=== PATIENT | female | born 1940 | race Caucasian/White ===

== ENCOUNTER → 2020-06-14 11:11 | Outpatient (REF) | payer MEDICARE, SELFPAY ==
--- NOTE | 2020-06-14 11:30 | CA_ITS ---
Transthoracic Echocardiogram Patient (Last, First, Middle): Radha Gautam, Gender: Female Date of : 1940 Age: 79 Procedure Date: 06/14/2020 Procedure Type: Transthoracic Echocardiogram Location: OP Height: 165.1 cm Weight: 77.11 kg BSA: 1.85 m2 Heart Rate: bpm BP: 122 / 76 mmHg Queen Producer: Referring MD: Otoniel Lees MD Symptoms: chemotherapy for breast ca, reduce EF Study Quality: Good ECG Rhythm: Sinus Conclusions: - Normal left ventricular cavity size. There is mildly increased left ventricular wall thickness. The left ventricular systolic function is hyperdynamic. The visually estimated ejection fraction is between 65-70%. - Normal right ventricular cavity size and systolic function. - No significant valvular or pericardial pathology. Findings Left Ventricle Normal left ventricular cavity size. There is mildly increased left ventricular wall thickness. The left ventricular systolic function is hyperdynamic. The visually estimated ejection fraction is between 65-70%. There is no evidence of regional wall motion abnormalities. Abnormal diastolic function is noted. Spectral Doppler is indicative of an impaired relaxation filling pattern. E/E prime ratio is between 8 and 15 consistent with indeterminate filling pressures. Right Ventricle Normal right ventricular cavity size and systolic function. Atria The left atrium is normal in size. There is no evidence of interatrial shunt by color Doppler. The right atrium is normal in size. Aortic Valve There is a normal trileaflet aortic valve. There is mild calcification of the aortic valve. There is no aortic valve stenosis. There is no aortic valve regurgitation. Mitral Valve Normal mitral valve structure and function. There is no mitral valve regurgitation. There is no mitral valve stenosis. Pulmonic Valve The pulmonic valve is likely normal. Tricuspid Valve Normal tricuspid valve structure and function. There is trace tricuspid valve regurgitation. Normal right atrial pressure. There is no evidence of pulmonary hypertension. Great Vessels All visible segments of the aorta are normal in size. The visualized portions of the pulmonary artery and branches are normal. Venous The inferior vena cava is normal in size and collapses greater than 50% with inspiration. Pericardium/Pleural There is no evidence of pericardial effusion. Prior Study Comparison No significant change compared to prior study dated: 08/13/2014. Measurements 2D Linear Measurements IVSd: 1.16 0.6-0.9/0.6-1.0 cm LVIDd: 4.27 3.9-5.3/4.2-5.9 cm LVIDs: 2.68 2.0-3.6 cm LVPWd: 1.18 0.7-1.1 cm Ao Root: 3.14 2.1-3.5 cm LV Mass: 219.33 67-162/88-224 g LVOT Diam: 2.19 3.0+(-)1.3 cm Mitral Valve MV Pk E: 0.70 MV PK A: 1.23 MV Decel Time: 214.70 E/A: 0.57 E'Lateral: 0.06 E'Medial: 0.05 Decel [place]: 3.27 Aortic Valve AoV Pk Merlin: 1.40 AoV Mn Merlin: 1.03 AoV VTI: 0.35 AoV Pk Grad: 7.89 Aov Mn Grad: 4.72 LVOT LVOT Pk Merlin: 1.04 LVOT Mn Merlin: 0.62 LVOT VTI: 0.28 LVOT Pk Grad: 4.34 LVOT Mn Grad: 1.96 LVOT Diam: 2.19 LVOT Area: 3.76 Diastolic Function MV Pk E: 0.70 MV Pk A: 1.23 E/A: 0.57 E'Medial: 0.05 E' Laterial: 0.06 Tricuspid Valve TR Pk Merlin: 1.64 TR Pk Grad: 10.73 RA Press: 3.00 RVSP: 15.00 Great Vessels Aorta Ao Root-2D: 3.14 2.0-3.7 cm Pulmonary Valve PV Pk Merlin: 0.83 Peak PV Grad: 2.79 Updated in Other Vendor System with Status of Final Hardik Avendano MD electronically signed on 06/14/2020 7:31:44 PM with status of Final
== END ==
LOC: HO.CARD 11:11
PROVIDERS: Visit Provider Internal Medicine Medical Oncology
DX: R09.89 Other specified symptoms and signs involving the circulatory and respiratory systems (principal)
CPT/HCPCS: 93306

== ENCOUNTER → 2020-08-23 14:05 | Outpatient (BNVA) | payer MEDICARE, SELFPAY | PROVIDERS: PCP Internal Medicine; Visit Provider Surgery | DX: C50.911 Malignant neoplasm of unspecified site of right female breast (principal); Z79.811 Long term (current) use of aromatase inhibitors; Z17.0 Estrogen receptor positive status [ER+] | CPT/HCPCS: 99212 ==

== ENCOUNTER 2020-09-02 09:56 | Outpatient (REF) | payer MEDICARE, SELFPAY ==
[2020-09-02 13:45] LABS: MANUAL DIFF FLAG NO
[2020-09-02 14:00] LABS: Basophils Percent Auto 0.6 % (0-2); Eosinophils Absolute Auto 0.2 X10*3/uL (0.0-0.4); Eosinophils Percent Auto 3.2 % (0-4); Hematocrit 40.5 % (37-47); Hemoglobin 13.2 g/dl (12.0-16.0); Imm Gran Abs Auto 0.02 X10*3/uL (0.00-0.03); Imm Gran Pct Auto 0.4 % (0.0-0.4); Lymphocytes Absolute Auto 0.8 X10*3/uL (1.2-4.9); Lymphocytes Percent Auto 17.7 % (20-40); Mean Corpuscular HGB Conc 32.6 g/dl (31.0-35.0); Mean Corpuscular Hemoglobin 31.9 pg (27.0-33.0); Mean Corpuscular Volume 97.8 fL (80-98); Mean Platelet Volume 11.6 fL (9.4-12.3); Monocytes Absolute Auto 0.5 X10*3/uL (0.1-1.2); Monocytes Percent Auto 10.3 % (2-11); Neutrophils Absolute Auto 3.2 X10*3/uL (2.0-8.3); Neutrophils Percent Auto 67.8 % (45-73); Platelet Count 143 X10*3/uL (160-400); Red Blood Count 4.14 X10*6/uL (4.20-5.50); Red Cell Distribution Width 12.4 % (11.0-16.0); White Blood Count 4.7 X10*3/uL (4.8-10.8)
[2020-09-02 14:33] LABS: Alanine Aminotransferase 26 U/L (0-31); Albumin Level 4.3 g/dL (3.5-5.0); Alkaline Phosphatase 74 U/L (39-117); Anion Gap 15 (12-20); Aspartate Amino Transferase 26 U/L (5-31); Bilirubin Total 1.2 mg/dL (0.0-1.0); Blood Urea Nitrogen 18 mg/dL (9-16); Calcium 9.1 mg/dL (8.4-10.2); Carbon Dioxide 24 mmol/L (22-29); Chloride 106 mmol/L (96-108); Cholesterol 170 mg/dL; Estimated Glomerular Filt Rate > 60; Glucose Fasting 104 mg/dL (60-99); HDL Cholesterol 57 mg/dL; LDL Cholesterol Calculated 97 mg/dl; Potassium 4.4 mmol/l (3.3-5.1); Sodium 141 mmol/L (135-145); Total Protein 6.8 g/dL (6.5-8.0); Triglycerides 83 mg/dL
== END 2020-09-02 09:57 | disposition home or self-care (01) ==
LOC: HO.10HDL 09:56
PROVIDERS: PCP Internal Medicine; Visit Provider Internal Medicine
DX: I10 Essential (primary) hypertension (principal); E78.00 Pure hypercholesterolemia, unspecified; J44.9 Chronic obstructive pulmonary disease, unspecified
CPT/HCPCS: 36415; 80053; 80061; 85025

== ENCOUNTER → 2020-11-08 10:01 | Outpatient (BNVA) | payer MEDICARE, SELFPAY | PROVIDERS: PCP Internal Medicine; Visit Provider Surgery | DX: C50.919 Malignant neoplasm of unspecified site of unspecified female breast (principal) | CPT/HCPCS: 99212 ==

== ENCOUNTER 2020-12-07 10:54 | Outpatient (REF) | payer MEDICARE, SELFPAY ==
[2020-12-07 13:58] LABS: Glucose Urine UA NEG (NEG); Leukocyte Esterase Urine TRACE (NEG); Nitrite Urine NEG (NEG); PH 6.5 (5.0-8.0); Specific Gravity - Urine 1.015 (1.005-1.025); UACC Culture Trigger YES; Urine Blood NEG (NEG); Urine Ketones NEG (NEG); Urine Protein NEG (NEG-TRACE)
[2020-12-07 13:59] LABS: Appearance Urine HAZY; Color Urine YELLOW
[2020-12-07 14:14] LABS: Bacteria Urine TRACE /LPF; RBC Urine 0 /HPF (0); Squamous Epithelial Cell Urine 1+ /LPF
== END 2020-12-07 10:55 | disposition home or self-care (01) ==
LOC: HO.HMGCLNP 10:54
PROVIDERS: PCP Internal Medicine; Visit Provider Internal Medicine
DX: R30.0 Dysuria (principal)
CPT/HCPCS: 81001; 81003; 87086

== ENCOUNTER 2020-12-29 13:14 | Outpatient (REF) | payer MEDICARE, SELFPAY ==
--- NOTE | ~2020-12-29 | MM_ITS ---
EXAMINATION: MM DIAGNOSTIC DIGITAL BREAST TOMOSYNTHESIS, BILATERAL CLINICAL INFORMATION: Due for yearly. 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 COMPARISON: Mammography: Localization radiographs 04/25/2020; Mammography 04/18/2020, 04/07/2020, 03/28/2020, 03/14/2020, 01/30/2015 2019, 02/19/2018. TECHNIQUE: Digital breast tomosynthesis is performed in both the craniocaudal and mediolateral oblique views along with computer-aided detection (CAD). Synthesized 2D images are generated from the tomosynthesis. Additional magnification views right breast are obtained in the CC x2, LM, and ML x2 projections. The right CC and right MLO views are obtained with scar marker. FINDINGS: The breasts are heterogeneously dense, which may obscure small masses (ACR BI-RADS breast composition Category c). There are post therapy changes on the right with minor scarring. Neither breast shows interval mass or suspicious architectural abnormality or abnormal calcifications. Again, there are scattered bilateral coarse round, punctate round, and some vascular calcifications. No significant changes. Results are provided to the patient at time of visit by the technologist. MM/MM tomosynthesis diagnostic BI IMPRESSION: No mammographic evidence of malignancy. Post therapy changes right breast. ASSESSMENT: BI-RADS 2: Benign RECOMMENDATION: Annual bilateral mammography. This patient's information was entered into a reminder system with a target due date for their next mammogram.
--- NOTE | ~2020-12-29 | MM_ITS ---
EXAMINATION: BONE DENSITOMETRY CLINICAL INDICATION: Encounter for screening for osteoporosis. Postmenopausal. COMPARISON: Baseline BD dated 05/09/2007. TECHNIQUE: Using a HitFix DXA System (software version: 13.1) manufactured by [email or web address], dual-energy x-ray absorptiometry was performed of the lumbar spine and right hip, (left hip replacement). The images are of good technical quality. Summary results are attached. FINDINGS: AP SPINE L1-L3 (excluding L2 and L4): The data of L1-L4 has been changed to exclude the L2 and L4 vertebral bodies, because degenerative changes at these levels may cause overestimation of lumbar spine density. Current: BMD 1.259 g/cm2, Z-score 2.3, T-score 0.8, normal, 1.3% increase from baseline (<5% change is not significant). Baseline: BMD 1.243 g/cm2. RIGHT FEMUR, NECK: Current: BMD 0.844 g/cm2, Z-score 0.5, T-score -1.4, osteopenia. Baseline: BMD 0.911 g/cm2. RIGHT FEMUR, TOTAL: Current: BMD 0.897 g/cm2, Z-score 0.8, T-score -0.9, normal, 11.1% decrease from baseline (<5% change is not significant). Baseline: BMD 1.009 g/cm2. IDENTIFIED RISK FACTORS: Height loss. Menopause. HISTORY OF FRACTURE: None listed. MEDICATIONS: Calcium or multivitamin. Vitamin D. ERT/SERMS. MM/XR DEXA axial skeleton IMPRESSION: 1. DIAGNOSIS: Osteopenia based on the lowest T-score value of -1.4 in the femoral neck applying World Health Organization criteria. 2. 10-YEAR FRACTURE RISK PREDICTION, FRAX: Major osteoporotic fracture (clinical spine, forearm, hip or shoulder) 12.4%. Hip fracture 2.7%. 3. Treatment Recommendations: NOF guidelines recommend consideration for treatment in postmenopausal women and men age 50 and older presenting with the following: -A hip or vertebral (clinical or morphometric) fracture. -T-score less than or equal to -2.5 at the femoral neck or spine after appropriate evaluation to exclude secondary causes. -Low bone mass at the hip or spine and a 10-year fracture probability by FRAX of greater than or equal to 3% for hip fracture or greater than or equal to 20% for major osteoporotic fracture based on the [place] adapted WHO algorithm. 4. Other Recommendations: All treatment decisions require clinical judgment and consideration of individual patient factors, including patient preferences, comorbidities, previous drug use, risk factors not captured in the FRAX model (e.g. frailty, falls, vitamin D deficiency, increased bone turnover, interval significant decline in bone density) and possible under or overestimation of fracture risk by FRAX. Additional medical evaluation for secondary cause of low bone mineral density may be appropriate. FUTURE SCAN RECOMMENDATION: People with diagnosed cases of osteoporosis or at high risk for fracture should have regular bone mineral density tests. For patients eligible for Medicare, routine testing is allowed once every 2 years. The testing frequency can be increased to one year for patients who have rapidly progressing disease, those who are receiving or discontinuing medical therapy to restore bone mass, or have additional risk factors.
== END 2020-12-29 13:15 | disposition home or self-care (01) ==
LOC: HO.MAMMO 13:14
PROVIDERS: Visit Provider Surgery
DX: Z13.820 Encounter for screening for osteoporosis (principal); Z78.0 Asymptomatic menopausal state; M85.80 Other specified disorders of bone density and structure, unspecified site; Z79.899 Other long term (current) drug therapy; Z85.3 Personal history of malignant neoplasm of breast
CPT/HCPCS: 77062; 77066; 77080

== ENCOUNTER → 2021-02-07 09:36 | Outpatient (BNVA) | payer MEDICARE, SELFPAY | PROVIDERS: PCP Internal Medicine; Visit Provider Surgery | DX: C50.919 Malignant neoplasm of unspecified site of unspecified female breast (principal) | CPT/HCPCS: 99212 ==

== ENCOUNTER 2021-03-14 11:41 | Outpatient (REF) | payer MEDICARE, SELFPAY ==
[2021-03-14 13:54] LABS: Glucose Urine UA NEG (NEG); Leukocyte Esterase Urine TRACE (NEG); Nitrite Urine NEG (NEG); UACC Culture Trigger YES; Urine Blood NEG (NEG); Urine Ketones NEG (NEG); Urine Protein NEG (NEG-TRACE)
[2021-03-14 14:01] LABS: Appearance Urine CLEAR; Color Urine YELLOW
[2021-03-14 14:41] LABS: RBC Urine 0 /HPF (0); Squamous Epithelial Cell Urine TRACE /LPF; WBC Urine 0-2 /HPF (0-4)
== END 2021-03-14 11:42 | disposition home or self-care (01) ==
LOC: HO.HMGCLDS 11:41
PROVIDERS: PCP Internal Medicine; Visit Provider Internal Medicine
DX: R30.0 Dysuria (principal)
CPT/HCPCS: 81001; 81003; 87086

== ENCOUNTER 2021-07-12 12:02 | Outpatient (REF) | payer MEDICARE, SELFPAY ==
--- NOTE | ~2021-07-12 | XR_ITS ---
EXAMINATION: XR CHEST CLINICAL INFORMATION: Shortness of breath. Hypertension. COMPARISON: CXR from 08/12/2014 TECHNIQUE: 2 views of the chest were obtained. FINDINGS: Lungs are well expanded and without acute abnormality compared to 08/12/2014. No evidence of interstitial disease, consolidation or pleural effusion. Cardiac silhouette remains normal in size. The hilar contours are normal. Pulmonary vasculature is grossly unremarkable. There is multilevel degenerative disc space narrowing and osteophyte formation of the thoracic spine. XR/XR chest 2V IMPRESSION: No evidence of cardiomegaly or congestive heart failure.
[2021-07-12 12:18] LABS: MANUAL DIFF FLAG NO
[2021-07-12 12:28] LABS: Basophils Percent Auto 0.6 % (0-2); Eosinophils Absolute Auto 0.1 X10*3/uL (0.0-0.4); Eosinophils Percent Auto 2.9 % (0-4); Hematocrit 39.6 % (37.0-47.0); Hemoglobin 12.7 g/dl (12.0-16.0); Imm Gran Abs Auto 0.01 X10*3/uL (0.00-0.03); Imm Gran Pct Auto 0.2 % (0.0-0.4); Lymphocytes Absolute Auto 0.9 X10*3/uL (1.2-4.9); Lymphocytes Percent Auto 17.7 % (20-40); Mean Corpuscular HGB Conc 32.1 g/dl (31.0-35.0); Mean Corpuscular Volume 96.6 fL (80.0-98.0); Mean Platelet Volume 10.7 fL (9.4-12.3); Monocytes Absolute Auto 0.5 X10*3/uL (0.1-1.2); Monocytes Percent Auto 10.3 % (2-11); Neutrophils Absolute Auto 3.3 x10*3/uL (2.0-8.3); Neutrophils Percent Auto 68.3 % (45-73); Platelet Count 150 X10*3/uL (160-400); Red Cell Distribution Width 12.7 % (11.0-16.0); White Blood Count 4.9 X10*3/uL (4.8-10.8)
[2021-07-12 12:56] LABS: Alanine Aminotransferase 27 U/L (0-31); Albumin Level 4.3 g/dL (3.5-5.0); Alkaline Phosphatase 79 U/L (39-117); Anion Gap 13 (12-20); Aspartate Amino Transferase 30 U/L (5-31); Bilirubin Total 1.3 mg/dL (0.0-1.0); Blood Urea Nitrogen 16 mg/dL (9-16); Calcium 9.6 mg/dL (8.4-10.2); Carbon Dioxide 27 mmol/L (22-29); Chloride 105 mmol/L (96-108); Estimated Glomerular Filt Rate > 60; Glucose Random 107 mg/dL (60-115); Potassium 4.2 mmol/L (3.3-5.1); Sodium 141 mmol/L (135-145); Total Protein 7.3 g/dL (6.5-8.0)
[2021-07-12 12:57] LABS: B Type Natriuretic Peptide 94 pg/mL (<100)
== END 2021-07-12 12:03 | disposition home or self-care (01) ==
LOC: HO.XRAY 12:02
PROVIDERS: PCP Internal Medicine; Visit Provider Internal Medicine
DX: R06.02 Shortness of breath (principal); I10 Essential (primary) hypertension
CPT/HCPCS: 36415; 71046; 80053; 83880; 85025

== ENCOUNTER 2021-07-18 10:53 | Outpatient (REF) | payer MEDICARE, SELFPAY ==
[2021-07-18 14:38] LABS: Anion Gap 14 (12-20); Blood Urea Nitrogen 22 mg/dL (9-16); Calcium 9.8 mg/dL (8.4-10.2); Carbon Dioxide 26 mmol/L (22-29); Chloride 106 mmol/L (96-108); Estimated Glomerular Filt Rate > 60; Glucose Random 101 mg/dL (60-115); Potassium 4.1 mmol/L (3.3-5.1); Sodium 142 mmol/L (135-145)
== END 2021-07-18 10:54 | disposition home or self-care (01) ==
LOC: HO.10HDL 10:53
PROVIDERS: Visit Provider Internal Medicine
DX: I10 Essential (primary) hypertension (principal); J44.9 Chronic obstructive pulmonary disease, unspecified
CPT/HCPCS: 36415; 80048

== ENCOUNTER → 2021-08-11 10:48 | Outpatient (BNVA) | payer MEDICARE, SELFPAY | PROVIDERS: PCP Internal Medicine; Referring Provider Internal Medicine; Visit Provider Surgery | DX: C50.919 Malignant neoplasm of unspecified site of unspecified female breast (principal); Z79.811 Long term (current) use of aromatase inhibitors | CPT/HCPCS: 99212 ==

== ENCOUNTER → 2021-08-31 13:37 | Outpatient (REF) | payer MEDICARE, SELFPAY ==
--- NOTE | 2021-08-31 13:41 | CA_ITS ---
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 Normal LV systolic function with impaired relaxation filling pattern 2. Mitral annular calcification with normal cardiac valvular Doppler 3. Normal RV systolic pressure 4. No gross pericardial effusion Findings Left Ventricle Normal left ventricular size, thickness, and systolic function. The visually estimated ejection fraction is between 60-65%. Regional wall motion abnormalities can not be excluded due to suboptimal endocardial definition. E/E prime ratio is between 8 and 15 consistent with indeterminate filling pressures. Right Ventricle Normal right ventricular cavity size and systolic function. Atria The left atrium is normal in size. There is no evidence of interatrial shunt. The right atrium is normal in size. Aortic Valve There is mild calcification of the aortic valve. There is no aortic valve stenosis. There is no aortic valve regurgitation. Mitral Valve There is mild anterior and moderate posterior mitral leaflet thickening. There is moderate mitral annular calcification. There is trace mitral valve regurgitation. There is no mitral valve stenosis. Pulmonic Valve The pulmonic valve was not well visualized. Tricuspid Valve Likely normal tricuspid valve structure and function. There is trace tricuspid valve regurgitation. The right ventricular systolic pressure is normal. The right ventricular systolic pressure is 21 mmHg. Normal right atrial pressure. There is no evidence of pulmonary hypertension. Great Vessels All visible segments of the aorta are normal in size. The pulmonary artery was not well visualized. Venous The inferior vena cava is normal in size and collapses greater than 50% with inspiration. Pericardium/Pleural There is no evidence of pericardial effusion. Prior Study Comparison No significant change compared to prior study dated: 06/14/2020. Measurements 2D Linear Measurements IVSd: 0.91 0.6-0.9/0.6-1.0 cm LVIDd: 4.44 3.9-5.3/4.2-5.9 cm LVIDd Index: 2.44 2.4-3.2/2.2-3.1 cm/m2 LVIDs: 3.22 2.0-3.6 cm LVPWd: 0.85 0.7-1.1 cm Ao Root: 3.10 2.1-3.5 cm LA Diam: 3.00 2.7-3.8/3.0-4.0 cm LAIDs Index: 1.65 1.5-2.3 cm/m2 LV Mass: 155.99 67-162/88-224 g LV Mass Index: 85.71 43-95/49-115 g/m2 LVOT Diam: 2.00 3.0+(-)1.3 cm 2D Systolic Function EF 4C: 57.70 >55% EF 2C: 58.40 >55% EF BiP: 58.00 >55% Mitral Valve MV Pk E: 1.00 MV PK A: 1.22 MV Decel Time: 217.00 E/A: 0.80 E'Lateral: 6.85 E'Medial: 7.40 E/E' Med: 13.50 E/E' Lat: 14.60 PHT: 64.00 MVA PHT: 3.44 Decel Snyder: 4.61 Aortic Valve AoV Pk Merlin: 1.18 AoV Mn Merlin: 0.77 AoV VTI: 0.26 AoV Pk Grad: 6.00 Aov Mn Grad: 3.00 SETH Cont.VTI: 2.97 LVOT LVOT Pk Merlin: 0.99 LVOT Mn Merlin: 0.63 LVOT VTI: 0.25 LVOT Pk Grad: 4.00 LVOT Mn Grad: 2.00 LVOT Diam: 2.00 LVOT Area: 3.14 Diastolic Function MV Pk E: 1.00 MV Pk A: 1.22 E/A: 0.80 E'Medial: 7.40 E/E' Med: 13.50 E' Laterial: 6.85 E/E' Lat: 14.60 Right Ventricle TAPSE (mm): 2.12 TVS' Merlin: 12.70 Tricuspid Valve TR Pk Merlin: 2.10 TR Pk Grad: 18.00 RA Press: 3.00 RVSP: 21.00 Great Vessels Aorta Ao Root-2D: 3.10 2.0-3.7 cm Ao Asc: 2.90 2.1-3.4 cm Ao Arch: 2.40 Updated in Other Vendor System with Status of Final Enrique Barone MD electronically signed on 08/31/2021 3:16:20 PM with status of Final
== END ==
LOC: HO.CARD 13:37
PROVIDERS: PCP Internal Medicine; Visit Provider Internal Medicine
DX: R06.02 Shortness of breath (principal); I50.9 Heart failure, unspecified; J44.9 Chronic obstructive pulmonary disease, unspecified
CPT/HCPCS: 93306

== ENCOUNTER 2021-09-20 11:34 | Outpatient (REF) | payer MEDICARE, SELFPAY ==
[2021-09-20 14:42] LABS: Anion Gap 11 (12-20); Blood Urea Nitrogen 19 mg/dL (9-16); Calcium 9.5 mg/dL (8.4-10.2); Carbon Dioxide 29 mmol/L (22-29); Chloride 107 mmol/L (96-108); Estimated Glomerular Filt Rate > 60; Glucose Random 96 mg/dL (60-115); Sodium 143 mmol/L (135-145)
== END 2021-09-20 11:35 | disposition home or self-care (01) ==
LOC: HO.10HDL 11:34
PROVIDERS: Visit Provider Internal Medicine
DX: I10 Essential (primary) hypertension (principal); J44.9 Chronic obstructive pulmonary disease, unspecified
CPT/HCPCS: 36415; 80048

== ENCOUNTER 2021-11-30 11:11 | Outpatient (REF) | payer MEDICARE, SELFPAY ==
[2021-11-30 12:14] LABS: Anion Gap 12 (12-20); Blood Urea Nitrogen 20 mg/dL (9-16); Calcium 10.3 mg/dL (8.4-10.2); Carbon Dioxide 27 mmol/L (22-29); Chloride 107 mmol/L (96-108); Estimated Glomerular Filt Rate > 60; Glucose Random 105 mg/dL (60-115); Potassium 4.8 mmol/L (3.3-5.1); Sodium 141 mmol/L (135-145)
== END 2021-11-30 11:12 | disposition home or self-care (01) ==
LOC: HO.LAB 11:11
PROVIDERS: PCP Internal Medicine; Visit Provider Internal Medicine
DX: I10 Essential (primary) hypertension (principal); J44.9 Chronic obstructive pulmonary disease, unspecified
CPT/HCPCS: 36415; 80048

== ENCOUNTER 2022-01-02 13:45 | Outpatient (REF) | payer MEDICARE, SELFPAY ==
--- NOTE | ~2022-01-02 | MM_ITS ---
EXAMINATION: MM DIAGNOSTIC DIGITAL BREAST TOMOSYNTHESIS, BILATERAL CLINICAL INFORMATION: Right breast cancer status post lumpectomy 04/25/2020 for 2 lesions posterior 12:00 (invasive ductal cancer) and anterior 12:00 (DCIS). Due for yearly. COMPARISON: Mammography: 12/29/2020, 04/25/2020, 04/07/2020, 03/28/2020, 03/14/2020, 03/09/2019 TECHNIQUE: Digital breast tomosynthesis is performed in both the craniocaudal and mediolateral oblique views along with computer-aided detection (CAD). Synthesized 2D images are generated from the tomosynthesis. FINDINGS: The breasts are heterogeneously dense, which may obscure small masses (ACR BI-RADS breast composition Category c). Breast tissue composition borders on extremely dense. There is fine fibronodular parenchymal pattern with distribution of fibroglandular tissue similar to prior studies. There are minor post surgical changes on the right again seen. There is no interval mass or architectural abnormality or abnormal calcifications in either breast. Some dermal lesions are again seen overlying the upper left breast. No significant changes. Results are provided to the patient at time of visit by the technologist. MM/MM tomosynthesis diagnostic BI IMPRESSION: -No mammographic evidence of malignancy. -Post therapy changes right breast. ASSESSMENT: BI-RADS 2: Benign RECOMMENDATION: Annual bilateral mammography. This patient's information was entered into a reminder system with a target due date for their next mammogram.
== END 2022-01-02 13:46 | disposition home or self-care (01) ==
LOC: HO.MAMMO 13:45
PROVIDERS: Visit Provider Surgery
DX: Z85.3 Personal history of malignant neoplasm of breast (principal)
CPT/HCPCS: 77062; 77066

== ENCOUNTER → 2022-02-09 08:50 | Outpatient (BNVA) | payer MEDICARE, SELFPAY | PROVIDERS: PCP Internal Medicine; Visit Provider Surgery | DX: C50.911 Malignant neoplasm of unspecified site of right female breast (principal); Z79.811 Long term (current) use of aromatase inhibitors; Z17.0 Estrogen receptor positive status [ER+] | CPT/HCPCS: 99212 ==

== ENCOUNTER 2022-05-10 10:31 | Outpatient (REF) | payer MEDICARE, SELFPAY ==
[2022-05-10 13:59] LABS: MANUAL DIFF FLAG NO
[2022-05-10 14:06] LABS: Basophils Percent Auto 0.6 % (0-2); Eosinophils Absolute Auto 0.1 X10*3/uL (0.0-0.4); Eosinophils Percent Auto 2.8 % (0-4); Hematocrit 40.5 % (37.0-47.0); Hemoglobin 13.3 g/dl (12.0-16.0); Imm Gran Abs Auto 0.02 X10*3/uL (0.00-0.03); Imm Gran Pct Auto 0.6 % (0.0-0.4); Lymphocytes Absolute Auto 0.8 X10*3/uL (1.2-4.9); Lymphocytes Percent Auto 23.2 % (20-40); Mean Corpuscular HGB Conc 32.8 g/dl (31.0-35.0); Mean Corpuscular Hemoglobin 31.7 pg (27.0-33.0); Mean Corpuscular Volume 96.7 fL (80.0-98.0); Mean Platelet Volume 11.4 fL (9.4-12.3); Monocytes Absolute Auto 0.5 X10*3/uL (0.1-1.2); Monocytes Percent Auto 12.6 % (2-11); Neutrophils Absolute Auto 2.2 x10*3/uL (2.0-8.3); Neutrophils Percent Auto 60.2 % (45-73); Platelet Count 131 X10*3/uL (160-400); Red Blood Count 4.19 X10*6/uL (4.20-5.50); Red Cell Distribution Width 12.4 % (11.0-16.0); White Blood Count 3.6 X10*3/uL (4.8-10.8)
[2022-05-10 14:19] LABS: Alanine Aminotransferase 24 U/L (0-31); Albumin Level 4.2 g/dL (3.5-5.0); Alkaline Phosphatase 81 U/L (39-117); Anion Gap 13 (12-20); Aspartate Amino Transferase 25 U/L (5-31); Bilirubin Total 1.4 mg/dL (0.0-1.0); Blood Urea Nitrogen 21 mg/dL (9-16); Calcium 9.6 mg/dL (8.4-10.2); Carbon Dioxide 27 mmol/L (22-29); Chloride 105 mmol/L (96-108); Cholesterol 167 mg/dL; Estimated Glomerular Filt Rate > 60; Glucose Fasting 106 mg/dL (60-99); HDL Cholesterol 53 mg/dL; LDL Cholesterol Calculated 101 mg/dl; Potassium 4.2 mmol/L (3.3-5.1); Sodium 141 mmol/L (135-145); Total Protein 6.9 g/dL (6.5-8.0); Triglycerides 68 mg/dL
== END 2022-05-10 10:32 | disposition home or self-care (01) ==
LOC: HO.HMGCLDS 10:31
PROVIDERS: PCP Internal Medicine; Visit Provider Internal Medicine
DX: J44.9 Chronic obstructive pulmonary disease, unspecified (principal); I10 Essential (primary) hypertension; E78.00 Pure hypercholesterolemia, unspecified
CPT/HCPCS: 36415; 80053; 80061; 85025

== ENCOUNTER 2022-07-26 12:36 | Outpatient (REF) | payer MEDICARE, SELFPAY ==
[2022-07-26 14:02] LABS: Appearance Urine Cloudy; Color Urine Yellow; Glucose Urine UA Negative (Negative); Leukocyte Esterase Urine Large (3+) (Negative); Nitrite Urine Negative (Negative); Specific Gravity - Urine 1.025 (1.005-1.025); UMIC TRIGGER UACC YES; Urine Blood Small (1+) (Negative); Urine Ketones Negative (Negative); Urine Protein Trace mg/dL (Neg-Trace)
[2022-07-26 14:09] LABS: Bacteria Urine 2+ (None Seen); Hyaline Casts Urine 0-2 /LPF (0-2); Renal Epithelial Cells Urine Present; UACC Culture Trigger YES; WBC Urine >50 /HPF (0-5)
[2022-07-26 14:10] LABS: WBC Clumps Urine Present
== END 2022-07-26 12:37 | disposition home or self-care (01) ==
LOC: HO.HMGCLDS 12:36
PROVIDERS: PCP Internal Medicine; Visit Provider Internal Medicine
DX: R30.0 Dysuria (principal)
CPT/HCPCS: 81001; 81003; 87086

== ENCOUNTER 2022-08-07 10:52 | Outpatient (REF) | payer MEDICARE, SELFPAY ==
[2022-08-07 14:26] LABS: Urine Cytology See Pathology rpt
[2022-08-07 14:37] LABS: Appearance Urine Cloudy; Color Urine Yellow; Glucose Urine UA Negative (Negative); Leukocyte Esterase Urine Large (3+) (Negative); Nitrite Urine Negative (Negative); UMIC TRIGGER UACC YES; Urine Blood Trace (Negative); Urine Ketones Negative (Negative); Urine Protein Trace mg/dL (Neg-Trace)
[2022-08-07 14:52] LABS: Bacteria Urine Trace (None Seen); Hyaline Casts Urine 0-2 /LPF (0-2); Squamous Epithelial Cell Urine 0-2 /HPF (0-2); UACC Culture Trigger YES; WBC Urine >50 /HPF (0-5)
== END 2022-08-07 10:53 | disposition home or self-care (01) ==
LOC: HO.10HDL 10:52
PROVIDERS: Visit Provider Internal Medicine
DX: R30.0 Dysuria (principal); R32 Unspecified urinary incontinence
CPT/HCPCS: 81001; 87086; 88112

== ENCOUNTER 2022-12-12 09:27 | Outpatient (REF) | payer MEDICARE, SELFPAY ==
--- NOTE | ~2022-12-12 | US_ITS ---
EXAMINATION: Noninvasive assessment of the bilateral lower extremities with ARTERIAL DUPLEX. CLINICAL INFORMATION: Peripheral vascular disease TECHNIQUE: Duplex Doppler techniques with waveform analysis and measurement of velocities in the bilateral common femoral, profunda femoris, superficial femoral, popliteal and tibial arteries were performed. COMPARISON: None FINDINGS: DIRECT DUPLEX DOPPLER FINDINGS: RIGHT LEG: Common femoral artery: 402 cm/s, phasicity: Triphasic Profunda femoris artery: 510 cm/s, phasicity: Monophasic Superficial femoral artery (proximal): 303 cm/s, phasicity: Biphasic Superficial femoral artery (mid): 175 cm/s, phasicity: Biphasic Superficial femoral artery (distal): 75.4 cm/s, phasicity: Biphasic Popliteal artery: 52.6 cm/s, phasicity: Biphasic Posterior tibial artery: 74.3 cm/s, phasicity: Biphasic Peroneal artery: Not visualized LEFT LEG: Common femoral artery: 141 cm/s, phasicity: Monophasic Profunda femoris artery: 89.7 cm/s, phasicity: Monophasic Superficial femoral artery (proximal): 49.5 cm/s, phasicity: Monophasic Superficial femoral artery (mid): 133 cm/s, phasicity: Monophasic Superficial femoral artery (distal): 64.0 cm/s, phasicity: Monophasic Popliteal artery: 29.8 cm/s, phasicity: Monophasic Posterior tibial artery: 24.9 cm/s, phasicity: Monophasic Peroneal artery: 21.0 cm/s, phasicity: Monophasic Incidental note is made of a complex Gaitan's cyst in the left popliteal fossa measuring 4.3 x 1.1 x 2.4 cm US/US arterial duplex LE BI IMPRESSION: Right leg: Elevated velocities in the common femoral artery, profunda femoral artery and proximal superficial femoral artery consistent with moderate to severe stenosis Left leg: Diffusely monophasic waveforms throughout the left lower extremity indicating more proximal iliac artery disease
== END 2022-12-12 09:28 | disposition home or self-care (01) ==
LOC: HO.US 09:27
PROVIDERS: PCP Internal Medicine; Visit Provider Internal Medicine
DX: I70.213 Atherosclerosis of native arteries of extremities with intermittent claudication, bilateral legs (principal)
CPT/HCPCS: 93925

== ENCOUNTER → 2022-12-25 09:42 | Outpatient (BNVA) | payer MEDICARE, SELFPAY | PROVIDERS: PCP Internal Medicine; Visit Provider Surgery Vascular Surgery | DX: I73.9 Peripheral vascular disease, unspecified (principal) | CPT/HCPCS: 99202 ==

== ENCOUNTER 2023-01-02 07:17 | Day surgery (SDC) | payer MEDICARE, SELFPAY ==
[2023-01-02] VITALS (7 sets, daily range): BP systolic 112–149; BP diastolic 59–73; PULSE 70–79; RESP 14–18; TEMP 36.3–36.5; O2SAT 94–97; BMI 25.1
[2023-01-02 08:27] LABS: Basophils Percent Auto 0.8 % (0-2); Eosinophils Absolute Auto 0.2 X10*3/uL (0.0-0.4); Eosinophils Percent Auto 3.4 % (0-4); Hematocrit 33.8 % (37.0-47.0); Hemoglobin 10.5 g/dl (12.0-16.0); Imm Gran Abs Auto 0.01 X10*3/uL (0.00-0.03); Imm Gran Pct Auto 0.2 % (0.0-0.4); Lymphocytes Absolute Auto 0.7 X10*3/uL (1.2-4.9); Lymphocytes Percent Auto 14.8 % (20-40); MANUAL DIFF FLAG NO; Mean Corpuscular HGB Conc 31.1 g/dl (31.0-35.0); Mean Corpuscular Volume 99.7 fL (80.0-98.0); Mean Platelet Volume 10.6 fL (9.4-12.3); Monocytes Absolute Auto 0.5 X10*3/uL (0.1-1.2); Monocytes Percent Auto 10.6 % (2-11); Neutrophils Absolute Auto 3.5 x10*3/uL (2.0-8.3); Neutrophils Percent Auto 70.2 % (45-73); Platelet Count 188 X10*3/uL (160-400); Red Blood Count 3.39 X10*6/uL (4.20-5.50); Red Cell Distribution Width 12.3 % (11.0-16.0)
[2023-01-02 09:12] LABS: Blood Urea Nitrogen 18 mg/dL (9-16); Creatinine Clr Calc Pharmacy 50.7; Estimated Glomerular Filt Rate > 60
--- NOTE | 2023-01-02 12:23 | W.PM.OPN ---
Operative Note Operative Note Date of Service: 01/02/23 Narrative: Angiogram report from [facility] Preoperative diagnosis: Atherosclerosis of left lower extremity with activity limiting claudication Postoperative diagnosis: Same Procedure: 1. Ultrasound-guided right common femoral access 2. Aortogram with left lower extremity runoff 3. Left SFA atherectomy and stent 4. Left common iliac and external iliac stent Surgeon:Jaleel Winters M.D., FACS, RPVI Delivery Crew Member:None Anesthesia: Local with moderate conscious sedation. Total intraservice moderate sedation time was 65 minutes. I monitored the patient's level of consciousness and physiologic status continuously throughout the procedure. Specimens:none Drains:none Estimated blood loss: Less than 10 ml Implant: Medtronic Ev 3 Everflex 6 x 100; Medtronic visi Pro 8 x 27; Medtronic Impact DCB 6 x 120 Indications: 82-year-old female who presented to the office with activity limiting claudication. Noninvasive testing demonstrated concern inflow and outflow disease. The patient has signed the informed consent after reviewing risks, complications, benefits, and alternatives previously discussed with the patient. The patient was given the opportunity to ask any additional questions or voice any concerns. All questions were answered to the patient's satisfaction. Procedure in detail: Patient was brought to the angiography suite prior to which a time-out was called for patient identification and site verification. Bilateral groins were prepped and draped in the standard surgical fashion. Under ultrasound guidance right common femoral was punctured with micro puncture needle and wire. Subsequently a precision 4 Salvadorean sheath was then placed. Bentson wire was advanced to the level of the aorta. 4 Salvadorean Flush catheter was brought up and parked at the level of the renal arteries. Aortogram was then undertaken. Catheter was brought down to the level of the iliac bifurcation. Iliacs were subsequently imaged. Catheter was then brought in up and over to the left side SFA. Runoff study was then undertaken. We then placed a [id number] glidewire Advantage into the SFA. Once in position we then placed an up and over 6 Salvadorean sheath. 5000 units of systemic heparin was administered. After 5 minutes of circulation time we then brought in a trail Blazer catheter. We confirmed true lumen. Once in position we then exchanged out for 6 Salvadorean spider wire. At Florence's canal there was high-grade stenosis. We then used a Hawk 1 atherectomy. Multiple unidirectional passes were then undertaken. Once this was complete there was still residual stenosis. We then placed a 6 x 100 Medtronic Everflex stent. This was followed up by a Medtronic Impact 6 x 120 DCB. This was brought into position in under 3 minutes and insufflated for a total of 3 minutes in duration. Once this was all accomplished we turned our attention to the iliacs. There was a high-grade stenosis at the junction between the common iliac and external iliac. This was then treated with a Medtronic visi Pro 8 x 27 balloon expandable stent. Once this was accomplished completion angiogram demonstrated excellent result. Catheter wire sheath was then brought back to the ipsilateral side. StarClose closure device was deployed. Patient tolerated the procedure well returned to recovery with stable vitals. Interpretation of films: 1. Ultrasound demonstrates appropriate femoral puncture. Image of which was saved. 2. Aortogram demonstrates appropriate caliber aorta. Minimal disease. Appropriate take-off of the renals. 3. Iliac images demonstrate significant calcification at the bifurcation but no flow-limiting stenosis. Left side had high-grade stenosis at the junction between the common iliac and external iliac 4. Left Leg Common femoral artery: No significant disease Profundus Femoris: No significant disease Superficial femoral artery: High-grade stenosis at David's canal Popliteal artery (p1,p2,p3): No significant disease Anterior tibial artery: No significant disease Peroneal artery: No significant disease Posterior tibial artery: No significant disease Dorsalis pedis/plantar arch: Incomplete Conclusion: 1. Successful left SFA atherectomy and stent; successful left common iliac and external iliac stent 2. Anticoagulation status: Will require aspirin and Plavix for 6 months This note is constructed using voice recognition software. While every effort has been made to ensure accuracy, certified surgical tech/first assistant errors may have been included. Thank you for allowing me to participate in the care of your patient. Yours sincerely, Jaleel Winters MD, FACS, R.P.V.I.
[2023-01-02] MEDS: Clopidogrel Bisulfate 300 MG TABLET PO (12:55)
== END 2023-01-02 14:38 | disposition home or self-care (01) ==
PROVIDERS: PCP Internal Medicine; Visit Provider Surgery Vascular Surgery
DX: I70.212 Atherosclerosis of native arteries of extremities with intermittent claudication, left leg (principal); M79.662 Pain in left lower leg; R26.2 Difficulty in walking, not elsewhere classified; Z79.82 Long term (current) use of aspirin; Z79.899 Other long term (current) drug therapy; Z88.0 Allergy status to penicillin; Z88.1 Allergy status to other antibiotic agents; Z96.642 Presence of left artificial hip joint; Z98.890 Other specified postprocedural states; Z87.891 Personal history of nicotine dependence; Z87.01 Personal history of pneumonia (recurrent)
CPT/HCPCS: 36415; 37221; 37227; 76937; 82565; 84520; 85025; 99152; 99153; C1714; C1725; C1760; C1769; C1876; C1884; C1887; J1643; J2250; J3010; Q9967

== ENCOUNTER 2023-01-16 15:14 | Outpatient (REF) | payer MEDICARE, SELFPAY ==
--- NOTE | ~2023-01-16 | MM_ITS ---
EXAMINATION: MM DIAGNOSTIC DIGITAL BREAST TOMOSYNTHESIS, BILATERAL CLINICAL INFORMATION: Due for yearly. Prior lumpectomy 04/25/2020 right breast for 2 separate sites: IDC posterior 12:00 and high-grade DCIS anterior breast. COMPARISON: Multiple prior mammography exams including most recent 01/02/2022. TECHNIQUE: Digital breast tomosynthesis is performed in both the craniocaudal and mediolateral oblique views along with computer-aided detection (CAD). Synthesized 2D images are generated from the tomosynthesis. Additional magnification right CC and magnification right ML views are provided. FINDINGS: The breasts are heterogeneously dense, which may obscure small masses (ACR BI-RADS breast composition Category c). There are post therapy changes right breast with mild reduced breast size and stable scarring. Neither breast shows interval mass or architectural abnormality or abnormal calcifications. There are dermal lesions seen overlying the outer left breast. Bilateral benign coarse and punctate and vascular calcifications are again noted. No significant changes. Results are provided to the patient at time of visit by the technologist. MM/MM tomosynthesis diagnostic BI IMPRESSION: -No mammographic evidence of malignancy. ASSESSMENT: BI-RADS 2: Benign RECOMMENDATION: Annual bilateral mammography. This patient's information was entered into a reminder system with a target due date for their next mammogram.
== END 2023-01-16 15:15 | disposition home or self-care (01) ==
LOC: HO.MAMMO 15:14
PROVIDERS: PCP Internal Medicine Medical Oncology; Visit Provider Internal Medicine Medical Oncology
DX: C50.811 Malignant neoplasm of overlapping sites of right female breast (principal)
CPT/HCPCS: 77062; 77066

== ENCOUNTER → 2023-01-17 10:28 | Outpatient (BNVA) | payer MEDICARE, SELFPAY | PROVIDERS: PCP Internal Medicine Medical Oncology; Visit Provider Surgery Vascular Surgery | DX: I73.9 Peripheral vascular disease, unspecified (principal) | CPT/HCPCS: 99212 ==

== ENCOUNTER → 2023-01-22 13:52 | Outpatient (BNVA) | payer MEDICARE, SELFPAY | PROVIDERS: PCP Internal Medicine; Visit Provider Surgery | DX: C50.919 Malignant neoplasm of unspecified site of unspecified female breast (principal) ==

== ENCOUNTER 2023-01-22 14:41 | Inpatient (IN) | payer MEDICARE, SELFPAY ==
[2023-01-22] VITALS (13 sets, daily range): BP systolic 85–132; BP diastolic 37–75; PULSE 77–96; RESP 13–20; TEMP 36.4–36.8; O2SAT 97–100; BMI 26.6
--- NOTE | ~2023-01-22 | CT_ITS ---
EXAMINATION: CT ABDOMEN AND PELVIS WITH GI BLEED STUDY WITH AND WITHOUT CONTRAST CLINICAL INFORMATION: GI bleed COMPARISON: None TECHNIQUE: Multidetector volumetric imaging was performed from the superior aspect of the liver through the pubic symphysis without and with intravenous contrast. A total of 85 mL of Omnipaque 350 was used for contrast enhanced portion of the study. 2 postcontrast sets of scans were performed one during the arterial phase and one after a 2 minute delay. Sagittal and coronal reformatted images were obtained on the technologist's workstation. This CT examination was performed using dose optimization techniques as appropriate, variously including the following: *Automated exposure control *Adjustment of mA and/or kV according to patient size (this includes techniques or standardized protocols for targeted exams where dose is matched to indication/reason for exam; i.e. extremities or head) *Use of iterative reconstruction technique DLP: 1445 mGy-cm FINDINGS: LUNG BASES: The visualized lung bases are unremarkable. LIVER, GALLBLADDER, AND BILIARY TREE: The liver is normal in size, shape, and attenuation. No focal hepatic lesion or biliary ductal dilatation is present. The gallbladder contains some tiny gallstones but is otherwise unremarkable with no evidence of radiopaque pericholecystic inflammatory changes. PANCREAS: Unremarkable. SPLEEN: Unremarkable. ADRENAL GLANDS: Unremarkable. KIDNEYS AND URETERS: The kidneys are normal in size, shape, and attenuation. There is cortical scarring with thinning in the upper pole the left kidney posteriorly. Some tiny cortical hypodensities seen consistent with benign cysts which need no additional imaging or follow-up. No worrisome renal masses. No hydronephrosis, hydroureter, or calculi seen. No perinephric stranding. BLADDER: Unremarkable. GASTROINTESTINAL TRACT: A small hiatal hernia is present. Mild colonic diverticular disease is seen without diverticulitis. The small and large bowel are otherwise unremarkable. The appendix is not seen but there is no evidence of appendicitis.. There is no extravasation of contrast seen into bowel either on the arterial or delayed phase of the exam. ABDOMINAL WALL: No significant hernia is appreciated. LYMPH NODES: No retroperitoneal lymphadenopathy. VASCULAR: Marked calcific atherosclerotic changes are present in the aorta and iliofemoral vessels. Mild stenotic disease present at the origins of the celiac and SMA as well as the VINEET. Bilateral mild renal artery stenoses are seen. The portal venous system appears normal. The IVC and renal veins appear normal. Hepatic veins are unremarkable. PELVIC VISCERA: The uterus and adnexa are unremarkable. OSSEOUS STRUCTURES: Left total hip prosthesis is present. Degenerative changes are present throughout the spine. Grade 1 anterolisthesis of L4 upon L5 with bilateral L4 pars defects. Degenerative changes are present in the right hip with subchondral cysts and joint space narrowing. CT/CT gi bleed abd pel wo/w IVcon IMPRESSION: 1. No evidence of active GI bleeding. 2. Incidental note made of cholelithiasis, left renal scarring, small hiatal hernia, colonic diverticulosis without diverticulitis and degenerative changes in the spine and right hip. Fleischner guidelines were followed.
--- NOTE | 2023-01-22 14:47 | ED.GENADULT ---
HPI - General Adult General Chief complaint: General Medical Stated complaint: Hypotensive Time Seen by Provider: 01/22/23 15:44 Related Data Home Medications Medication Instructions Recorded Confirmed albuterol sulfate 90 mcg/actuation 2 inh inhalation ONCE 08/23/20 01/02/23 breath activated powder inhaler,sensor (Proair Digihaler) aspirin 81 mg chewable tablet 81 mg PO DAILY 08/23/20 01/02/23 atenolol 25 mg tablet 25 mg PO DAILY 08/23/20 01/02/23 atorvastatin 40 mg tablet 40 mg PO BEDTIME 08/23/20 01/02/23 cholecalciferol (vitamin D3) 25 25 mcg PO DAILY 08/23/20 01/02/23 mcg (1,000 unit) capsule diltiazem HCl 120 mg 120 mg PO DAILY 08/23/20 01/02/23 capsule,extended release 24 hr flaxseed oil 1,000 mg capsule 1,000 mg PO DAILY 08/23/20 01/02/23 meclizine 12.5 mg tablet 12.5 mg PO DAILY 08/23/20 01/02/23 salmeterol 50 mcg/dose blister 1 inh inhalation Q12H 08/23/20 01/02/23 powder for inhalation (Serevent Diskus) anastrozole 1 mg tablet 1 mg PO DAILY 11/08/20 01/02/23 furosemide 20 mg tablet 20 mg PO DAILY 08/11/21 01/02/23 mirabegron 50 mg tablet,extended 50 mg PO DAILY 12/25/22 01/02/23 release 24 hr (Myrbetriq) Previous Rx's Medication Instructions Recorded clopidogrel 75 mg tablet (Plavix) 75 mg PO DAILY #30 tabs 01/02/23 Allergies Allergy/AdvReac Type Severity Reaction Status Date / Time Penicillins [PENICILLINS] Allergy Severe ITCHING Verified 01/22/23 14:11 Erythromycin Allergy Severe itching Uncoded 01/22/23 14:11 PMFSH Past Medical History Medical History (Updated 01/22/23 @ 16:18 by Tiffany Ryder MD) History of dislocation of shoulder History of pneumonia Invasive ductal carcinoma of right breast Surgical History History of appendectomy History of back surgery History of cataract extraction History of left hip replacement History of vein stripping Family History Family History Mother Cancer of unknown origin Social History Social History Alcohol intake: current Alcohol intake frequency: holidays/special occasions only Patient Tobacco Use Status: Never used Tobacco Smoked in Last 30 Days: No Use of substances other than those prescribed or required for medical reasons: No Advance Directives: No Advance Directives Information Provided: No Physical Exam ED Vital Signs: Vital Signs - 24 hr 01/22/23 14:46 01/22/23 16:00 01/22/23 16:46 Temperature 98 F Pulse Rate 84 82 84 Respiratory Rate 18 19 20 Blood Pressure 122/60 85/37 L 111/52 L Pulse Oximetry 97 98 100 Oxygen Delivery Method Room Air Room Air 01/22/23 17:22 01/22/23 17:22 01/22/23 17:23 Temperature Pulse Rate 85 96 94 Respiratory Rate Blood Pressure 108/52 L 110/53 L 103/48 L Pulse Oximetry Oxygen Delivery Method BMI result Body Mass Index 26.6 Course Course Course Narrative: RME - 82 yo female with history of breast cancer s/p lumpectomy and right axillary sentinel node biopsy, status post radiation, history of peripheral arterial disease status post left SFA arthrectomy and stent, left common iliac and external iliac stent by Dr. Winters 20 days ago presents to the ER from Dr. Johnson office for evaluation of hypotension. Blood pressure there was supported the 80/50. Patient reports she was feeling dizzy and lightheaded this morning. She has been pale at home. Denies any melanotic stools or bloody stools at home. She is newly on plavix. Blood pressure 122/60 in triage. She is pale. Plan: Check blood counts, type and screen, closely monitor blood pressure. Medications Administered Discontinued Medications Generic Name Dose Route Start Last Admin Trade Name Freq PRN Reason Stop Dose Admin Iohexol 100 ml 01/22/23 18:45 01/22/23 18:45 Iohexol 350 Mg/Ml 100 Ml Infus..Btl IV 01/22/23 18:46 85 ml ONCE ONE Administration Medical Decision Making Lab Data 01/22/23 15:14 01/22/23 15:14 Labs: Lab Results 01/22/23 01/22/23 01/22/23 Range/Units 15:14 15:14 15:14 WBC 3.2 L (4.8-10.8) X10*3/uL RBC 2.10 L D (4.20-5.50) X10*6/uL Hgb 6.2 L* D (12.0-16.0) g/dl Hct 20.4 L* D (37.0-47.0) % MCV 97.1 (80.0-98.0) fL MCH 29.5 (27.0-33.0) pg MCHC 30.4 L (31.0-35.0) g/dl RDW 13.1 (11.0-16.0) % Plt Count 146 L (160-400) X10*3/uL MPV 11.1 (9.4-12.3) fL Immature Gran % (Auto) 0.3 (0.0-0.4) % Neut % (Auto) 69.2 (45-73) % Lymph % (Auto) 16.5 L (20-40) % [place] % (Auto) 11.2 H (2-11) % Eos % (Auto) 2.2 (0-4) % Baso % (Auto) 0.6 (0-2) % Lymph # (Auto) 0.5 L (1.2-4.9) X10*3/uL [place] # (Auto) 0.4 (0.1-1.2) X10*3/uL Eos # (Auto) 0.1 (0.0-0.4) X10*3/uL Baso # (Auto) 0.0 (0.0-0.2) X10*3/uL Abs Immat Gran (auto) 0.01 (0.00-0.03) X10*3/uL Absolute Neuts (auto) 2.2 (2.0-8.3) x10*3/uL Absolute Nucleated RBC 0.000 (0.0-0.012) X10*3/uL Nucleated RBC % (auto) 0.0 (0.0-0.2) /100WBC PT 11.9 (10.0-13.1) SEC INR 1.0 (0.9-1.1) APTT (26.0-36.4) SEC Sodium 143 (135-145) mmol/L Potassium 4.0 (3.3-5.1) mmol/L Chloride 110 H (96-108) mmol/L Carbon Dioxide 22 (22-29) mmol/L Anion Gap 15 (12-20) BUN 23 H (9-16) mg/dL Creatinine 0.92 (0.5-1.4) mg/dL Estim Creat Clear Calc 48.6 Estimated GFR 59 Random Glucose 102 (60-115) mg/dL Calcium 9.0 D (8.4-10.2) mg/dL Magnesium 2.1 (1.6-2.6) mg/dL Total Bilirubin 0.7 (0.0-1.0) mg/dL Direct Bilirubin 0.2 (0.0-0.5) mg/dL AST 22 (5-31) U/L ALT 19 (0-31) U/L Alkaline Phosphatase 60 (39-117) U/L Troponin I High Sens (<3.5-17.0) ng/L Total Protein 6.2 L (6.5-8.0) g/dL Albumin 3.8 (3.5-5.0) g/dL Stool Occult Blood (NEGATIVE) Blood Type Antibody Screen Antibody Identification Crossmatch Crossmatch (AHG) Enhanced Crossmatch Blood Bank Comment 01/22/23 01/22/23 01/22/23 Range/Units 15:14 15:14 15:42 WBC (4.8-10.8) X10*3/uL RBC (4.20-5.50) X10*6/uL Hgb (12.0-16.0) g/dl Hct (37.0-47.0) % MCV (80.0-98.0) fL MCH (27.0-33.0) pg MCHC (31.0-35.0) g/dl RDW (11.0-16.0) % Plt Count (160-400) X10*3/uL MPV (9.4-12.3) fL Immature Gran % (Auto) (0.0-0.4) % Neut % (Auto) (45-73) % Lymph % (Auto) (20-40) % [place] % (Auto) (2-11) % Eos % (Auto) (0-4) % Baso % (Auto) (0-2) % Lymph # (Auto) (1.2-4.9) X10*3/uL [place] # (Auto) (0.1-1.2) X10*3/uL Eos # (Auto) (0.0-0.4) X10*3/uL Baso # (Auto) (0.0-0.2) X10*3/uL Abs Immat Gran (auto) (0.00-0.03) X10*3/uL Absolute Neuts (auto) (2.0-8.3) x10*3/uL Absolute Nucleated RBC (0.0-0.012) X10*3/uL Nucleated RBC % (auto) (0.0-0.2) /100WBC PT (10.0-13.1) SEC INR (0.9-1.1) APTT 27.9 (26.0-36.4) SEC Sodium (135-145) mmol/L Potassium (3.3-5.1) mmol/L Chloride (96-108) mmol/L Carbon Dioxide (22-29) mmol/L Anion Gap (12-20) BUN (9-16) mg/dL Creatinine (0.5-1.4) mg/dL Estim Creat Clear Calc Estimated GFR Random Glucose (60-115) mg/dL Calcium (8.4-10.2) mg/dL Magnesium (1.6-2.6) mg/dL Total Bilirubin (0.0-1.0) mg/dL Direct Bilirubin (0.0-0.5) mg/dL AST (5-31) U/L ALT (0-31) U/L Alkaline Phosphatase (39-117) U/L Troponin I High Sens < 2.7 (<3.5-17.0) ng/L Total Protein (6.5-8.0) g/dL Albumin (3.5-5.0) g/dL Stool Occult Blood (NEGATIVE) Blood Type A Negative Antibody Screen POSITIVE Antibody Identification Negative Crossmatch See Detail Crossmatch (AHG) See Detail Enhanced Crossmatch See Detail Blood Bank Comment Technical 01/22/23 Range/Units 17:25 WBC (4.8-10.8) X10*3/uL RBC (4.20-5.50) X10*6/uL Hgb (12.0-16.0) g/dl Hct (37.0-47.0) % MCV (80.0-98.0) fL MCH (27.0-33.0) pg MCHC (31.0-35.0) g/dl RDW (11.0-16.0) % Plt Count (160-400) X10*3/uL MPV (9.4-12.3) fL Immature Gran % (Auto) (0.0-0.4) % Neut % (Auto) (45-73) % Lymph % (Auto) (20-40) % [place] % (Auto) (2-11) % Eos % (Auto) (0-4) % Baso % (Auto) (0-2) % Lymph # (Auto) (1.2-4.9) X10*3/uL [place] # (Auto) (0.1-1.2) X10*3/uL Eos # (Auto) (0.0-0.4) X10*3/uL Baso # (Auto) (0.0-0.2) X10*3/uL Abs Immat Gran (auto) (0.00-0.03) X10*3/uL Absolute Neuts (auto) (2.0-8.3) x10*3/uL Absolute Nucleated RBC (0.0-0.012) X10*3/uL Nucleated RBC % (auto) (0.0-0.2) /100WBC PT (10.0-13.1) SEC INR (0.9-1.1) APTT (26.0-36.4) SEC Sodium (135-145) mmol/L Potassium (3.3-5.1) mmol/L Chloride (96-108) mmol/L Carbon Dioxide (22-29) mmol/L Anion Gap (12-20) BUN (9-16) mg/dL Creatinine (0.5-1.4) mg/dL Estim Creat Clear Calc Estimated GFR Random Glucose (60-115) mg/dL Calcium (8.4-10.2) mg/dL Magnesium (1.6-2.6) mg/dL Total Bilirubin (0.0-1.0) mg/dL Direct Bilirubin (0.0-0.5) mg/dL AST (5-31) U/L ALT (0-31) U/L Alkaline Phosphatase (39-117) U/L Troponin I High Sens (<3.5-17.0) ng/L Total Protein (6.5-8.0) g/dL Albumin (3.5-5.0) g/dL Stool Occult Blood POSITIVE (NEGATIVE) Blood Type Antibody Screen Antibody Identification Crossmatch Crossmatch (AHG) Enhanced Crossmatch Blood Bank Comment Discharge Plan Discharge Prescriptions: No Action clopidogrel [Plavix] 75 mg tablet 75 mg PO DAILY Qty: 30 0RF anastrozole 1 mg tablet 1 mg PO DAILY atenolol 25 mg tablet 25 mg PO DAILY diltiazem HCl 120 mg capsule,extended release 24hr 120 mg PO DAILY Serevent Diskus 50 mcg/dose blister with device 1 inh inhalation Q12H Proair Digihaler 90 mcg/actuation aero powdr breath act w/sensor 2 inh inhalation ONCE atorvastatin 40 mg tablet 40 mg PO BEDTIME meclizine 12.5 mg tablet 12.5 mg PO DAILY cholecalciferol (vitamin D3) 25 mcg (1,000 unit) capsule 25 mcg PO DAILY flaxseed oil 1,000 mg capsule 1,000 mg PO DAILY Rx Instructions: administer with a meal aspirin 81 mg tablet,chewable 81 mg PO DAILY furosemide 20 mg tablet 20 mg PO DAILY Myrbetriq 50 mg tablet extended release 24 hr 50 mg PO DAILY
--- NOTE | 2023-01-22 14:53 | ECG_ITS ---
Test Reason : dizziness Blood Pressure : / mmHG Vent. Rate : 081 BPM Atrial Rate : 081 BPM P-R Int : 160 ms QRS Dur : 070 ms QT Int : 368 ms P-R-T Axes : 043 -24 009 degrees QTc Int : 427 ms Normal sinus rhythm Low voltage QRS Cannot rule out Anterior infarct , age undetermined Abnormal ECG When compared with ECG of 13-AUG-2014 07:01, No significant change was found Referred By: Deidre Angel Electronically Signed By:MARGUERITE DOW MD
[2023-01-22 15:25] LABS: MANUAL DIFF FLAG NO
[2023-01-22 15:29] LABS: Basophils Percent Auto 0.6 % (0-2); Eosinophils Absolute Auto 0.1 X10*3/uL (0.0-0.4); Eosinophils Percent Auto 2.2 % (0-4); Imm Gran Abs Auto 0.01 X10*3/uL (0.00-0.03); Imm Gran Pct Auto 0.3 % (0.0-0.4); Lymphocytes Absolute Auto 0.5 X10*3/uL (1.2-4.9); Lymphocytes Percent Auto 16.5 % (20-40); Mean Corpuscular HGB Conc 30.4 g/dl (31.0-35.0); Mean Corpuscular Hemoglobin 29.5 pg (27.0-33.0); Mean Corpuscular Volume 97.1 fL (80.0-98.0); Mean Platelet Volume 11.1 fL (9.4-12.3); Monocytes Absolute Auto 0.4 X10*3/uL (0.1-1.2); Monocytes Percent Auto 11.2 % (2-11); Neutrophils Absolute Auto 2.2 x10*3/uL (2.0-8.3); Neutrophils Percent Auto 69.2 % (45-73); Platelet Count 146 X10*3/uL (160-400); Red Cell Distribution Width 13.1 % (11.0-16.0); White Blood Count 3.2 X10*3/uL (4.8-10.8)
[2023-01-22 15:38] LABS: Hematocrit 20.4 % (37.0-47.0)
[2023-01-22 15:39] LABS: Prothrombin Time 11.9 SEC (10.0-13.1)
[2023-01-22 15:40] LABS: Hemoglobin 6.2 g/dl (12.0-16.0)
[2023-01-22 15:41] LABS: Partial Thromboplastin Time 27.9 SEC (26.0-36.4)
[2023-01-22 15:47] LABS: Alanine Aminotransferase 19 U/L (0-31); Albumin Level 3.8 g/dL (3.5-5.0); Alkaline Phosphatase 60 U/L (39-117); Anion Gap 15 (12-20); Aspartate Amino Transferase 22 U/L (5-31); Bilirubin Direct 0.2 mg/dL (0.0-0.5); Bilirubin Total 0.7 mg/dL (0.0-1.0); Blood Urea Nitrogen 23 mg/dL (9-16); Carbon Dioxide 22 mmol/L (22-29); Chloride 110 mmol/L (96-108); Creatinine Clr Calc Pharmacy 48.6; Estimated Glomerular Filt Rate 59; Glucose Random 102 mg/dL (60-115); Magnesium 2.1 mg/dL (1.6-2.6); Sodium 143 mmol/L (135-145); Total Protein 6.2 g/dL (6.5-8.0)
[2023-01-22 15:56] LABS: Troponin-I High Sensitivity < 2.7 ng/L (<3.5-17.0)
--- NOTE | 2023-01-22 16:13 | ED_ITS ---
HPI - General Adult General Chief complaint: General Medical Stated complaint: Hypotensive Time Seen by Provider: 01/22/23 15:44 Source: patient Mode of arrival: wheelchair Limitations: no limitations History of Present Illness HPI narrative: Patient is sent to the emergency room by Dr. Johnson. Patient had her normal follow-up with surgery with Dr. Johnson for status post mastectomy 2-3 years ago. It was noted that patient's blood pressure was in the low 80s and patient is very pale. Patient states that for the last couple of days, her family has been telling her that she looks pale. Patient states that she has been feeling lightheaded especially with movement and a bit short of breath. Patient denies any bloody or dark bowel movements. Patient takes clopidogrel and aspirin. On 01/02/2023, patient had a left SFA atherectomy and stent, left common iliac and external iliac stent. Patient saw Dr. Winters for a follow-up 5 days ago, patient did not have any complaints them. Seems that she is healing well. Related Data Home Medications Medication Instructions Recorded Confirmed albuterol sulfate 90 mcg/actuation 2 inh inhalation ONCE 08/23/20 01/02/23 breath activated powder inhaler,sensor (Proair Digihaler) aspirin 81 mg chewable tablet 81 mg PO DAILY 08/23/20 01/02/23 atenolol 25 mg tablet 25 mg PO DAILY 08/23/20 01/02/23 atorvastatin 40 mg tablet 40 mg PO BEDTIME 08/23/20 01/02/23 cholecalciferol (vitamin D3) 25 25 mcg PO DAILY 08/23/20 01/02/23 mcg (1,000 unit) capsule diltiazem HCl 120 mg 120 mg PO DAILY 08/23/20 01/02/23 capsule,extended release 24 hr flaxseed oil 1,000 mg capsule 1,000 mg PO DAILY 08/23/20 01/02/23 meclizine 12.5 mg tablet 12.5 mg PO DAILY 08/23/20 01/02/23 salmeterol 50 mcg/dose blister 1 inh inhalation Q12H 08/23/20 01/02/23 powder for inhalation (Serevent Diskus) anastrozole 1 mg tablet 1 mg PO DAILY 11/08/20 01/02/23 furosemide 20 mg tablet 20 mg PO DAILY 08/11/21 01/02/23 mirabegron 50 mg tablet,extended 50 mg PO DAILY 12/25/22 01/02/23 release 24 hr (Myrbetriq) Previous Rx's Medication Instructions Recorded clopidogrel 75 mg tablet (Plavix) 75 mg PO DAILY #30 tabs 01/02/23 Allergies Allergy/AdvReac Type Severity Reaction Status Date / Time Penicillins [PENICILLINS] Allergy Severe ITCHING Verified 01/22/23 14:11 Erythromycin Allergy Severe itching Uncoded 01/22/23 14:11 Review of Systems Review of Systems: Constitutional : No Weight loss, No Fever, No Chills, No Night Sweats finding of fatigue, lightheadedness ENT/Mouth : No Hearing loss, No Ear Pain, No Nasal Congestion, No Sinus Pain, No Hoarseness, No sore throat, No Rhinorrhea, No Swallowing Difficulty Eyes: No Eye Pain, No Swelling, No Redness, No Foreign Body, No Discharge, No Vision Changes Cardiovascular : No Chest Pain, No SOB, No Dyspnea on Exertion, No Orthopnea, No Edema, No Palpitations Respiratory : No Cough, No Sputum, No Wheezing, No Smoke Exposure, No Dyspnea Gastrointestinal : No Nausea, No Vomiting, No Diarrhea, No Constipation, No abdominal Pain, No Hematochezia, No Melena Genitourinary : no irregular bleeding, No Dysuria, No Urinary Frequency, No Hematuria, No Urinary Incontinence, No Urgency, No Flank Pain, No Urinary Flow Changes, No Hesitancy Musculoskeletal : No joint pain, No Myalgias, No Joint Swelling Skin : No Skin Lesions, No rash, complaining of looking pale Neuro : No Weakness, No Numbness, No Paresthesias, No Loss of Consciousness, No Dizziness, No Headache Psych : No Anxiety/Panic, No Depression, No SI/HI/AH/VH, No Social Issues, Heme/Lymph: No Bruising, No Bleeding,No Lymphadenopathy Endocrine : No Polyuria, No Polydipsia, No Temperature Intolerance [facility] [place] Past Medical History Medical History (Updated 01/22/23 @ 19:23 by Tiffany Ryder MD) History of dislocation of shoulder History of pneumonia Invasive ductal carcinoma of right breast Surgical History History of appendectomy History of back surgery History of cataract extraction History of left hip replacement History of vein stripping Family History Family History Mother Cancer of unknown origin Social History Social History Alcohol intake: current Alcohol intake frequency: holidays/special occasions only Patient Tobacco Use Status: Never used Tobacco Smoked in Last 30 Days: No Use of substances other than those prescribed or required for medical reasons: No Advance Directives: No Advance Directives Information Provided: No Physical Exam ED Vital Signs: Vital Signs - 24 hr 01/22/23 14:46 01/22/23 16:00 01/22/23 16:46 Temperature 98 F Pulse Rate 84 82 84 Respiratory Rate 18 19 20 Blood Pressure 122/60 85/37 L 111/52 L Pulse Oximetry 97 98 100 Oxygen Delivery Method Room Air Room Air 01/22/23 17:22 01/22/23 17:22 01/22/23 17:23 Temperature Pulse Rate 85 96 94 Respiratory Rate Blood Pressure 108/52 L 110/53 L 103/48 L Pulse Oximetry Oxygen Delivery Method 01/22/23 19:16 Temperature Pulse Rate 86 Respiratory Rate 16 Blood Pressure 117/49 L Pulse Oximetry 99 Oxygen Delivery Method Room Air BMI result Body Mass Index 26.6 Const Other: Appearance: Alert. Oriented X3. No acute distress. Eyes: Pupils equal, round and reactive to light. ENT: Pharynx normal. Neck: Normal inspection. Neck supple. No lymph nodes noted. No crepitus CVS: Normal heart rate and rhythm. Pulses normal. Normal S1 and S2 Respiratory: No respiratory distress. Breath sounds normal. No Wheezing. No rales Abdomen: Soft and nontender. No rigidity. No distention. Skin: Skin warm and dry. Diffusely pale Normal skin turgor. Extremities: No lower extremity edema. No Lacerations. No Rash Neuro: Oriented X 3. No motor deficit. No sensory deficit. Moving all extremities. No slurred speech. CN 2 through 12 grossly intact Psych: calm, cooperative, normal affect Medications Administered Discontinued Medications Generic Name Dose Route Start Last Admin Trade Name Freq PRN Reason Stop Dose Admin Iohexol 100 ml 01/22/23 18:45 01/22/23 18:45 Iohexol 350 Mg/Ml 100 Ml Infus..Btl IV 01/22/23 18:46 85 ml ONCE ONE Administration Medical Decision Making Medical Decision Making MDM Narrative: -patient's hemoglobin is 6.2, dropped from 10.5 in 20 days. Patient is symptomatic. Discussed with the patient starting a blood transfusion. Patient has never been transfused in the past. I discussed with the patient the risks versus benefits of a blood transfusion. Patient decided to go ahead and started transfusion. Patient will need at the very least 2 units of blood. -guaiac test pending -patient had episodes of hypotension on arrival, likely orthostatic. Since patient has been sitting in her room, blood pressure has been above 117/49. Patient does feel lightheaded when she stands up. Sepsis not suspected -patient's stool test is positive, patient started taking Brilinta 20 days ago after her stent was inserted. -patient receiving blood transfusion, tolerating it well so far -CT scan of the abdomen pelvis for GI bleed pending. This is likely a very slow bleed. Patient was not even aware that she has had black stool, denies any fresh blood per rectum -I discussed the patient with Dr. Bishop, patient being admitted Admission/Observation Consideration of admission/observation: Escalation of care including admission/observation considered Consult Healthcare Provider Management of the patient was discussed with: Hospitalist Lab Data 01/22/23 15:14 01/22/23 15:14 Labs: Lab Results 01/22/23 01/22/23 01/22/23 Range/Units 15:14 15:14 15:14 WBC 3.2 L (4.8-10.8) X10*3/uL RBC 2.10 L D (4.20-5.50) X10*6/uL Hgb 6.2 L* D (12.0-16.0) g/dl Hct 20.4 L* D (37.0-47.0) % MCV 97.1 (80.0-98.0) fL MCH 29.5 (27.0-33.0) pg MCHC 30.4 L (31.0-35.0) g/dl RDW 13.1 (11.0-16.0) % Plt Count 146 L (160-400) X10*3/uL MPV 11.1 (9.4-12.3) fL Immature Gran % (Auto) 0.3 (0.0-0.4) % Neut % (Auto) 69.2 (45-73) % Lymph % (Auto) 16.5 L (20-40) % Hill % (Auto) 11.2 H (2-11) % Eos % (Auto) 2.2 (0-4) % Baso % (Auto) 0.6 (0-2) % Lymph # (Auto) 0.5 L (1.2-4.9) X10*3/uL Hill # (Auto) 0.4 (0.1-1.2) X10*3/uL Eos # (Auto) 0.1 (0.0-0.4) X10*3/uL Baso # (Auto) 0.0 (0.0-0.2) X10*3/uL Abs Immat Gran (auto) 0.01 (0.00-0.03) X10*3/uL Absolute Neuts (auto) 2.2 (2.0-8.3) x10*3/uL Absolute Nucleated RBC 0.000 (0.0-0.012) X10*3/uL Nucleated RBC % (auto) 0.0 (0.0-0.2) /100WBC PT 11.9 (10.0-13.1) SEC INR 1.0 (0.9-1.1) APTT (26.0-36.4) SEC Sodium 143 (135-145) mmol/L Potassium 4.0 (3.3-5.1) mmol/L Chloride 110 H (96-108) mmol/L Carbon Dioxide 22 (22-29) mmol/L Anion Gap 15 (12-20) BUN 23 H (9-16) mg/dL Creatinine 0.92 (0.5-1.4) mg/dL Estim Creat Clear Calc 48.6 Estimated GFR 59 Random Glucose 102 (60-115) mg/dL Calcium 9.0 D (8.4-10.2) mg/dL Magnesium 2.1 (1.6-2.6) mg/dL Total Bilirubin 0.7 (0.0-1.0) mg/dL Direct Bilirubin 0.2 (0.0-0.5) mg/dL AST 22 (5-31) U/L ALT 19 (0-31) U/L Alkaline Phosphatase 60 (39-117) U/L Troponin I High Sens (<3.5-17.0) ng/L Total Protein 6.2 L (6.5-8.0) g/dL Albumin 3.8 (3.5-5.0) g/dL Stool Occult Blood (NEGATIVE) Blood Type Antibody Screen Antibody Identification Crossmatch Crossmatch (AHG) Enhanced Crossmatch Blood Bank [facility] 01/22/23 01/22/23 01/22/23 Range/Units 15:14 15:14 15:42 WBC (4.8-10.8) X10*3/uL RBC (4.20-5.50) X10*6/uL Hgb (12.0-16.0) g/dl Hct (37.0-47.0) % MCV (80.0-98.0) fL MCH (27.0-33.0) pg MCHC (31.0-35.0) g/dl RDW (11.0-16.0) % Plt Count (160-400) X10*3/uL MPV (9.4-12.3) fL Immature Gran % (Auto) (0.0-0.4) % Neut % (Auto) (45-73) % Lymph % (Auto) (20-40) % Hill % (Auto) (2-11) % Eos % (Auto) (0-4) % Baso % (Auto) (0-2) % Lymph # (Auto) (1.2-4.9) X10*3/uL Hill # (Auto) (0.1-1.2) X10*3/uL Eos # (Auto) (0.0-0.4) X10*3/uL Baso # (Auto) (0.0-0.2) X10*3/uL Abs Immat Gran (auto) (0.00-0.03) X10*3/uL Absolute Neuts (auto) (2.0-8.3) x10*3/uL Absolute Nucleated RBC (0.0-0.012) X10*3/uL Nucleated RBC % (auto) (0.0-0.2) /100WBC PT (10.0-13.1) SEC INR (0.9-1.1) APTT 27.9 (26.0-36.4) SEC Sodium (135-145) mmol/L Potassium (3.3-5.1) mmol/L Chloride (96-108) mmol/L Carbon Dioxide (22-29) mmol/L Anion Gap (12-20) BUN (9-16) mg/dL Creatinine (0.5-1.4) mg/dL Estim Creat Clear Calc Estimated GFR Random Glucose (60-115) mg/dL Calcium (8.4-10.2) mg/dL Magnesium (1.6-2.6) mg/dL Total Bilirubin (0.0-1.0) mg/dL Direct Bilirubin (0.0-0.5) mg/dL AST (5-31) U/L ALT (0-31) U/L Alkaline Phosphatase (39-117) U/L Troponin I High Sens < 2.7 (<3.5-17.0) ng/L Total Protein (6.5-8.0) g/dL Albumin (3.5-5.0) g/dL Stool Occult Blood (NEGATIVE) Blood Type A Negative Antibody Screen POSITIVE Antibody Identification Negative Crossmatch See Detail Crossmatch (AHG) See Detail Enhanced Crossmatch See Detail Blood Bank Comment Technical 01/22/23 Range/Units 17:25 WBC (4.8-10.8) X10*3/uL RBC (4.20-5.50) X10*6/uL Hgb (12.0-16.0) g/dl Hct (37.0-47.0) % MCV (80.0-98.0) fL MCH (27.0-33.0) pg MCHC (31.0-35.0) g/dl RDW (11.0-16.0) % Plt Count (160-400) X10*3/uL MPV (9.4-12.3) fL Immature Gran % (Auto) (0.0-0.4) % Neut % (Auto) (45-73) % Lymph % (Auto) (20-40) % Hill % (Auto) (2-11) % Eos % (Auto) (0-4) % Baso % (Auto) (0-2) % Lymph # (Auto) (1.2-4.9) X10*3/uL Hill # (Auto) (0.1-1.2) X10*3/uL Eos # (Auto) (0.0-0.4) X10*3/uL Baso # (Auto) (0.0-0.2) X10*3/uL Abs Immat Gran (auto) (0.00-0.03) X10*3/uL Absolute Neuts (auto) (2.0-8.3) x10*3/uL Absolute Nucleated RBC (0.0-0.012) X10*3/uL Nucleated RBC % (auto) (0.0-0.2) /100WBC PT (10.0-13.1) SEC INR (0.9-1.1) APTT (26.0-36.4) SEC Sodium (135-145) mmol/L Potassium (3.3-5.1) mmol/L Chloride (96-108) mmol/L Carbon Dioxide (22-29) mmol/L Anion Gap (12-20) BUN (9-16) mg/dL Creatinine (0.5-1.4) mg/dL Estim Creat Clear Calc Estimated GFR Random Glucose (60-115) mg/dL Calcium (8.4-10.2) mg/dL Magnesium (1.6-2.6) mg/dL Total Bilirubin (0.0-1.0) mg/dL Direct Bilirubin (0.0-0.5) mg/dL AST (5-31) U/L ALT (0-31) U/L Alkaline Phosphatase (39-117) U/L Troponin I High Sens (<3.5-17.0) ng/L Total Protein (6.5-8.0) g/dL Albumin (3.5-5.0) g/dL Stool Occult Blood POSITIVE (NEGATIVE) Blood Type Antibody Screen Antibody Identification Crossmatch Crossmatch (AHG) Enhanced Crossmatch Blood Bank Comment Critical Care Time Critical Care Time Critical Care Time: Yes Total Critical Care Time: 60 Attestation: I have personally provided critical care time. Time includes review of lab data, radiology results, discussion with consultants, and monitoring for potential decompensation. Intervention performed as documented. Discharge Plan Discharge Clinical Impression: Anemia, GI bleed Patient Disposition: Admitted As Inpatient Prescriptions: No Action clopidogrel [Plavix] 75 mg tablet 75 mg PO DAILY Qty: 30 0RF anastrozole 1 mg tablet 1 mg PO DAILY atenolol 25 mg tablet 25 mg PO DAILY diltiazem HCl 120 mg capsule,extended release 24hr 120 mg PO DAILY Serevent Diskus 50 mcg/dose blister with device 1 inh inhalation Q12H Proair Digihaler 90 mcg/actuation aero powdr breath act w/sensor 2 inh inhalation ONCE atorvastatin 40 mg tablet 40 mg PO BEDTIME meclizine 12.5 mg tablet 12.5 mg PO DAILY cholecalciferol (vitamin D3) 25 mcg (1,000 unit) capsule 25 mcg PO DAILY flaxseed oil 1,000 mg capsule 1,000 mg PO DAILY Rx Instructions: administer with a meal aspirin 81 mg tablet,chewable 81 mg PO DAILY furosemide 20 mg tablet 20 mg PO DAILY Myrbetriq 50 mg tablet extended release 24 hr 50 mg PO DAILY
--- NOTE | 2023-01-22 16:47 | PC.NURSE ---
Pt presents to ED with /o dizziness starting this AM. Had morning check up breast exam and noted to be pale. Pt sent to ED for further eval. Pt remains pale, skin warm and dry. Ambulatory with assist of one. at bedside. Pt denies pain. NSR on monitor. Speaking full sentences and alert/oriented x 3. Denies dark or bloody stools. Takes plavix and ASA. No SOB but reports fatigue for a few weeks. Educated pt on two IV preferred with plan for transfusion however pt declines two at this time d/t fear of needles. 20g to left ac. BP stable.
[2023-01-22 17:33] LABS: OBS Int Ctl Valid YES; OBS1 POSITIVE (NEGATIVE)
[2023-01-22] MEDS: iohexoL 350 MG/ML 100 ML INFUS..BTL IV (18:45)
--- NOTE | 2023-01-22 19:15 | PC.NURSE ---
Assumed care of pt. Pt lying on stretcher, family/friend at bedside. Pt in no nacute distress. Preparing to administer 1st unit of RBC and other medications as ordered. VSS, WCTM
[2023-01-22] MEDS: Pantoprazole Sodium 40 MG/10 ML VIAL 80 MG IVPUSH (19:22)
--- NOTE | 2023-01-22 19:32 | PC.NURSE ---
First unit of RBC begun, pt in no acute distress.
--- NOTE | 2023-01-22 19:39 | PHA.MEDREC ---
Pharmacy Consult ? Medication Reconciliation Pharmacy has completed the medication reconciliation. Confirmed meds with patient and family member at bedside. Of note, she was not 100% sure if she should still be on lasix. Said that she is only to take it for 2-3 days more after surgery Chong
--- NOTE | 2023-01-22 20:01 | P.HPHOSP_ITS ---
History of Present Illness Date of Service: 01/22/23 Chief Complaint: Fatigue This is a 82-year-old female with pertinent history of breast cancer status post surgery and radiation, peripheral artery disease status post left SFA arthrectomy and stent, left common iliac and external iliac stent, essential hypertension, urinary incontinence, mixed hyperlipidemia who was sent from Dr. Johnson as she was found to be pale and hypotensive. Patient does endorse generalized fatigue, dizziness and lightheadedness that she observed over the last 2 days. Patient's blood pressure was found to be systolic in the 90s at outpatient surgery and she was sent to the ER for further evaluation. Patient denies melena, hematuria, hematemesis, hematochezia or bleeding at the site of stent. She does not remember her last colonoscopy but states it was years ago and was normal. Patient denies fever, chills, chest discomfort, palpitations, shortness of breath, abdominal pain, changes in urinary habits. In the emergency department, patient's hemoglobin was found to be low at 6.2 and stool occult blood test was positive Review of Systems Constitutional: Constitutional: Reports fatigue, Reports lethargy and Reports malaise Cardiovascular: Cardiovascular: Reports no additional cardiovascular complaints Respiratory: Respiratory: Reports no additional respiratory complaints Genitourinary: Genitourinary: Reports no additional female genitourinary compl aints Endocrine: Endocrine: Reports fatigue [facility] Medical History History of dislocation of shoulder History of pneumonia Invasive ductal carcinoma of right breast PAD (peripheral artery disease) Family History Mother Cancer of unknown origin Surgical History History of appendectomy History of back surgery History of cataract extraction History of left hip replacement History of vein stripping Social History Alcohol intake: current Alcohol intake frequency: holidays/special occasions only Patient Tobacco Use Status: Never used Tobacco Smoked in Last 30 Days: No Use of substances other than those prescribed or required for medical reasons: No Advance Directives: No Advance Directives Information Provided: No Meds Allergies Allergy/AdvReac Type Severity Reaction Status Date / Time Penicillins [PENICILLINS] Allergy Severe ITCHING Verified 01/22/23 14:11 Erythromycin Allergy Severe itching Uncoded 01/22/23 14:11 Active Medications: Current Medications Pharmacy Consult (Consult Rx Perform Med Rec) 1 each MISCELLANE ONCE PRN PRN Reason: Consult order Home Medications Medication Instructions Recorded Confirmed Last Taken Type albuterol sulfate 90 mcg/actuation 2 inh inhalation Q6H PRN Wheezing 08/23/20 01/22/23 Unknown History breath activated powder inhaler,sensor (Proair Digihaler) aspirin 81 mg chewable tablet 81 mg PO DAILY 08/23/20 01/22/23 01/22/23 History atenolol 25 mg tablet 25 mg PO DAILY 08/23/20 01/22/23 01/22/23 History atorvastatin 40 mg tablet 40 mg PO BEDTIME 08/23/20 01/22/23 01/21/23 History cholecalciferol (vitamin D3) 25 25 mcg PO DAILY 08/23/20 01/22/23 01/22/23 Hi story mcg (1,000 unit) capsule diltiazem HCl 120 mg 120 mg PO DAILY 08/23/20 01/22/23 01/22/23 History capsule,extended release 24 hr flaxseed oil 1,000 mg capsule 1,000 mg PO DAILY 08/23/20 01/22/23 01/22/23 History salmeterol 50 mcg/dose blister 1 inh inhalation Q12H 08/23/20 01/22/23 01/22/23 History powder for inhalation (Serevent Diskus) anastrozole 1 mg tablet 1 mg PO DAILY 11/08/20 01/22/23 01/22/23 History furosemide 20 mg tablet 20 mg PO DAILY 08/11/21 01/22/23 Unknown History mirabegron 50 mg tablet,extended 50 mg PO DAILY 12/25/22 01/22/23 01/22/23 History release 24 hr (Myrbetriq) Physical Exam Vital Signs and Narrative: Vital Signs: Last Vital Signs Temp 98.0 F 01/22/23 19:43 Pulse 84 01/22/23 19:43 Resp 19 01/22/23 19:43 BP 121/60 01/22/23 19:43 Pulse Ox 99 01/22/23 19:16 O2 Del Method Room Air 01/22/23 19:16 BMI result Body Mass Index 26.6 Elderly female lying in bed in no distress Neck supple, no JVD Regular rate and rhythm, S1-S2 heard Regular breath sounds bilaterally, no wheezing or crackles appreciated Abdomen soft nontender, no guarding, no rigidity Patient is awake, alert and oriented to self, place, time and person ; no focal motor deficit Psych: Normal mood No pedal edema Results Labs 01/22/23 15:14 01/22/23 15:14 Labs: Laboratory Results - last 24 hr 01/22/23 01/22/23 01/22/23 15:14 15:14 15:14 MCV 97.1 MCH 29.5 MCHC 30.4 L RDW 13.1 Plt Count 146 L MPV 11.1 Immature Gran % (Auto) 0.3 Neut % (Auto) 69.2 Lymph % (Auto) 16.5 L [place] % (Auto) 11.2 H Eos % (Auto) 2.2 Baso % (Auto) 0.6 Lymph # (Auto) 0.5 L [place] # (Auto) 0.4 Eos # (Auto) 0.1 Baso # (Auto) 0.0 Abs Immat Gran (auto) 0.01 Absolute Neuts (auto) 2.2 Absolute Nucleated RBC 0.000 Nucleated RBC % (auto) 0.0 PT 11.9 INR 1.0 APTT Anion Gap 15 Estim Creat Clear Calc 48.6 Estimated GFR 59 Random Glucose 102 Calcium 9.0 D Magnesium 2.1 Total Bilirubin 0.7 Direct Bilirubin 0.2 AST 22 ALT 19 Alkaline Phosphatase 60 Troponin I High Sens Total Protein 6.2 L Albumin 3.8 Stool Occult Blood Blood Type Antibody Screen Antibody Identification Crossmatch Crossmatch ([facility]) Enhanced Crossmatch Blood Bank Comment 01/22/23 01/22/23 01/22/23 15:14 15:14 15:42 MCV MCH MCHC RDW Plt Count MPV Immature Gran % (Auto) Neut % (Auto) Lymph % (Auto) [place] % (Auto) Eos % (Auto) Baso % (Auto) Lymph # (Auto) [place] # (Auto) Eos # (Auto) Baso # (Auto) Abs Immat Gran (auto) Absolute Neuts (auto) Absolute Nucleated RBC Nucleated RBC % (auto) PT INR APTT 27.9 Anion Gap Estim Creat Clear Calc Estimated GFR Random Glucose Calcium Magnesium Total Bilirubin Direct Bilirubin AST ALT Alkaline Phosphatase Troponin I High Sens < 2.7 Total Protein Albumin Stool Occult Blood Blood Type A Negative Antibody Screen POSITIVE Antibody Identification Negative Crossmatch See Detail Crossmatch (G) See Detail Enhanced Crossmatch See Detail Blood Bank Comment Technical 01/22/23 17:25 MCV MCH MCHC RDW Plt Count MPV Immature Gran % (Auto) Neut % (Auto) Lymph % (Auto) [place] % (Auto) Eos % (Auto) Baso % (Auto) Lymph # (Auto) [place] # (Auto) Eos # (Auto) Baso # (Auto) Abs Immat Gran (auto) Absolute Neuts (auto) Absolute Nucleated RBC Nucleated RBC % (auto) PT INR APTT Anion Gap Estim Creat Clear Calc Estimated GFR Random Glucose Calcium Magnesium Total Bilirubin Direct Bilirubin AST ALT Alkaline Phosphatase Troponin I High Sens Total Protein Albumin Stool Occult Blood POSITIVE Blood Type Antibody Screen Antibody Identification Crossmatch Crossmatch ([facility]) Enhanced Crossmatch Blood Bank Comment Assessment and Plan (1) Anemia: Status: Acute Plan This is a 82-year-old female with pertinent history of breast cancer status post surgery and radiation, peripheral artery disease status post left SFA arthrectomy and stent, left common iliac and external iliac stent, essential hypertension, urinary incontinence, mixed hyperlipidemia who was sent from Dr. Johnson as she was found to be pale and hypotensive. #. Acute blood loss anemia concerning for acute GI bleed. Will admit patient with continuity director. Patient given Protonix 80 mg IV x1. Stool occult blood test positive in the ER. Resuscitating with IV crystalloids. 3 units PRBC ordered in the ER. Consulting GI, appreciate assistance. Will keep patient NPO after midnight. Hold antiplatelet agents. Closely monitor H&H #. Essential hypertension. Hold antihypertensives in the setting of above #. Peripheral arterial disease. Hold antiplatelet agents, continue statin #. Invasive ductal carcinoma of right breast status post surgery and radiation. On anastrozole #. Urinary incontinence. On Mirabegron Med rec pending DVT prophylaxis: SCDs Full code Cardiac diet. NPO after midnight Admit as inpatient and will require two night minimum hospital stay for close monitoring of hemodynamics. Specialist consult pending Time Spent With Patient Time: Total time managing care of this patient today ____ minutes. Quality Stroke Does the patient have a stroke diagnosis?: No VTE Prior VTE?: No VTE Risk Level:: Medical - moderate - high VTE Device Contraindication: N/A - Device Ordered VTE Drug Contraindication: Treatment Not Indicated
[2023-01-22] MEDS: 0.9 % Sodium Chloride 500 ML IV (20:50)
--- NOTE | 2023-01-22 21:15 | PC.NURSE ---
began 2nd unit of RBC, no complications, VSS at this time. Will monitor per protocol.
--- NOTE | 2023-01-22 22:22 | PC.NURSE ---
Assessed flow of RBC. Noted slow flow, repositioned pt arm, flushed proximal IV site and flow continued to be slow (approx 1 drip every 3 seconds). Placed RBC on pressure bag and regulated flow appropriately. APOLLO.
--- NOTE | 2023-01-22 22:59 | PC.NURSE ---
Pt stand by assist to bedside commode.
--- NOTE | 2023-01-22 23:34 | PC.NURSE ---
Pt sleeping, easily rousable, with end of transfusoin vitals for 2nd unit RBCs. No sw/sx of adverse reaction noted. MD made aware of SBP differential.
[2023-01-23] VITALS (11 sets, daily range): BP systolic 108–190; BP diastolic 57–79; PULSE 69–93; RESP 17–20; TEMP -17.7–37.2; O2SAT 94–100; BMI 28.3
--- NOTE | 2023-01-23 01:40 | PC.NURSE ---
Third RBC completed, no adverse reactions noted. Pt remains lying on stretcher, no acute distress at this time. Pending admission bed. WCTM.
--- NOTE | 2023-01-23 08:34 | MHC.CM.PN ---
CM met with Patient at bedside and addressed IMM with her, providing Patient with the original and placing a copy on the chart. Patient uses a cane and she required no services [employer]. Patient is here with Weakness and may benefit from a PT eval (Home self care vs new VNA). CM has initiated and will follow for dc planning. PCP is Dr. Bob Quinones and Patient is David leavitt
[2023-01-23] MEDS: Cholecalciferol (Vitamin D3) 25 MCG TABLET PO (09:08)
[2023-01-23] MEDS: Mirabegron 50 MG TAB.ER.24H PO (09:08)
[2023-01-23] MEDS: atenoloL 25 MG TABLET PO (09:08)
[2023-01-23] MEDS: 0.9 % Sodium Chloride Flush 3 ML SYRINGE IVFLUSH ×2 (09:09→16:21)
[2023-01-23 10:09] LABS: MANUAL DIFF FLAG NO
[2023-01-23 10:25] LABS: Basophils Percent Auto 0.7 % (0-2); Eosinophils Absolute Auto 0.1 X10*3/uL (0.0-0.4); Eosinophils Percent Auto 2.5 % (0-4); Hematocrit 32.5 % (37.0-47.0); Imm Gran Abs Auto 0.03 X10*3/uL (0.00-0.03); Imm Gran Pct Auto 0.7 % (0.0-0.4); Lymphocytes Absolute Auto 0.5 X10*3/uL (1.2-4.9); Lymphocytes Percent Auto 10.8 % (20-40); Mean Corpuscular HGB Conc 30.8 g/dl (31.0-35.0); Mean Corpuscular Volume 94.2 fL (80.0-98.0); Mean Platelet Volume 10.6 fL (9.4-12.3); Monocytes Absolute Auto 0.4 X10*3/uL (0.1-1.2); Monocytes Percent Auto 10.1 % (2-11); Neutrophils Absolute Auto 3.3 x10*3/uL (2.0-8.3); Neutrophils Percent Auto 75.2 % (45-73); Platelet Count 138 X10*3/uL (160-400); Red Blood Count 3.45 X10*6/uL (4.20-5.50); Red Cell Distribution Width 14.5 % (11.0-16.0); White Blood Count 4.4 X10*3/uL (4.8-10.8)
[2023-01-23] MEDS: Anastrozole 1 MG TABLET PO (10:47)
[2023-01-23 10:51] LABS: Anion Gap 11 (12-20); Blood Urea Nitrogen 18 mg/dL (9-16); Carbon Dioxide 26 mmol/L (22-29); Chloride 110 mmol/L (96-108); Creatinine Clr Calc Pharmacy 61.5; Estimated Glomerular Filt Rate > 60; Glucose Random 103 mg/dL (60-115); Potassium 4.4 mmol/L (3.3-5.1); Sodium 143 mmol/L (135-145)
[2023-01-23] MEDS: Lactated Ringers 1,000 ML 50 ML IVCONT (11:44)
--- NOTE | 2023-01-23 14:12 | HO.PM.IMPN ---
Subjective Subjective Date of Service: 01/23/23 Interval History: feels much better after transfusion on DAPT for PAD no abd pain no melena Review of Systems Review of Systems: Yes all other systems are reviewed and are negative Physical Exam Vital Signs: Vital Signs: Last Vital Signs Temp 98.0 F 01/23/23 11:16 Pulse 69 01/23/23 11:16 Resp 20 01/23/23 11:16 BP 171/74 H 01/23/23 11:16 Pulse Ox 97 01/23/23 11:16 O2 Del Method Room Air 01/23/23 11:16 BMI result Body Mass Index 28.3 Gen: in no acute distress HEENT: sclera anicteric, moist mucus membranes Neck: supple Lungs: clear to auscultation bilaterally Heart: regular rate and rhythm, no murmurs Abd: soft, non-tender, non-distended Ext: no edema Skin: warm/well-perfused Neuro: alert and oriented x3, no focal findings Psych: appropriate affect Objective Data Active Medications Acetaminophen (Acetaminophen 325 Mg Tablet) 650 mg PO Q6H PRN PRN Reason: Pain, Mild (Pain Scale 1-3) Acetaminophen (Acetaminophen Supp 650 Mg Supp.Rect) 650 mg [place] Q6H PRN PRN Reason: Pain, Mild (Pain Scale 1-3) Albuterol Sulfate (Albuterol Sulfate 90 Mcg 8 Gm Inhaler) 2 puff INHALE Q6H PRN PRN Reason: Wheezing Anastrozole (Anastrozole 1 Mg Tablet) 1 mg PO DAILY [facility] Last Admin: 01/23/23 10:47 Dose: 1 mg Documented By: KENYON Atenolol (Atenolol 25 Mg Tablet) 25 mg PO DAILY [facility]; Protocol Last Admin: 01/23/23 09:08 Dose: 25 mg Documented By: AMADEO Atorvastatin Calcium (Atorvastatin Calcium 40 Mg Tablet) 40 mg PO BEDTIME [facility] Lactated Ringer's (Lr) 1,000 mls @ 50 mls/hr IVCONT .Q20H [facility] Last Admin: 01/23/23 11:44 Dose: 50 mls/hr Documented By: LIUDMILA Melatonin (Melatonin 3 Mg Tablet) 6 mg PO BEDTIME PRN PRN Reason: Insomnia Mirabegron (Mirabegron 50 Mg Tab.Er.24h) 50 mg PO DAILY [facility] Last Admin: 01/23/23 09:08 Dose: 50 mg Documented By: AMADEO Ondansetron HCl (Ondansetron Hcl 4 Mg/2 Ml Vial) 4 mg IVPUSH Q8H PRN PRN Reason: Nausea and Vomiting Pharmacy Consult (Consult Rx Perform Med Rec) 1 each MISCELLANE ONCE PRN PRN Reason: Consult order Salmeterol Xinafoate (Salmeterol Xinafoate 50 Mcg Blst.W.Dev) 1 puff INHALE RBID [facility] Last Admin: 01/23/23 10:04 Dose: Not Given Documented By: GRISELDA Non-Admin Reason: Med Not Available Sodium Chloride (0.9 % Sodium Chloride Flush 3 Ml Syringe) 3 ml IVFLUSH QSHIFT [facility] Last Admin: 01/23/23 09:09 Dose: 3 ml Documented By: AMADEO Vitamin D (Cholecalciferol (Vitamin D3) 25 Mcg Tablet) 25 mcg PO DAILY [facility] Last Admin: 01/23/23 09:08 Dose: 25 mcg Documented By: AMADEO Labs 01/23/23 09:59 01/23/23 09:59 Labs: Laboratory Results - last 24 hr 01/22/23 01/22/23 01/22/23 15:14 15:14 15:14 MCV 97.1 MCH 29.5 MCHC 30.4 L RDW 13.1 Plt Count 146 L MPV 11.1 Immature Gran % (Auto) 0.3 Neut % (Auto) 69.2 Lymph % (Auto) 16.5 L [place] % (Auto) 11.2 H Eos % (Auto) 2.2 Baso % (Auto) 0.6 Lymph # (Auto) 0.5 L [place] # (Auto) 0.4 Eos # (Auto) 0.1 Baso # (Auto) 0.0 Abs Immat Gran (auto) 0.01 Absolute Neuts (auto) 2.2 Absolute Nucleated RBC 0.000 Nucleated RBC % (auto) 0.0 PT 11.9 INR 1.0 APTT Anion Gap 15 Estim Creat Clear Calc 48.6 Estimated GFR 59 Random Glucose 102 Calcium 9.0 D Magnesium 2.1 Total Bilirubin 0.7 Direct Bilirubin 0.2 AST 22 ALT 19 Alkaline Phosphatase 60 Troponin I High Sens Total Protein 6.2 L Albumin 3.8 Stool Occult Blood Blood Type Antibody Screen Antibody Identification Antigen Identification Crossmatch Crossmatch ([facility]) Enhanced Crossmatch Blood Bank Comment 01/22/23 01/22/23 01/22/23 15:14 15:14 15:42 MCV MCH MCHC RDW Plt Count MPV Immature Gran % (Auto) Neut % (Auto) Lymph % (Auto) [place] % (Auto) Eos % (Auto) Baso % (Auto) Lymph # (Auto) [place] # (Auto) Eos # (Auto) Baso # (Auto) Abs Immat Gran (auto) Absolute Neuts (auto) Absolute Nucleated RBC Nucleated RBC % (auto) PT INR APTT 27.9 Anion Gap Estim Creat Clear Calc Estimated GFR Random Glucose Calcium Magnesium Total Bilirubin Direct Bilirubin AST ALT Alkaline Phosphatase Troponin I High Sens < 2.7 Total Protein Albumin Stool Occult Blood Blood Type A Negative Antibody Screen POSITIVE Antibody Identification Negative Antigen Identification Jkb Antigen - POSITIVE Crossmatch See Detail Crossmatch ([facility]) See Detail Enhanced Crossmatch See Detail Blood Bank Comment Technical 01/22/23 01/23/23 01/23/23 17:25 09:59 09:59 MCV 94.2 MCH 29.0 MCHC 30.8 L RDW 14.5 Plt Count 138 L MPV 10.6 Immature Gran % (Auto) 0.7 H Neut % (Auto) 75.2 H Lymph % (Auto) 10.8 L [place] % (Auto) 10.1 Eos % (Auto) 2.5 Baso % (Auto) 0.7 Lymph # (Auto) 0.5 L [place] # (Auto) 0.4 Eos # (Auto) 0.1 Baso # (Auto) 0.0 Abs Immat Gran (auto) 0.03 Absolute Neuts (auto) 3.3 Absolute Nucleated RBC 0.000 Nucleated RBC % (auto) 0.0 PT INR APTT Anion Gap 11 L Estim Creat Clear Calc 61.5 Estimated GFR > 60 Random Glucose 103 Calcium 9.0 Magnesium Total Bilirubin Direct Bilirubin AST ALT Alkaline Phosphatase Troponin I High Sens Total Protein Albumin Stool Occult Blood POSITIVE Blood Type Antibody Screen Antibody Identification Antigen Identification Crossmatch Crossmatch ([facility]) Enhanced Crossmatch Blood Bank Comment Assessment and Plan (1) Anemia: Status: Acute (2) GI bleed: Status: Acute Plan d#2 82yo F with hx breast CA s/p surgery/radiation, PAD s/p SFA atherectomy/stent + L common iliac + external iliac stents on DAPT, HTN, urinary incontinence, HLD sent in from general surgeon's office due to hypotension. Severe anemia with Hb 6.2, FOBT negative # acute blood loss anemia due to GI bleed - NPO, IV PPI, 3u pRBCs transfused with appropriate response in H+H, GI consultation pending, hold DAPT # HTN - hold diltiazem + furosemide, continue atenolol # PAD - hold DAPT, continue statin # invasive ductal carcinoma of R breast - continue anastrozole # urinary incontinence - continue mirabegron # VTE ppx - SCDs # dispo - eventually home In my clinical judgment, the patient requires continued inpatient hospitalization for the following reasons: GI evaluation for anemia Time Spent With Patient Time: Total time managing care of this patient today _40__ minutes. Quality Stroke Does the patient have a stroke diagnosis?: No VTE Prior VTE?: No VTE Risk Level:: Medical - moderate - high VTE Device Contraindication: N/A - Device Ordered VTE Drug Contraindication: Treatment Not Indicated
[2023-01-23] MEDS: Pantoprazole Sodium 40 MG/10 ML VIAL IVPUSH (16:20)
--- NOTE | 2023-01-23 16:21 | MHC.SHP ---
Pre-Procedural Eval Section A Date of Service: 01/23/23 The patient is an INPATIENT: Yes Changes since office visit: No Cold of Flu in the past 2 weeks, No New Medical Problems, No Changes in Medication and No Patient answered all questions The History & Physical has been completed within 30 days and I have reviewed it.: Yes Section B Chief Complaint: Weakness Allergies: Allergies Allergy/AdvReac Type Severity Reaction Status Date / Time Penicillins [PENICILLINS] Allergy Severe ITCHING Verified 01/22/23 14:11 Erythromycin Allergy Severe itching Uncoded 01/22/23 14:11 Plan I have reviewed the history and physical and performed a pertinent physical examination on my patient. No changes have occurred unless specified. Time Spent With Patient Time: Total time managing care of this patient today ____ minutes.
--- NOTE | 2023-01-23 16:21 | PM.EVENT ---
Event Note Date of Service: 01/23/23 Event Note: GI consult dictated EGD and colonoscopy to further evaluate anemia/heme positive stools scheduled for 01/24. Patient is aware of risks and benefits and agrees to proceed. Time Spent With Patient Time: Total time managing care of this patient today ____ minutes.
[2023-01-23] MEDS: PEG 3350/Na Sulf,Bicarb,Cl/KCL 4,000 ML SOLN.RECON 4000 ML PO (18:00)
--- NOTE | 2023-01-23 19:06 | PC.NURSE ---
bowel prep started at 18:00, pt is tolerating well no n/v
[2023-01-23] MEDS: Salmeterol Xinafoate 50 MCG BLST.W.DEV 1 PUFF INHALE (20:04)
[2023-01-23] MEDS: Atorvastatin Calcium 40 MG TABLET PO (20:56)
--- NOTE | 2023-01-23 22:02 | CONS_ITS ---
DATE OF SERVICE: 01/23/2023 REFERRING PHYSICIAN: Liz Bishop MD REASON FOR CONSULTATION: Anemia and Hemoccult-positive stools. HISTORY OF PRESENT ILLNESS: The patient is a pleasant 82-year-old woman, admitted to the hospital after presenting to the emergency room from the General surgery office where she was being evaluated for routine followup on breast cancer because she was pale and hypotensive. She was evaluated in the emergency department and noted to have a hematocrit on admission of 20.4, which was down from 33.8, approximately 3 weeks earlier. She was noted to have Hemoccult-positive stools and transfused 3 units of packed red blood cells and admitted to the hospital. She has no complaints of abdominal pain. She has been using some aspirin for complaints of back and leg pain, in addition to being on 81 mg of aspirin a day and Plavix as she recently underwent stent placement for peripheral arterial disease. She denies sriram melena. Stools were reported by nursing staff as dark and brown, but formed. She has had some hematochezia, which she attributes to straining. Her last colonoscopy was in 2004 with removal of multiple hyperplastic polyps. PAST MEDICAL HISTORY: 1. Peripheral arterial disease with stent placement as above. 2. Breast cancer, status post lumpectomy and radiation. 3. Hyperlipidemia. 4. Urinary incontinence. 5. Hypertension. 6. Pneumonia. CURRENT MEDICATIONS: Current medication list is reviewed in the chart. ALLERGIES: PENICILLIN AND ERYTHROMYCIN. FAMILY HISTORY: This is reviewed with the patient and is noncontributory. SOCIAL HISTORY: She formally smoked, but does not currently. She denies significant alcohol intake. PAST SURGICAL HISTORY: Includes lumpectomy, appendectomy, back surgery, cataract replacements, left hip surgery, and vein stripping. REVIEW OF SYSTEMS: SKIN: No pruritus. HEENT: Negative. CARDIOPULMONARY: No shortness of breath or chest pain currently. GASTROINTESTINAL: As above. GENITOURINARY: Negative. NEUROPSYCHIATRIC: Negative. PHYSICAL EXAMINATION: GENERAL: Shows a pleasant female, sitting comfortably in a chair with her legs elevated. VITAL SIGNS: Reviewed in the electronic medical record and are stable. SKIN: Anicteric. HEENT: Shows no scleral icterus. NECK: Without lymphadenopathy or thyromegaly. LUNGS: Clear. HEART: Shows a regular rate and rhythm. S1, S2. No murmur. ABDOMEN: Soft without focal masses or tenderness. Bowel sounds are present. No organomegaly is noted. There is some minor ecchymosis in the groin from her recent procedure. EXTREMITIES: Without edema. LABORATORY DATA: Laboratory data and CT scanning are reviewed. IMPRESSION: Significant anemia with Hemoccult-positive stools. At this point, her anti-platelet medications have been held, but she will need to go back on these prior to discharge. With her history of aspirin use since there could likely be some NSAID-induced gastritis or even an asymptomatic ulcer and she is overdue for followup colonoscopy, I would recommend an upper endoscopy and colonoscopy, which will be arranged for tomorrow. I have discussed risks and benefits of both procedures with her. She understands these and agrees to proceed. In the interim, I agree with treating her with empiric pantoprazole and monitoring her hematocrit. Thanks for asking me to see her. I will follow her in the hospital with you. MD KIMMIE Cueto/GARCIA / [phone]
--- NOTE | 2023-01-23 23:58 | PC.NURSE ---
patient tolerated 1/2 of the bowel prep , NO N/V , liquid gurrola stool
[2023-01-24] VITALS (12 sets, daily range): BP systolic 102–150; BP diastolic 54–76; PULSE 67–82; RESP 16–20; TEMP 35.8–36.8; O2SAT 95–98
[2023-01-24] MEDS: Lactated Ringers 1,000 ML 50 ML IVCONT (05:48)
[2023-01-24] MEDS: Pantoprazole Sodium 40 MG/10 ML VIAL IVPUSH ×2 (05:50→16:15)
[2023-01-24 06:03] LABS: Hematocrit 29.3 % (37.0-47.0); Hemoglobin 9.2 g/dl (12.0-16.0); Mean Corpuscular HGB Conc 31.4 g/dl (31.0-35.0); Mean Corpuscular Hemoglobin 29.9 pg (27.0-33.0); Mean Corpuscular Volume 95.1 fL (80.0-98.0); Platelet Count 132 X10*3/uL (160-400); Red Blood Count 3.08 X10*6/uL (4.20-5.50); Red Cell Distribution Width 14.6 % (11.0-16.0); White Blood Count 3.2 X10*3/uL (4.8-10.8)
[2023-01-24 06:54] LABS: Anion Gap 11 (12-20); Blood Urea Nitrogen 13 mg/dL (9-16); Calcium 8.6 mg/dL (8.4-10.2); Carbon Dioxide 23 mmol/L (22-29); Chloride 111 mmol/L (96-108); Creatinine Clr Calc Pharmacy 67.7; Estimated Glomerular Filt Rate > 60; Glucose Random 86 mg/dL (60-115); Potassium 4.1 mmol/L (3.3-5.1); Sodium 141 mmol/L (135-145)
[2023-01-24] MEDS: Salmeterol Xinafoate 50 MCG BLST.W.DEV 1 PUFF INHALE (07:50)
[2023-01-24] MEDS: atenoloL 25 MG TABLET PO (07:53)
[2023-01-24] MEDS: Mirabegron 50 MG TAB.ER.24H PO (07:54)
[2023-01-24] MEDS: Anastrozole 1 MG TABLET PO (07:54)
[2023-01-24] MEDS: Cholecalciferol (Vitamin D3) 25 MCG TABLET PO (07:55)
[2023-01-24] MEDS: Acetaminophen 325 MG TABLET 650 MG PO (12:22)
--- NOTE | 2023-01-24 12:55 | HO.PM.IMPN ---
Subjective Subjective Date of Service: 01/24/23 Interval History: prepping for colonoscopy no abd pain no sriram GI bleeding c/o dysuria Review of Systems Review of Systems: Yes all other systems are reviewed and are negative Physical Exam Vital Signs: Vital Signs: Last Vital Signs Temp 97.7 F 01/24/23 11:14 Pulse 71 01/24/23 11:14 Resp 20 01/24/23 11:14 BP 150/65 H 01/24/23 11:14 Pulse Ox 97 01/24/23 11:14 O2 Del Method Room Air 01/24/23 11:14 BMI result Body Mass Index 28.3 Gen: in no acute distress HEENT: sclera anicteric, moist mucus membranes Neck: supple Lungs: clear to auscultation bilaterally Heart: regular rate and rhythm, no murmurs Abd: soft, non-tender, non-distended Ext: no edema Skin: warm/well-perfused Neuro: alert and oriented x3, no focal findings Psych: appropriate affect Objective Data Active Medications Acetaminophen (Acetaminophen 325 Mg Tablet) 650 mg PO Q6H PRN PRN Reason: Pain, Mild (Pain Scale 1-3) Last Admin: 01/24/23 12:22 Dose: 650 mg Documented By: MISSY Acetaminophen (Acetaminophen Supp 650 Mg Supp.Rect) 650 mg MD Q6H PRN PRN Reason: Pain, Mild (Pain Scale 1-3) Albuterol Sulfate (Albuterol Sulfate 90 Mcg 8 Gm Inhaler) 2 puff INHALE Q6H PRN PRN Reason: Wheezing Anastrozole (Anastrozole 1 Mg Tablet) 1 mg PO DAILY [facility] Last Admin: 01/24/23 07:54 Dose: 1 mg Documented By: MISSY Atenolol (Atenolol 25 Mg Tablet) 25 mg PO DAILY [facility]; Protocol Last Admin: 01/24/23 07:53 Dose: 25 mg Documented By: MISSY Atorvastatin Calcium (Atorvastatin Calcium 40 Mg Tablet) 40 mg PO BEDTIME [facility] Last Admin: 01/23/23 20:56 Dose: 40 mg Documented By: JIE Lactated Ringer's (Lr) 1,000 mls @ 50 mls/hr IVCONT .Q20H [facility] Last Admin: 01/24/23 05:48 Dose: 50 mls/hr Documented By: BLANCHE Melatonin (Melatonin 3 Mg Tablet) 6 mg PO BEDTIME PRN PRN Reason: Insomnia Mirabegron (Mirabegron 50 Mg Tab.Er.24h) 50 mg PO DAILY [facility] Last Admin: 01/24/23 07:54 Dose: 50 mg Documented By: MISSY Ondansetron HCl (Ondansetron Hcl 4 Mg/2 Ml Vial) 4 mg IVPUSH Q8H PRN PRN Reason: Nausea and Vomiting Pantoprazole Sodium (Pantoprazole Sodium 40 Mg/10 Ml Vial) 40 mg IVPUSH BID@0630,1630 [facility] Last Admin: 01/24/23 05:50 Dose: 40 mg Documented By: BLANCHE Pharmacy Consult (Consult Rx Perform Med Rec) 1 each MISCELLANE ONCE PRN PRN Reason: Consult order Salmeterol Xinafoate (Salmeterol Xinafoate 50 Mcg Blst.W.Dev) 1 puff INHALE RBID [facility] Last Admin: 01/24/23 07:50 Dose: 1 puff Documented By: DUKE Sodium Chloride (0.9 % Sodium Chloride Flush 3 Ml Syringe) 3 ml IVFLUSH QSHIFT [facility] Last Admin: 01/24/23 07:54 Dose: Not Given Documented By: MISSY Non-Admin Reason: IV Running Vitamin D (Cholecalciferol (Vitamin D3) 25 Mcg Tablet) 25 mcg PO DAILY [facility] Last Admin: 01/24/23 07:55 Dose: 25 mcg Documented By: MISSY Labs 01/24/23 05:35 01/24/23 05:35 Labs: Laboratory Results - last 24 hr 01/22/23 01/24/23 01/24/23 15:14 05:35 05:35 MCV 95.1 MCH 29.9 MCHC 31.4 RDW 14.6 Plt Count 132 L MPV 11.0 Absolute Nucleated RBC 0.000 Nucleated RBC % (auto) 0.0 Smear Path Review SEE NOTE Anion Gap 11 L Estim Creat Clear Calc 67.7 Estimated GFR > 60 Random Glucose 86 Calcium 8.6 Assessment and Plan (1) Anemia: Status: Acute (2) GI bleed: Status: Acute Plan d#3 82yo F with hx breast CA s/p surgery/radiation, PAD s/p SFA atherectomy/stent + L common iliac + external iliac stents on DAPT, HTN, urinary incontinence, HLD sent in from general surgeon's office due to hypotension. Severe anemia with Hb 6.2, FOBT negative # acute blood loss anemia due to GI bleed - NPO, hold DAPT, V PPI, 3u pRBCs transfused with appropriate response in H+H, GI consulted, plan EGD + C-scope today # dysuria - UA/UM/UCx # HTN - hold diltiazem + furosemide, continue atenolol # PAD - hold DAPT, continue statin # invasive ductal carcinoma of R breast - continue anastrozole # urinary incontinence - continue mirabegron # VTE ppx - SCDs # dispo - eventually home p endoscopic evaluation In my clinical judgment, the patient requires continued inpatient hospitalization for the following reasons: GI evaluation for anemia Time Spent With Patient Time: Total time managing care of this patient today __35__ minutes. Quality Stroke Does the patient have a stroke diagnosis?: No VTE Prior VTE?: No VTE Risk Level:: Medical - moderate - high VTE Device Contraindication: N/A - Device Ordered VTE Drug Contraindication: Treatment Not Indicated
--- NOTE | 2023-01-24 13:53 | HO.ANESPROP2 ---
HPI - Anesthesia Eval Consult details Narrative: 82 yo F admitted for anemia and hypotension. s/p 3 units PRBCs. Having an EGD/colon. PMFSH Active Problems Active Problems: All Active Problems (Updated 01/23/23 @ 16:18 by Kristopher Johnson MD) PAD (peripheral artery disease) (Acute) Anemia (Acute) GI bleed (Acute) Hypotension (Acute) Invasive ductal carcinoma of right breast (Acute) Aromatase inhibitor use (Acute) Breast cancer (Acute) Past Medical History Medical History History of dislocation of shoulder History of pneumonia Invasive ductal carcinoma of right breast PAD (peripheral artery disease) Family History Family History Mother Cancer of unknown origin Surgical History Surgical History History of appendectomy History of back surgery History of cataract extraction History of left hip replacement History of vein stripping History of Problems with Anesthesia: No Social History Social History Household Members: Spouse Housing: House Do you presently have visiting nurse or other home services: No Alcohol intake: current Alcohol intake frequency: holidays/special occasions only Patient Tobacco Use Status: Former Tobacco user Quit Date: 15 years ago Smoked in Last 30 Days: No Use of substances other than those prescribed or required for medical reasons: No Currently Displaying Signs/Symptoms of Drug Intoxication Withdrawal: No Have you been hit, kicked, punched, or otherwise hurt by someone within the past year? If so, by whom?: No Do you feel safe in your current relationship?: Yes Is there a partner from a previous relationship who is making you feel unsafe now?: No Are you made to feel afraid or neglected: No Are you DNR?: No Advance Directives: No Advance Directives Information Provided: No Do you have thoughts of harming others: None Do you have a plan to hurt others: No Plan Recently lost weight without trying: Unsure Nutrition Risks: No Nutritional Risk Patient : No : No Poor oral hygiene: No service: No Current occupational status: retired Meds Allergies Allergy/AdvReac Type Severity Reaction Status Date / Time Penicillins [PENICILLINS] Allergy Severe ITCHING Verified 01/22/23 14:11 Erythromycin Allergy Severe itching Uncoded 01/22/23 14:11 Active Medications: Current Medications Acetaminophen (Acetaminophen 325 Mg Tablet) 650 mg PO Q6H PRN PRN Reason: Pain, Mild (Pain Scale 1-3) Last Admin: 01/24/23 12:22 Dose: 650 mg Acetaminophen (Acetaminophen Supp 650 Mg Supp.Rect) 650 mg [place] Q6H PRN PRN Reason: Pain, Mild (Pain Scale 1-3) Albuterol Sulfate (Albuterol Sulfate 90 Mcg 8 Gm Inhaler) 2 puff INHALE Q6H PRN PRN Reason: Wheezing Anastrozole (Anastrozole 1 Mg Tablet) 1 mg PO DAILY [facility] Last Admin: 01/24/23 07:54 Dose: 1 mg Atenolol (Atenolol 25 Mg Tablet) 25 mg PO DAILY [facility]; Protocol Last Admin: 01/24/23 07:53 Dose: 25 mg Atorvastatin Calcium (Atorvastatin Calcium 40 Mg Tablet) 40 mg PO BEDTIME [facility] Last Admin: 01/23/23 20:56 Dose: 40 mg Lactated Ringer's (Lr) 1,000 mls @ 50 mls/hr IVCONT .Q20H [facility] Last Admin: 01/24/23 05:48 Dose: 50 mls/hr Melatonin (Melatonin 3 Mg Tablet) 6 mg PO BEDTIME PRN PRN Reason: Insomnia Mirabegron (Mirabegron 50 Mg Tab.Er.24h) 50 mg PO DAILY [facility] Last Admin: 01/24/23 07:54 Dose: 50 mg Ondansetron HCl (Ondansetron Hcl 4 Mg/2 Ml Vial) 4 mg IVPUSH Q8H PRN PRN Reason: Nausea and Vomiting Pantoprazole Sodium (Pantoprazole Sodium 40 Mg/10 Ml Vial) 40 mg IVPUSH BID@0630,1630 [facility] Last Admin: 01/24/23 05:50 Dose: 40 mg Pharmacy Consult (Consult Rx Perform Med Rec) 1 each MISCELLANE ONCE PRN PRN Reason: Consult order Salmeterol Xinafoate (Salmeterol Xinafoate 50 Mcg Blst.W.Dev) 1 puff INHALE RBID [facility] Last Admin: 01/24/23 07:50 Dose: 1 puff Sodium Chloride (0.9 % Sodium Chloride Flush 3 Ml Syringe) 3 ml IVFLUSH QSHIFT [facility] Last Admin: 01/24/23 07:54 Dose: Not Given Vitamin D (Cholecalciferol (Vitamin D3) 25 Mcg Tablet) 25 mcg PO DAILY [facility] Last Admin: 01/24/23 07:55 Dose: 25 mcg Home Medications Medication Instructions Recorded Confirmed Last Taken Type albuterol sulfate 90 mcg/actuation 2 inh inhalation Q6H PRN Wheezing 08/23/20 01/23/23 Unknown History breath activated powder inhaler,sensor (Proair Digihaler) aspirin 81 mg chewable tablet 81 mg PO DAILY 08/23/20 01/23/23 01/22/23 History atenolol 25 mg tablet 25 mg PO DAILY 08/23/20 01/23/23 01/22/23 History atorvastatin 40 mg tablet 40 mg PO BEDTIME 08/23/20 01/23/23 01/21/23 History cholecalciferol (vitamin D3) 25 25 mcg PO DAILY 08/23/20 01/23/23 01/22/23 History mcg (1,000 unit) capsule diltiazem HCl 120 mg 120 mg PO DAILY 08/23/20 01/23/23 01/22/23 History capsule,extended release 24 hr flaxseed oil 1,000 mg capsule 1,000 mg PO DAILY 08/23/20 01/23/23 01/22/23 History salmeterol 50 mcg/dose blister 1 inh inhalation Q12H 08/23/20 01/23/23 01/22/23 History powder for inhalation (Serevent Diskus) anastrozole 1 mg tablet 1 mg PO DAILY 11/08/20 01/23/23 01/22/23 History furosemide 20 mg tablet 20 mg PO DAILY 08/11/21 01/23/23 Unknown History mirabegron 50 mg tablet,extended 50 mg PO DAILY 12/25/22 01/23/23 01/22/23 History release 24 hr (Myrbetriq) Exam Exam Date and Time: January 24, 2023 1353 Height,Weight and Vital Signs: Height 5 ft 5 in Weight 77.2 kg Last Vital Signs Temp 96.5 F L 01/24/23 13:37 Pulse 76 01/24/23 13:37 Resp 16 01/24/23 13:37 BP 145/64 H 01/24/23 13:37 Pulse Ox 98 01/24/23 13:37 O2 Del Method Room Air 01/24/23 13:37 Pertinent Lab Results Pertinent Lab Results: Laboratory Tests 01/22/23 01/22/23 01/22/23 15:14 15:14 15:14 WBC 3.2 L RBC 2.10 L D Hgb 6.2 L* D Hct 20.4 L* D MCV 97.1 MCH 29.5 MCHC 30.4 L RDW 13.1 Plt Count 146 L MPV 11.1 Immature Gran % (Auto) 0.3 Neut % (Auto) 69.2 Lymph % (Auto) 16.5 L [place] % (Auto) 11.2 H Eos % (Auto) 2.2 Baso % (Auto) 0.6 Lymph # (Auto) 0.5 L [place] # (Auto) 0.4 Eos # (Auto) 0.1 Baso # (Auto) 0.0 Abs Immat Gran (auto) 0.01 Absolute Neuts (auto) 2.2 Absolute Nucleated RBC 0.000 Nucleated RBC % (auto) 0.0 Smear Path Review SEE NOTE PT 11.9 INR 1.0 APTT Sodium 143 Potassium 4.0 Chloride 110 H Carbon Dioxide 22 Anion Gap 15 BUN 23 H Creatinine 0.92 Estim Creat Clear Calc 48.6 Estimated GFR 59 Random Glucose 102 Calcium 9.0 D Magnesium 2.1 Total Bilirubin 0.7 Direct Bilirubin 0.2 AST 22 ALT 19 Alkaline Phosphatase 60 Troponin I High Sens Total Protein 6.2 L Albumin 3.8 Stool Occult Blood Blood Type Antibody Screen Antibody Identification Antigen Identification Crossmatch Crossmatch ([facility]) Enhanced Crossmatch Blood Bank Comment 01/22/23 01/22/23 01/22/23 15:14 15:14 15:42 WBC RBC Hgb Hct MCV MCH MCHC RDW Plt Count MPV Immature Gran % (Auto) Neut % (Auto) Lymph % (Auto) [place] % (Auto) Eos % (Auto) Baso % (Auto) Lymph # (Auto) [place] # (Auto) Eos # (Auto) Baso # (Auto) Abs Immat Gran (auto) Absolute Neuts (auto) Absolute Nucleated RBC Nucleated RBC % (auto) Smear Path Review PT INR APTT 27.9 Sodium Potassium Chloride Carbon Dioxide Anion Gap BUN Creatinine Estim Creat Clear Calc Estimated GFR Random Glucose Calcium Magnesium Total Bilirubin Direct Bilirubin AST ALT Alkaline Phosphatase Troponin I High Sens < 2.7 Total Protein Albumin Stool Occult Blood Blood Type A Negative Antibody Screen POSITIVE Antibody Identification Negative Antigen Identification Jkb Antigen - POSITIVE Crossmatch See Detail Crossmatch ([facility]) See Detail Enhanced Crossmatch See Detail Blood Bank Comment Technical 01/22/23 01/23/23 01/23/23 17:25 09:59 09:59 WBC 4.4 L RBC 3.45 L D Hgb 10.0 L D Hct 32.5 L D MCV 94.2 MCH 29.0 MCHC 30.8 L RDW 14.5 Plt Count 138 L MPV 10.6 Immature Gran % (Auto) 0.7 H Neut % (Auto) 75.2 H Lymph % (Auto) 10.8 L [place] % (Auto) 10.1 Eos % (Auto) 2.5 Baso % (Auto) 0.7 Lymph # (Auto) 0.5 L [place] # (Auto) 0.4 Eos # (Auto) 0.1 Baso # (Auto) 0.0 Abs Immat Gran (auto) 0.03 Absolute Neuts (auto) 3.3 Absolute Nucleated RBC 0.000 Nucleated RBC % (auto) 0.0 Smear Path Review PT INR APTT Sodium 143 Potassium 4.4 Chloride 110 H Carbon Dioxide 26 Anion Gap 11 L BUN 18 H Creatinine 0.75 Estim Creat Clear Calc 61.5 Estimated GFR > 60 Random Glucose 103 Calcium 9.0 Magnesium Total Bilirubin Direct Bilirubin AST ALT Alkaline Phosphatase Troponin I High Sens Total Protein Albumin Stool Occult Blood POSITIVE Blood Type Antibody Screen Antibody Identification Antigen Identification Crossmatch Crossmatch ([facility]) Enhanced Crossmatch Blood Bank Comment 01/24/23 01/24/23 05:35 05:35 WBC 3.2 L RBC 3.08 L Hgb 9.2 L Hct 29.3 L MCV 95.1 MCH 29.9 MCHC 31.4 RDW 14.6 Plt Count 132 L MPV 11.0 Immature Gran % (Auto) Neut % (Auto) Lymph % (Auto) [place] % (Auto) Eos % (Auto) Baso % (Auto) Lymph # (Auto) [place] # (Auto) Eos # (Auto) Baso # (Auto) Abs Immat Gran (auto) Absolute Neuts (auto) Absolute Nucleated RBC 0.000 Nucleated RBC % (auto) 0.0 Smear Path Review PT INR APTT Sodium 141 Potassium 4.1 Chloride 111 H Carbon Dioxide 23 Anion Gap 11 L BUN 13 Creatinine 0.68 Estim Creat Clear Calc 67.7 Estimated GFR > 60 Random Glucose 86 Calcium 8.6 Magnesium Total Bilirubin Direct Bilirubin AST ALT Alkaline Phosphatase Troponin I High Sens Total Protein Albumin Stool Occult Blood Blood Type Antibody Screen Antibody Identification Antigen Identification Crossmatch Crossmatch ([facility]) Enhanced Crossmatch Blood Bank Comment Airway Mallampati Class: II TM Dist: >3cm Neck ROM: Limited Loose/Missing/Broken Teeth: No Heart: S1S2 Lungs: CTAB Assessment and Plan Assessment Anesthesia Assessment: Anesthesia Plan Discussed and Chart Reviewed Final Anesthetic Review History of Problems with Anesthesia: No NPO: Yes ASA Class: III Final Preanesthetic Review: No Changes in Pt Med Stat, Meds/Allgs Chart Reviewed, Consent Obtained/Reviewed and Anes Risks/Benef Reviewed Patient Risk: Intermediate Procedure Risk: Low Anesthetic Plan Anesthetic Plan: MAC: and Agree w/ Assess. and Plan Disposition: Standard PACU
[2023-01-24 14:10] LABS: Appearance Urine Clear; Color Urine Yellow; Glucose Urine UA Negative (Negative); Leukocyte Esterase Urine Moderate (2+) (Negative); Nitrite Urine Negative (Negative); PH 7.5 (5.0-9.0); UMIC TRIGGER UA YES; Urine Blood Negative (Negative); Urine Ketones Trace mg/dL (Negative); Urine Protein Negative (Neg-Trace)
[2023-01-24 14:14] LABS: Bacteria Urine Trace (None Seen); Hyaline Casts Urine 0-2 /LPF (0-2); RBC Urine 0-2 /HPF (0-2); Squamous Epithelial Cell Urine 0-2 /HPF (0-2)
--- NOTE | 2023-01-24 15:40 | PM.OP ---
Brief Operative Note Date of Service: 01/24/23 Pre-op diagnosis: Anemia, Heme + stool Post-op diagnosis: other (Duodenitis, Hiatal hernia, Colon polyp) Procedure: EGD, Colonoscopy to the cecum and TI with hot snare polypectomy x 1 and placement of 2 Resolution clips Surgeon: Otoniel Coates Anesthesia: MAC Was an Sales Financial Analyst used for this Procedure?: No Estimated blood loss (mL): 0 Pathology: other (A. Ascending colon polyp) Condition: stable Disposition: PACU
--- NOTE | 2023-01-24 15:45 | PM.EVENT ---
Event Note Date of Service: 01/24/23 Event Note: GI-Full note dictated EGD 1. Mild duodenitis in the duodenal bulb, but no bleeding 2. Hiatal hernia Colonoscopy to the cecum and TI 1. Approx. 1.2cm polyp in distal ascending colon removed in piecemeal fashion. Two Resolution clips applied with good deployment and hemostasis. 2. Sigmoid diverticulosis 3. Internal hemorrhoids No blood nor melena in the GI tract. Rec: Advance diet. Change to po PPI. Start oral Iron. F/U labs for the morning. She can be discharged from my standpoint tomorrow, 01/25, if stable. I spoke with Dr. Winters and he would like her back on some blood thinner KINGA given the procedure in December, and he said she should stay on aspirin and Plavix for at least 6 months. Therefore, I would recommend she resume her aspirin on Saturday, 01/26 and resume her Plavix on , 01/31. Dr. Winters agreed with that plan. D/W patient and her 2 sisters in detail. Thanks Time Spent With Patient Time: Total time managing care of this patient today ____ minutes.
[2023-01-24] MEDS: 0.9 % Sodium Chloride Flush 3 ML SYRINGE IVFLUSH (16:16)
[2023-01-24] MEDS: Atorvastatin Calcium 40 MG TABLET PO (20:16)
--- NOTE | 2023-01-24 22:29 | OP_ITS ---
DATE OF SERVICE: 01/24/2023 SURGEON: Otoniel Coates MD INDICATIONS: The patient presents for evaluation of anemia and heme-positive stool. Full consent has been obtained from her for this, including risks of bleeding and perforation. PREOPERATIVE DIAGNOSIS: POSTOPERATIVE DIAGNOSIS: PROCEDURE PERFORMED: Esophagogastroduodenoscopy and colonoscopy to the cecum and terminal ileum with hot snare polypectomy x 1 and placement of 2 resolution clips on the polypectomy site. ESTIMATED BLOOD LOSS: COMPLICATIONS: ANESTHESIA: Monitored anesthesia care. ASSISTANTS: SPECIMENS: PREOPERATIVE DIAGNOSES: Anemia and heme-positive stool. POSTOPERATIVE DIAGNOSES: Anemia and heme-positive stool, hiatal hernia, duodenitis, colon polyp, diverticulosis, and internal hemorrhoids. DESCRIPTION OF PROCEDURE: The patient was placed in the left lateral decubitus position. The Olympus video gastroscope was passed in the posterior oropharynx and upper esophagus under direct vision. The scope was passed slowly to the distal esophagus. The gastroesophageal junction appeared at 35 cm. There was no sign of any esophagitis nor Sebastian's mucosa. The scope entered the stomach. There was a small hiatal hernia. The scope was advanced to the pylorus and the duodenum was cannulated to the descending portion. The duodenum including the bulb appeared normal other than some mild duodenitis in the duodenal bulb. There was no bleeding. The scope was withdrawn back in the stomach. The gastric antrum and body appeared normal with good peristalsis. The scope was retroflexed visualizing the proximal stomach carefully, which appeared normal, without any sign of mass or ulceration. The scope was straightened and withdrawn back in the esophagus. The esophageal mucosa appeared normal. The scope was withdrawn from the patient. She was turned around for the colonoscopy. The digital rectal exam revealed no abnormalities. The Olympus video pediatric colonoscope was entered into the rectum and advanced easily to the cecum. Once in the cecum, I did identify normal-appearing cecal pouch. Of note, the cecum did have to be irrigated quite a bit and then suctioned so as to obtain adequate visualization. There was no evidence of any melena nor blood. The terminal ileum was cannulated and appeared normal as well. The scope was withdrawn back in the colon. The scope was then slowly withdrawn assessing all mucosal surfaces carefully. The cecum appeared entirely normal as did the ileocecal valve and the appendiceal orifice. In the area of what appeared to be the distal ascending colon was an approximately 1.5 cm flat but raised polyp, which may have been a serrated polyp. This was removed in piecemeal fashion and recovered by suction. The polypectomy site appeared clean, without any sign of residual polyp nor bleeding. Two clips were applied with good deployment and good hemostasis. I did not visualize any other polyps, colitis, nor angiodysplasia. There was a mild amount of sigmoid diverticulosis. Of note, there were some hyperplastic appearing less than 5 mm polyps in the sigmoid colon and rectum, but these were not biopsied nor removed given the clinical situation. In the rectum, scope was retroflexed visualizing some internal hemorrhoids, but no other pathology. The rectal mucosa otherwise appeared normal. The scope was straightened and withdrawn from the patient. She tolerated both procedures well and was returned to the recovery area in stable condition. IMPRESSION: 1. Colon polyp, status post snare polypectomy. 2. Diverticulosis. 3. Internal hemorrhoids. 4. Hiatal hernia. 5. Duodenitis. PLAN: The results of the biopsies will be checked. Given her age and these findings, she would not need any further screening colonoscopies. She will be switched from IV PPI to p.o. omeprazole given the finding of duodenitis, her anemia, and the need to go back on her blood thinner. Her diet will be advanced. She will also start oral iron. If she is stable from a GI standpoint she can be discharged tomorrow from a GI standpoint. She should have outpatient followup blood counts. Of note, I did speak with Dr. Winters regarding her situation as she had a vascular procedure with him several weeks ago. He would like her back on a blood thinner as soon as possible and advised that she should stay on Plavix and aspirin for about 6 months. As such, I would recommend that her aspirin be resumed in 48 hours and her Plavix be resumed in 1 week. I would continue the omeprazole and iron long-term. This has been discussed with her 2 sisters. MD SANFORD Bailey/GARCIA / [id number] RAPHAEL
[2023-01-25 03:48] VITALS: PULSE 89; RESP 20; TEMP 36.8; O2SAT 97
[2023-01-25] MEDS: Omeprazole 20 MG CAPSULE.DR PO (05:13)
[2023-01-25 05:15] VITALS: BP 158/74
[2023-01-25 06:48] LABS: Hematocrit 30.5 % (37.0-47.0); Hemoglobin 9.3 g/dl (12.0-16.0); Mean Corpuscular HGB Conc 30.5 g/dl (31.0-35.0); Mean Corpuscular Hemoglobin 29.2 pg (27.0-33.0); Mean Corpuscular Volume 95.9 fL (80.0-98.0); Mean Platelet Volume 11.2 fL (9.4-12.3); Platelet Count 136 X10*3/uL (160-400); Red Blood Count 3.18 X10*6/uL (4.20-5.50); Red Cell Distribution Width 14.4 % (11.0-16.0); White Blood Count 4.6 X10*3/uL (4.8-10.8)
[2023-01-25 07:12] LABS: Anion Gap 13 (12-20); Blood Urea Nitrogen 12 mg/dL (9-16); Calcium 8.6 mg/dL (8.4-10.2); Carbon Dioxide 26 mmol/L (22-29); Chloride 110 mmol/L (96-108); Creatinine Clr Calc Pharmacy 59.1; Estimated Glomerular Filt Rate > 60; Glucose Random 107 mg/dL (60-115); Potassium 4.3 mmol/L (3.3-5.1); Sodium 145 mmol/L (135-145)
[2023-01-25 07:32] VITALS: BP 144/62; PULSE 80; RESP 16; TEMP 36.2; O2SAT 99
[2023-01-25] MEDS: Salmeterol Xinafoate 50 MCG BLST.W.DEV 1 PUFF INHALE (07:34)
[2023-01-25 07:36] VITALS: PULSE 80; RESP 20; O2SAT 99
[2023-01-25] MEDS: Ferrous Sulfate 324 MG TABLET.DR PO (09:04)
[2023-01-25] MEDS: Anastrozole 1 MG TABLET PO (09:04)
[2023-01-25] MEDS: Mirabegron 50 MG TAB.ER.24H PO (09:05)
[2023-01-25] MEDS: Cholecalciferol (Vitamin D3) 25 MCG TABLET PO (09:05)
[2023-01-25] MEDS: atenoloL 25 MG TABLET PO (09:05)
--- NOTE | 2023-01-25 09:20 | P.DS_ITS ---
DS: Providers Provider Date of Service: 01/25/23 Date of admission: 01/22/23 21:07 Date of discharge: 01/25/23 Primary care physician: Bob Quinones MD Consults: 01/22/23 20:08 Consult to Gastroenterology Routine Consulting Provider: [facility] Reason for consultation: GI bleed DS: Diagnosis Discharge Diagnosis (1) Anemia due to GI blood loss: Status: Acute (2) Duodenitis: Status: Acute (3) Colonic polyp: Status: Acute (4) PAD (peripheral artery disease): Status: Acute DS: Summary Hospital Course Hospital Course: from admission H+P by hospitalist Hoang Bishop MD, 01/22/23: This is a 82-year-old female with pertinent history of breast cancer status post surgery and radiation, peripheral artery disease status post left SFA arthrectomy and stent, left common iliac and external iliac stent, essential hypertension, urinary incontinence, mixed hyperlipidemia who was sent from Dr. Johnson as she was found to be pale and hypotensive.? Patient does endorse generalized fatigue, dizziness and lightheadedness that she observed over the last 2 days.? Patient's blood pressure was found to be systolic in the 90s at outpatient surgery and she was sent to the ER for further evaluation.? Patient denies melena, hematuria, hematemesis, hematochezia or bleeding at the site of stent.? She does not remember her last colonoscopy but states it was years ago and was normal.? Patient denies fever, chills, chest discomfort, palpitations, shortness of breath, abdominal pain, changes in urinary habits. In the emergency department, patient's hemoglobin was found to be low at 6.2 and stool occult blood test was positive 82yo F with hx breast CA s/p surgery/radiation, PAD s/p SFA atherectomy/stent + L common iliac + external iliac stents on DAPT, HTN, urinary incontinence, HLD sent in from general surgeon's office due to hypotension.? Severe anemia with Hb 6.2, FOBT negative. [place] [facility] transfused 3 units of packed red blood cells with appropriate rise in H+H. Dual antiplatelet therapy was held. She was given IV PPI. GI was consulted. EGD and colonoscopy were done on 01/24/23. There was a 1.5 cm flat, raised polyp in the distal ascending colon that was removed. There was diverticultosis and internal hemorrhoids. There was duodenitis and a small hiatal hernia. She recovered well from the procedure. She was prescribed PO omeprazole for the duodenitis given anemia and the need to back on her blood thinners. She was started on oral iron. Aspirin should be held, then resumed on 01/27/23. Clopdigreol should be held, then resumed on 02/01/23. She should follow up with GI for biopsy results. Time Spent with Patient Time attestation: Total time managing care of this patient today _45___ minutes. Discharge coordination time: Greater than 30 minutes Quality: Safe Use of Opioids Does Pt have an Active Cancer Diagnosis on the Problem List?: No Quality: Stroke Does the patient have a stroke diagnosis?: No Physical Exam Vital Signs: Vital Signs: Last Vital Signs Temp 97.1 F 01/25/23 07:32 Pulse 80 01/25/23 07:36 Resp 20 01/25/23 07:36 BP 144/62 H 01/25/23 07:32 Pulse Ox 99 01/25/23 07:32 O2 Del Method Room Air 01/25/23 07:32 BMI result Body Mass Index 28.3 Gen: in no acute distress HEENT: sclera anicteric, moist mucus membranes Neck: supple Lungs: clear to auscultation bilaterally Heart: regular rate and rhythm, no murmurs Abd: soft, non-tender, non-distended Ext: no edema Skin: warm/well-perfused Neuro: alert and oriented x3, no focal findings Psych: appropriate affect DS: Data Data Completed and Pending Completed studies during hospitalization [Text1]: Laboratory Results WBC 4.6 X10*3/uL (4.8-10.8) L 01/25/23 05:47 RBC 3.18 X10*6/uL (4.20-5.50) L 01/25/23 05:47 Hgb 9.3 g/dl (12.0-16.0) L 01/25/23 05:47 Hct 30.5 % (37.0-47.0) L 01/25/23 05:47 MCV 95.9 fL (80.0-98.0) 01/25/23 05:47 MCH 29.2 pg (27.0-33.0) 01/25/23 05:47 MCHC 30.5 g/dl (31.0-35.0) L 01/25/23 05:47 RDW 14.4 % (11.0-16.0) 01/25/23 05:47 Plt Count 136 X10*3/uL (160-400) L 01/25/23 05:47 MPV 11.2 fL (9.4-12.3) 01/25/23 05:47 Immature Gran % (Auto) 0.7 % (0.0-0.4) H 01/23/23 09:59 Neut % (Auto) 75.2 % (45-73) H 01/23/23 09:59 Lymph % (Auto) 10.8 % (20-40) L 01/23/23 09:59 Keith % (Auto) 10.1 % (2-11) 01/23/23 09:59 Eos % (Auto) 2.5 % (0-4) 01/23/23 09:59 Baso % (Auto) 0.7 % (0-2) 01/23/23 09:59 Lymph # (Auto) 0.5 X10*3/uL (1.2-4.9) L 01/23/23 09:59 Keith # (Auto) 0.4 X10*3/uL (0.1-1.2) 01/23/23 09:59 Eos # (Auto) 0.1 X10*3/uL (0.0-0.4) 01/23/23 09:59 Baso # (Auto) 0.0 X10*3/uL (0.0-0.2) 01/23/23 09:59 Abs Immat Gran (auto) 0.03 X10*3/uL (0.00-0.03) 01/23/23 09:59 Absolute Neuts (auto) 3.3 x10*3/uL (2.0-8.3) 01/23/23 09:59 Absolute Nucleated RBC 0.000 X10*3/uL (0.0-0.012) 01/25/23 05:47 Nucleated RBC % (auto) 0.0 /100WBC (0.0-0.2) 01/25/23 05:47 Smear Path Review SEE NOTE 01/22/23 15:14 PT 11.9 SEC (10.0-13.1) 01/22/23 15:14 INR 1.0 (0.9-1.1) 01/22/23 15:14 APTT 27.9 SEC (26.0-36.4) 01/22/23 15:14 Sodium 145 mmol/L (135-145) 01/25/23 05:47 Potassium 4.3 mmol/L (3.3-5.1) 01/25/23 05:47 Chloride 110 mmol/L (96-108) H 01/25/23 05:47 Carbon Dioxide 26 mmol/L (22-29) 01/25/23 05:47 Anion Gap 13 (12-20) 01/25/23 05:47 BUN 12 mg/dL (9-16) 01/25/23 05:47 Creatinine 0.78 mg/dL (0.5-1.4) 01/25/23 05:47 Estim Creat Clear Calc 59.1 01/25/23 05:47 Estimated GFR > 60 01/25/23 05:47 Random Glucose 107 mg/dL (60-115) 01/25/23 05:47 Calcium 8.6 mg/dL (8.4-10.2) 01/25/23 05:47 Magnesium 2.1 mg/dL (1.6-2.6) 01/22/23 15:14 Total Bilirubin 0.7 mg/dL (0.0-1.0) 01/22/23 15:14 Direct Bilirubin 0.2 mg/dL (0.0-0.5) 01/22/23 15:14 AST 22 U/L (5-31) 01/22/23 15:14 ALT 19 U/L (0-31) 01/22/23 15:14 Alkaline Phosphatase 60 U/L (39-117) 01/22/23 15:14 Troponin I High Sens < 2.7 ng/L (<3.5-17.0) 01/22/23 15:14 Total Protein 6.2 g/dL (6.5-8.0) L 01/22/23 15:14 Albumin 3.8 g/dL (3.5-5.0) 01/22/23 15:14 Urine Color Yellow 01/24/23 12:54 Urine Appearance Clear 01/24/23 12:54 Urine pH 7.5 (5.0-9.0) 01/24/23 12:54 Ur Specific [place] 1.010 (1.005-1.025) 01/24/23 12:54 Urine Protein Negative mg/dL (Neg-Trace) 01/24/23 12:54 Urine Glucose (UA) Negative mg/dL (Negative) 01/24/23 12:54 Urine Ketones Trace mg/dL (Negative) 01/24/23 12:54 Urine Blood Negative (Negative) 01/24/23 12:54 Urine Nitrite Negative (Negative) 01/24/23 12:54 Ur Leukocyte Esterase Moderate (2+) (Negative) H 01/24/23 12:54 Urine RBC 0-2 /HPF (0-2) 01/24/23 12:54 Urine WBC 11-20 /HPF (0-5) H 01/24/23 12:54 Ur Squamous Epith Cells 0-2 /HPF (0-2) 01/24/23 12:54 Urine Bacteria Trace (None Seen) 01/24/23 12:54 Hyaline Casts 0-2 /LPF (0-2) 01/24/23 12:54 Stool Occult Blood POSITIVE (NEGATIVE) 01/22/23 17:25 Blood Type A Negative 01/22/23 15:42 Antibody Screen POSITIVE 01/22/23 15:42 Antibody Identification Negative 01/22/23 15:42 Antigen Identification Fya Antigen - POSITIVE Jkb Antigen - POSITIVE 01/22/23 15:42 Antigen Identification Fya Antigen - POSITIVE Jkb Antigen - POSITIVE 01/22/23 15:42 Crossmatch See Detail 01/22/23 15:42 Crossmatch (AHG) See Detail 01/22/23 15:42 Enhanced Crossmatch See Detail 01/22/23 15:42 Blood Bank Comment Technical 01/22/23 15:42 Impressions Abdomen/Pelvis CT 01/22/23 18:58 IMPRESSION: 1. No evidence of active GI bleeding. 2. Incidental note made of cholelithiasis, left renal scarring, small hiatal hernia, colonic diverticulosis without diverticulitis and degenerative changes in the spine and right hip. Fleischner guidelines were followed. Pending studies at discharge: Pending at discharge 01/24/23 14:51 Surgical [PTH] Routine Discharge Plan Discharge Anticipated Discharge Date/Time: 01/25/23 09:16 Patient Disposition: Home, Self-Care Discharge Diagnosis: Anemia and heme-positive stool, hiatal hernia, duodenitis, colon polyp, diverticulosis, and internal hemorrhoids. Peripheral arterial disease. UTI. Referrals: Watson Greco [Physician] - 2 Weeks Bob Quinones MD [Primary Care Provider] - 1 Week Discharge Medications: New omeprazole 20 mg Capsule,Delayed Release(Dr/Ec) 20 mg PO DAILY@0630 Qty: 30 0RF ferrous sulfate 324 mg (65 mg iron) Tablet,Delayed Release (Dr/Ec) 324 mg PO DAILY Qty: 30 0RF nitrofurantoin monohyd/m-cryst 100 mg capsule 100 mg PO BID Qty: 10 0RF Rx Instructions: must administer with a meal/food Continued anastrozole 1 mg tablet 1 mg PO DAILY atenolol 25 mg tablet 25 mg PO DAILY diltiazem HCl 120 mg capsule,extended release 24hr 120 mg PO DAILY Serevent Diskus 50 mcg/dose blister with device 1 inh inhalation Q12H Proair Digihaler 90 mcg/actuation aero powdr breath act w/sensor 2 inh inhalation Q6H PRN (Reason: Wheezing) atorvastatin 40 mg tablet 40 mg PO BEDTIME cholecalciferol (vitamin D3) 25 mcg (1,000 unit) capsule 25 mcg PO DAILY flaxseed oil 1,000 mg capsule 1,000 mg PO DAILY Rx Instructions: administer with a meal furosemide 20 mg tablet 20 mg PO DAILY Myrbetriq 50 mg tablet extended release 24 hr 50 mg PO DAILY Held clopidogrel [Plavix] 75 mg tablet 75 mg PO DAILY Qty: 30 0RF Hold Instructions: Resume on 02/01/23. aspirin 81 mg tablet,chewable 81 mg PO DAILY Hold Instructions: Resume on 01/27/23. Discharge Orders: Discharge Order (Routine); Ordered 01/25/23 Ordered By: Jacky Arnold Diet: Advance to usual diet Activity on Discharge: As tolerated Stand Alone Forms: Patient Portal Discharge page Care Plan Goals: recovery from anemia + GI bleed Health Concerns: Anemia and heme-positive stool, hiatal hernia, duodenitis, colon polyp, diverticulosis, and internal hemorrhoids. Peripheral arterial disease. UTI Plan of Treatment: Take iron as prescribed Take omeprazole as prescribed Hold aspirin; resume on 01/27/23 Hold clopidogrel; resume on 02/01/[address] Greco for biopsy results For UTI, take nitrofurantoin 100 mg twice daily for 5 days Please follow up with your primary care doctor within 1 week. Return to the hospital if you experience recurrent or worsening symptoms. Assessment: See Discharge Summary.
[2023-01-25] MEDS: Nitrofurantoin Monohyd/M-Cryst 100 MG CAPSULE PO (09:31)
--- NOTE | 2023-01-25 09:45 | MHC.CM.PN ---
Patient has been medically cleared for dc to home today, self care. Last IMM addressed on 01/23/2023.
--- NOTE | 2023-01-25 12:53 | HO.POSTANES ---
Post Anesthesia Evaluation Post Anesthesia Evaluation Date of Service: 01/24/23 Vital Signs: Vital Signs Temp Pulse Resp BP Pulse Ox O2 Del Method 01/25/23 07:32 97.1 F 80 16 144/62 H 99 Room Air 01/25/23 07:36 80 20 01/25/23 05:15 158/74 H 01/25/23 03:48 98.2 F 89 20 97 Room Air Anesthesia: Monitored Mental Status: Awake Pain Control: Satisfactory Nausea/Vomiting: None Hydration: Adequate Anesthesia-Related Issues: No Anes. Related Issues
== END 2023-01-25 11:05 | disposition home or self-care (01) | DRG 378 ==
LOC: HO.ED 19:23 → HO.EDOVER 21:22 → HO.IMC 01-23 01:52
PROVIDERS: Internal Medicine; Physician Assistant; Admitting Provider Student in an Organized Health Care Education/Training Program; Emergency Provider Emergency Medicine; PCP Internal Medicine; Visit Provider Family Medicine
PROC: 0DJ08ZZ Inspection of Upper Intestinal Tract, Via Natural or Artificial Opening Endoscopic (ICD-10-PCS; principal; 2023-01-24 14:00)
DX: K57.31 Diverticulosis of large intestine without perforation or abscess with bleeding (principal); D62 Acute posthemorrhagic anemia; N39.0 Urinary tract infection, site not specified; K29.81 Duodenitis with bleeding; D12.2 Benign neoplasm of ascending colon; K44.9 Diaphragmatic hernia without obstruction or gangrene; K64.8 Other hemorrhoids; E78.2 Mixed hyperlipidemia; C50.811 Malignant neoplasm of overlapping sites of right female breast; I95.9 Hypotension, unspecified; R32 Unspecified urinary incontinence; Z87.891 Personal history of nicotine dependence; I70.202 Unspecified atherosclerosis of native arteries of extremities, left leg; Z92.3 Personal history of irradiation; Z88.0 Allergy status to penicillin; Z79.82 Long term (current) use of aspirin; Z79.811 Long term (current) use of aromatase inhibitors; Z79.02 Long term (current) use of antithrombotics/antiplatelets; Z79.899 Other long term (current) drug therapy
CPT/HCPCS: 36415; 74178; 80048; 80076; 81001; 82272; 83735; 84484; 85025; 85027; 85610; 85730; 86850; 86870; 86885; 86900; 86901; 86905; 86920; 86921; 87086; 88305; 93005; 99212; 99285; J2370; P9016; Q9967

== ENCOUNTER 2023-02-01 11:16 | Outpatient (REF) | payer MEDICARE, SELFPAY ==
[2023-02-01 13:43] LABS: MANUAL DIFF FLAG NO
[2023-02-01 13:55] LABS: Basophils Absolute Auto 0.1 X10*3/uL (0.0-0.2); Basophils Percent Auto 0.7 % (0-2); Eosinophils Absolute Auto 0.1 X10*3/uL (0.0-0.4); Eosinophils Percent Auto 1.9 % (0-4); Hematocrit 33.6 % (37.0-47.0); Hemoglobin 10.6 g/dl (12.0-16.0); Imm Gran Abs Auto 0.01 X10*3/uL (0.00-0.03); Imm Gran Pct Auto 0.1 % (0.0-0.4); Lymphocytes Absolute Auto 0.5 X10*3/uL (1.2-4.9); Lymphocytes Percent Auto 6.3 % (20-40); Mean Corpuscular HGB Conc 31.5 g/dl (31.0-35.0); Mean Corpuscular Hemoglobin 29.7 pg (27.0-33.0); Mean Corpuscular Volume 94.1 fL (80.0-98.0); Mean Platelet Volume 11.8 fL (9.4-12.3); Monocytes Absolute Auto 0.7 X10*3/uL (0.1-1.2); Monocytes Percent Auto 9.3 % (2-11); Neutrophils Absolute Auto 6.2 x10*3/uL (2.0-8.3); Neutrophils Percent Auto 81.7 % (45-73); Platelet Count 170 X10*3/uL (160-400); Red Blood Count 3.57 X10*6/uL (4.20-5.50); Red Cell Distribution Width 13.6 % (11.0-16.0); White Blood Count 7.6 X10*3/uL (4.8-10.8)
[2023-02-01 14:08] LABS: Alanine Aminotransferase 23 U/L (0-31); Albumin Level 3.8 g/dL (3.5-5.0); Alkaline Phosphatase 64 U/L (39-117); Anion Gap 16 (12-20); Aspartate Amino Transferase 24 U/L (5-31); Bilirubin Total 1.3 mg/dL (0.0-1.0); Blood Urea Nitrogen 16 mg/dL (9-16); Carbon Dioxide 25 mmol/L (22-29); Chloride 105 mmol/L (96-108); Estimated Glomerular Filt Rate > 60; Glucose Random 110 mg/dL (60-115); Sodium 142 mmol/L (135-145); Total Protein 6.6 g/dL (6.5-8.0)
== END 2023-02-01 11:17 | disposition home or self-care (01) ==
LOC: HO.HMGCLDS 11:16
PROVIDERS: PCP Internal Medicine; Visit Provider Internal Medicine
DX: D64.9 Anemia, unspecified (principal); I73.9 Peripheral vascular disease, unspecified; I10 Essential (primary) hypertension
CPT/HCPCS: 36415; 80053; 85025

== ENCOUNTER 2023-02-12 10:43 | Outpatient (REF) | payer MEDICARE, SELFPAY ==
[2023-02-12 13:18] LABS: MANUAL DIFF FLAG NO
[2023-02-12 13:28] LABS: Basophils Percent Auto 0.6 % (0-2); Eosinophils Absolute Auto 0.1 X10*3/uL (0.0-0.4); Eosinophils Percent Auto 2.5 % (0-4); Hematocrit 32.4 % (37.0-47.0); Hemoglobin 10.2 g/dl (12.0-16.0); Imm Gran Abs Auto 0.03 X10*3/uL (0.00-0.03); Imm Gran Pct Auto 0.6 % (0.0-0.4); Lymphocytes Absolute Auto 0.7 X10*3/uL (1.2-4.9); Lymphocytes Percent Auto 15.7 % (20-40); Mean Corpuscular HGB Conc 31.5 g/dl (31.0-35.0); Mean Corpuscular Hemoglobin 29.7 pg (27.0-33.0); Mean Corpuscular Volume 94.5 fL (80.0-98.0); Mean Platelet Volume 11.3 fL (9.4-12.3); Monocytes Absolute Auto 0.3 X10*3/uL (0.1-1.2); Neutrophils Absolute Auto 3.5 x10*3/uL (2.0-8.3); Neutrophils Percent Auto 73.6 % (45-73); Platelet Count 195 X10*3/uL (160-400); Red Blood Count 3.43 X10*6/uL (4.20-5.50); Red Cell Distribution Width 14.3 % (11.0-16.0); White Blood Count 4.7 X10*3/uL (4.8-10.8)
[2023-02-12 13:57] LABS: Anion Gap 9 (12-20); Blood Urea Nitrogen 27 mg/dL (9-16); Calcium 9.3 mg/dL (8.4-10.2); Carbon Dioxide 27 mmol/L (22-29); Chloride 111 mmol/L (96-108); Estimated Glomerular Filt Rate 56; Glucose Random 101 mg/dL (60-115); Iron 75 mcg/dL (30-160); Percent Iron Saturation 24 % (15-50); Sodium 143 mmol/L (135-145); Total Iron Binding Capacity 319 mcg/dL (228-428); Unsaturated Iron Binding 244 ug/dL
== END 2023-02-12 10:44 | disposition home or self-care (01) ==
LOC: HO.10HDL 10:43
PROVIDERS: Visit Provider Internal Medicine
DX: D64.9 Anemia, unspecified (principal); J44.9 Chronic obstructive pulmonary disease, unspecified; K29.80 Duodenitis without bleeding
CPT/HCPCS: 36415; 80048; 83540; 85025

== ENCOUNTER 2023-02-19 13:01 | Outpatient (REF) | payer MEDICARE, SELFPAY ==
--- NOTE | ~2023-02-19 | US_ITS ---
EXAMINATION: US VENOUS ULTRASOUND WITH DOPPLER LOWER EXTREMITY, LEFT CLINICAL INFORMATION: Left leg pain and edema COMPARISON: None available. TECHNIQUE: Ultrasound of the deep veins is performed from the hip to the calf with compression sonography and color and pulse Doppler assessment. Spectral analysis with color-flow imaging is performed. FINDINGS: There is normal venous compression and respiratory variation and augmented flow. The visualized common femoral vein, superficial femoral vein, profunda femoral vein, popliteal vein, posterior tibial vein show no evidence of deep venous thrombosis. Peroneal vein was not seen. If the patient's symptoms persist, followup ultrasound in 5 days 7 days might be of value to exclude proximal propagation from a non-visualized calf vein. Complex avascular fluid collection is identified extending from the popliteal fossa into the proximal calf. US/US venous duplex LE LT IMPRESSION: No DVT demonstrated in the left lower extremity. Question ruptured Gaitan's cyst.
== END 2023-02-19 13:02 | disposition home or self-care (01) ==
LOC: HO.US 13:01
PROVIDERS: PCP Internal Medicine; Visit Provider Internal Medicine
DX: M79.605 Pain in left leg (principal); R60.0 Localized edema
CPT/HCPCS: 93971

== ENCOUNTER 2023-05-06 08:52 | Outpatient (REF) | payer MEDICARE, SELFPAY ==
[2023-05-06 11:16] LABS: MANUAL DIFF FLAG NO
[2023-05-06 11:51] LABS: Basophils Percent Auto 0.7 % (0-2); Eosinophils Absolute Auto 0.2 X10*3/uL (0.0-0.4); Eosinophils Percent Auto 3.9 % (0-4); Hematocrit 26.6 % (37.0-47.0); Hemoglobin 7.5 g/dl (12.0-16.0); Imm Gran Abs Auto 0.01 X10*3/uL (0.00-0.03); Imm Gran Pct Auto 0.2 % (0.0-0.4); Lymphocytes Absolute Auto 0.5 X10*3/uL (1.2-4.9); Lymphocytes Percent Auto 11.8 % (20-40); Mean Corpuscular HGB Conc 28.2 g/dl (31.0-35.0); Mean Corpuscular Hemoglobin 21.4 pg (27.0-33.0); Mean Platelet Volume 11.8 fL (9.4-12.3); Monocytes Absolute Auto 0.6 X10*3/uL (0.1-1.2); Monocytes Percent Auto 13.7 % (2-11); Neutrophils Absolute Auto 3.1 x10*3/uL (2.0-8.3); Neutrophils Percent Auto 69.7 % (45-73); Platelet Count 213 X10*3/uL (160-400); Red Cell Distribution Width 17.8 % (11.0-16.0); White Blood Count 4.4 X10*3/uL (4.8-10.8)
[2023-05-06 12:21] LABS: Alanine Aminotransferase 11 U/L (0-31); Alkaline Phosphatase 73 U/L (39-117); Anion Gap 11 (12-20); Aspartate Amino Transferase 20 U/L (5-31); Bilirubin Total 0.9 mg/dL (0.0-1.0); Blood Urea Nitrogen 18 mg/dL (9-16); Calcium 9.5 mg/dL (8.4-10.2); Carbon Dioxide 25 mmol/L (22-29); Chloride 111 mmol/L (96-108); Estimated Glomerular Filt Rate > 60; Glucose Random 109 mg/dL (60-115); Iron 18 mcg/dL (30-160); Percent Iron Saturation 5 % (15-50); Potassium 4.1 mmol/L (3.3-5.1); Sodium 143 mmol/L (135-145); Total Iron Binding Capacity 375 mcg/dL (228-428); Total Protein 6.8 g/dL (6.5-8.0); Unsaturated Iron Binding 357 ug/dL
== END 2023-05-06 08:53 | disposition home or self-care (01) ==
LOC: HO.HMGCLDS 08:52
PROVIDERS: PCP Internal Medicine; Visit Provider Internal Medicine
DX: D64.9 Anemia, unspecified (principal); J44.9 Chronic obstructive pulmonary disease, unspecified; I12.9 Hypertensive chronic kidney disease with stage 1 through stage 4 chronic kidney disease, or unspecified chronic kidney disease; N18.9 Chronic kidney disease, unspecified; E78.00 Pure hypercholesterolemia, unspecified
CPT/HCPCS: 36415; 80053; 83540; 85025

== ENCOUNTER 2023-05-08 09:59 | Outpatient (REF) | payer MEDICARE, SELFPAY | END 2023-05-08 10:00 | disposition home or self-care (01) | LOC: HO.LAB 09:59 | PROVIDERS: PCP Internal Medicine; Visit Provider Internal Medicine | DX: Z13.89 Encounter for screening for other disorder (principal) | CPT/HCPCS: 86850; 86870; 86880; 86900; 86901 ==

== ENCOUNTER 2023-05-09 14:13 | Outpatient (REF) | payer MEDICARE, SELFPAY | END 2023-05-09 14:14 | disposition home or self-care (01) | LOC: HO.MDS 14:13 | PROVIDERS: Visit Provider Internal Medicine | DX: D64.9 Anemia, unspecified (principal) | CPT/HCPCS: 36430; 86850; 86870; 86880; 86900; 86901; 86920; 86921; P9016 ==

== ENCOUNTER 2023-05-22 10:44 | Outpatient (REF) | payer MEDICARE, SELFPAY ==
[2023-05-22 13:24] LABS: MANUAL DIFF FLAG NO
[2023-05-22 13:40] LABS: Basophils Percent Auto 0.5 % (0-2); Eosinophils Absolute Auto 0.1 X10*3/uL (0.0-0.4); Eosinophils Percent Auto 0.8 % (0-4); Hematocrit 36.1 % (37.0-47.0); Hemoglobin 10.9 g/dl (12.0-16.0); Imm Gran Abs Auto 0.03 X10*3/uL (0.00-0.03); Imm Gran Pct Auto 0.4 % (0.0-0.4); Lymphocytes Absolute Auto 0.5 X10*3/uL (1.2-4.9); Lymphocytes Percent Auto 6.9 % (20-40); Mean Corpuscular HGB Conc 30.2 g/dl (31.0-35.0); Mean Corpuscular Hemoglobin 23.7 pg (27.0-33.0); Mean Corpuscular Volume 78.6 fL (80.0-98.0); Monocytes Absolute Auto 0.8 X10*3/uL (0.1-1.2); Monocytes Percent Auto 10.4 % (2-11); Neutrophils Absolute Auto 6.2 x10*3/uL (2.0-8.3); Platelet Count 165 X10*3/uL (160-400); Red Blood Count 4.59 X10*6/uL (4.20-5.50); Red Cell Distribution Width 22.7 % (11.0-16.0); White Blood Count 7.7 X10*3/uL (4.8-10.8)
[2023-05-22 14:09] LABS: Alanine Aminotransferase 13 U/L (0-31); Albumin Level 4.1 g/dL (3.5-5.0); Alkaline Phosphatase 72 U/L (39-117); Anion Gap 15 (12-20); Aspartate Amino Transferase 23 U/L (5-31); Bilirubin Total 1.6 mg/dL (0.0-1.0); Blood Urea Nitrogen 22 mg/dL (9-16); C Reactive Protein 3.79 mg/dL (< or = 0.50); Calcium 9.6 mg/dL (8.4-10.2); Carbon Dioxide 26 mmol/L (22-29); Chloride 108 mmol/L (96-108); Estimated Glomerular Filt Rate 58; Glucose Random 116 mg/dL (60-115); Iron 39 mcg/dL (30-160); Percent Iron Saturation 11 % (15-50); Potassium 3.9 mmol/L (3.3-5.1); Sodium 145 mmol/L (135-145); Total Iron Binding Capacity 341 mcg/dL (228-428); Total Protein 7.3 g/dL (6.5-8.0); Unsaturated Iron Binding 302 ug/dL
[2023-05-22 14:26] LABS: Vitamin B12 1265 pg/mL (200-900)
== END 2023-05-22 10:45 | disposition home or self-care (01) ==
LOC: HO.10HDL 10:44
PROVIDERS: Visit Provider Internal Medicine
DX: D64.9 Anemia, unspecified (principal); J44.9 Chronic obstructive pulmonary disease, unspecified; I10 Essential (primary) hypertension; R53.83 Other fatigue; K21.9 Gastro-esophageal reflux disease without esophagitis; I73.9 Peripheral vascular disease, unspecified
CPT/HCPCS: 36415; 80053; 82550; 82607; 83540; 84443; 85025; 86140

== ENCOUNTER 2023-06-13 09:30 | Outpatient (REF) | payer MEDICARE, SELFPAY ==
--- NOTE | ~2023-06-13 | US_ITS ---
EXAMINATION: US EXTRACRANIAL CAROTID DUPLEX, BILATERAL CLINICAL INFORMATION: Peripheral vascular disease. COMPARISON: 09/10/2005. TECHNIQUE: Real-time ultrasound and Doppler techniques (integrating B-mode 2-D vascular images, Doppler spectral analysis and color-flow Doppler imaging) were utilized to interrogate the extracranial carotid arteries, the vertebral arteries and proximal subclavian arteries bilaterally. The degree of stenosis is determined by criteria similar to NASCET. FINDINGS: Right Side: 1. There is moderate atherosclerotic plaque seen in the bifurcation/proximal ICA region. 2. The common carotid artery PSV proximally is 57 cm/s and distally 50 cm/s. 3. The proximal internal carotid artery velocities are 216 cm/s systolic and 52 cm/s diastolic. 4. The proximal external carotid artery PSV is 175 cm/s. 5. The vertebral artery shows antegrade flow. 6. The subclavian artery waveforms are normal. Left Side: 1. There is moderate atherosclerotic plaque seen in the bifurcation/proximal ICA region. 2. The common carotid artery PSV proximally is 77 cm/s and distally 77 cm/s. 3. The proximal internal carotid artery velocities are 133 cm/s systolic and 31 cm/s diastolic. 4. The proximal external carotid artery PSV is 167 cm/s. 5. The vertebral artery shows antegrade flow. 6. The subclavian artery waveforms are normal. US/US carotid duplex BI IMPRESSION: 1. RIGHT: Moderate, hemodynamically significant stenosis of the proximal right internal carotid artery corresponding to a 50-79% stenosis by velocity criteria. 2. LEFT: Minimal, non-hemodynamically significant stenosis of the proximal left internal carotid artery corresponding to a 0-49% stenosis by velocity criteria. 3. Disease category has progressed from 0-49% to 50-79% in the proximal right internal carotid artery compared to 09/10/2005. Disease category is stable on the left.
[2023-06-13 13:55] LABS: Appearance Urine Clear; Color Urine Yellow; Glucose Urine UA Negative (Negative); Leukocyte Esterase Urine Trace (Negative); Nitrite Urine Negative (Negative); PH 6.5 (5.0-9.0); Specific Gravity - Urine 1.015 (1.005-1.025); UMIC TRIGGER UACC YES; Urine Blood Negative (Negative); Urine Ketones Negative (Negative); Urine Protein Negative (Neg-Trace)
[2023-06-13 13:59] LABS: Bacteria Urine 4+ (None Seen); Hyaline Casts Urine 0-2 /LPF (0-2); RBC Urine 0-2 /HPF (0-2); Squamous Epithelial Cell Urine 0-2 /HPF (0-2); UACC Culture Trigger YES
== END 2023-06-13 09:31 | disposition home or self-care (01) ==
LOC: HO.US 09:30
PROVIDERS: PCP Internal Medicine; Visit Provider Internal Medicine
DX: R30.0 Dysuria (principal); I73.9 Peripheral vascular disease, unspecified; I65.21 Occlusion and stenosis of right carotid artery
CPT/HCPCS: 81001; 87086; 87088; 93880

== ENCOUNTER 2023-06-17 07:58 | Outpatient (REF) | payer MEDICARE, SELFPAY ==
--- NOTE | ~2023-06-17 | US_ITS ---
EXAMINATION: NONINVASIVE ASSESSMENT OF THE ARTERIES OF BOTH LOWER EXTREMITIES WITH PVR EXAM AND BILATERAL LOWER EXTREMITY DUPLEX Tamera Wilson MD CLINICAL INFORMATION: Peripheral vascular disease TECHNIQUE: Ankle pulse volume recordings, ankle pressure measurements and ankle brachial indices were obtained of the lower extremity arterial system bilaterally in addition to duplex Doppler techniques with wave form analysis and measurement of velocities in the common femoral, profunda femoral, superficial femoral, popliteal and tibial arteries. The study was performed only at rest. COMPARISON: None FINDINGS: a) AT REST: RIGHT LE. The right ankle-brachial index is: 0.96 * >0.97-1.25 = normal - no significant arterial disease * 0.75-0.96 = mild peripheral arterial disease * 0.5-0.74 = moderate peripheral arterial disease * <0.50 = severe peripheral arterial disease 2. Right ankle pressure: Abnormal 3. Right ankle PVR waveform: Abnormal 4. Right direct duplex Doppler findings: Common femoral artery: 249 cm/s, monophasic Profunda femoris artery: 87 cm/s, monophasic Superficial femoral artery (proximal): 202 cm/s, Multiphasic Superficial femoral artery (mid): 199 cm/s, Multiphasic Superficial femoral artery (distal): 87 cm/s, Multiphasic Proximal Popliteal artery: 77 cm/s, Multiphasic Mid posterior tibial artery: 67 cm/s, Multiphasic LEFT LE. The left ankle-brachial index is: 0.99 * >0.97-1.25 = normal - no significant arterial disease * 0.75-0.96 = mild peripheral arterial disease * 0.5-0.74 = moderate peripheral arterial disease * <0.50 = severe peripheral arterial disease 2. Left ankle pressure: Abnormal 3. Left ankle PVR waveform: Abnormal 4. Left direct duplex Doppler findings: Common femoral artery: 208 cm/s, Multiphasic Profunda femoris artery: 123 cm/s, Multiphasic Superficial femoral artery (proximal): 122 cm/s, Multiphasic Superficial femoral artery (mid): 88 cm/s, Multiphasic Superficial femoral artery (distal): 74 cm/s, Multiphasic Proximal Popliteal artery: 64 cm/s, Multiphasic Mid posterior tibial artery: 77 cm/s, Multiphasic US/US arterial duplex LE BI IMPRESSION: RIGHT LEG: Abnormal ankle PVR and pressures. Elevated velocities and monophasic flow in the common femoral artery suggesting inflow disease. Relatively normal NISHA may may be artifact secondary to atherosclerotic calcification. LEFT LEG: Abnormal ankle PVR and pressures. Relatively normal NISHA may may be artifact secondary to atherosclerotic calcification.
[2023-06-17 10:36] LABS: MANUAL DIFF FLAG NO
[2023-06-17 11:11] LABS: Basophils Percent Auto 0.7 % (0-2); Eosinophils Absolute Auto 0.1 X10*3/uL (0.0-0.4); Eosinophils Percent Auto 2.5 % (0-4); Hematocrit 39.3 % (37.0-47.0); Hemoglobin 12.1 g/dl (12.0-16.0); Imm Gran Abs Auto 0.01 X10*3/uL (0.00-0.03); Imm Gran Pct Auto 0.2 % (0.0-0.4); Lymphocytes Percent Auto 17.1 % (20-40); Mean Corpuscular HGB Conc 30.8 g/dl (31.0-35.0); Mean Corpuscular Hemoglobin 24.9 pg (27.0-33.0); Mean Corpuscular Volume 80.9 fL (80.0-98.0); Monocytes Absolute Auto 0.5 X10*3/uL (0.1-1.2); Monocytes Percent Auto 8.8 % (2-11); Neutrophils Percent Auto 70.7 % (45-73); Platelet Count 134 X10*3/uL (160-400); Red Blood Count 4.86 X10*6/uL (4.20-5.50); Red Cell Distribution Width 25.9 % (11.0-16.0); White Blood Count 5.7 X10*3/uL (4.8-10.8)
[2023-06-17 11:44] LABS: Iron 136 mcg/dL (30-160); Percent Iron Saturation 37 % (15-50); Total Iron Binding Capacity 363 mcg/dL (228-428); Unsaturated Iron Binding 227 ug/dL
[2023-06-17 12:06] LABS: Ferritin 33 ng/mL (10-250)
== END 2023-06-17 07:59 | disposition home or self-care (01) ==
LOC: HO.US 07:58
PROVIDERS: Internal Medicine; PCP Internal Medicine; Visit Provider Surgery Vascular Surgery
DX: I73.9 Peripheral vascular disease, unspecified (principal); D64.9 Anemia, unspecified
CPT/HCPCS: 36415; 82728; 83540; 85025; 93923; 93925

== ENCOUNTER 2023-06-20 12:53 | Outpatient (AMB) | payer MEDICARE, SELFPAY ==
--- NOTE | 2023-06-20 12:54 | A.OFFVIS_ITS ---
Intake Intake Visit Reasons: 3 mo (overdue) follow up s/p Art US 06/17/2023 Intake Note: follow up Arterial US 06/17/23 w/ Hx of Left LE ANgio 01/02/23. Pt states she has difficulty walking but has other issues such as back issues and arthritis. Accompanied by: Sister Allergies Penicillins [PENICILLINS] Allergy (Severe, Verified 06/20/23 12:59) ITCHING Erythromycin Allergy (Severe, Uncoded 06/20/23 12:59) itching HPI 3 mo (overdue) follow up s/p Art US 06/17/2023 HPI Details Very pleasant 82-year-old female presents for routine surveillance follow-up regarding lower extremities and of note had obtained carotid testing by her primary care as well. She reports no interval issues. She appears to be ambulating somewhat better. She had undergone left lower extremity intervention in December. She reports that she is ambulating further distances. She now presents for follow-up with surveillance testing. [facility] Medical History PAD (peripheral artery disease) Invasive ductal carcinoma of right breast History of pneumonia History of dislocation of shoulder Surgical History History of vein stripping History of appendectomy History of cataract extraction History of left hip replacement History of back surgery Family History Mother Cancer of unknown origin Social History Household Members: Spouse Housing: House Do you presently have visiting nurse or other home services: No Alcohol intake: current Alcohol intake frequency: holidays/special occasions only Patient Tobacco Use Status: Former Tobacco user Quit Date: 15 years ago service: No Current occupational status: retired Review of Systems Const All systems reviewed & are unremarkable except as noted in HPI and below Reports no additional complaints ENT Reports Normal hearing present Card Denies chest pain, Denies chest pain at rest, Denies chest pain with activity and Denies pedal edema Resp Denies cough GI Denies abdominal pain Musc Denies abnormal gait, Denies muscle cramps and Denies radiating pain into limb Skin/Breast Denies skin ulcer and Denies wounds Neuro Reports Normal hearing present and Denies abnormal gait Psych Reports no additional complaints Physical Exam Const General: cooperative, healthy appearing and comfortable Orientation/consciousness: oriented to person, oriented to place and oriented to time HEENT Head: Yes normal to inspection Neck Neck: Yes normal visual inspection Carotids: no bruits Chest Chest palpation & inspection: normal inspection of the chest Resp Effort & Inspection: normal respiratory effort and able to speak in complete sentences Auscultation: clear to auscultation bilaterally, no crackles, no rales, no rhonchi and no wheezes Cardio Rate: regular rate Rhythm: regular rhythm Heart sounds: S1 normal heart sound present and S2 normal heart sound present Bruits: no carotid bruits Peripheral pulses: Peripheral pulses 2+ throughout GI Inspection: Yes normal to inspection Skin Wounds: no wounds Hair: normal Neuro General: oriented to person, oriented to place and oriented to time Cranial nerves: Yes CN's II-XII intact bilaterally and Yes Normal hearing present Cognition (Neuro): normal cognition Motor exam (neuro): 5/5 motor strength present throughout Extrem Other: venous exam: No significant superficial varicosities or spider telangiectasias, minimal edema General: No clubbing, No cyanosis and No edema Psych Appearance: grossly normal Mental Status: mental status grossly normal Speech and movement: Normal speech and movement present Results Reviewed Results Reviewed: Noninvasive arterial testing dated 06/17/2023 demonstrates NISHA on the right of 0.96 and on the left of 0.99 both with multi phasic flow. Written report and images were reviewed. Carotid testing dated 06/13/2023 demonstrates right-sided stenosis 50-79 but peak systolic velocity of only 216 so I suspect this is in the lower part of that range. Left side is 0-49% within normal limits. Written report and images were reviewed. Assessment & Plan Assessment & Plan (1) PAD (peripheral artery disease): Comment: 01/02/2023 - left SFA atherectomy and stent, left common iliac and external iliac stent Code(s): I73.9 - Peripheral vascular disease, unspecified Plan: In short patient has stable claudication and appears to be doing well from endovascular intervention. I did review the pathophysiology of peripheral vascular disease with the patient. In addition we did discuss routine conservative measures including a healthy diet and the importance of exercise and ambulation. We did discuss risk factor modification. The patient will c ontinue to to follow-up with surveillance follow-up in approximately 6 months. Thank you for allowing us to participate in this patient's care. If there are any questions or concerns please do not hesitate to contact us. (2) Bilateral carotid artery stenosis: Code(s): I65.23 - Occlusion and stenosis of bilateral carotid arteries Plan: Carotid testing appears to be relatively within normal limits. We did discuss routine risk factor modification and we will schedule her for annual carotid surveillance as well. Thank you for allowing us to assist in her care. Orders: Orders US arterial duplex LE BI 6 Months I73.9 - Peripheral vascular disease, unspecified Coding Level of Care Code Est Pt Level 4 (27670) Diagnoses PAD (peripheral artery disease) I73.9 Bilateral carotid artery stenosis I65.23
== END 2023-06-20 13:34 | disposition home or self-care (01) ==
PROVIDERS: PCP Internal Medicine; Visit Provider Surgery Vascular Surgery
DX: I73.9 Peripheral vascular disease, unspecified (principal); I65.23 Occlusion and stenosis of bilateral carotid arteries
CPT/HCPCS: 99213

== ENCOUNTER → 2023-06-20 12:53 | Outpatient (BNVA) | payer MEDICARE, SELFPAY | PROVIDERS: PCP Internal Medicine; Visit Provider Surgery Vascular Surgery | DX: I73.9 Peripheral vascular disease, unspecified (principal); I65.23 Occlusion and stenosis of bilateral carotid arteries | CPT/HCPCS: 99212 ==

== ENCOUNTER 2023-07-10 10:36 | Outpatient (REF) | payer MEDICARE, SELFPAY ==
--- NOTE | ~2023-07-10 | XR_ITS ---
EXAMINATION: XR LUMBOSACRAL SPINE CLINICAL INFORMATION: Pain COMPARISON: None available. TECHNIQUE: Three views of the lumbosacral spine. FINDINGS: There is diffuse osteopenia and multilevel degenerative changes with narrowing of L1-L2, L2-L3, L3-L4 and L4-L5 with grade 1 anterior listhesis of L4 over L5. There is extensive facets arthropathy at the level of L2-S1. Pedicles are preserved. There are vascular calcifications in the abdominal aorta. XR/XR lumbar spine 2-3V IMPRESSION: Extensive degenerative changes in lumbar spine with grade 1 anterior listhesis of L4 over L5.
--- NOTE | ~2023-07-10 | XR_ITS ---
EXAMINATION: XR PELVIS CLINICAL INFORMATION: Pain COMPARISON: None available. TECHNIQUE: AP view of the pelvis. FINDINGS: Patient is status post total hip replacement on the left was well positioned prosthesis. Right hip revealed narrowing of the joint space and marginal spurring due to osteoarthritis. 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
== END 2023-07-10 10:37 | disposition home or self-care (01) ==
LOC: HO.XRAY 10:36
PROVIDERS: PCP Internal Medicine; Visit Provider Internal Medicine
DX: R10.2 Pelvic and perineal pain (principal); M54.50 Low back pain, unspecified; Z91.81 History of falling
CPT/HCPCS: 72100; 72170

== ENCOUNTER 2023-07-25 10:15 | Outpatient (REF) | payer MEDICARE, SELFPAY ==
[2023-07-25 13:18] LABS: MANUAL DIFF FLAG NO
[2023-07-25 13:35] LABS: Basophils Percent Auto 0.8 % (0-2); Eosinophils Absolute Auto 0.1 X10*3/uL (0.0-0.4); Eosinophils Percent Auto 1.4 % (0-4); Hematocrit 39.3 % (37.0-47.0); Hemoglobin 12.5 g/dl (12.0-16.0); Imm Gran Abs Auto 0.01 X10*3/uL (0.00-0.03); Imm Gran Pct Auto 0.2 % (0.0-0.4); Lymphocytes Absolute Auto 0.8 X10*3/uL (1.2-4.9); Lymphocytes Percent Auto 15.8 % (20-40); Mean Corpuscular HGB Conc 31.8 g/dl (31.0-35.0); Mean Corpuscular Hemoglobin 27.6 pg (27.0-33.0); Mean Corpuscular Volume 86.8 fL (80.0-98.0); Monocytes Absolute Auto 0.5 X10*3/uL (0.1-1.2); Monocytes Percent Auto 11.1 % (2-11); Neutrophils Absolute Auto 3.5 x10*3/uL (2.0-8.3); Neutrophils Percent Auto 70.7 % (45-73); Platelet Count 180 X10*3/uL (160-400); Red Blood Count 4.53 X10*6/uL (4.20-5.50); White Blood Count 4.9 X10*3/uL (4.8-10.8)
[2023-07-25 13:58] LABS: Alanine Aminotransferase 16 U/L (0-31); Albumin Level 4.2 g/dL (3.5-5.0); Alkaline Phosphatase 103 U/L (39-117); Anion Gap 13 (12-20); Aspartate Amino Transferase 27 U/L (5-31); Bilirubin Total 1.2 mg/dL (0.0-1.0); Blood Urea Nitrogen 29 mg/dL (9-16); C Reactive Protein 0.39 mg/dL (< or = 0.50); Calcium 9.8 mg/dL (8.4-10.2); Carbon Dioxide 26 mmol/L (22-29); Chloride 105 mmol/L (96-108); Estimated Glomerular Filt Rate 52; Glucose Random 123 mg/dL (60-115); Potassium 4.1 mmol/L (3.3-5.1); Sodium 140 mmol/L (135-145)
[2023-07-25 14:05] LABS: Free T4 (Free Thyroxine) 1.12 ng/dL (0.71-1.85); Thyroid Stimulating Hormone 0.54 uIU/mL (0.32-4.0)
[2023-07-25 14:09] LABS: Folate 9.9 ng/mL (> or = 4.0)
== END 2023-07-25 10:16 | disposition home or self-care (01) ==
LOC: HO.10HDL 10:15
PROVIDERS: Visit Provider Internal Medicine
DX: D64.9 Anemia, unspecified (principal); J44.9 Chronic obstructive pulmonary disease, unspecified
CPT/HCPCS: 36415; 80053; 82746; 84439; 84443; 85025; 86140

== ENCOUNTER 2023-08-21 11:19 | Outpatient (REF) | payer MEDICARE, SELFPAY ==
[2023-08-21 13:15] LABS: MANUAL DIFF FLAG NO
[2023-08-21 13:39] LABS: Estimated Average Glucose 114 mg/dL; Hemoglobin A1C 120.7649 umol/L; Hemoglobin A1c % 5.6 % (<6.0)
[2023-08-21 13:52] LABS: Basophils Percent Auto 0.9 % (0-2); Eosinophils Absolute Auto 0.2 X10*3/uL (0.0-0.4); Eosinophils Percent Auto 3.5 % (0-4); Hematocrit 37.8 % (37.0-47.0); Hemoglobin 12.1 g/dl (12.0-16.0); Imm Gran Abs Auto 0.02 X10*3/uL (0.00-0.03); Imm Gran Pct Auto 0.4 % (0.0-0.4); Lymphocytes Absolute Auto 0.9 X10*3/uL (1.2-4.9); Lymphocytes Percent Auto 18.8 % (20-40); Mean Corpuscular Hemoglobin 28.5 pg (27.0-33.0); Mean Corpuscular Volume 89.2 fL (80.0-98.0); Mean Platelet Volume 11.4 fL (9.4-12.3); Monocytes Absolute Auto 0.5 X10*3/uL (0.1-1.2); Monocytes Percent Auto 11.7 % (2-11); Neutrophils Percent Auto 64.7 % (45-73); Platelet Count 163 X10*3/uL (160-400); Red Blood Count 4.24 X10*6/uL (4.20-5.50); Red Cell Distribution Width 16.2 % (11.0-16.0); White Blood Count 4.6 X10*3/uL (4.8-10.8)
[2023-08-21 16:20] LABS: Anion Gap 12 (12-20); Blood Urea Nitrogen 25 mg/dL (9-16); Calcium 9.3 mg/dL (8.4-10.2); Carbon Dioxide 24 mmol/L (22-29); Chloride 109 mmol/L (96-108); Estimated Glomerular Filt Rate > 60; Glucose Random 89 mg/dL (60-115); Potassium 4.1 mmol/L (3.3-5.1); Sodium 141 mmol/L (135-145)
== END 2023-08-21 11:20 | disposition home or self-care (01) ==
LOC: HO.10HDL 11:19
PROVIDERS: Visit Provider Internal Medicine
DX: K21.9 Gastro-esophageal reflux disease without esophagitis (principal); J44.9 Chronic obstructive pulmonary disease, unspecified; M54.9 Dorsalgia, unspecified; N18.9 Chronic kidney disease, unspecified
CPT/HCPCS: 36415; 80048; 83036; 85025

== ENCOUNTER 2023-09-05 09:26 | Outpatient (REF) | payer MEDICARE, SELFPAY ==
--- NOTE | ~2023-09-05 | CT_ITS ---
EXAMINATION: CT HEAD WITH CONTRAST CLINICAL INFORMATION: Altered mental status. COMPARISON: None available. TECHNIQUE: Contiguous axial imaging was performed from the skull base to vertex following the administration of 100 mL of Omnipaque [address] examination was performed using dose optimization techniques as appropriate, variously including the following: *Automated exposure control *Adjustment of mA and/or kV according to patient size (this includes techniques or standardized protocols for targeted exams where dose is matched to indication/reason for exam; i.e. extremities or head) *Use of iterative reconstruction technique DLP: 732 mGy-cm FINDINGS: There is no intracranial hemorrhage, extra-axial collection, mass effect, or territorial infarction. There is extensive confluent hypoattenuation throughout the cerebral white matter likely reflecting chronic microangiopathy. There is mild degree of brain parenchymal volume loss. There is disproportionate prominence of the lateral and third ventricles in relation to the sulci. No abnormal enhancement is seen. The dural venous sinuses are normally opacified. The extracranial structures are within normal limits. CT/CT head/brain w IV con IMPRESSION: No acute intracranial abnormality identified. Extensive confluent hypoattenuation throughout the cerebral white matter likely reflecting chronic microangiopathy. Disproportionate prominence of the lateral and third ventricles in relation to the sulci which is nonspecific.
[2023-09-05] MEDS: iohexoL 350 MG/ML 100 ML INFUS..BTL 85 ML IV (10:42)
== END 2023-09-05 09:27 | disposition home or self-care (01) ==
LOC: HO.CT 09:26
PROVIDERS: PCP Internal Medicine; Visit Provider Internal Medicine
DX: R41.82 Altered mental status, unspecified (principal)
CPT/HCPCS: 70460; Q9967

== ENCOUNTER 2023-09-25 08:20 | Outpatient (REF) | payer MEDICARE, SELFPAY ==
--- NOTE | ~2023-09-25 | MR_ITS ---
EXAMINATION: MR BRAIN WITHOUT CONTRAST CLINICAL INFORMATION: Microvascular disease COMPARISON: CT head 09/05/2023 TECHNIQUE: MRI of the brain was obtained using routine sequences without contrast. FINDINGS: No acute infarct. No acute intracranial hemorrhage or extra-axial fluid collection. Stable lateral and third ventriculomegaly disproportionate to sulcal prominence without significant crowding of sulci at the vertex may reflect deep white matter volume loss with ex vacuo ventricular dilatation however can be correlated clinically for superimposed communicating hydrocephalus. Severe burden of patchy and confluent T2 FLAIR hyperintense foci in the subcortical and periventricular white matter. Scattered prominent perivascular spaces in the subcortical and deep white matter in the supratentorial compartment. No mass lesion, mass effect, or herniation pattern. Normal intracranial arterial and dural venous sinus flow voids. Normal appearance of the midline structures. Lens replacements. The paranasal sinuses and mastoids are well aerated. Normal marrow signal. Hypertrophic bilateral facet arthropathy is partially imaged. Significant retro-odontoid pannus contributes to C1-C2 spinal canal stenosis with suspected impingement upon the cord. 8 mm presumed synovial/ganglion cyst along the lateral aspect of the left TMJ. MR/MR head/brain wo con IMPRESSION: 1. Stable lateral and third ventriculomegaly disproportionate to sulcal prominence may reflect deep white matter volume loss with ex vacuo ventricular dilatation however can be correlated clinically for superimposed communicating hydrocephalus. Severe burden of supratentorial white matter disease. 2. Significant retro-odontoid pannus contributes to C1-C2 spinal canal stenosis with suspected impingement upon the cord that could be further assessed with cervical spine MRI if there is referrable myelopathy.
== END 2023-09-25 08:21 | disposition home or self-care (01) ==
LOC: HO.MRI 08:20
PROVIDERS: PCP Internal Medicine; Visit Provider Psychiatry & Neurology Neurology
DX: I67.9 Cerebrovascular disease, unspecified (principal)
CPT/HCPCS: 70551

== ENCOUNTER 2023-10-10 16:48 | Emergency (ER) | payer MEDICARE, SELFPAY ==
[2023-10-10 17:06] VITALS: BP 112/97; BP 160/70; PULSE 101; PULSE 112; RESP 18; TEMP 37.1; O2SAT 95; O2SAT 96; BMI 27.5
--- NOTE | 2023-10-10 18:21 | PC.NURSE ---
A+O x3, denies pain, vss. Pt from home, sent via ambulance for evaluation of worsening delusions and aggression towards her over the past 2 wks. Pt recently started on Haldol by neurology. concerned about behavior Pt sectioned.
[2023-10-10 18:35] LABS: MANUAL DIFF FLAG NO
[2023-10-10 18:38] LABS: Basophils Percent Auto 0.8 % (0-2); Eosinophils Percent Auto 0.6 % (0-4); Hematocrit 41.1 % (37.0-47.0); Hemoglobin 13.3 g/dl (12.0-16.0); Imm Gran Abs Auto 0.01 X10*3/uL (0.00-0.03); Imm Gran Pct Auto 0.2 % (0.0-0.4); Lymphocytes Percent Auto 18.7 % (20-40); Mean Corpuscular HGB Conc 32.4 g/dl (31.0-35.0); Mean Corpuscular Hemoglobin 28.9 pg (27.0-33.0); Mean Corpuscular Volume 89.2 fL (80.0-98.0); Mean Platelet Volume 10.8 fL (9.4-12.3); Monocytes Absolute Auto 0.6 X10*3/uL (0.1-1.2); Neutrophils Absolute Auto 3.6 x10*3/uL (2.0-8.3); Neutrophils Percent Auto 68.7 % (45-73); Platelet Count 192 X10*3/uL (160-400); Red Blood Count 4.61 X10*6/uL (4.20-5.50); Red Cell Distribution Width 13.3 % (11.0-16.0); White Blood Count 5.3 X10*3/uL (4.8-10.8)
--- NOTE | 2023-10-10 18:49 | ED_ITS ---
HPI - Psych General Chief Complaint: Behavioral Concerns Stated Complaint: Delusions involving Time Seen by Provider: 10/10/23 17:22 Source: patient and family Mode of arrival: EMS Limitations: altered mental status History of Present Illness HPI Narrative: Patient is an 83-year-old female who presents to the emergency department via EMS on a section 12 for evaluation of behavioral concerns. At the time my evaluation patient's sister Opal is at bedside who helps to provide recent history. Patient has recent diagnosis of dementia, following with [facility] neurology Demetri. Per her sister, they noticed some mild forgetfulness in April 2023 that was slowly progressing. Over the past month her forgetfulness and behaviors have significantly increased, previously it was mostly ?ing? but she is experiencing these behaviors earlier in the day,, she is having hallucinations of people outside of her home that are coming to harm her. She at times does not recognize who her is and refers to him as ?esthela? and she believes that he is stealing from her and taking her food and trying to harm her. Bethany reports that over the past week it has been significantly worse, she has become aggressive towards her . Today evidently police had to come to the home 4 times because she did not recognize her was demanding that he leave. Evidently she was started on Haldol and took her 1st dose last night which did not help she was up all night pacing around. She has been speaking about her parents who reportedly last week for ?the 2nd time? and she is very distressed about this, per her sister they 15 years ago. When asked she does admit to having dysuria and urinary frequency but she believes that this is a longstanding issue for her and not something new. Related Data Home Medications Medication Instructions Recorded Confirmed albuterol sulfate 90 mcg/actuation 2 inh inhalation Q6H PRN Wheezing 08/23/20 01/23/23 breath activated powder inhaler,sensor (Proair Digihaler) aspirin 81 mg chewable tablet 81 mg PO DAILY 08/23/20 01/23/23 atenolol 25 mg tablet 25 mg PO DAILY 08/23/20 01/23/23 atorvastatin 40 mg tablet 40 mg PO BEDTIME 08/23/20 01/23/23 cholecalciferol (vitamin D3) 25 25 mcg PO DAILY 08/23/20 01/23/23 mcg (1,000 unit) capsule diltiazem HCl 120 mg 120 mg PO DAILY 08/23/20 01/23/23 capsule,extended release 24 hr flaxseed oil 1,000 mg capsule 1,000 mg PO DAILY 08/23/20 01/23/23 salmeterol 50 mcg/dose blister 1 inh inhalation Q12H 08/23/20 01/23/23 powder for inhalation (Serevent Diskus) anastrozole 1 mg tablet 1 mg PO DAILY 11/08/20 01/23/23 furosemide 20 mg tablet 20 mg PO DAILY 08/11/21 01/23/23 mirabegron 50 mg tablet,extended 50 mg PO DAILY 12/25/22 01/23/23 release 24 hr (Myrbetriq) Previous Rx's Medication Instructions Recorded clopidogrel 75 mg tablet (Plavix) 75 mg PO DAILY #30 tabs 01/02/23 ferrous sulfate 324 mg (65 mg 324 mg PO DAILY #30 tabs 01/25/23 iron) tablet,delayed release nitrofurantoin 100 mg PO BID #10 caps 01/25/23 monohydrate/macrocrystals 100 mg capsule omeprazole 20 mg capsule,delayed 20 mg PO DAILY@0630 #30 caps 01/25/23 release Allergies Allergy/AdvReac Type Severity Reaction Status Date / Time Penicillins [PENICILLINS] Allergy Severe ITCHING Verified 10/10/23 17:22 Erythromycin Allergy Severe itching Uncoded 06/20/23 12:59 Review of Systems 2 Review of Systems: Yes Unobtainable due to mental status PMFSH Past Medical History Attestation statement: The following information was validated with the patient. Source: old records reviewed Medical History PAD (peripheral artery disease) Invasive ductal carcinoma of right breast History of pneumonia History of dislocation of shoulder Surgical History History of vein stripping History of appendectomy History of cataract extraction History of left hip replacement History of back surgery Family History Family History Mother Cancer of unknown origin Social History Social History Household Members: Spouse Housing: House Do you presently have visiting nurse or other home services: No Alcohol intake: current Alcohol intake frequency: does not drink Patient Tobacco Use Status: Former Tobacco user Quit Date: 15 years ago Smoked in Last 30 Days: No Use of substances other than those prescribed or required for medical reasons: No Advance Directives: No Advance Directives Information Provided: No service: No Current occupational status: retired Physical Exam 2 Vital Signs: Vital Signs: Last Vital Signs Temp 98.7 F 10/10/23 17:06 Pulse 112 H 10/10/23 17:06 Resp 18 10/10/23 17:06 BP 112/97 H 10/10/23 17:06 Pulse Ox 96 10/10/23 17:06 O2 Del Method Room Air 10/10/23 17:06 BMI result Body Mass Index 27.5 Appearance: Alert.?Oriented to person, place and time. No acute distress.?Normal affect. Eyes: Pupils equal, round and reactive to light.? ENT: Pharynx normal.?? Neck: Normal inspection.? Neck supple.?? CVS: Heart sounds normal. Normal heart rate and rhythm.? Pulses normal.?? Respiratory: No respiratory distress.? Lung sounds clear to auscultation bilaterally?? Abdomen: Soft and non-tender. Normoactive bowel sounds. .?? Skin: Skin warm and dry.? Normal skin color.? ? Extremities: No lower extremity edema.? Neuro: Moves all extremities spontaneously. Sensation intact bilaterally. CN II- XII intact. No focal neuro deficits. Ambulates with normal steady gait. Medical Decision Making Medical Decision Making MDM Narrative: Patient is an 83-year-old female with past medical history of bilateral carotid artery stenosis, anemia, PUD, hypertension, GIB, invasive ductal carcinoma of the right breast who presents emergency department via EMS on a section 12 for agitation, hallucinations, and worsening dementia. History is primarily obtained from her sister Bethany. Patient resides with her , Valdez, he is very hard of hearing, and patient will not allow him to come in to visit. Her physical examination is benign. Will obtain CBC to evaluate for leukocytosis/ anemia, CMP and lipase to evaluate for abnormal electrolytes /abnormal renal function/ abnormal hepatic/biliary function, and Urinalysis to exclude causes of metabolic encephalopathy versus worsening dementia. She will require care team evaluation, and Psychiatry consultation for progressive worsening of behaviors especially over the past month. Differential Diagnosis Differential Diagnoses: The differential diagnosis associated with the presentation includes (As noted above) Admission/Observation Consideration of admission/observation: Escalation of care including admission/observation considered (See narrative above) Consult Healthcare Provider Management of the patient was discussed with: Behavioral Health Provider Lab Data [facility] Lab Attestation statement: I reviewed the patient's lab results. CBC is without leukocytosis or anemia. CMP overall unremarkable. COVID- 19/influenza testing negative. Urinalysis concerning for UTI, antibiotics ordered, culture pending. 10/10/23 18:32 10/10/23 18:32 Labs: Lab Results 10/10/23 10/10/23 10/10/23 Range/Units 18:32 20:16 22:26 WBC 5.3 (4.8-10.8) X10*3/uL RBC 4.61 (4.20-5.50) X10*6/uL Hgb 13.3 (12.0-16.0) g/dl Hct 41.1 (37.0-47.0) % MCV 89.2 (80.0-98.0) fL MCH 28.9 (27.0-33.0) pg MCHC 32.4 (31.0-35.0) g/dl RDW 13.3 (11.0-16.0) % Plt Count 192 (160-400) X10*3/uL MPV 10.8 (9.4-12.3) fL Immature Gran % (Auto) 0.2 (0.0-0.4) % Neut % (Auto) 68.7 (45-73) % Lymph % (Auto) 18.7 L (20-40) % Greene % (Auto) 11.0 (2-11) % Eos % (Auto) 0.6 (0-4) % Baso % (Auto) 0.8 (0-2) % Lymph # (Auto) 1.0 L (1.2-4.9) X10*3/uL Greene # (Auto) 0.6 (0.1-1.2) X10*3/uL Eos # (Auto) 0.0 (0.0-0.4) X10*3/uL Baso # (Auto) 0.0 (0.0-0.2) X10*3/uL Abs Immat Gran (auto) 0.01 (0.00-0.03) X10*3/uL Absolute Neuts (auto) 3.6 (2.0-8.3) x10*3/uL Absolute Nucleated RBC 0.000 (0.0-0.012) X10*3/uL Nucleated RBC % (auto) 0.0 (0.0-0.2) /100WBC Sodium 142 (135-145) mmol/L Potassium 4.1 (3.3-5.1) mmol/L Chloride 106 (96-108) mmol/L Carbon Dioxide 25 (22-29) mmol/L Anion Gap 15 (12-20) BUN 18 H (9-16) mg/dL Creatinine 0.83 (0.5-1.4) mg/dL Estim Creat Clear Calc 44.3 Estimated GFR > 60 Random Glucose 102 (60-115) mg/dL Calcium 10.1 D (8.4-10.2) mg/dL Total Bilirubin 1.5 H (0.0-1.0) mg/dL AST 33 H (5-31) U/L ALT 20 (0-31) U/L Alkaline Phosphatase 93 (39-117) U/L Total Protein 8.0 (6.5-8.0) g/dL Albumin 4.5 (3.5-5.0) g/dL Urine Color Yellow Urine Appearance Turbid Urine pH 8.5 (5.0-9.0) Ur Specific [place] 1.020 (1.005-1.025) Urine Protein Negative (Neg-Trace) mg/dL Urine Glucose (UA) 100 H (Negative) mg/dL Urine Ketones 15 (Negative) mg/dL Urine Blood Negative (Negative) Urine Nitrite Negative (Negative) Ur Leukocyte Esterase Trace H (Negative) Urine RBC 0-2 (0-2) /HPF Urine WBC 11-20 H (0-5) /HPF Ur Squamous Epith Cells 0-2 (0-2) /HPF Urine Bacteria 4+ (None Seen) Hyaline Casts 0-2 (0-2) /LPF Urine Opiates Screen Not Detected (Not Detect) Urine Fentanyl Screen Not Detected (Not Detect) Ur Barbiturates Screen Not Detected (Not Detect) Ur Phencyclidine Scrn Not Detected (Not Detect) Ur Amphetamines Screen Not Detected (Not Detect) U Benzodiazepines Scrn Not Detected (Not Detect) Urine Cocaine Screen Not Detected (Not Detect) U Marijuana (THC) Screen Not Detected (Not Detect) COVID-19 (ANAHI) Negative (Negative) COVID-19 Clin Com See Note Influenza Type A (COLLETTE) Negative (Negative) Influenza Type B (COLLETTE) Negative (Negative) Influenza A & B Note See Note Independent Historian Clinical information obtained from an independent historian. History obtained from or confirmed by: EMS and Other (Sister as per HPI) Discharge Plan Discharge Clinical Impression: Agitation, Hallucination, visual, Acute UTI Patient Disposition: Still a Patient Prescriptions: No Action omeprazole 20 mg Capsule,Delayed Release(Dr/Ec) 20 mg PO DAILY@0630 Qty: 30 0RF ferrous sulfate 324 mg (65 mg iron) Tablet,Delayed Release (Dr/Ec) 324 mg PO DAILY Qty: 30 0RF nitrofurantoin monohyd/m-cryst 100 mg capsule 100 mg PO BID Qty: 10 0RF Rx Instructions: must administer with a meal/food clopidogrel [Plavix] 75 mg tablet 75 mg PO DAILY Qty: 30 0RF Hold Instructions: Resume on 02/01/23. anastrozole 1 mg tablet 1 mg PO DAILY atenolol 25 mg tablet 25 mg PO DAILY diltiazem HCl 120 mg capsule,extended release 24hr 120 mg PO DAILY Serevent Diskus 50 mcg/dose blister with device 1 inh inhalation Q12H Proair Digihaler 90 mcg/actuation aero powdr breath act w/sensor 2 inh inhalation Q6H PRN (Reason: Wheezing) atorvastatin 40 mg tablet 40 mg PO BEDTIME cholecalciferol (vitamin D3) 25 mcg (1,000 unit) capsule 25 mcg PO DAILY flaxseed oil 1,000 mg capsule 1,000 mg PO DAILY Rx Instructions: administer with a meal aspirin 81 mg tablet,chewable 81 mg PO DAILY Hold Instructions: Resume on 01/27/23. furosemide 20 mg tablet 20 mg PO DAILY Myrbetriq 50 mg tablet extended release 24 hr 50 mg PO DAILY
[2023-10-10 18:50] LABS: Alanine Aminotransferase 20 U/L (0-31); Albumin Level 4.5 g/dL (3.5-5.0); Alkaline Phosphatase 93 U/L (39-117); Anion Gap 15 (12-20); Aspartate Amino Transferase 33 U/L (5-31); Bilirubin Total 1.5 mg/dL (0.0-1.0); Blood Urea Nitrogen 18 mg/dL (9-16); Calcium 10.1 mg/dL (8.4-10.2); Carbon Dioxide 25 mmol/L (22-29); Chloride 106 mmol/L (96-108); Creatinine Clr Calc Pharmacy 44.3; Estimated Glomerular Filt Rate > 60; Glucose Random 102 mg/dL (60-115); Potassium 4.1 mmol/L (3.3-5.1); Sodium 142 mmol/L (135-145)
[2023-10-10 20:38] LABS: IDNOW Serial# 58CA691E; Influenza A Negative (Negative); Influenza B2 Negative (Negative)
[2023-10-10 20:39] LABS: COVID-19 Test Negative (Negative); IDNOW Serial# 9DB6401D
[2023-10-10 22:33] LABS: Appearance Urine Turbid; Color Urine Yellow; Glucose Urine UA 100 mg/dL (Negative); Leukocyte Esterase Urine Trace (Negative); Nitrite Urine Negative (Negative); PH 8.5 (5.0-9.0); UMIC TRIGGER UACC YES; Urine Blood Negative (Negative); Urine Ketones 15 mg/dL (Negative); Urine Protein Negative (Neg-Trace)
[2023-10-10 22:40] LABS: Bacteria Urine 4+ (None Seen); Hyaline Casts Urine 0-2 /LPF (0-2); RBC Urine 0-2 /HPF (0-2); Squamous Epithelial Cell Urine 0-2 /HPF (0-2); UACC Culture Trigger YES
[2023-10-10 22:41] LABS: Amphetamine Screen Urine Not Detected (Not Detect); Barbiturates, Urine Not Detected (Not Detect); Benzodiazepines Screen Urine Not Detected (Not Detect); Cannabinoid Screen Urine Not Detected (Not Detect); Cocaine Screen Urine Not Detected (Not Detect); Fentanyl, urine Not Detected (Not Detect); Opiate Screen Urine Not Detected (Not Detect); Phencyclidine Screen Urine Not Detected (Not Detect)
[2023-10-10 22:53] VITALS: BP 139/102; PULSE 84; TEMP 36.3; O2SAT 93
[2023-10-10] MEDS: cefuroxime axetiL 250 MG TABLET PO (23:53)
[2023-10-11 04:45] VITALS: BP 116/50; PULSE 97; RESP 16; TEMP 36.8; O2SAT 96
[2023-10-11] MEDS: cefuroxime axetiL 250 MG TABLET PO (11:04)
--- NOTE | 2023-10-11 11:19 | PC.NURSE ---
awake and alert, visiting with family and they want to bring her home, care team meeting with family. medicated with antibiotic
== END 2023-10-11 11:53 | disposition home or self-care (01) ==
PROVIDERS: Nurse Practitioner Family; Emergency Provider Internal Medicine
DX: N39.0 Urinary tract infection, site not specified (principal); R45.1 Restlessness and agitation; R44.1 Visual hallucinations; Z11.52 Encounter for screening for COVID-19; I10 Essential (primary) hypertension; Z85.3 Personal history of malignant neoplasm of breast; Z79.02 Long term (current) use of antithrombotics/antiplatelets; Z79.82 Long term (current) use of aspirin; Z79.899 Other long term (current) drug therapy
CPT/HCPCS: 80053; 80307; 81001; 85025; 87086; 87502; 87635; 99284; S9485

== ENCOUNTER 2023-12-23 10:00 | Outpatient (REF) | payer MEDICARE, SELFPAY ==
--- NOTE | ~2023-12-23 | US_ITS ---
EXAMINATION: US arterial duplex BI w/ NISHA CLINICAL INFORMATION: Peripheral vascular disease, unspecified COMPARISON: Bilateral lower extremity arterial duplex 06/17/2023 TECHNIQUE: Ankle pulse volume recordings, ankle pressure measurements and ankle brachial indices were obtained of the lower extremity arterial system bilaterally in addition to duplex Doppler techniques with wave form analysis and measurement of velocities in the common femoral, profunda femoral, superficial femoral, popliteal, tibial and peroneal arteries. The study was performed only at rest. FINDINGS: RIGHT LE. THE RIGHT ANKLE-BRACHIAL INDEX IS: 0.97, previously 0.96 2. SEGMENTAL PRESSURES (mmHg): Ankle: PT 127, DP 124 3. PVR WAVEFORMS: Ankle: Abnormal 4. DIRECT DUPLEX: Common femoral artery: 326 cm/s, Multiphasic Profunda femoris artery: 202 cm/s, Multiphasic Superficial femoral artery (proximal): 92 cm/s, biphasic Superficial femoral artery (mid): 84 cm/s, biphasic Superficial femoral artery (distal): 69 cm/s, biphasic Distal Popliteal artery: 53 cm/s, multiphasic Mid posterior tibial artery: 120 cm/s, biphasic Peroneal artery: 55 cm/s, biphasic Anterior tibial artery: 77 cm/sec, monophasic Dorsalis pedis artery: 19 cm/sec, monophasic LEFT LE. THE LEFT ANKLE-BRACHIAL INDEX IS: 1.01, previously 0.99 2. SEGMENTAL PRESSURES: Ankle: PT 132, DP 111 3. PVR WAVEFORMS: Ankle: Abnormal 4. DIRECT DUPLEX: Common femoral artery: 160 cm/s, biphasic Profunda femoris artery: 126 cm/s, biphasic Superficial femoral artery (proximal): 122 cm/s, monophasic Superficial femoral artery (mid): 127 cm/s, biphasic SFA stent: [place] artery proximal to: 127 cm/sec, biphasic Proximal stent: 85 cm/sec, biphasic Mid stent: 84 cm/sec, biphasic Distal stent: 55 cm/sec, biphasic [place] artery distal to: 81 cm/sec, biphasic Superficial femoral artery (distal): 81 cm/s, biphasic Distal Popliteal artery: 60 cm/s, biphasic Distal posterior tibial artery: 55 cm/s, biphasic Peroneal artery: 10 cm/s, monophasic Anterior tibial artery: 61 m/s, triphasic Dorsalis pedis artery: 61 cm/sec, monophasic Incidental note is made of left complex Gaitan's cyst measuring 4.4 x 1.2 x 2.1 cm. US/US arterial duplex BI w/ NISHA IMPRESSION: RIGHT LEG: Abnormal PVR waveforms. Elevated velocity at the right common femoral artery suggesting a moderate stenosis, inflow disease. Elevated velocity at the origin of the profunda femoris artery suggesting a moderate stenosis. Relatively normal NISHA may be artifact secondary to atherosclerotic calcification. LEFT LE. Abnormal PVR waveforms. Superficial femoral artery stent is patent. Relatively normal NISHA may be artifact secondary to atherosclerotic calcification. 2. Complex 4.4 cm Gaitan's cyst.
== END 2023-12-23 10:01 | disposition home or self-care (01) ==
LOC: HO.US 10:00
PROVIDERS: PCP Internal Medicine; Visit Provider Surgery Vascular Surgery
DX: I73.9 Peripheral vascular disease, unspecified (principal)
CPT/HCPCS: 93922; 93925

== ENCOUNTER 2024-01-28 09:54 | Outpatient (AMB) | payer MEDICARE, SELFPAY ==
[2024-01-28 10:27] VITALS: BMI 27.3
--- NOTE | 2024-01-28 10:27 | A.OFFVIS_ITS ---
Vital Signs 01/28/24 10:27 Height 5 ft Weight 140 lb BMI 27.3 Intake Visit Reasons: f/u s/p ART U/S Intake Note: 6 mo follow up Left LE ANgio 01/02/23 s/p ARterial US 12/23/23. Pt states left hip was fractured s/p fall and Hx of Left Hip replacement, was in rehab, no surgical intervention. No other complaints w/ ambulation, no cramping or leg pain, other than Left hip issue Accompanied by: Sister Allergies Penicillins [PENICILLINS] Allergy (Severe, Verified 01/28/24 10:34) ITCHING Erythromycin Allergy (Severe, Uncoded 01/28/24 10:34) itching HPI HPI f/u s/p ART U/S: Details: Very pleasant 83-year-old female presents for routine surveillance follow-up regarding lower extremities. She reports no interval issues. She is ambulating fairly well. She had undergone endovascular intervention by us nearly a year ago on the left lower extremity. She reports that she has had a hip done 7 years ago and that seems to be her biggest source of discomfort. Now presents for follow-up with noninvasive testing [facility] Medical History PAD (peripheral artery disease) Invasive ductal carcinoma of right breast History of pneumonia History of dislocation of shoulder Surgical History History of vein stripping History of appendectomy History of cataract extraction History of left hip replacement History of back surgery Family History Mother Cancer of unknown origin Social History Household Members: Spouse Housing: House Do you presently have visiting nurse or other home services: No Alcohol intake: current Alcohol intake frequency: does not drink Patient Tobacco Use Status: Former Tobacco user service: No Current occupational status: retired Review of Systems Const All systems reviewed & are unremarkable except as noted in HPI and below Reports no additional complaints ENT Reports Normal hearing present Card Denies chest pain, Denies chest pain at rest, Denies chest pain with activity and Denies pedal edema Resp Denies cough GI Denies abdominal pain Musc Denies abnormal gait, Denies muscle cramps and Denies radiating pain into limb Skin/Breast Denies skin ulcer and Denies wounds Neuro Reports Normal hearing present and Denies abnormal gait Psych Reports no additional complaints Physical Exam Vital Signs: BMI result Body Mass Index 27.3 Const General: cooperative, healthy appearing and comfortable Orientation/consciousness: oriented to person, oriented to place and oriented to time HEENT Head: Yes normal to inspection Neck Neck: Yes normal visual inspection Carotids: no bruits Chest Chest palpation & inspection: normal inspection of the chest Resp Effort & Inspection: normal respiratory effort and able to speak in complete sentences Auscultation: clear to auscultation bilaterally, no crackles, no rales, no rhonchi and no wheezes Cardio Other: Bilateral DP signals Rate: regular rate Rhythm: regular rhythm Heart sounds: S1 normal heart sound present and S2 normal heart sound present Bruits: no carotid bruits GI Inspection: Yes normal to inspection Skin Wounds: no wounds Hair: normal Neuro General: oriented to person, oriented to place and oriented to time Cranial nerves: Yes CN's II-XII intact bilaterally and Yes Normal hearing present Cognition (Neuro): normal cognition Motor exam (neuro): 5/5 motor strength present throughout Extrem Other: venous exam: No significant superficial varicosities or spider telangiectasias, minimal edema General: No clubbing, No cyanosis and No edema Psych Appearance: grossly normal Mental Status: mental status grossly normal Speech and movement: Normal speech and movement present Results Reviewed Results Reviewed: Noninvasive testing dated 12/23/2023 demonstrates NISHA on the right of 0.97 and on the left of 1.01 with multi phasic waveforms bilaterally. Written report and images were reviewed. Assessment & Plan Assessment & Plan (1) PAD (peripheral artery disease): Comment: 01/02/2023 - left SFA atherectomy and stent, left common iliac and external iliac stent Code(s): I73.9 - Peripheral vascular disease, unspecified Category: Medical Plan: In short patient has stable claudication. I did review the pathophysiology of peripheral vascular disease with the patient. In addition we did discuss routine conservative measures including a healthy diet and the importance of exercise and ambulation. We did discuss risk factor modification. The patient will continue to to follow-up with surveillance follow-up in approximately 1 year. Thank you for allowing us to participate in this patient's care. If there are any questions or concerns please do not hesitate to contact us. Orders: Orders US arterial duplex LE BI 1 Year I73.9 - Peripheral vascular disease, unspecified Coding Level of Care Code Est Pt Level 4 (58952) Diagnoses PAD (peripheral artery disease) I73.9
== END 2024-01-28 10:54 | disposition home or self-care (01) ==
PROVIDERS: Visit Provider Surgery Vascular Surgery
DX: I73.9 Peripheral vascular disease, unspecified (principal)
CPT/HCPCS: 99213

== ENCOUNTER → 2024-01-28 09:54 | Outpatient (BNVA) | payer MEDICARE, SELFPAY | PROVIDERS: Visit Provider Surgery Vascular Surgery | DX: I73.9 Peripheral vascular disease, unspecified (principal); Z95.820 Peripheral vascular angioplasty status with implants and grafts | CPT/HCPCS: 99212 ==

== ENCOUNTER 2024-01-31 09:12 | Outpatient (REF) | payer MEDICARE, SELFPAY ==
[2024-01-31 10:15] LABS: MANUAL DIFF FLAG NO
[2024-01-31 10:44] LABS: Basophils Percent Auto 0.9 % (0-2); Eosinophils Absolute Auto 0.1 X10*3/uL (0.0-0.4); Eosinophils Percent Auto 1.8 % (0-4); Hemoglobin 11.5 g/dl (12.0-16.0); Imm Gran Abs Auto 0.02 X10*3/uL (0.00-0.03); Imm Gran Pct Auto 0.4 % (0.0-0.4); Lymphocytes Absolute Auto 0.8 X10*3/uL (1.2-4.9); Lymphocytes Percent Auto 17.5 % (20-40); Mean Corpuscular HGB Conc 31.9 g/dl (31.0-35.0); Mean Corpuscular Hemoglobin 29.1 pg (27.0-33.0); Mean Corpuscular Volume 91.1 fL (80.0-98.0); Mean Platelet Volume 11.4 fL (9.4-12.3); Monocytes Absolute Auto 0.4 X10*3/uL (0.1-1.2); Monocytes Percent Auto 8.3 % (2-11); Neutrophils Absolute Auto 3.3 x10*3/uL (2.0-8.3); Neutrophils Percent Auto 71.1 % (45-73); Platelet Count 148 X10*3/uL (160-400); Red Blood Count 3.95 X10*6/uL (4.20-5.50); Red Cell Distribution Width 13.9 % (11.0-16.0); White Blood Count 4.6 X10*3/uL (4.8-10.8)
[2024-01-31 11:03] LABS: Alanine Aminotransferase 15 U/L (0-31); Alkaline Phosphatase 63 U/L (39-117); Anion Gap 11 (12-20); Aspartate Amino Transferase 19 U/L (5-31); Bilirubin Total 1.4 mg/dL (0.0-1.0); Blood Urea Nitrogen 30 mg/dL (9-16); Calcium 9.6 mg/dL (8.4-10.2); Carbon Dioxide 24 mmol/L (22-29); Chloride 110 mmol/L (96-108); Estimated Glomerular Filt Rate > 60; Glucose Random 116 mg/dL (60-115); Sodium 141 mmol/L (135-145); Total Protein 7.2 g/dL (6.5-8.0)
== END 2024-01-31 09:13 | disposition home or self-care (01) ==
LOC: HO.HMGCLDS 09:12
PROVIDERS: PCP Internal Medicine; Visit Provider Internal Medicine
DX: I10 Essential (primary) hypertension (principal); D64.9 Anemia, unspecified; J44.9 Chronic obstructive pulmonary disease, unspecified
CPT/HCPCS: 36415; 80053; 85025

== ENCOUNTER 2024-02-05 12:12 | Outpatient (REF) | payer MEDICARE, SELFPAY ==
--- NOTE | ~2024-02-05 | MM_ITS ---
EXAMINATION: MM SCREENING DIGITAL BREAST TOMOSYNTHESIS, BILATERAL CLINICAL INFORMATION: Screening. Asymptomatic. COMPARISON: Mammography: This study is compared with prior exams dating back to 2019. There are no interval examinations. TECHNIQUE: Digital breast tomosynthesis is performed in both the craniocaudal and mediolateral oblique views along with computer-aided detection (CAD). Synthesized 2D images are generated from the tomosynthesis. FINDINGS: The breasts are extremely dense, which lowers the sensitivity of mammography (ACR BI-RADS breast composition Category d). In the medial aspect of the left breast, at approximately the 9:00 position, there is a focal asymmetry which warrants additional mammographic and targeted sonographic imaging. In the right breast, there are no significant masses, abnormal calcifications, or other abnormalities. There are bilateral benign calcifications. MM/MM tomosynthesis screening BI IMPRESSION: Focal asymmetry of the left breast warrants additional mammographic and targeted sonographic imaging. No mammographic signs of malignancy right breast. ASSESSMENT: BI-RADS BI-RADS 0 - Incomplete: Needs additional Imaging. RECOMMENDATION: 1. Additional views of the left breast. 2. Targeted ultrasound if warranted after review of the additional views. 3. Radiology department staff will contact the patient for additional imaging. Additional Imaging required This examination should not preclude the clinical evaluation of a suspicious palpable abnormality. This patient's information was entered into a reminder system with a target due date for their next mammogram.
== END 2024-02-05 12:13 | disposition home or self-care (01) ==
LOC: HO.MAMMO 12:12
PROVIDERS: PCP Internal Medicine; Visit Provider Internal Medicine Medical Oncology
DX: Z12.31 Encounter for screening mammogram for malignant neoplasm of breast (principal)
CPT/HCPCS: 77063; 77067

== ENCOUNTER → 2024-02-05 12:30 | Outpatient (BNV) | payer MEDICARE, SELFPAY | PROVIDERS: PCP Internal Medicine; Visit Provider Radiology Diagnostic Radiology | DX: Z12.31 Encounter for screening mammogram for malignant neoplasm of breast (principal) | CPT/HCPCS: 77063; 77067 ==

== ENCOUNTER 2024-04-09 14:21 | Outpatient (REF) | payer MEDICARE, SELFPAY ==
--- NOTE | ~2024-04-09 | MM_ITS ---
EXAMINATION: MM DIAGNOSTIC DIGITAL BREAST TOMOSYNTHESIS, LEFT CLINICAL INFORMATION: Diagnostic left mammogram to evaluate potential focus of architectural distortion upper inner left breast, posterior one third. COMPARISON: Mammography: 02/05/2024, and exams dating back to 2019. TECHNIQUE: Digital left breast tomosynthesis is performed. 2D images are generated from the tomosynthesis. The following views are obtained: Full-field left 3-D mediolateral view, and spot compression 3-D left CC and MLO views. FINDINGS: The breasts are extremely dense, which lowers the sensitivity of mammography (ACR BI-RADS breast composition Category d). Diagnostic views demonstrate the subtle area of possible architectural distortion does not persist and effaces entirely. There are benign vascular and benign coarse scattered calcifications. No dominant mass, area of persistent architectural distortion, or suspicious grouped calcifications present in the left breast. No skin or axillary abnormality. MM/MM tomosynthesis added views L IMPRESSION: No persistent findings suspicious for malignancy. Benign findings left breast. Recommend the patient return to routine annual screening to include both breasts. ASSESSMENT: BI-RADS BI-RADS 2 - Benign Findings RECOMMENDATION: 1 year F/U Results were provided to the patient at time of visit by the technologist. This patient's information was entered into a reminder system with a target due date for their next mammogram.
== END 2024-04-09 14:22 | disposition home or self-care (01) ==
LOC: HO.MAMMO 14:21
PROVIDERS: PCP Internal Medicine; Visit Provider Internal Medicine Medical Oncology
DX: N64.89 Other specified disorders of breast (principal)
CPT/HCPCS: 77061; 77065

== ENCOUNTER → 2024-04-09 15:00 | Outpatient (BNV) | payer MEDICARE, SELFPAY | PROVIDERS: PCP Internal Medicine; Visit Provider Radiology Diagnostic Radiology | DX: R92.8 Other abnormal and inconclusive findings on diagnostic imaging of breast (principal) | CPT/HCPCS: 77065; G0279 ==

== ENCOUNTER 2024-05-15 11:36 | Outpatient (REF) | payer MEDICARE, SELFPAY ==
[2024-05-15 13:20] LABS: MANUAL DIFF FLAG NO
[2024-05-15 13:25] LABS: Appearance Urine Cloudy; Color Urine Yellow; Glucose Urine UA Negative (Negative); Leukocyte Esterase Urine Moderate (2+) (Negative); Nitrite Urine Positive (Negative); PH 5.5 (5.0-9.0); Specific Gravity - Urine 1.015 (1.005-1.025); UMIC TRIGGER UACC YES; Urine Blood Negative (Negative); Urine Ketones Negative (Negative); Urine Protein Negative (Neg-Trace)
[2024-05-15 13:37] LABS: Basophils Percent Auto 0.2 % (0-2); Eosinophils Absolute Auto 0.1 X10*3/uL (0.0-0.4); Eosinophils Percent Auto 1.2 % (0-4); Hematocrit 30.1 % (37.0-47.0); Hemoglobin 9.5 g/dl (12.0-16.0); Imm Gran Abs Auto 0.02 X10*3/uL (0.00-0.03); Imm Gran Pct Auto 0.4 % (0.0-0.4); Lymphocytes Absolute Auto 0.8 X10*3/uL (1.2-4.9); Lymphocytes Percent Auto 15.9 % (20-40); Mean Corpuscular HGB Conc 31.6 g/dl (31.0-35.0); Mean Corpuscular Hemoglobin 28.7 pg (27.0-33.0); Mean Corpuscular Volume 90.9 fL (80.0-98.0); Mean Platelet Volume 11.6 fL (9.4-12.3); Monocytes Absolute Auto 0.6 X10*3/uL (0.1-1.2); Monocytes Percent Auto 12.5 % (2-11); Neutrophils Absolute Auto 3.5 x10*3/uL (2.0-8.3); Neutrophils Percent Auto 69.8 % (45-73); Platelet Count 154 X10*3/uL (160-400); Red Blood Count 3.31 X10*6/uL (4.20-5.50); Red Cell Distribution Width 13.8 % (11.0-16.0)
[2024-05-15 13:51] LABS: Alanine Aminotransferase 17 U/L (0-31); Albumin Level 3.8 g/dL (3.5-5.0); Alkaline Phosphatase 54 U/L (39-117); Anion Gap 10 (12-20); Aspartate Amino Transferase 20 U/L (5-31); Bilirubin Total 1.2 mg/dL (0.0-1.0); Blood Urea Nitrogen 27 mg/dL (9-16); Calcium 9.1 mg/dL (8.4-10.2); Carbon Dioxide 25 mmol/L (22-29); Chloride 109 mmol/L (96-108); Estimated Glomerular Filt Rate > 60; Glucose Random 99 mg/dL (60-115); Iron 82 mcg/dL (30-160); Percent Iron Saturation 25 % (15-50); Potassium 3.4 mmol/L (3.3-5.1); Sodium 141 mmol/L (135-145); Total Iron Binding Capacity 333 mcg/dL (228-428); Total Protein 6.8 g/dL (6.5-8.0); Unsaturated Iron Binding 251 ug/dL
[2024-05-15 14:00] LABS: Bacteria Urine 4+ (None Seen); Hyaline Casts Urine 0-2 /LPF (0-2); RBC Urine 0-2 /HPF (0-2); UACC Culture Trigger YES
== END 2024-05-15 11:37 | disposition home or self-care (01) ==
LOC: HO.HMGCLDS 11:36
PROVIDERS: PCP Internal Medicine; Visit Provider Internal Medicine
DX: R30.0 Dysuria (principal); D64.9 Anemia, unspecified
CPT/HCPCS: 36415; 80053; 81001; 83540; 85025; 87086; 87088; 87186

== ENCOUNTER 2024-06-30 12:35 | Emergency (ER) | payer MEDICARE, SELFPAY ==
--- NOTE | ~2024-06-30 | CT_ITS ---
EXAMINATION: CT HEAD WITHOUT CONTRAST CLINICAL INFORMATION: Fall COMPARISON: CT head from 09/05/2023 TECHNIQUE: Contiguous axial imaging was performed from the skull base to vertex without intravenous administration of contrast. This CT examination was performed using dose optimization techniques as appropriate, variously including the following: *Automated exposure control *Adjustment of mA and/or kV according to patient size (this includes techniques or standardized protocols for targeted exams where dose is matched to indication/reason for exam; i.e. extremities or head) *Use of iterative reconstruction technique DLP: 714.85 mGy-cm FINDINGS: There is no evidence of acute intracranial hemorrhage or territorial infarction. Chronic white matter small vessel ischemic changes. Extensive cerebral atrophy with ventricular prominence. No abnormal mass effect or midline shift is seen. Cuevas to white matter differentiation is well preserved. No extra-axial fluid collections are identified. The ventricles are normal in size. There is no abnormal attenuation within the brain parenchyma. The osseous structures and soft tissues are normal. The mastoid air cells and visualized portions of the paranasal sinuses are well aerated. CT/CT cervical spine wo IV con IMPRESSION: 1. No acute intracranial pathology. 2. Chronic white matter small vessel ischemic changes. EXAMINATION: Noncontrast CT scan of the cervical spine. INDICATION: Fall COMPARISON: None. TECHNIQUE: Helical, multidetector axial images were obtained from the occiput to the upper thorax. Coronal and sagittal reformats of the cervical spine were provided for interpretation. DLP: 253.58 mGy-cm FINDINGS: No acute fractures or dislocations of the cervical spine are seen. Grade 1 anterolisthesis of C3 on C4, C4 on 5 and T1 on T2. Slight straightening of normal cervical curvature. Multilevel degenerative changes. Anatomic alignment and positioning of the vertebral bodies and posterior elements is noted. The atlantoaxial joint and craniovertebral articulations are normal without evidence of subluxation. There is no prevertebral soft tissue swelling. The thyroid gland and visualized portions of the lung apices and mediastinum are unremarkable. IMPRESSION: 1. No acute visible fracture or dislocation. 2. Grade 1 anterolisthesis of C3 on C4, C4 on 5 and T1 on T2. 3. Slight straightening of normal cervical curvature. 4. Multilevel degenerative changes. Electronically signed by: Cricket Dallas MD 06/30/2024 04:24 PM [facility]
--- NOTE | ~2024-06-30 | XR_ITS ---
EXAMINATION: XR CHEST CLINICAL INFORMATION: Weakness COMPARISON: None available. TECHNIQUE: Frontal view of the chest was obtained. FINDINGS: Lungs grossly clear. Heart size borderline with normal caliber pulmonary vessels. No congestive change. XR/XR chest 1V IMPRESSION: No active disease. Electronically signed by: Curt Escalante MD 06/30/2024 02:52 PM [facility]
[2024-06-30 12:47] VITALS: BP 116/62; BP 130/70; PULSE 65; PULSE 78; RESP 18; TEMP 36.3; O2SAT 98; BMI 20.3
--- NOTE | 2024-06-30 12:56 | ED.GENADULT ---
HPI - General Adult General Chief complaint: General Medical Stated complaint: weakness, confusion, can't ambulate, POC 223 Time Seen by Provider: 06/30/24 12:56 Source: patient, family (patient's sister provided additional history) and EMS Mode of arrival: EMS Limitations: physical limitation (hx of dementia) History of Present Illness ED Provider: Bree Reed PA-C HPI narrative: 83-year-old female with a PMH of PAD, dementia, bilateral carotid artery stenosis, and intraductal carcinoma presented to the ED today via EMS for weakness that has worsened over the past few months. Patients two sisters are at bedside who aided with history. Her sisters state that she has been slowly declining since discharged from rehab for a hairline fracture of her hip in 09/2023. Reportedly the patient has been getting more and more unsteady on her feet and ambulates with a cane and walker at baseline. She has had frequent falls with the most recent being a few days ago where she hit her face, resulting in an abrasion under her left eye. Family states that she has been increasingly more weak, unmotivated to walk, increasingly more confused and has had a poor appetite. When asked if she has been eating patient responded that she eats cookies . Family has been giving her Ensure. 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 The patient's sisters would like to discuss placement in a rehab as it is becoming more and more difficult to take care of patient at home. Relieving factors: none Exacerbating factors: none Associated symptoms: weakness Treatments prior to arrival: none Related Data Home Medications ?Medication ?Instructions ?Recorded ?Confirmed albuterol sulfate 90 mcg/actuation 2 inh inhalation Q6H PRN Wheezing 08/23/20 01/23/23 breath activated powder inhaler,sensor (Proair Digihaler) aspirin 81 mg chewable tablet 81 mg PO DAILY 08/23/20 01/23/23 atorvastatin 40 mg tablet 40 mg PO BEDTIME 08/23/20 01/23/23 cholecalciferol (vitamin D3) 25 25 mcg PO DAILY 08/23/20 01/23/23 mcg (1,000 unit) capsule anastrozole 1 mg tablet 1 mg PO DAILY 11/08/20 01/23/23 famotidine 40 mg tablet 40 mg PO BID 10/10/23 atenolol 25 mg tablet 25 mg PO DAILY 10/11/23 diltiazem HCl 120 mg 120 mg PO DAILY 10/11/23 capsule,extended release 24 hr ferrous sulfate 324 mg (65 mg 324 mg PO DAILY 10/11/23 iron) tablet,delayed release haloperidol 0.5 mg tablet 0.5 mg PO DAILY 10/11/23 mirabegron 50 mg tablet,extended 50 mg PO DAILY 10/11/23 release 24 hr (Myrbetriq) omeprazole 20 mg capsule,delayed 20 mg PO BID 10/11/23 release salmeterol 50 mcg/dose blister 1 inh inhalation BID 10/11/23 powder for inhalation (Serevent Diskus) tolterodine 4 mg capsule,extended 4 mg PO DAILY 10/11/23 release 24 hr carvedilol 3.125 mg tablet 3.125 mg PO BID 01/28/24 risperidone 0.5 mg tablet 0.5 mg PO DAILY 01/28/24 Previous Rx's ?Medication ?Instructions ?Recorded clopidogrel 75 mg tablet (Plavix) 75 mg PO DAILY #30 tabs 01/02/23 cefuroxime axetil 250 mg tablet 250 mg PO BID 7 days #14 tabs 10/11/23 Allergies Allergy/AdvReac Type Severity Reaction Status Date / Time Penicillins [PENICILLINS] Allergy Severe ITCHING Verified 06/30/24 12:48 Erythromycin Allergy Severe itching Uncoded 01/28/24 10:34 Review of Systems Constitutional: Constitutional: Reports no additional constitutional complaints, Denies chills, Denies fever(s), Reports frequent falls, Denies night sweats and Reports weakness Eyes: Eyes: Reports no additional eye complaints, Denies blurry vision, Denies change in vision, Denies diplopia, Denies eye discharge, Denies loss of vision and Denies eye pain ENT: Denies dizziness Cardiovascular: Cardiovascular: Reports no additional cardiovascular complaints, Denies chest pain, Denies lightheadedness, Denies Loss of Consciousness and Denies dyspnea Respiratory: Respiratory: Reports no additional respiratory complaints and Denies dyspnea Gastrointestinal: Gastrointestinal: Reports no additional gastrointestinal complaints, Denies abdominal pain, Denies melena, Denies hematochezia, Denies change in bowel habits and Denies change in stool character Genitourinary: Genitourinary: Denies hematuria, Denies urinary frequency, Denies dysuria, Denies urinary incontinence, Denies urinary hesitancy and Denies urinary urgency Musculoskeletal: Musculoskeletal: Reports no additional musculoskeletal complaints, Denies numbness and Denies tingling Integumentary/Breasts: Comments: abrasion under left eye Neurologic: Denies dizziness, Reports frequent falls, Denies loss of vision, Denies numbness, Denies tingling and Reports weakness Psychiatric: Psychiatric: Reports no additional psychiatric complaints Endocrine: Endocrine: Reports no additional endocrine complaints Hematologic/Lymphatic: Hematologic/Lymphatic: Reports no additional hematologic/lymphatic complaints Allergic/Immunologic: Allergic/Immunologic: Reports no additional allergic/immunologic complaints [facility] Past Medical History Attestation statement: The following information was validated with the patient. (all information validated with the patient's sisters) Source: old records reviewed, obtained from family (patient's sisters provided additional history) and nursing notes reviewed Medical History PAD (peripheral artery disease) Invasive ductal carcinoma of right breast History of pneumonia History of dislocation of shoulder Surgical History History of vein stripping History of appendectomy History of cataract extraction History of left hip replacement History of back surgery Family History Family History Mother Cancer of unknown origin Social History Social History Household Members: Spouse Housing: House Do you presently have visiting nurse or other home services: No Alcohol intake: current Alcohol intake frequency: holidays/special occasions only Alcohol type: wine Patient Tobacco Use Status: Former Tobacco user Smoked in Last 30 Days: No Use of substances other than those prescribed or required for medical reasons: No Advance Directives: Yes Advance Directives Information Provided: Yes Advance Directives on File: No Do you have a plan to hurt others: No Plan service: No Current occupational status: retired Physical Exam ED Vital Signs: Vital Signs - 24 hr 06/30/24 12:47 06/30/24 15:25 Temperature 97.3 F 97.7 F Pulse Rate 78 91 Respiratory Rate 18 16 Blood Pressure 116/62 123/61 Pulse Oximetry 98 99 Oxygen Delivery Method Room Air Room Air BMI result Body Mass Index 20.3 Const General: cooperative, no acute distress, alert and awake Nutritional Appearance: well nourished Orientation/consciousness: oriented to person and oriented to place Limitations: no limitations HENMT Head: Yes normal to inspection and Yes atraumatic Ears: hearing grossly normal bilaterally and external ears normal General nose exam: Normal external nose present, no nasal discharge noted and no epistaxis Face and sinus: Yes abrasion (on left cheek - no open areas) and No laceration Mouth: Normal oral and palatal mucosa present, no drooling and no muffled voice Eyes General: appearance normal, both eyes and all related structures Periorbital: periorbital findings normal Eyelids: Yes eyelids normal Conjunctivae: conjunctivae normal Pupils: Equal, round and reactive pupils present EOM: EOMs intact bilaterally Neck Neck: Yes normal visual inspection, Yes full ROM and Yes no lymphadenopathy Chest Chest palpation & inspection: normal inspection of the chest Resp Effort & Inspection: normal respiratory effort and able to speak in complete sentences GI Inspection: Yes normal to inspection Skin Trauma: abrasion (under left eye) Neuro General: oriented to person, oriented to place and moves all extremities Cranial nerves: Yes Equal, round and reactive pupils present Cognition (Neuro): normal cognition Extrem General: Yes normal to inspection, Yes full ROM and Yes capillary refill normal Psych Appearance: grossly normal Mental Status: mental status grossly normal Affect: normal affect Attitude: cooperative Thought process: Normal thought process present Thought content: Normal thought content present Insight: Good insight present (Psych) Medical Decision Making Medical Decision Making MDM Narrative: Patient is an 83 year old assigned female at with a history of breast cancer, anemia, PAD, and bilateral carotid artery stenosis, presenting to the emergency department today with weakness and placement concerns. Patient's physical exam was as noted in the physical exam portion of this note. Patient's blood work showed an initially elevated trop of 93.1 with a repeat pending. Patient's urine showed a probable UTI - treatment started. Patient's EKG was unremarkable. Patient's head and c-spine CTs are pending. I explained my physical exam findings as well as all test results to the patient and the patient's sisters. I answered all questions asked by the patient and the patient's sisters. Patient signed out to the evening BILL pending imaging reads and repeat troponin results. Differential Diagnosis Differential Diagnoses: The differential diagnosis associated with the presentation includes UTI Weakness Admission/Observation Consideration of admission/observation: Escalation of care including admission/observation considered Patient's disposition will be determined after the troponin results and imaging is read. Lab Data [facility] Lab Attestation statement: I reviewed the patient's lab results. My interpretation of these results are in the MDM Rationale portion of this note. 06/30/24 13:47 06/30/24 13:47 Labs: Lab Results 06/30/24 06/30/24 Range/Units 13:47 15:11 WBC 9.5 (4.8-10.8) X10*3/uL RBC 4.62 D (4.20-5.50) X10*6/uL Hgb 12.7 D (12.0-16.0) g/dl Hct 39.4 D (37.0-47.0) % MCV 85.3 (80.0-98.0) fL MCH 27.5 (27.0-33.0) pg MCHC 32.2 (31.0-35.0) g/dl RDW 15.0 (11.0-16.0) % Plt Count 212 D (160-400) X10*3/uL MPV 11.0 (9.4-12.3) fL Immature Gran % (Auto) 0.4 (0.0-0.4) % Neut % (Auto) 82.3 H (45-73) % Lymph % (Auto) 7.7 L (20-40) % [place] % (Auto) 8.9 (2-11) % Eos % (Auto) 0.5 (0-4) % Baso % (Auto) 0.2 (0-2) % Lymph # (Auto) 0.7 L (1.2-4.9) X10*3/uL [place] # (Auto) 0.8 (0.1-1.2) X10*3/uL Eos # (Auto) 0.1 (0.0-0.4) X10*3/uL Baso # (Auto) 0.0 (0.0-0.2) X10*3/uL Abs Immat Gran (auto) 0.04 H (0.00-0.03) X10*3/uL Absolute Neuts (auto) 7.8 (2.0-8.3) x10*3/uL Absolute Nucleated RBC 0.000 (0.0-0.012) X10*3/uL Nucleated RBC % (auto) 0.0 (0.0-0.2) /100WBC PT 12.7 H (10.9-12.4) SEC INR 1.1 (0.9-1.1) APTT 29.6 (26.0-36.8) SEC Sodium 140 (135-145) mmol/L Potassium 3.5 (3.3-5.1) mmol/L Chloride 105 (96-108) mmol/L Carbon Dioxide 24 (22-29) mmol/L Anion Gap 15 (12-20) BUN 30 H (9-16) mg/dL Creatinine 0.82 (0.5-1.4) mg/dL Estim Creat Clear Calc 49.8 Estimated GFR > 60 Random Glucose 139 H (60-115) mg/dL Calcium 9.1 (8.4-10.2) mg/dL Magnesium 1.9 (1.6-2.6) mg/dL Total Bilirubin 1.4 H (0.0-1.0) mg/dL AST 128 H (5-31) U/L ALT 56 H (0-31) U/L Alkaline Phosphatase 130 H (39-117) U/L Troponin I High Sens 93.1 H* D (<3.5-17.0) ng/L Total Protein 6.6 (6.5-8.0) g/dL Albumin 3.4 L (3.5-5.0) g/dL Urine Color Dark Yellow Urine Appearance Turbid Urine pH 6.0 (5.0-9.0) Ur Specific [place] >= 1.030 H (1.005-1.025) Urine Protein 100 (2+) H (Neg-Trace) mg/dL Urine Glucose (UA) Negative (Negative) mg/dL Urine Ketones Trace (Negative) mg/dL Urine Blood Large (3+) H (Negative) Urine Nitrite Negative (Negative) Ur Leukocyte Esterase Large (3+) H (Negative) Urine RBC >20 H (0-2) /HPF Urine WBC >50 H (0-5) /HPF Ur Squamous Epith Cells 6-10 (0-2) /HPF Urine Bacteria 4+ (None Seen) Hyaline Casts 3-5 (0-2) /LPF Influenza Type A (PCR) NEGATIVE (Negative) Influenza Type B (PCR) NEGATIVE (Negative) RSV RNA Qual (PCR) NEGATIVE (Negative) SARS-CoV-2 RNA (RT-PCR) NEGATIVE (Negative) Independent Interpretation I performed an independent interpretation of an: EKG Interpretation: Vent. Rate: 079 BPM Atrial Rate: 079 BPM P-R Int: 148 ms QRS Dur: 068 ms QT Int: 378 ms P-R-T Axes: 025 -34 -01 degrees QTc Int: 433 ms Normal sinus rhythm Left axis deviation Low voltage QRS Possible Anterolateral infarct (cited on or before 22-JAN-2023) Abnormal ECG When compared with ECG of 22-JAN-2023 15:30, No significant change was found DD/ 1312 Radiology Impression Discussion of test interpretation with radiology: I have reviewed the radiologist's reading. Independent Historian Clinical information obtained from an independent historian. History obtained from or confirmed by: EMS (EMS provided additional history and confirmed the history provided by the patient) and Other (patient's sisters provided additional history and confirmed the history provided by the patient.) Discharge Plan Discharge Clinical Impression: Acute UTI, Weakness Patient Disposition: Still a Patient Prescriptions: No Action famotidine 40 mg tablet 40 mg PO BID haloperidol 0.5 mg tablet 0.5 mg PO DAILY tolterodine 4 mg capsule,extended release 24hr 4 mg PO DAILY atenolol 25 mg tablet 25 mg PO DAILY Serevent Diskus 50 mcg/dose blister with device 1 inh inhalation BID omeprazole 20 mg capsule,delayed release(DR/EC) 20 mg PO BID diltiazem HCl 120 mg capsule,extended release 24hr 120 mg PO DAILY ferrous sulfate 324 mg (65 mg iron) tablet,delayed release (DR/EC) 324 mg PO DAILY Myrbetriq 50 mg tablet extended release 24 hr 50 mg PO DAILY cefuroxime axetil 250 mg tablet 250 mg PO BID 7 Days Qty: 14 0RF clopidogrel [Plavix] 75 mg tablet 75 mg PO DAILY Qty: 30 0RF anastrozole 1 mg tablet 1 mg PO DAILY Proair Digihaler 90 mcg/actuation aero powdr breath act w/sensor 2 inh inhalation Q6H PRN (Reason: Wheezing) atorvastatin 40 mg tablet 40 mg PO BEDTIME cholecalciferol (vitamin D3) 25 mcg (1,000 unit) capsule 25 mcg PO DAILY aspirin 81 mg tablet,chewable 81 mg PO DAILY risperidone 0.5 mg tablet 0.5 mg PO DAILY carvedilol 3.125 mg tablet 3.125 mg PO BID Print Language: Occitan
--- NOTE | 2024-06-30 12:57 | ECG_ITS ---
Test Reason : WEAKNESS Blood Pressure : / mmHG Vent. Rate : 079 BPM Atrial Rate : 079 BPM P-R Int : 148 ms QRS Dur : 068 ms QT Int : 378 ms P-R-T Axes : 025 -34 -01 degrees QTc Int : 433 ms Normal sinus rhythm Left axis deviation Low voltage QRS Possible Anterolateral infarct (cited on or before 22-JAN-2023) Abnormal ECG When compared with ECG of 22-JAN-2023 15:30, No significant change was found Referred By: Bree Reed Electronically Signed By:MARGUERITE DOW MD
[2024-06-30 13:52] LABS: MANUAL DIFF FLAG NO
[2024-06-30 13:54] LABS: Basophils Percent Auto 0.2 % (0-2); Eosinophils Absolute Auto 0.1 X10*3/uL (0.0-0.4); Eosinophils Percent Auto 0.5 % (0-4); Hematocrit 39.4 % (37.0-47.0); Hemoglobin 12.7 g/dl (12.0-16.0); Imm Gran Abs Auto 0.04 X10*3/uL (0.00-0.03); Imm Gran Pct Auto 0.4 % (0.0-0.4); Lymphocytes Absolute Auto 0.7 X10*3/uL (1.2-4.9); Lymphocytes Percent Auto 7.7 % (20-40); Mean Corpuscular HGB Conc 32.2 g/dl (31.0-35.0); Mean Corpuscular Hemoglobin 27.5 pg (27.0-33.0); Mean Corpuscular Volume 85.3 fL (80.0-98.0); Monocytes Absolute Auto 0.8 X10*3/uL (0.1-1.2); Monocytes Percent Auto 8.9 % (2-11); Neutrophils Absolute Auto 7.8 x10*3/uL (2.0-8.3); Neutrophils Percent Auto 82.3 % (45-73); Platelet Count 212 X10*3/uL (160-400); Red Blood Count 4.62 X10*6/uL (4.20-5.50); White Blood Count 9.5 X10*3/uL (4.8-10.8)
--- NOTE | 2024-06-30 14:00 | PC.NURSE ---
patient a&ox2- person/place, labs drawn, ekg performed, xray performed, urine obtained, pure wick placed, pts rr equal non labored, lungs diminished, call carrasco within reach, will continue to monitor.
[2024-06-30 14:01] LABS: INTERNATIONAL NORM RATIO 1.1 (0.9-1.1); Prothrombin Time 12.7 SEC (10.9-12.4)
[2024-06-30 14:04] LABS: Partial Thromboplastin Time 29.6 SEC (26.0-36.8)
[2024-06-30 14:32] LABS: Influenza A PCR NEGATIVE (Negative); Influenza B PCR NEGATIVE (Negative); Resp Syncy Virus RNA Qual PCR NEGATIVE (Negative); SARS COV2 PCR INHOUSE NEGATIVE (Negative)
[2024-06-30 14:33] LABS: Alanine Aminotransferase 56 U/L (0-31); Albumin Level 3.4 g/dL (3.5-5.0); Alkaline Phosphatase 130 U/L (39-117); Anion Gap 15 (12-20); Aspartate Amino Transferase 128 U/L (5-31); Bilirubin Total 1.4 mg/dL (0.0-1.0); Blood Urea Nitrogen 30 mg/dL (9-16); Calcium 9.1 mg/dL (8.4-10.2); Carbon Dioxide 24 mmol/L (22-29); Chloride 105 mmol/L (96-108); Creatinine Clr Calc Pharmacy 49.8; Estimated Glomerular Filt Rate > 60; Glucose Random 139 mg/dL (60-115); Magnesium 1.9 mg/dL (1.6-2.6); Potassium 3.5 mmol/L (3.3-5.1); Sodium 140 mmol/L (135-145); Total Protein 6.6 g/dL (6.5-8.0)
[2024-06-30 14:44] LABS: Troponin-I High Sensitivity 93.1 ng/L (<3.5-17.0)
--- NOTE | 2024-06-30 15:10 | PC.NURSE ---
pt to radiology
[2024-06-30 15:18] LABS: Appearance Urine Turbid; Color Urine Dark Yellow; Glucose Urine UA Negative (Negative); Leukocyte Esterase Urine Large (3+) (Negative); Nitrite Urine Negative (Negative); Specific Gravity - Urine >= 1.030 (1.005-1.025); UMIC TRIGGER UACC YES; Urine Blood Large (3+) (Negative); Urine Ketones Trace mg/dL (Negative); Urine Protein 100 (2+) mg/dL (Neg-Trace)
[2024-06-30 15:25] VITALS: BP 123/61; PULSE 91; RESP 16; TEMP 36.5; O2SAT 99
[2024-06-30 15:36] LABS: Bacteria Urine 4+ (None Seen); RBC Urine >20 /HPF (0-2); UACC Culture Trigger YES; WBC Urine >50 /HPF (0-5)
[2024-06-30 16:00] VITALS: BP 104/63; PULSE 81; RESP 16; TEMP 36.8; O2SAT 96
[2024-06-30 16:33] LABS: Troponin-I High Sensitivity 74.1 ng/L (<3.5-17.0)
[2024-06-30] MEDS: cefTRIAXone sodium 2 GM VIAL IVPUSH (16:35)
--- NOTE | 2024-06-30 17:07 | PC.NURSE ---
pt medicated with IV abx for uti, family at bedside and was asking for pt to have dinner- pt has had a diet put in and will get dinner once provider clears pt from ct scans. pts med req was updated with family at bedside who had a list. will speak to pharmacy as well. pt to be pt/cm. family also states pt and needs closer watch at night- will obtain an inpt bed for bed alarm.
--- NOTE | 2024-06-30 18:03 | PC.NURSE ---
pts sister took her yellow metal necklaces home. other belongings at beside
[2024-06-30] MEDS: risperiDONE 1 MG TABLET PO (18:14)
--- NOTE | 2024-06-30 18:17 | PC.NURSE ---
Transferd fro [facility] to [facility], medicated per mar. Eating dinner at this time. Patient with bruising all over body, reports she has fallen many times recently. Old bruising on nose , skin tear on right elbow
--- NOTE | 2024-06-30 19:00 | PC.NURSE ---
Assumed care of pt.
--- NOTE | 2024-06-30 19:14 | MHC.CM.ED ---
CM met with patient and her sisters, Enriqueta and Bethany. Pt has dementia, has been weak and been falling. Pt has UTI. Pt does not meet criteria for admission. PT is pending. Pt does not have a qualifying stay. CM reviewed 3 midnight medicare rule with family.Pt lives with her . Uses and cane and walker. Has no services. CM was able to complete a HCP, as patient was able to name her sister, Enriqueta as her proxy, as she has medical knowledge per patient. HCP reviewed, completed and signed. HCP/sister Enriqueta Casiano ([phone]). Copies given and uploaded into [facility] and [facility]. PT assessment is pending. Family is interested in private pay STR referrals. Family does not feel patient is safe to go home at this time. They are not interested in LTC at this time. [facility] is first choice. Referrals will be made with request for rates. CM contact card given to family. Family will return tomorrow afternoon. Aware that patient may be transferred to Overflow unit for comfort. CM will follow for safe discharge plan.
[2024-06-30 20:32] VITALS: BP 144/66; PULSE 84; RESP 16; TEMP 36.4; O2SAT 96
[2024-06-30] MEDS: cefuroxime axetiL 250 MG TABLET PO (20:43)
[2024-06-30] MEDS: Famotidine 20 MG TABLET 40 MG PO (20:43)
[2024-06-30] MEDS: Atorvastatin Calcium 40 MG TABLET PO (20:43)
[2024-07-01 07:45] VITALS: BP 144/66; PULSE 84; O2SAT 96
[2024-07-01] MEDS: Salmeterol Xinafoate 50 MCG BLST.W.DEV 1 PUFF INHALE (07:48)
[2024-07-01] MEDS: cefuroxime axetiL 250 MG TABLET PO (08:14)
[2024-07-01] MEDS: Ferrous Sulfate 324 MG TABLET.DR PO (08:14)
[2024-07-01] MEDS: Cholecalciferol (Vitamin D3) 25 MCG TABLET PO (08:14)
[2024-07-01] MEDS: Famotidine 20 MG TABLET 40 MG PO (08:14)
[2024-07-01] MEDS: Aspirin 81 MG TAB.CHEW PO (08:14)
[2024-07-01 08:26] VITALS: BP 145/66; PULSE 79; RESP 16; TEMP 36.6; O2SAT 94
--- NOTE | 2024-07-01 08:29 | MHC.CM.ED ---
Addendum entered by Alexa Tracy 07/01/24 09:45: [facility], [facility], [facility], [facility], and [facility] are able to offer a bed. Spoke with Erniqueta via telephone at [phone]. Bed offers and cost discussed. Enriqueta wants to accept the bed at [facility], but patient's will be in ER at 3pm to confirm. [facility] bed is not available until tomorrow 07/02. [facility] will hold bed for patient. Original Note: Patient remains in ER overflow. Physical therapy eval completed. Short term rehab is recommended. [facility] is 1st choice. Clinical updates sent via [facility]. Continue to monitor for d/c needs.
[2024-07-01] MEDS: dilTIAZem HCL CD 120 MG CAP.ER.DEG PO (10:22)
[2024-07-01] MEDS: Anastrozole 1 MG TABLET PO (10:22)
[2024-07-01 14:00] VITALS: BP 146/65; PULSE 89; RESP 20; TEMP 36.8; O2SAT 95
--- NOTE | 2024-07-01 16:54 | MHC.CM.ED ---
CM spoke with and HCP/sister Enriqueta and her sister Bethany. Reviewed all bed offers and rates. Family has accepted [facility] and is agreeable to financials. Request that facility contact HCP Enriqueta on her cell phone at [phone] to discuss financials. CM uploaded all of this information to facility via [facility]. Hopeful transport to [facility] 07/02 after financials arranged. Pt will need S transport arranged. Family has CM contact card. Will reach out to [facility] tomorrow. CM will follow for discharge planning.
[2024-07-01] MEDS: risperiDONE 1 MG TABLET PO (17:05)
[2024-07-01 21:15] VITALS: BP 157/67; PULSE 96; RESP 18; TEMP 36.8; O2SAT 96
--- NOTE | 2024-07-01 23:02 | PC.NURSE ---
pt refused medication. pt told RN and tech to Get the hell out multiple attempts made for meds. pt said she is sleeping and won't do anything you ask so leave me alone . education about ABX provided, pt still refused
[2024-07-02 05:40] VITALS: BP 169/70; PULSE 85; RESP 18; TEMP 36.7; O2SAT 95
--- NOTE | 2024-07-02 07:45 | PHA.MEDREC ---
Addendum entered by Radha Menendez RPh 07/02/24 08:36: Reviewed by [facility]; diltiazem has not been filled in almost a year (07/2023) but family member reported to both nursing and pharmacy technician inpatient that patient is taking Original Note: Pharmacy Consult ? Medication Reconciliation Pharmacy reviewed med rec done by nursing. Noticed Carvedilol 3.125mg was filled 06/03 for a 90 day supply. I called patient sister yesterday afternoon and she called us back this morning at 0730 and confirmed patients medications. She confirmed she is taking the Carvedilol 3.125mg 1 BID. She also stated her sister takes her Atorvastatin 40mg tab in the morning, I updated that in the med rec from bedtime to daily. She also confirmed the Famotidine 40mg tab daily, I updated the med rec from BID to Daily. she also stated her sister takes her Risperidone 0.5mg tab every day at 1700 and I had updated the med rec to daily@1700. She also confirmed she uses her Servent Diskus as needed for wheezing and doesnt use it that often. She also confirmed her sister is taking a Colace 100mg tab 1 daily.
[2024-07-02] MEDS: Salmeterol Xinafoate 50 MCG BLST.W.DEV 1 PUFF INHALE (08:58)
[2024-07-02 08:59] VITALS: PULSE 85; RESP 18; O2SAT 96
[2024-07-02] MEDS: Famotidine 20 MG TABLET 40 MG PO (09:34)
[2024-07-02] MEDS: Cholecalciferol (Vitamin D3) 25 MCG TABLET PO (09:35)
[2024-07-02] MEDS: Atorvastatin Calcium 40 MG TABLET PO (09:35)
[2024-07-02] MEDS: cefuroxime axetiL 250 MG TABLET PO (09:35)
[2024-07-02] MEDS: Aspirin 81 MG TAB.CHEW PO (09:35)
[2024-07-02] MEDS: Ferrous Sulfate 324 MG TABLET.DR PO (09:35)
--- NOTE | 2024-07-02 09:44 | PC.NURSE ---
Pt due for Anastrazole and Cardizem at 9am however unavailable in [facility]. Pharmacy aware and awaiting delivery.
[2024-07-02 10:15] VITALS: BP 146/67; PULSE 106
[2024-07-02] MEDS: Anastrozole 1 MG TABLET PO (10:15)
[2024-07-02] MEDS: dilTIAZem HCL CD 120 MG CAP.ER.DEG PO (10:15)
--- NOTE | 2024-07-02 10:48 | MHC.CM.ED ---
Patient remains in ER overflow. Patient can transfer to [facility] via BLS at 3pm. Anselmo STARKS booked. [place] [facility] [place]. Patient, sister Deidre Robison RN and Bree MCDANIEL aware. Continue to monitor for d/c needs.
--- NOTE | 2024-07-02 13:13 | PC.NURSE ---
soda was accidentally spilt on patient bedding, patient bedding fully changed, patient repositioned for comfort.
[2024-07-02 13:23] VITALS: BP 124/58; PULSE 88; RESP 14; TEMP 37.2; O2SAT 95
--- NOTE | 2024-07-02 14:32 | PC.NURSE ---
Call placed to [facility] @ [phone] and spoke with MELINDA Duran. RN to RN report given. Renee given the opportunity for questions and all questions answered to satisfaction. Awaiting ambulance transportation.
[2024-07-02 15:50] VITALS: BP 124/58; PULSE 88; RESP 14; TEMP 37.2; O2SAT 95
--- NOTE | 2024-07-02 16:22 | PC.NURSE ---
Addendum entered by Deidre Zhu RN 07/02/24 16:23: Pt has left the unit at this time. Original Note: [facility] arrives to transport Pt to [facility]. RN report given and all questions answered to satisfaction. Care of Pt relinquished to [facility].
== END 2024-07-02 16:24 | disposition skilled nursing facility (03) ==
PROVIDERS: Physician Assistant Medical; Emergency Provider Emergency Medicine; PCP Internal Medicine
DX: N39.0 Urinary tract infection, site not specified (principal); R53.1 Weakness; I73.9 Peripheral vascular disease, unspecified; R10.9 Unspecified abdominal pain; I25.10 Atherosclerotic heart disease of native coronary artery without angina pectoris; R26.2 Difficulty in walking, not elsewhere classified; F03.90 Unspecified dementia, unspecified severity, without behavioral disturbance, psychotic disturbance, mood disturbance, and anxiety; R51.9 Headache, unspecified; M54.2 Cervicalgia; D89.89 Other specified disorders involving the immune mechanism, not elsewhere classified; Z03.818 Encounter for observation for suspected exposure to other biological agents ruled out; Z79.899 Other long term (current) drug therapy
CPT/HCPCS: 0241U; 36415; 70450; 71045; 72125; 80053; 81001; 83735; 84484; 85025; 85610; 85730; 87086; 87088; 87186; 93005; 97162; 99285; J0696

== ENCOUNTER → 2024-06-30 12:57 | Outpatient (BNV) | payer MEDICARE, SELFPAY | PROVIDERS: Emergency Provider Emergency Medicine; PCP Internal Medicine; Visit Provider Internal Medicine Cardiovascular Disease | DX: R53.1 Weakness (principal); R94.31 Abnormal electrocardiogram [ECG] [EKG] | CPT/HCPCS: 93010 ==

== ENCOUNTER 2024-08-10 13:00 | Outpatient (REF) | payer MEDICARE, SELFPAY ==
--- OUTSIDE RECORDS SUMMARY | 2024-08-10 13:37 | XMS_ITS ---
Author Organization Otoniel Lees III, MD Address [address] [place] [address] [place] [address] Care Team Providers Care Director Case Management Name Role Phone Bob Quinones MD Primary Care Provider Otoniel Alexander [phone] REASON FOR VISIT pt needs additional views and ultrasound of left breast Encounters Encounter Location Date Provider Diagnosis Otoniel Lees III, MD [address] [place] [address] [place] [address] 03/19/2024 Otoniel Lees Breasts asymmetrical N64.89 Assessments Encounter Date Diagnosis (ICD Code) Assessment Notes Treat ment Notes Treatment Clinical Notes 03/19/2024 Breasts asymmetrical (ICD-10 - N64.89) Plan Of Treatment Pending Test Test Name Order Date US BREAST LEFT [facility] 03/19/20 24 MM tomosynthesis diagnostic LT 4 Next Appt Details Provider Name:Otoniel Lees, 09/17/2024 10:00:00 AM, [address] [place] [address] [place], [id number], Progress Notes * Radha GAUTAM ADOB: 2 (83 yo F)Acc No.[id number]:03/19/2024 Patient:?Radha Gautam :1940???Age:83 Y???Sex:Female Address:[address] [place], [place] [address], [address] Subjective: * Chief Complaints: * ???Pt needs additional views and ultrasound of left breast * Medical History:? * Surgical History:? * Hospitalization/Major Diagno stic Procedure:? * Medications:? Objective: Assessment: * Assessment: 1.?Breasts asymmetrical - N6 4.89? Plan: * Treatment: * Procedure Codes:? * true * Date:? Generated for Tamra early/Orin/Dontaeitting on:?08/10/2024 01:37 PM EST
--- OUTSIDE RECORDS SUMMARY | 2024-08-10 13:38 | XMS_ITS ---
Author Organization [facility] Address [address] [place] [address] Care Team Providers Care Project Administrative Assistant Name Role Phone Bbo Quinones MD Primary Care Provider Unavaila Otoniel Thurston Unavailable [phone] Encounters Encounter Location Date Provider Diagnosis [facility] [address] [place] [address] 04/15/2024 Otoniel Coates PLAN OF TREATMENT No Information
--- OUTSIDE RECORDS SUMMARY | 2024-08-10 13:38 | XMS_ITS | Patient Health Record ---
Author Organization [facility] Address [address] [place] [address] Care Team Providers Care Junior Buyer Name Role Phone Bob Quinones MD Primary Care Provider Otoniel Henriquez Unavailable [phone] ALLERGIES Allergen (clinical drug ingredient) Drug/Non Drug Allergy documented on EMR Reaction Allergy Type Onset Date Status Penicillin Unknown Drug Allergy Active erythromycin Erythromycin Unknown Drug Allergy A ctive REASON FOR REFERRAL No Information MEDICATIONS Medication SIG (Take, Route, Frequency, Duration) Notes Start Date End Date Status Meloxicam 7.5 MG Oral for 30 A ctive Coreg 3.125 MG 1 tablet with food Orally Twice a day for 30 day(s) Active Anastrozole 1 MG Oral for 90 A ctive Atorvastatin Calcium 40 MG Oral for 90 Active dilTIAZem HCl ER Coated Beads 120 MG Oral for 90 Active Clopidogrel Bisulfate 75 MG TAKE 1 TABLET BY MOUTH EVERY DAY Oral for 90 Not-Taking Serevent Diskus 50 MCG/ACT Inhalation for 90 Active Famotidine 40 MG 1 Orally Once a day 01/29/2023 Active Omeprazole 20 MG Oral for 90 N ot-Taking Ferrous Sulfate 324 (65 Fe) MG TAKE 1 TABLET BY MOUTH EVERY DAY Oral for 90 Active Nitrofurantoin Monohyd Macro 100 MG Oral for 7 Not-Taking Meclizine HCl 12.5 MG TAKE 1 TABLET BY M OUTH THREE TIMES A DAY NEEDED Oral for 16 Active Aspirin 81 81 MG 1 tablet Orally Once a day for 30 day(s) Active risperiDONE 1 MG TAKE 1 TABLET BY LIZETTE TH EVERY DAY AT 5PM AND NEEDED FOR 90 DAYS Oral for 90 Active IMMUNIZATIONS Vaccine Route Administration Date Status Comme nts Influenza Unknown 06/05/2023 Administered SOCIAL HISTORY Tobacco Use: Social History Observation Description Date Details (start date - stop date) Former Smoker NA - NA Sex Assigned At : Social History Observation Description Sex Assigned At Unknown Tobacco Use/Smoking Question Answer Notes Patient is a former smoker Alcohol Screen Question Answer Notes Did you have a drink contain ing alcohol in the past year? Yes How often did you have a dri nk containing alcohol in the past year? 4 or more times a week (4 points) How many drinks did you have on a typical day when you were drinking in the past year? 1 or 2 drinks (0 point) How often did you have 6 or more drinks on one occasion in the past year? Never (0 point) Points 4 Interpretation Positive PROBLEMS Problem Type ICD Code Onset Dates Problem Status W/U Status Risk SNOMED Code Notes Problem Duodenitis (K29.80) Active confirmed Duodenitis (50335707) Problem Anemia, unspecified type (D64.9) Active confirmed 239834322 Problem Iron deficiency anemia due to chronic blood loss (D50.0) Active confirmed 400834486 VITAL SIGNS Blood pressure diastolic 00 mm Hg 04/15/2024 Height 5 ft 5 in in 04/15/2024 Blood pressure systolic 00 mm Hg 04/15/2024 Weight 132 lbs 04/15/2024 BMI 21.96 kg/m2 04/15/2024 Encounters Encounter Location Date Provider Diagnosis [facility] [address] [place] [phone] 12/19/2023 Otoniel Coates [facility] [address] [place] [phone] 04/15/2024 Otoniel Coates Iron deficiency anemia due to chronic blood loss D50.0 [facility] [address] [place] [phone] 12/18/2023 Otoniel Coates [facility] [address] [place] [phone] 04/15/2024 Otoniel Coates ASSESSMENTS Encounter Date Diagnosis Assessment Notes Treatment Notes Treatment Clinical Notes 04/15/2024 Iron deficiency anemia due to chronic blood loss (ICD-10 - D50.0) Follow up with Dr. Quinones for future blood counts and see me as needed. Continue the Famotidine and Iron bill cutter. PLAN OF TREATMENT Pending Test Test Name Order Date IRON + IBC (FE) 05/30/2023 CBC w DIFF 05/30/2023 CBC w DIFF 06/19/2023 Ferritin 05/30/2023 Insurance Providers Payer Name Payer Address Payer Phone Subscriber Number Group Number Insured Name Patient Relationship to Insured Coverage Start Date Coverage End Date MEDICARE OF [place] [address] [place] [address] [id number] LAZARUSALEXANDRAKRISHNA Self - patient is the insured [employer] ATT[employer] CLAIMS [address] [place] [address] [id number] ALEXANDRA QIULEY Self - patient is the insured MEDICAL (GENERAL) HISTORY Medical History History ICD Code Iron deficiency anemia with workup in January of 2023 as below-she was admitted during that time and did require transfusions, upper endoscopy, and colonoscopy as below. This recurred in April of 2023 requiring 2 units of blood as an outpatient. PAD-she sees Dr. Winters and jeannie calderón a lower extremity stent placed in the spring Hypertension Right breast cancer Colonoscopy in January of 2023 with removal of a serrated polyp from the ascending colon Upper endoscopy in January with the finding of some mild duodenitis but no other abnormalities Hyperlipidemia Asymptomatic gallstones Surgical History Surgery Date(Month/Year) total hip replacement back surgery cateract surgery both eyes veins a long time ago bilateral stents femoral 01/15 lumpectomy right breast Hospitalization History Reason Date(Month/Year)
--- OUTSIDE RECORDS SUMMARY | 2024-08-10 13:38 | XMS_ITS ---
Author Organization [facility] Address [address] [place] [address] Care Team Providers Care Chocolate Dipper Name Role Phone Bob Quinones MD Primary Care Provider Otoniel Henriquez Unavailable [phone] ALLERGIES Allergen (clinical drug ingredient) Drug/Non Drug Allergy documented on EMR Reaction Allergy Type Onset Date Status Penicillin Unknown Drug Allergy Active erythromycin Erythromycin Unknown Drug Allergy A ctive REASON FOR VISIT Patient presents today for fe def anemia MEDICATIONS Medication SIG (Take, Route, Frequency, Duration) Notes Start Date End Date Status dilTIAZem HCl ER Coated Beads 120 MG Oral for 90 Active Serevent Diskus 50 MCG/ACT Inhalation for 90 Active Famotidine 40 MG 1 Orally Once a day 01/29/2023 Active Ferrous Sulfate 324 (65 Fe) MG TAKE 1 TABLET BY MOUTH EVERY DAY Oral for 90 Active Aspirin 81 81 MG 1 tablet Orally Once a day for 30 day(s) Active Clopidogrel Bisulfate 75 MG TAKE 1 TABLET BY MOUTH EVERY DAY Oral for 90 Not-Taking Omeprazole 20 MG Oral for 90 N ot-Taking Nitrofurantoin Monohyd Macro 100 MG Oral for 7 Not-Taking risperiDONE 1 MG TAKE 1 TABLET BY LIZETTE TH EVERY DAY AT 5PM AND NEEDED FOR 90 DAYS Oral for 90 Active Coreg 3.125 MG 1 tablet with food Orally Twice a day for 30 day(s) Active Anastrozole 1 MG Oral for 90 A ctive Atorvastatin Calcium 40 MG Oral for 90 Active Meclizine HCl 12.5 MG TAKE 1 TABLET BY M OUTH THREE TIMES A DAY NEEDED Oral for 16 Active Meloxicam 7.5 MG Oral for 30 A ctive SOCIAL HISTORY Tobacco Use: Social History Observation [...] Never (0 point) Points 4 Interpretation Positive VITAL SIGNS BMI 21.96 kg/m2 04/15/2024 Blood pressure systolic 00 mm Hg 04/15/20 24 Blood pressure diastolic 00 mm Hg 024 Height 5 ft 5 in in 04/15/2024 Weight 132 lbs 04/15/2024 Encounters Encounter Location Date Provider Diagnosis [facility] [address] [place] [address] 04/15/2024 Otoniel Coates Iron deficiency anemia due to chronic blood loss D50.0 ASSESSMENTS Encounter Date Diagnosis Assessment Notes Treatment Notes Treatment Clinical Notes 04/15/2024 Iron deficiency anemia due to chronic blood loss (ICD-10 - D50.0) Follow up with Dr. Quinones for future blood counts and see me as needed. Continue the Famotidine and Iron roasterman. PLAN OF TREATMENT Treatment Notes Assessment Notes Iron deficiency anemia due t o chronic blood loss Follow up with Dr. Quinones for future blood counts and see me as needed. Continue the Famotidine and Iron group home. Next Appt Details Follow Up: prn, Reason: Progress Notes * Examination Category Sub-Category Detail Notes General Examination GENERAL APPEARANCE: pleasant , well nourished, well developed, in no acute distress HEAD: EYES: sclera non-icteric EARS: NOSE: THROAT: NECK/THYROID: no cervical lymphade nopathy, neck supple HEART: S1, S2 normal CHEST: LUNGS: clear to auscultatio n bilaterally ABDOMEN: normal bowel sounds, no guarding or rigidity, no guarding or rigidity, no masses palpable, soft, nontender, nondistended NEUROLOGIC: alert and oriented SKIN: nonjaundiced, no spi masood angiomata EXTREMITIES: no edema PERIPHERAL PULSES: BACK: BREASTS: MUSCULOSKELETAL: MALE GENITOURINARY: LYMPH NODES: RECTAL EXAM: FEMALE GENITOURINARY: ORAL CAVITY: mucosa moist
--- OUTSIDE RECORDS SUMMARY | 2024-08-10 13:38 | XMS_ITS ---
Author Organization Otoniel Lees III, MD Address [address] [place] [address] Care Team Providers Care Electrical Instrumentation Technician Name Role Phone Bob Quinones MD Primary Care Provider Otoniel Alexander Unavailable [phone] Allergies Allergen (clinical drug ingredient) Drug/Non Drug Allergy documented on EMR Reaction Allergy Type Onset Date Status penicillin G Penicillin G Sodium Unknown Drug Allergy Active erythromycin Erythromycin Unknown Drug Allergy A ctive REASON FOR VISIT Triple positive ductal carcinoma right breast 2020, Adjuvant endocrine therapy, Hypertension, COPD,Hyperlipidemia Medications Medication SIG (Take, Route, Frequency, Duration) Notes Start Date End Date Status Clopidogrel Bisulfate 75 MG TAKE 1 TABLE T BY MOUTH EVERY DAY Oral Active Anastrozole 1 MG 1 tablet Orally Once a day Active Famotidine 40 MG Oral Act tico ProAir HFA 108 (90 Base) MCG/ACT 1 puff as needed Inhalation every 4 hrs Active Ferrous Sulfate 324 (65 Fe) MG TAKE 1 TABLET BY MOUTH DAILY Oral Active dilTIAZem HCl ER Coated Beads 120 MG Oral Active Aspirin 81 81 MG 1 tablet Orally Once a day Active Serevent Diskus 50 MCG/DOSE Inhalation Active Atenolol 25 MG Oral Activ e Vitamin D 25 MCG (1000 UT) 1 tablet Oral ly Once a day Active Vitamin B12 1000 MCG 1 tablet Orally Onc e a day Active Vitamin C 500 MG 1 tablet Orally Once a day Active Social History Tobacco Use: Social History Observation Description Date Details (start date - stop date) Former Smoker NA - NA Tobacco Use/Smoking Question Answer Notes Patient is a former smoker How long has it been since you last smoked? > 10 years Additional Findings: Tobacco Non-User Ex-cigaret te smoker Vital Signs Temperature 96.8 degrees Fahrenheit 03/19/20 24 Blood pressure systolic 98 mm Hg 03/19/20 24 Blood pressure diastolic 56 mm Hg 024 Heart Rate 89 /min 03/19/2024 Height 65 in 03/19/2024 Weight 135 lbs 03/19/2024 BMI 22.46 kg/m2 03/19/2024 Encounters Encounter Location Date Provider Diagnosis Otoniel Lees III, MD [address] [place] [address] [place] [address] 03/19/2024 Otoniel Riojasrne Breast cancer, stage 1 C50.919 ; Essential hypertension I10 ; Former smoker Z87.891 and Osteoarthritis M19.90 Assessments Encounter Date Diagnosis (ICD Code) Assessment Notes Treat ment Notes Treatment Clinical Notes 03/19/2024 Breast cancer, stage 1 (ICD-10 - C50.919) She has a history of carcinoma the right breast in the summer of 2019. 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 She declined chemotherapy. There is no sign of relapse today. There is no sign of a new primary. Surveillance will continue. 03/19/2024 Essential hypertension (ICD-10 - I10) Her blood pressure today was 120/60. No change in her regimen was needed. 03/19/2024 Former smoker (ICD-1 0 - Z87.891) She has a plan to prevent relapse in times of stress and illness. She is highly motivated not to smoke. 03/19/2024 Osteoarthritis (ICD-10 - M19.90) She is affected mainly in her shoulders. No change in her regimen is needed today. Plan Of Treatment Medication Medication Name Sig Start Date Stop Date Notes Clopidogrel Bisulfate 75 MG TAKE 1 TABLE T BY MOUTH EVERY DAY Oral Anastrozole 1 MG 1 tablet Orally Once a day Famotidine 40 MG Oral ProAir HFA 108 (90 Base) MCG/ACT 1 puff as needed Inhalation every 4 hrs Ferrous Sulfate 324 (65 Fe) MG TAKE 1 TA BLET BY MOUTH DAILY Oral dilTIAZem HCl ER Coated Bead s 120 MG Oral Aspirin 81 81 MG 1 tablet Orally Once a day Serevent Diskus 50 MCG/DOSE Inhalation Atenolol 25 MG Oral Vitamin D 25 MCG (1000 UT) 1 tablet Orally Once a day Vitamin B12 1000 MCG 1 tablet Orally Once a day Vitamin C 500 MG 1 tablet Orally Once a day Next Appt Details Follow Up: 6 Months, Reason: ov no tests Provider Name:Otoniel eLes, 09/17/2024 10:00:00 AM, [address] [place] [address] [address], [place], [address], Progress Notes * Radha GAUTAM ADOB: 2 (83 yo F)Acc No.[id number]:03/19/2024 Progress Notes Patient:?Radha Gautam A Provider:?Otoniel Lees MD :1940???Age:83 Y???Sex:Female D ate:03/19/2024 Address:[address] [place], [place] [id number] Pcp:Bob Quinones MD Subjective: * Chief Complaints: * ???Triple positive ductal ca rcinoma right breast 2019Adjuvant endocrine therapyHypertensionCOPDHyperlipidemia * HPI: ???COVID-19 Screening:? She returns for a scheduled visit or surveillance of his stage I node- negative carcinoma of the right breast in 2019 that was triple positive. She remains on adjuvant endocrine therapy with anastrozole. She reports that she had a fracture of the left hip in September 2023 treated surgically. She is able to walk without difficulty.She has been compliant with the anastrozole. She conducts breast self-examination with negative results. She has remained in remission. ?Questions?Have you experienced fever, chills, cough, sore throat, shortness of breath, difficulty breathing, muscle aches, loss of taste or smell??No ?Have you been exposed to the virus within the last 10 days??No ?Have you travelled internationally in the last 10 days??No ?Have you been exposed to COVID-19 in the past??No * ROS:?General/Constitutional:?pain?Left hip, otherwise only normal aches and pains.?Chills?denies.?Fatigue?admits.?Fever?denies.?ENT:?Decreased hearing?mild.?Respiratory:?Cough?denies.?Cardiovascular:?Chest pain with exertion?denies.?Dyspnea on exertion?denies.?Shortness of breath?denies.?Gastrointestinal:?Constipation?occasional.?Decreased appetite?denies.?Diarrhea?denies.?Heartburn?denies.?Nausea?denies.?Rectal bleeding?denies.?Vomiting?denies.?Hematology:?bruising?denies.?petechiae?denies.?Swollen glands?none have been noted.?Genitourinary:?Frequent urination?denies.?Musculoskeletal:?Muscle aches?denies.?Painful joints?denies.?Sciatica?denies.?Weakness?denies.?Skin:?Itching?denies.?Rash?denies.?Skin lesion(s)?denies.?Neurologic:?Difficulty speaking?denies.?Dizziness?denies.?Headache?denies.?Low back pain?denies.?Psychiatric:?Depressed mood?denies.? * Medical History:? * Surgical History:?Spinal kamran nosis surgery 2010Appendectomy 2002excision of cyst Tonsillectomy (child) Lumpectomy (left) Lumpectomy (right) 04/2020Bilateral cataract surgery Left total hip replacement Left Illiac Stent 12/2022 * Hospitalization/Major Diagno stic Procedure:?appendectomy 2002back surgery 2009 * Family History:?Father: dece ased 91 yrs, Dementia, diabetes mellitus type 2, diagnosed with DM.?Mother: 82 yrs, Diabetes mellitus, chronic renal failure, diagnosed with DM, CVD, HTN.?Siblings: diagnosed with DM.?Paternal Grand Father: diagnosed with DM.?Maternal Grand Mother: diagnosed with CVD, Hyperlipidemia.?2 sister(s) . .? Her father suffered from Alzheimer's dementia and type 2 diabetes mellitus. Her mother had uterine cancer, diabetes mellitus, chronic renal failure hypertension irritable bowel syndrome hyperlipidemia and coronary artery disease. Her 2 sisters suffer from diabetes mellitus and coronary artery disease. There is no other family history of breast cancer of which she is aware. She is unaware of any inherited family cancer syndromes. * Social History:?Tobacco Use:?Tobacco Use/Smoking?Patient is a?former smoker ?How long has it been since you last smoked??> 10 years ?Additional Findings: Tobacco Non-User?Ex-cigarette smoker ???She has been to [place] for 55 years. 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 She was born in [facility]. She has no children. She is not a Protestant. * Medications:?TakingVitamin C 500 MG Tablet 1 tablet Orally Once a dayVitamin B12 1000 MCG Tablet Extended Release 1 tablet Orally Once a dayVitamin D 25 MCG (1000 UT) Tablet 1 tablet Orally Once a daySerevent Diskus 50 MCG/DOSE Aerosol Powder Breath Activated Inhalation Atenolol 25 MG Tablet Oral dilTIAZem HCl ER Coated Beads 120 MG Capsule Extended Release 24 Hour Oral Aspirin 81 81 MG Tablet Chewable 1 tablet Orally Once a dayProAir HFA 108 (90 Base) MCG/ACT Aerosol Solution 1 puff as needed Inhalation every 4 hrsFerrous Sulfate 324 (65 Fe) MG Tablet Delayed Release TAKE 1 TABLET BY MOUTH DAILY Oral Famotidine 40 MG Tablet Oral Clopidogrel Bisulfate 75 MG Tablet TAKE 1 TABLET BY MOUTH EVERY DAY Oral Anastrozole 1 MG Tablet 1 tablet Orally Once a dayMedication List reviewed and reconciled with the patientTaking Vitamin C 500 MG Tablet 1 tablet Orally Once a dayTaking Vitamin B12 1000 MCG Tablet Extended Release 1 tablet Orally Once a dayTaking Vitamin D 25 MCG (1000 UT) Tablet 1 tablet Orally Once a dayTaking Serevent Diskus 50 MCG/DOSE Aerosol Powder Breath Activated Inhalation Taking Atenolol 25 MG Tablet Oral Taking dilTIAZem HCl ER Coated Beads 120 MG Capsule Extended Release 24 Hour Oral Taking Aspirin 81 81 MG Tablet Chewable 1 tablet Orally Once a dayTaking ProAir HFA 108 (90 Base) MCG/ACT Aerosol Solution 1 puff as needed Inhalation every 4 hrsTaking Ferrous Sulfate 324 (65 Fe) MG Tablet Delayed Release TAKE 1 TABLET BY MOUTH DAILY Oral Taking Famotidine 40 MG Tablet Oral Taking Clopidogrel Bisulfate 75 MG Tablet TAKE 1 TABLET BY MOUTH EVERY DAY Oral Taking Anastrozole 1 MG Tablet 1 tablet Orally Once a dayMedication List reviewed and reconciled with the patient * Allergies:?Penicillin G Sodi umErythromycinno[Allergies Verified] Objective: * Vitals:?Ht: 65, Wt:135, BMI: 22.46, BP:98/56, HR:89, Temp:96.8, Wt-k.23. * Examination: ???General Examination: ?GENERAL APPEARANCE:?pleasant, well nourished, well developed, in no acute distress, calm and relaxed.?HEAD:?atraumatic, normocephalic.?EYES:?eomi, perrla, anicteric, conjugate.?EARS:?normal.?NOSE:?septum intact.?ORAL CAVITY:?normal, unremarkable.?NECK/THYROID:?no jugular venous distention, no carotid bruit, thyroid normal.?LYMPH NODES:?no enlarged lymph nodes,spleen normal.?SKIN:?no suspicious lesions, anicteric.?HEART:?no clicks, gallops, murmurs, or rubs, regular rhythm, S1, S2 normal, no s3, or vascular bruits.?LUNGS:?clear to auscultation .?BREASTS:?no masses palpable bilaterally, Bilateral lumpectomy scars well-healed, radiation tattoos, , no drainage , no discharge , no dimpling , nontender , symmetrical.?ABDOMEN:?bowel sounds normal, no ascites, no organomegaly, no mass.?RECTAL EXAM:?not examined.?MUSCULOSKELETAL:?extremities unremarkable, no clubbing, cyanosis or edema.?PERIPHERAL PULSES:?normal.?NEUROLOGIC:?alert and oriented, cranial nerves 2-12 grossly intact, deep tendon reflexes 2+ symmetrical, motor strength normal upper and lower extremities, sensory exam intact.?PSYCH:?alert, oriented , speech clear , thought process logical, goal directed , cognitive function intact , cooperative with exam , good eye contact.? Assessment: * Assessment: 1.?Breast cancer, stage 1 - C50.919 (Primary), She has a history of carcinoma the right breast in the summer. 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 She declined chemotherapy. There is no sign of relapse today. There is no sign of a new primary. Surveillance will continue.?2.?Essential hypertension - I10, Her blood pressure today was 120/60. No change in her regimen was needed.?3.?Former smoker - Z87.891, She has a plan to prevent relapse in times of stress and illness. She is highly motivated not to smoke.?4.?Osteoarthritis - M19.90, She is affected mainly in her shoulders. No change in her regimen is needed today.? Plan: * Treatment: 2.?Others? Continue Ferrous Sulfate Tablet Delayed Release, 324 (65 Fe) MG, TAKE 1 TABLET BY MOUTH DAILY, Oral;?Continue Famotidine Tablet, 40 MG, Oral;?Continue Clopidogrel Bisulfate Tablet, 75 MG, TAKE 1 TABLET BY MOUTH EVERY DAY, Oral.?? * Procedure Codes:? * Preventive Medicine:? ??Counseling:?Smoking/Tobacco Use?Patient counseled on the dangers of tobacco use and urged to quit.?03/19/2024 ??COPD Care Plan:?Patient Lifestyle Goals?Relieve symptoms and improve quality of life, Reduce number of ED and hospitalizations, Be able to be more active with friends and family.?Treatment Goals?Eat a nutritious diet and increase water consumption to 6-8 glasses a day, Exercise to help whole body, including lungs.?Barriers?no barriers.?Self-Managment Goals?Get an air purifier for the rooms you are in the most, Eat a healthy diet, Exercise at least 3xs per week for at least 30 mins.? * Follow Up:?6 Months (Reason: ov no tests) * Images: * Sign off status: Completed true * Provider:?Otoniel Lees MD Date:?02/24 Generated for Tamra early/Orin/eTransmitting on:?08/10/2024 01:37 PM EST History and Physical Notes * HPI (History of Present Illness) Category Sub-Category Detail Notes COVID-19 Screening Questions Have you had any new onset fever, chills, cough, congestion, sore throat, shortness of breath, muscle aches?: No Have you been exposed to the virus withi n the last 10 days?: No Have you travelled internationally in e last 10 days?: No Have you been exposed to COVID-19 in the past?: No Examination Category Sub-Category Detail Notes General Examination GENERAL APPEARANCE: pleasant , well nourished, well developed, in no acute distress, calm and relaxed HEAD: atraumatic, normocep halic EYES: eomi, perrla, anicte dell, conjugate EARS: normal NOSE: septum intact NECK/THYROID: no jugular venous di stention, no carotid bruit, thyroid normal HEART: no clicks, gallops, murmurs, or rubs, regular rhythm, S1, S2 normal, no s3, or vascular bruits LUNGS: clear to auscultatio n ABDOMEN: bowel sounds normal, no ascites, no organomegaly, no mass NEUROLOGIC: alert and oriented, cranial nerves 2-12 grossly intact, deep tendon reflexes 2+ symmetrical, motor strength normal upper and lower extremities, sensory exam intact SKIN: no suspicious lesion s, anicteric PERIPHERAL PULSES: normal BREASTS: no masses palpable b ilaterally, Bilateral lumpectomy scars well-healed, radiation tattoos, , no drainage , no discharge , no dimpling , nontender , symmetrical MUSCULOSKELETAL: extremities unremark able, no clubbing, cyanosis or edema LYMPH NODES: no enlarged lymph no matthias,spleen normal RECTAL EXAM: not examined PSYCH: alert, oriented , sp eech clear , thought process logical, goal directed , cognitive function intact , cooperative with exam , good eye contact ORAL CAVITY: normal, unremarkable
--- OUTSIDE RECORDS SUMMARY | 2024-08-10 13:38 | XMS_ITS ---
Author Organization Otoniel Lees III, MD Address [address] [address] Care Team Providers Care Training Technician Name Role Phone Bob Quinones MD Primary Care Provider Otoniel Alexander [phone] REASON FOR VISIT Followup Encounters Encounter Location Date Provider Diagnosis Otoniel Lees III, MD [address] [place] [address] [place] [address] 03/03/2024 Otoniel Lees Plan Of Treatment Next Appt Details Provider Name:Otoniel Lees, 09/17/2024 10:00:00 AM, [address] [place] [address] [address], [place], [address], Progress Notes * Radha GAUTAM ADOB: 2 (83 yo F)Acc No.[id number]:03/03/2024 Progress Notes Patient:?LAZARUS Radha Bland Provider:?Otoniel Lees MD :1940???Age:83 Y???Sex:Female D ate:03/03/2024 Address:[address] [place] [address] [id number] Pcp:Bob Quinones MD Subjective: * Chief Complaints: * ???1. Followup. * Medical History:? Objective: * Vitals:? Assessment: Plan: * Treatment: * Images: * The named appointment provid er may or may not be the originator of this progress note, and it is not deemed complete until electronically signed by the appointment provider. Sign off status: Pending * Provider:?Otoniel Lees MD Date:?04/2024 Generated for Tamra early/Orin/Carlos on:?08/10/2024 01:37 PM EST
--- OUTSIDE RECORDS SUMMARY | 2024-08-10 13:38 | XMS_ITS | Patient Health Record ---
Author Organization Otoniel Lees III, MD Address [address] [place] [address] [place] [address] Care Team Providers Care Jewelry Appraiser Name Role Phone Bob Quinones MD Primary Care Provider Unavaila Otoniel Mccain Unavailable [phone] Allergies Allergen (clinical drug ingredient) Drug/Non Drug Allergy documented on EMR Reaction Allergy Type Onset Date Status penicillin G Penicillin G Sodium Unknown Drug Allergy Active erythromycin Erythromycin Unknown Drug Allergy A ctive Results Component Value Reference Range Notes MM tomosynthesis screening B I Reviewed date:04/12/2024 06:35:53 AM Interpretation: Performing Lab: Notes/Report: [address] [place] [address] Mammography Report Signed Patient: Radha Gautam MR#: [id number] : 1940 Acct:[id number] Age/Sex: 83 / F ADM Date: 02/05/24 Loc: HO.MAMMO Attending Dr: Otoniel Lees MD Ordering Physician: Otoniel Lees MD Results: 0Incompl ete: Needs Additional Imaging Evaluation Date of Service: 02/05/24 Follow Up: Additional Imagi ng Procedure(s): MM tomosynthesis screening BI Accession Number(s): [id number] cc: Otoniel Lees MD; Bob Quinones MD EXAMINATION: MM SCREENING DIGITAL BREAST TOMOSYNTHESIS, BILATERAL CLINICAL INFORMATION: Screening. Asymptomatic. COMPARISON: Mammography: This study is compared with prior exams dating back to 2019. There are no interval examinations. TECHNIQUE: Digital breast tomosynthesis is performed in both the craniocaudal and mediolateral oblique views along with computer-aided detection (CAD). Synthesized 2D images are generated from the tomosynthesis. FINDINGS: The breasts are extremely dense, which lowers the sensitivity of mammography (ACR BI-RADS breast composition Category d). In the medial aspect of the left breast, at approximately the 9:00 position, there is a focal asymmetry which warrants additional mammographic and targeted sonographic imaging. In the right breast, there are no significant masses, abnormal calcifications, or other abnormalities. There are bilateral benign calcifications. MM/MM tomosynthesis screening BI IMPRESSION: Focal asymmetry of the left breast warrants additional mammographic and targeted sonographic imaging. No mammographic signs of malignancy right breast. ASSESSMENT: BI-RADS BI-RADS 0 - Incomplete: Needs additional Imaging. RECOMMENDATION: 1. Additional views of the left breast. 2. Targeted ultrasound if warranted after review of the additional views. 3. Radiology department staff will contact the patient for additional imaging. Additional Imaging required This examination should not preclude the clinical evaluation of a suspicious palpable abnormality. This patient's information was entered into a reminder system with a target due date for their next mammogram. Dictated By: Lalitha Nayak MD Signed By: <Electronically signed by Lalitha Nayak MD in OV> 03/06/24 0834 DD/ 1245 TD/TT: Mapping Engineer: [place] [facility] [address] [place] [address] Mammography Report Signed Patient: David Gautam MR#: [id number] : 1940 Acct:[id number] Age/Sex: 83 / F ADM Date: 02/05/24 Loc: HO.MAMMO Attending Dr: Otoniel Lees MD Ordering Physician: Otoniel Lees MD Results: 0Incompl ete: Needs Additiona l Imaging Evaluation Date of Service: 08/18 Follow Up: Additional Imagi ng Procedure(s): MM rhina osynthesis screening BI Accession Number(s): [id number] cc: Otoniel Lees MD; Bob Quinones MD EXAMINATION: MM SCREENING DIGITAL BREAST TOMOSYNTHESIS, BILATERAL CLINICAL INFORMATION: Screening. Asymptomatic. COMPARISON: Mammography: This st udy is compared with prior exams dating back to 2019. There are no i nterval examinations. TECHNIQUE: Digital breast tomos ynthesis is performed in both the craniocaudal and mediolateral oblique views along with computer-aided detection (CAD). Synthesized 2D image s are generated from the tomosynthesis. FINDINGS: The breasts are extr ayaz dense, which lowers the sensitivity of mammography (ACR BI- RADS breast composition Category d). In the medial aspect of the left breast, at approximately the 9:00 position, there is a focal asymmetry which warrants additional mammographic and tar geted sonographic imaging. In the right breast, there are no significant masses, abnormal calcifications, or o ther abnormalities. There are bilateral benign calcifications. M M/MM tomosynthesis screening BI IMPRESSION: Focal asymmetry of t he left breast warrants additional mammographic and targeted sonographic imaging. No mammographic sign s of malignancy right breast. ASSESSMENT: BI-RADS BI-RADS 0 - Incomplete: Needs additional Imaging. RECOMMENDATION: 1. Additional views of the left breast. 2. Targeted ultrasou nd if warranted after review of the additional views. 3. Radiology departm ent staff will contact the patient for additional imaging. Additional Imaging required This examination ashwin uld not preclude the clinical evaluation of a suspicious palpable abnormality. This patient's infor mation was entered into a reminder system with a target due date for their next mammogram. Dictated By: Lalitha Nayak MD Signed By: <Sushil hill signed by Lalitha Nayak MD in OV> 03/06/24 0834 DD/ 1245 TD/TT: Mapping Engineer: MIKKI tomosynthepierre added views L Reviewed date:04/12/2024 06:35:53 AM Interpretation: Performing Lab: Notes[facility]Report: [facility] [address] [place] [address] Mammography Report Signed Patient: Radha Gautam MR#: [id number] : 1940 Acct:[id number] Age/Sex: 83 / F ADM Date: 04/09/24 Loc: MIGDALIAO Attending Dr: Otoniel Lees MD Ordering Physician: Otoniel Lees MD Results: 2Benign Findings Date of Service: 04/09/24 Follow Up: 1 Year From Orig inal Mammogram Procedure(s): MM tomosynthesis added views L Accession Number(s): [id number] cc: Otoniel Lees MD; Bob Quinones MD EXAMINATION: MM DIAGNOSTIC DIGITAL BREAST TOMOSYNTHESIS, LEFT CLINICAL INFORMATION: Diagnostic left mammogram to evaluate potential focus of architectural distortion upper inner left breast, posterior one third. COMPARISON: Mammography: 02/05/2024, and exams dating back to 2019. TECHNIQUE: Digital left breast tomosynthesis is performed. 2D images are generated from the tomosynthesis. The following views are obtained: Full-field left 3-D mediolateral view, and spot compression 3-D left CC and MLO views. FINDINGS: The breasts are extremely dense, which lowers the sensitivity of mammography (ACR BI-RADS breast composition Category d). Diagnostic views demonstrate the subtle area of possible architectural distortion does not persist and effaces entirely. There are benign vascular and benign coarse scattered calcifications. No dominant mass, area of persistent architectural distortion, or suspicious grouped calcifications present in the left breast. No skin or axillary abnormality. MM/MM tomosynthesis added views L IMPRESSION: No persistent findings suspicious for malignancy. Benign findings left breast. Recommend the patient return to routine annual screening to include both breasts. ASSESSMENT: BI-RADS BI-RADS 2 - Benign Findings RECOMMENDATION: 1 year F/U Results were provided to the patient at time of visit by the technologist. This patient's information was entered into a reminder system with a target due date for their next mammogram. Dictated By: Barrington Jackson MD Signed By: <Electronically signed by Barrington Jackson MD in OV> 04/09/24 1620 DD/ 1452 TD/TT: Mapping Engineer: [place] [address] [place] [address] Mammography Report Signed Patient: David Gautam MR#: [id number] : 1940 Acct:[id number] Age/Sex: 83 / F ADM Date: 04/09/24 Loc: HO.MAMMO Attending Dr: Otoniel Lees MD Ordering Physician: Otoniel Lees MD Results: 2Benign Findings Date of Service: Follow Up: 1 Year From Orig inal Mammogram Procedure(s): MM rhina osynthesis added views L Accession Number(s): [id number] cc: Otoniel Lees MD; Bob Quinones MD EXAMINATION: MM DIAGNOSTIC DIGITA L BREAST TOMOSYNTHESIS, LEFT CLINICAL INFORMATION: Diagnostic left mamm ogram to evaluate potential focus of architectural distortion upper inn er left breast, posterior one third. COMPARISON: Mammography: 024, and exams dating back to 2019. TECHNIQUE: Digital left breast tomosynthesis is performed. 2D images are generated from the tomosynthesis. The following views are obtained: Full-field left 3-D mediolateral view, and spot compression 3-D left CC and MLO views. FINDINGS: The breasts are extr ayaz dense, which lowers the sensitivity of mammography (ACR BI- RADS breast composition Category d). Diagnostic views dem onstrate the subtle area of possible architectural distortion does not persist and effaces entirely. There are benign vas cular and benign coarse scattered calcifications. No dominant mass, ar ea of persistent architectural distortion, or suspicious grouped calcifications present in the left breast. No skin or axillary abnormality. M M/MM tomosynthesis added views L IMPRESSION: No persistent findin gs suspicious for malignancy. Benign findings left breast. Recommend the patien t return to routine annual screening to include both breasts. ASSESSMENT: BI-RADS BI-RADS 2 - Benign Findings RECOMMENDATION: 1 year F/U Results were provide d to the patient at time of visit by the technologist. This patient's infor mation was entered into a reminder system with a target due date for their next mammogram. Dictated By: Barrington Jackson MD Signed By: <Sushil hill signed by Barrington Jackson MD in OV> 04/09/24 1620 DD/ 1452 TD/TT: Mapping Engineer: Reason For Referral No Information Medications Medication SIG (Take, Route, Frequency, Duration) Notes Start Date End Date Status dilTIAZem HCl ER Coated Beads 120 MG Oral Active Aspirin 81 81 MG 1 tablet Orally Once a day Active Serevent Diskus 50 MCG/DOSE Inhalation Active Atenolol 25 MG Oral Activ e Vitamin B12 1000 MCG 1 tablet Orally Onc e a day Active Vitamin D 25 MCG (1000 UT) 1 tablet Oral ly Once a day Active Clopidogrel Bisulfate 75 MG TAKE 1 TABLE T BY MOUTH EVERY DAY Oral Active Vitamin C 500 MG 1 tablet Orally Once a day Active Famotidine 40 MG Oral Act tico Anastrozole 1 MG TAKE 1 TABLET ONCE D AILY for 90 Active ProAir HFA 108 (90 Base) MCG/ACT 1 puff as needed Inhalation every 4 hrs Active Ferrous Sulfate 324 (65 Fe) MG TAKE 1 TABLET BY MOUTH DAILY Oral Active Social History Tobacco Use: Social History Observation Description Date Details (start date - stop date) Former Smoker NA - NA Tobacco Use/Smoking Question Answer Notes Patient is a former smoker How long has it been since you last smoked? > 10 years Additional Findings: Tobacco Non-User Ex-cigaret te smoker Alcohol Screen Question Answer Notes Did you have a drink containing alcohol in the p ast year? No Points 0 Interpretation Negative Problems Problem Type SNOMED Code ICD Code Onset Dates Problem Status W/U Status Risk Notes Problem Former smoker (8310340) Former smoker (Z87.891) Active confirmed She has a plan to prevent relapse in times of stress and illness. She is highly motivated not to smoke. Problem Hyperlipidemia (74316665) Hyperlipidemia (E78.5) Active confirmed She will continue on current medications at this time. Problem Essential hypertension (44010791) Essential hypertension (I10) Active confirmed Her blood pressure today was 120/60. No change in her regimen was needed. Problem COPD - Chronic obstructive pulmonary disease (40135637) COPD (chronic obstructive pulmonary disease) (J44.9) Active confirmed She stopped smoking 15 years ago and is symptomatic only with prolonged exertion. She is stable breathing room air. She is not wheezing today. Problem Penicillin allergy (30077825) Penicillin allergy (Z88.0) Active confirmed Problem Osteoarthritis (620851846) Osteoarthritis (M19.90) Active confirmed She is affected mainly in her shoulders. No change in her regimen is needed today. 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 She declined chemotherapy. There is no sign of relapse today. There is no sign of a new primary. Surveillance will continue. Vital Signs Heart Rate 89 /min 03/19/2024 Temperature 96.8 degrees Fahrenheit 03/19/2024 Blood pressure diastolic 56 mm Hg 03/19/2024 Height 65 in 03/19/2024 Blood pressure systolic 98 mm Hg 03/19/2024 Weight 135 lbs 03/19/2024 BMI 22.46 kg/m2 03/19/2024 Encounters Encounter Location Date Provider Diagnosis Otoniel Lees III, MD [address] [place] [address] [place] [address] 09/03/2023 Otoniel Lees Breast cancer, stage 1 C50.919 ; Essential hypertension I10 ; COPD (chronic obstructive pulmonary disease) J44.9 ; Osteoarthritis M19.90 ; Former smoker Z87.891 and Hyperlipidemia E78.5 Otoniel Lees III, MD [address] [place] [address] [place] [address] 03/19/2024 Otoniel Lees Breast cancer, stage 1 C50.919 ; Essential hypertension I10 ; Former smoker Z87.891 and Osteoarthritis M19.90 Otoniel Lees III, MD [address] [place] [address] DR [place], [place] [address] 03/19/2024 Otoniel Lees Breasts asymmetrical N64.89 Assessments Encounter Date Diagnosis (ICD Code) Assessment Notes Treat ment Notes Treatment Clinical Notes 09/03/2023 Essential hypertension (ICD-10 - I10) Her blood pressure today was 120/60. No change in her regimen was needed. 09/03/2023 Breast cancer, stage 1 (ICD-10 - C50.919) [...] change in her regimen was needed. 03/19/2024 Breast cancer, stage 1 (ICD-10 - C50.919) She has a history of carcinoma the right breast in the summer. 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 She declined chemotherapy. There is no sign of relapse today. There is no sign of a new primary. Surveillance will continue. 09/03/2023 COPD (chronic obstructive pulmonary disease) (ICD-10 - J44.9) She stopped smoking 15 years ago and is symptomatic only with prolonged exertion. She is stable breathing room air. She is not wheezing today. 03/19/2024 Former smoker (ICD-1 0 - Z87.891) She has a plan to prevent relapse in times of stress and illness. She is highly motivated not to smoke. 03/19/2024 Breasts asymmetrical (ICD-10 - N64.89) 09/03/2023 Osteoarthritis (ICD-10 - M19.90) She is affected mainly in her shoulders. No change in her regimen is needed today. 03/19/2024 Osteoarthritis (ICD-10 - M19.90) She is affected mainly in her shoulders. No change in her regimen is needed today. 09/03/2023 Former smoker (ICD-1 0 - Z87.891) She has a plan to prevent relapse in times of stress and illness. She is highly motivated not to smoke. 09/03/2023 Hyperlipidemia (ICD-10 - E78.5) She will continue on current medications at this time. Plan Of Treatment Pending Test Test Name Order Date Echocardiogram 06/07/2020 BREAST [facility] 03/19/20 24 MM tomosynthesis diagnostic LT 4 Next Appt Details Provider Name:Otoniel Lees, 09/17/2024 10:00:00 AM, [address] [place] [address] JOURDAN COLEMAN, [place], [address], Insurance Providers Payer Name Payer Address Payer Phone Subscriber Number Group Number Insured Name Patient Relationship to Insured Coverage Start Date Coverage End Date MEDICARE NGS [address] [place] [address] [id number] Radha Gautam Self - patient is the insured [facility] [address] [place], [place] [id number] Radha Gautam Self - patient is the insured Medical (General) History Medical History History ICD Code Hypertension I10 Hypercholesteremia E78.00 COPD (chronic obstructive pulmonary dise ase) J44.9 04/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
--- OUTSIDE RECORDS SUMMARY | 2024-08-10 13:38 | XMS_ITS ---
Author Organization [facility] Address [address] [place] [address] Care Team Providers Care Insurance Verification Rep Name Role Phone Bob Quinones MD Primary Care Provider Unavaila Otoniel [place] Unavailable [phone] REASON FOR VISIT Patient presents today for fe def anemia Encounters Encounter Location Date Provider Diagnosis [facility] [address] [place] [address] 12/19/2023 Otoniel Coates PLAN OF TREATMENT No Information
[2024-08-10 16:30] LABS: Appearance Urine Hazy; Color Urine Yellow; Glucose Urine UA Negative (Negative); Leukocyte Esterase Urine Small (1+) (Negative); Nitrite Urine Positive (Negative); PH 7.5 (5.0-9.0); UMIC TRIGGER UACC YES; Urine Blood Trace (Negative); Urine Ketones Negative (Negative); Urine Protein 30 (1+) mg/dL (Neg-Trace)
[2024-08-10 16:46] LABS: Bacteria Urine 4+ (None Seen); Hyaline Casts Urine 0-2 /LPF (0-2); Other Crystals Urine Present; RBC Urine 0-2 /HPF (0-2); UACC Culture Trigger YES
== END 2024-08-10 13:01 | disposition home or self-care (01) ==
LOC: HO.HMGCLNP 13:00
PROVIDERS: PCP Internal Medicine; Visit Provider Internal Medicine
DX: D64.9 Anemia, unspecified (principal); R30.0 Dysuria; K21.9 Gastro-esophageal reflux disease without esophagitis; J44.9 Chronic obstructive pulmonary disease, unspecified
CPT/HCPCS: 81001; 87086

== ENCOUNTER 2024-11-18 13:30 | Inpatient (IN) | payer MEDICARE, SELFPAY ==
--- NOTE | ~2024-11-18 | US_ITS ---
EXAMINATION: US ABDOMEN LIMITED HISTORY: elevated LFTs TECHNIQUE: Real-time grayscale ultrasound imaging of the right upper quadrant was performed and images were reviewed. COMPARISON: There are no prior studies for comparison. FINDINGS: Liver: The right lobe of the liver measures 13.4 cm in size. The left lobe of the liver measures 5.5 cm in size. The liver demonstrates coarsened echotexture. No focal mass or intrahepatic biliary ductal dilatation is identified. There is normal hepatopedal flow in the portal vein. Gallbladder and biliary tree: The gallbladder is unremarkable, without evidence of calculi, wall thickening, or pericholecystic fluid. There is no sonographic Sanchez sign. The common bile duct is normal in caliber measuring 3 mm, but becomes more dilated distally measuring up to 11 mm in diameter. Right Kidney: The right kidney measures 10.1 cm in length and demonstrates an upper pole cyst measuring 9 mm in diameter. The right kidney is otherwise unremarkable, without evidence of solid masses, hydronephrosis, or calculi. Pancreas: The pancreatic head, neck, and body are unremarkable. The pancreatic tail is obscured by bowel gas. Abdominal aorta and inferior vena cava: The visualized portions of the abdominal aorta and inferior vena cava are normal in caliber. There is no free fluid in the right upper quadrant. US/US abdomen limited IMPRESSION: 1. Coarsened hepatic echotexture suggestive of hepatocellular disease. No mass is identified. 2. Prominence of the distal common bile duct with a normal caliber proximal common bile duct and no intrahepatic biliary ductal dilatation or evidence of cholelithiasis. This is of doubtful clinical significance. Electronically signed by: Otoniel Ayoub MD 11/19/2024 08:02 AM EDT
--- NOTE | ~2024-11-18 | CT_ITS ---
CLINICAL HISTORY: Evaluate decubital ulcers for possible abscess CT pelvis with contrast Comparison: None Findings: Evaluation of the pelvis is limited by the beam hardening artifact from the left hip prosthesis. Atherosclerosis calcification of the aorta. There is skin thickening of the bilateral buttock with subcutaneous fat stranding. No large soft tissue ulcer or fluid collection. No acute fracture. IMPRESSION: No evidence of soft tissue abscess of the bilateral buttocks. This document has been electronically signed by: Renae Rivera MD on 11/18/2024 20:51:52
--- NOTE | ~2024-11-18 | CT_ITS ---
CLINICAL HISTORY: new onset weakness CT head without contrast Comparison: CT/SR - CT HEAD/BRAIN WO IV CON - 06/30/24 15:13 EST MR/REG/SR - MR HEAD/BRAIN WO CON - 09/25/23 08:[address]/VT/SR - CT HEAD/BRAIN W IV CON - 09/05/23 09:58 EST Findings: No acute hemorrhage. Basal ganglia calcifications. No extra-axial fluid collection. Prominence of the ventricles and extra-axial spaces due to atrophy of the brain parenchyma, unchanged. Stable mild hydrocephalus may also be considered. No mass-effect or herniation. Cuevas-white differentiation is maintained. There is patchy hypoattenuation of the periventricular and deep white matter, which is most likely the sequela of severe chronic small vessel ischemic disease and is similar to the prior studies. No acute orbital pathology. No acute soft tissue abnormality. No fracture. The visualized paranasal sinuses are predominantly clear. The mastoid air cells are clear. Impression: No acute findings. This document has been electronically signed by: Ariadne Luque MD on 11/19/2024 00:34:42
[2024-11-18 13:51] VITALS: BP 132/76; PULSE 85; O2SAT 95
[2024-11-18 13:53] VITALS: BP 138/44; PULSE 83; RESP 16; TEMP 36.3; O2SAT 93; BMI 25.5
--- NOTE | 2024-11-18 14:45 | ED.WOUNDLAC ---
HPI - Wound/Laceration General Chief Complaint: Wound/Laceration Stated Complaint: worsening/necrotic uclers per home RN Time Seen by Provider: 11/18/24 14:23 Source: patient and family ( and sister) Mode of arrival: EMS Limitations: other (Patient was memory and she was, information came from the patient's and sister) History of Present Illness ED Provider: Dr. Jared Rothman HPI narrative: 84-year-old female with past medical history of dementia, breast cancer status post surgery and radiation, peripheral artery disease status post left SFA arthrectomy and stent, left common iliac and external iliac stent, essential hypertension, urinary incontinence, mixed hyperlipidemia, duodenitis with acute GI blood loss 01/23/2023) who presents emergency department for evaluation of pressure wound to the left heel and buttocks area. According to her the patient had a fall proximally 2 or 3 weeks prior and was admitted to [facility] for several days. Patient was then discharged home with physical therapy services for rehab. The states the patient has not really been able to walk since being discharged from the hospital. He states that when she goes the bathroom he has to hold onto her and then cleaned her buttocks area off with soap and water. He states that yesterday while he was cleaning her off he noted blood. A visiting nurse was coming today to check the patient's pressure ulcer on her left heel and also looked at the buttocks area and noted a large sacral pressure ulcer and sent the patient to the emergency department by ambulance. According to the , the patient has been asymptomatic with no fever, chills, fatigue, nausea, vomiting. Related Data Home Medications ?Medication ?Instructions ?Recorded ?Confirmed albuterol sulfate 90 mcg/actuation 2 inh inhalation Q6H PRN Wheezing 08/23/20 06/30/24 breath activated powder inhaler,sensor (Proair Digihaler) aspirin 81 mg chewable tablet 81 mg PO DAILY 08/23/20 06/30/24 atorvastatin 40 mg tablet 40 mg PO DAILY 08/23/20 07/02/24 cholecalciferol (vitamin D3) 25 25 mcg PO DAILY 08/23/20 06/30/24 mcg (1,000 unit) capsule anastrozole 1 mg tablet 1 mg PO DAILY 11/08/20 06/30/24 famotidine 40 mg tablet 40 mg PO DAILY 10/10/23 07/02/24 diltiazem HCl 120 mg 120 mg PO DAILY 10/11/23 06/30/24 capsule,extended release 24 hr ferrous sulfate 324 mg (65 mg 324 mg PO DAILY 10/11/23 06/30/24 iron) tablet,delayed release salmeterol 50 mcg/dose blister 1 inh inhalation BID PRN Wheezing 10/11/23 06/30/24 powder for inhalation (Serevent Diskus) risperidone 0.5 mg tablet 1 mg PO DAILY@1700 01/28/24 07/02/24 carvedilol 3.125 mg tablet 3.125 mg PO BID 07/02/24 07/02/24 docusate sodium 100 mg capsule 100 mg PO DAILY 07/02/24 07/02/24 (Colace) Previous Rx's ?Medication ?Instructions ?Recorded cefuroxime axetil 250 mg tablet 250 mg PO BID 7 days #14 tabs 07/02/24 Allergies Allergy/AdvReac Type Severity Reaction Status Date / Time Penicillins [PENICILLINS] Allergy Severe ITCHING Verified 11/18/24 14:07 Erythromycin Allergy Severe itching Uncoded 11/18/24 14:07 [facility] Past Medical History Medical History PAD (peripheral artery disease) Invasive ductal carcinoma of right breast History of pneumonia History of dislocation of shoulder Surgical History History of vein stripping History of appendectomy History of cataract extraction History of left hip replacement History of back surgery Family History Family History Mother Cancer of unknown origin Social History Social History Household Members: Spouse Housing: House Do you presently have visiting nurse or other home services: No Alcohol intake: current Alcohol intake frequency: holidays/special occasions only Alcohol type: wine Patient Tobacco Use Status: Former Tobacco user Smoked in Last 30 Days: No Use of substances other than those prescribed or required for medical reasons: No Advance Directives: Yes Advance Directives on File: Yes Advance Directives Date on File: 06/30/24 Do you have a plan to hurt others: No Plan service: No Current occupational status: retired Physical Exam Vital Signs: Vital Signs: Last Vital Signs Temp 99.3 F 11/18/24 18:22 Pulse 88 11/18/24 18:22 Resp 18 11/18/24 18:22 BP 158/63 H 11/18/24 18:22 Pulse Ox 93 11/18/24 18:22 O2 Del Method Room Air 11/18/24 18:22 BMI result Body Mass Index 25.5 Vital signs revealed an elevated blood pressure of 158/63 Exam: General: Awake, oriented to person, lacks insight as to why she was here, defers to her answer all questions Head: Normocephalic, atraumatic EENT: PERRL, Lids normal, sclera normal, conjunctiva normal, nose normal , ears normal, throat without erythema or exudates Neck: Supple, no adenopathy Lung: breath sounds symmetric, no wheezing, rales or rhonchi Chest: symmetric movement, nontender Heart: regular rate and rhythm, normal S1, S2 no murmurs or rubs Abdomen: soft, non-tender, nondistended, normal bowel sounds Extremities: Patient has a large blister to the right heel and a superficial skin ulcer to the left heel Skin exam: Patient has a large ecchymotic erythematous ulcer to her sacral and buttocks area, the erythema is warm to the touch, purulent odor Neuro: Awake, alert, oriented to person only, normal speech, cranial nerves intact, moves all extremities symmetrically Psych: Pleasant, cooperative Medical Decision Making Medical Decision Making MDM Narrative: 89-ra[age]-wuh female with past medical history of dementia, breast cancer status post surgery and radiation, peripheral artery disease status post left SFA arthrectomy and stent, left common iliac and external iliac stent, essential hypertension, urinary incontinence, mixed hyperlipidemia, duodenitis with acute GI blood loss 01/23/2023) who presents emergency department for evaluation of pressure wound to the left heel, pressure blister on the right heel and decubitus ulcers in the buttocks area. Patient had a fall 2-3 weeks prior was admitted to [facility] for several days and then he was discharged home with home services. Patient has not been able to get out of bed in the has had difficulty caring for the patient. Patient was noted to have blood in her buttocks area yesterday when the wiped her up after she went to the bathroom. Visiting nurse came in today and noted significant sacral/buttocks wounds and a significant wound to the left heel. Physical examination was concerning for infected sacral/buttocks pressure ulcers. Differential diagnosis: ?Includes but is not limited to sacral/buttocks pressure ulcers, cellulitis, abscess, left heel ulcer, right heel pressure wound, anemia, electrolyte abnormalities Course: 19:54 My interpretation patient's laboratory evaluation as follows: Normocytic anemia with an H&H of 11.3 and 33.2. WBC 10,600 with a left shift 83.8 neutrophils. BUN elevated 27 with a normal creatinine of 0.59. Glucose elevated 120. AST ALT and alk-phos elevated 138, 85 and 120. Bilirubin elevated 2.2. Lactic acid was normal at 1.1. Lipase normal 20. CK elevated 615. ESR elevated 34. CRP elevated 13.1. The patient was unable to urinate and the nurse straight catheter and she had 1400 cc of dark colored urine. Therefore I ordered a Alejandra catheter for urinary retention. Urinalysis is pending. This time I am concerned that the patient may have infected sacral/buttock ulcers. I did order Levaquin 500 mg IV and metronidazole 500 mg IV. I will obtain a CT scan of the patient's lower pelvis to rule out possible abscess. At this time I do not think that the patient can be discharged home and will need to be admitted for IV antibiotic therapy, possible surgical consult and wound care management. I did discuss this with the patient's sister who is also the healthcare proxy, Enriqueta Casiano who can be reached on her mobile [phone]. 20:33 I did discuss the patient's presentation with the covering hospitalist, Dr. Mahan who recommended that the patient gets cefepime 2 g IV and vancomycin 1750 mg IV. The patient will be admitted to the hospitalist service for further treatment. Admission/Observation Consideration of admission/observation: Escalation of care including admission/observation considered (Yes) Consult Healthcare Provider Management of the patient was discussed with: Hospitalist (Dr. Mahan) Lab Data MDM Lab Attestation statement: I reviewed the patient's lab results. 11/18/24 15:32 11/18/24 15:29 Labs: Lab Results 03/26/25 03/26/25 03/26/25 Range/Units 15:29 15:30 15:32 WBC 10.6 (4.8-10.8) X10*3/uL RBC 3.71 L (4.20-5.50) X10*6/uL Hgb 11.3 L (12.0-16.0) g/dl Hct 33.2 L (37.0-47.0) % MCV 89.5 (80.0-98.0) fL MCH 30.5 (27.0-33.0) pg MCHC 34.0 (31.0-35.0) g/dl RDW 13.2 (11.0-16.0) % Plt Count 193 (160-400) X10*3/uL MPV 11.1 (9.4-12.3) fL Immature Gran % (Auto) 0.5 H (0.0-0.4) % Neut % (Auto) 83.8 H (45-73) % Lymph % (Auto) 5.5 L (20-40) % [place] % (Auto) 9.2 (2-11) % Eos % (Auto) 0.7 (0-4) % Baso % (Auto) 0.3 (0-2) % Lymph # (Auto) 0.6 L (1.2-4.9) X10*3/uL [place] # (Auto) 1.0 (0.1-1.2) X10*3/uL Eos # (Auto) 0.1 (0.0-0.4) X10*3/uL Baso # (Auto) 0.0 (0.0-0.2) X10*3/uL Abs Immat Gran (auto) 0.05 H (0.00-0.03) X10*3/uL Absolute Neuts (auto) 8.9 H (2.0-8.3) x10*3/uL Absolute Nucleated RBC 0.000 (0.0-0.012) X10*3/uL Nucleated RBC % (auto) 0.0 (0.0-0.2) /100WBC ESR 34 H (0-20) MM/HR PT 13.3 H (10.9-12.4) SEC INR 1.1 (0.9-1.1) APTT 27.2 (26.0-36.8) SEC Sodium 138 (135-145) mmol/L Potassium 4.2 (3.3-5.1) mmol/L Chloride 104 (96-108) mmol/L Carbon Dioxide 26 (22-29) mmol/L Anion Gap 12 (12-20) BUN 27 H (9-16) mg/dL Creatinine 0.59 (0.5-1.4) mg/dL Estim Creat Clear Calc 66.7 Estimated GFR > 60 Random Glucose 120 H (60-115) mg/dL Lactic Acid (0.5-2.0) mmol/L Calcium 8.4 D (8.4-10.2) mg/dL Magnesium 1.8 (1.6-2.6) mg/dL Total Bilirubin 2.2 H (0.0-1.0) mg/dL AST 138 H (5-31) U/L ALT 85 H (0-31) U/L Alkaline Phosphatase 120 H (39-117) U/L Total Creatine Kinase 615 H (26-140) U/L C-Reactive Protein 13.16 H (< or = 0.50) mg/dL Total Protein 6.1 L (6.5-8.0) g/dL Albumin 3.0 L (3.5-5.0) g/dL Lipase 20 (8-78) U/L Influenza Type A (PCR) NEGATIVE (Negative) Influenza Type B (PCR) NEGATIVE (Negative) RSV RNA Qual (PCR) NEGATIVE (Negative) SARS-CoV-2 RNA (RT-PCR) NEGATIVE (Negative) 11/18/24 Range/Units 16:27 WBC (4.8-10.8) X10*3/uL RBC (4.20-5.50) X10*6/uL Hgb (12.0-16.0) g/dl Hct (37.0-47.0) % MCV (80.0-98.0) fL MCH (27.0-33.0) pg MCHC (31.0-35.0) g/dl RDW (11.0-16.0) % Plt Count (160-400) X10*3/uL MPV (9.4-12.3) fL Immature Gran % (Auto) (0.0-0.4) % Neut % (Auto) (45-73) % Lymph % (Auto) (20-40) % [place] % (Auto) (2-11) % Eos % (Auto) (0-4) % Baso % (Auto) (0-2) % Lymph # (Auto) (1.2-4.9) X10*3/uL [place] # (Auto) (0.1-1.2) X10*3/uL Eos # (Auto) (0.0-0.4) X10*3/uL Baso # (Auto) (0.0-0.2) X10*3/uL Abs Immat Gran (auto) (0.00-0.03) X10*3/uL Absolute Neuts (auto) (2.0-8.3) x10*3/uL Absolute Nucleated RBC (0.0-0.012) X10*3/uL Nucleated RBC % (auto) (0.0-0.2) /100WBC ESR (0-20) MM/HR PT (10.9-12.4) SEC INR (0.9-1.1) APTT (26.0-36.8) SEC Sodium (135-145) mmol/L Potassium (3.3-5.1) mmol/L Chloride (96-108) mmol/L Carbon Dioxide (22-29) mmol/L Anion Gap (12-20) BUN (9-16) mg/dL Creatinine (0.5-1.4) mg/dL Estim Creat Clear Calc Estimated GFR Random Glucose (60-115) mg/dL Lactic Acid 1.1 (0.5-2.0) mmol/L Calcium (8.4-10.2) mg/dL Magnesium (1.6-2.6) mg/dL Total Bilirubin (0.0-1.0) mg/dL AST (5-31) U/L ALT (0-31) U/L Alkaline Phosphatase (39-117) U/L Total Creatine Kinase (26-140) U/L C-Reactive Protein (< or = 0.50) mg/dL Total Protein (6.5-8.0) g/dL Albumin (3.5-5.0) g/dL Lipase (8-78) U/L Influenza Type A (PCR) (Negative) Influenza Type B (PCR) (Negative) RSV RNA Qual (PCR) (Negative) SARS-CoV-2 RNA (RT-PCR) (Negative) Independent Historian Clinical information obtained from an independent historian. History obtained from or confirmed by: Other (Sister who is the healthcare proxy and ) Chronic Conditions Patient?s care impacted by: Other (Dementia) Critical Care Time Critical Care Time Critical Care Time: Yes Total Critical Care Time: 55 Attestation: Critical Care: The patient was critically ill with a high probability of imminent or life threatening deterioration. I spent greater than 30 minutes of discontinuous time evaluating the patient,delivering critical care at the bedside, discussing and evaluating pertinent data with consultants. Critical care time does not include time spent performing separately billable procedures or teaching. Total time spent performing critical care was 55 minutes. Discharge Plan Discharge Clinical Impression: Decubitus ulcer, infected, Pressure ulcer of left heel, Blister of right heel, Acute urinary retention Prescriptions: No Action famotidine 40 mg tablet 40 mg PO DAILY Serevent Diskus 50 mcg/dose blister with device 1 inh inhalation BID PRN (Reason: Wheezing) diltiazem HCl 120 mg capsule,extended release 24hr 120 mg PO DAILY ferrous sulfate 324 mg (65 mg iron) tablet,delayed release (DR/EC) 324 mg PO DAILY carvedilol 3.125 mg tablet 3.125 mg PO BID docusate sodium [Colace] 100 mg Capsule 100 mg PO DAILY cefuroxime axetil 250 mg tablet 250 mg PO BID 7 Days Qty: 14 0RF anastrozole 1 mg tablet 1 mg PO DAILY Proair Digihaler 90 mcg/actuation aero powdr breath act w/sensor 2 inh inhalation Q6H PRN (Reason: Wheezing) atorvastatin 40 mg tablet 40 mg PO DAILY cholecalciferol (vitamin D3) 25 mcg (1,000 unit) capsule 25 mcg PO DAILY aspirin 81 mg tablet,chewable 81 mg PO DAILY risperidone 0.5 mg tablet 1 mg PO DAILY@1700 Print Language: Nauruan
[2024-11-18 15:43] LABS: MANUAL DIFF FLAG NO
[2024-11-18 15:46] LABS: Basophils Percent Auto 0.3 % (0-2); Eosinophils Absolute Auto 0.1 X10*3/uL (0.0-0.4); Eosinophils Percent Auto 0.7 % (0-4); Hematocrit 33.2 % (37.0-47.0); Hemoglobin 11.3 g/dl (12.0-16.0); Imm Gran Abs Auto 0.05 X10*3/uL (0.00-0.03); Imm Gran Pct Auto 0.5 % (0.0-0.4); Lymphocytes Absolute Auto 0.6 X10*3/uL (1.2-4.9); Lymphocytes Percent Auto 5.5 % (20-40); Mean Corpuscular Hemoglobin 30.5 pg (27.0-33.0); Mean Corpuscular Volume 89.5 fL (80.0-98.0); Mean Platelet Volume 11.1 fL (9.4-12.3); Monocytes Percent Auto 9.2 % (2-11); Neutrophils Absolute Auto 8.9 x10*3/uL (2.0-8.3); Neutrophils Percent Auto 83.8 % (45-73); Platelet Count 193 X10*3/uL (160-400); Red Blood Count 3.71 X10*6/uL (4.20-5.50); Red Cell Distribution Width 13.2 % (11.0-16.0); White Blood Count 10.6 X10*3/uL (4.8-10.8)
[2024-11-18 15:53] LABS: INTERNATIONAL NORM RATIO 1.1 (0.9-1.1); Prothrombin Time 13.3 SEC (10.9-12.4)
[2024-11-18 15:56] LABS: Partial Thromboplastin Time 27.2 SEC (26.0-36.8)
[2024-11-18 16:06] LABS: Alanine Aminotransferase 85 U/L (0-31); Alkaline Phosphatase 120 U/L (39-117); Anion Gap 12 (12-20); Aspartate Amino Transferase 138 U/L (5-31); Bilirubin Total 2.2 mg/dL (0.0-1.0); Blood Urea Nitrogen 27 mg/dL (9-16); C Reactive Protein 13.16 mg/dL (< or = 0.50); Calcium 8.4 mg/dL (8.4-10.2); Carbon Dioxide 26 mmol/L (22-29); Chloride 104 mmol/L (96-108); Creatinine Clr Calc Pharmacy 66.7; Estimated Glomerular Filt Rate > 60; Glucose Random 120 mg/dL (60-115); Lipase 20 U/L (8-78); Magnesium 1.8 mg/dL (1.6-2.6); Potassium 4.2 mmol/L (3.3-5.1); Sodium 138 mmol/L (135-145); Total Protein 6.1 g/dL (6.5-8.0)
[2024-11-18 16:20] VITALS: BP 159/60; PULSE 80; RESP 20; TEMP 37; O2SAT 94
[2024-11-18 16:30] VITALS: TEMP 37.2
[2024-11-18 16:35] LABS: Erythrocyte Sedimentation Rate 34 MM/HR (0-20)
[2024-11-18 16:41] LABS: Influenza A PCR NEGATIVE (Negative); Influenza B PCR NEGATIVE (Negative); Resp Syncy Virus RNA Qual PCR NEGATIVE (Negative); SARS COV2 PCR INHOUSE NEGATIVE (Negative)
[2024-11-18 16:48] LABS: Lactic Acid 1.1 mmol/L (0.5-2.0)
[2024-11-18 18:22] VITALS: BP 158/63; PULSE 88; RESP 18; TEMP 37.4; O2SAT 93
[2024-11-18] MEDS: metroNIDAZOLE/NS 500 MG/100 ML PIGGYBACK 100 MG IV (19:48)
[2024-11-18] MEDS: 0.9 % Sodium Chloride 1,000 ML 125 ML IV (19:48)
[2024-11-18] MEDS: levoFLOXacin 500 MG TABLET PO (19:48)
[2024-11-18 20:01] LABS: Appearance Urine Clear; Color Urine Dark Yellow; Glucose Urine UA Negative (Negative); Leukocyte Esterase Urine Negative (Negative); Nitrite Urine Negative (Negative); Urine Blood Negative (Negative); Urine Ketones Negative (Negative); Urine Protein Trace mg/dL (Neg-Trace)
[2024-11-18 20:03] LABS: Bacteria Urine None Seen (None Seen); Hyaline Casts Urine 0-2 /LPF (0-2); RBC Urine 0-2 /HPF (0-2); Squamous Epithelial Cell Urine 0-2 /HPF (0-2); WBC Urine 0-5 /HPF (0-5)
[2024-11-18] MEDS: iohexoL 350 MG/ML 100 ML INFUS..BTL 85 ML IV (20:04)
[2024-11-18] MEDS: 0.9 % Sodium Chloride 1,000 ML 999 ML IV (20:39)
--- NOTE | 2024-11-18 21:19 | PHA.MEDREC ---
Addendum entered by Denys Martin [facility] 11/18/24 21:31: [facility] rec reviewed Original Note: Pharmacy Consult ? Medication Reconciliation Pharmacy has completed the medication reconciliation. Spoke with patients sister Enriqueta over the phone. She reports patient still takes docusate, famotidine, and ferrous sulfate daily. Tolterodine was switched to oxybutynin which she takes at bedtime, she takes myrbetriq in the morning. She only takes risperidone 1 mg daily, they do not give her the extra 1 mg. Her inhalers are prn. Enriqueta said patient took all morning medications today, did not have risperidone, second carvedilol, or oxybutynin.
[2024-11-18 21:28] VITALS: BP 140/73; PULSE 82; RESP 12; TEMP 36.8; O2SAT 94
[2024-11-18] MEDS: cefEPime HCl/D5W 2 GM/50 ML PIGGYBACK IV (22:26)
[2024-11-18] MEDS: vancomycin HCL 1,500 MG in 0.9 % Sodium Chloride 500 ML 333.33 MG IV (23:28)
--- NOTE | 2024-11-18 23:36 | PC.NURSE ---
Took over care from MELINDA Bateman, medicated per Oct. pt respositioned for comfort.
[2024-11-19] VITALS (9 sets, daily range): BP systolic 90–128; BP diastolic 50–72; PULSE 79–97; RESP 14–20; TEMP 36.8–38; O2SAT 93–100
[2024-11-19] MEDS: Enoxaparin Sodium 40 MG/0.4 ML SYRINGE SUBCUT ×2 (00:24→23:49)
--- NOTE | 2024-11-19 01:04 | MHC.EDTECH ---
this tech assumed care of pt @ [id number]
--- NOTE | 2024-11-19 01:10 | P.HPHOSP_ITS ---
History of Present Illness Date of Service: 11/18/24 Attending physician on admission: Fausto Mahan Chief Complaint: ulcers Patient is an 84-year-old female with a past medical history significant for dementia, breast cancer s/p surgery and radiation PID s/p L SFA arthrectomy/stent, L common iliac/external iliac stent, HTN, urinary incontinence, HLD, duodenitis with GI bleed 12/2022 recent fall 2-3 weeks ago admitted at [facility] and discharged home with services, who presented to the ED due to ulcers on the buttocks as well as worsening appearance of left heel wound. The patient's has been caring for her and has been been hard time. He notes 2 days ago when cleaning after that she blood on the tissue, but he was unable to evaluate the source as he has told her upright. When evaluated by the visiting nurse the following day, she noted sacral/buttocks decubitus ulcers, new over the past 3 weeks. The patient has not any fever, chills, nausea, vomiting, or abd pain. She denies any pain and states that she is feeling well. Review of Systems 2 Constitutional: Constitutional: Denies body ache(s), Denies chills, Denies fatigue, Denies fever(s) and Denies headache(s) Eyes: Eyes: Denies change in vision and Denies photophobia ENT: Denies headache(s), Denies nasal congestion, Denies nasal discharge and Denies sore throat Cardiovascular: Cardiovascular: Denies chest pain, Denies rapid heart rate, Denies leg edema, Denies lightheadedness and Denies dyspnea Respiratory: Respiratory: Denies chest congestion, Denies cough, Denies dyspnea and Denies wheezing Gastrointestinal: Gastrointestinal: Denies abdominal pain, Denies diarrhea, Denies nausea and Denies vomiting Genitourinary: Genitourinary: Denies hematuria, Denies dysuria and Denies urinary urgency Musculoskeletal: Musculoskeletal: Denies back pain and Denies myalgias Integumentary/Breasts: Skin/Breast: Reports as per HPI Neurologic: Denies confusion and Denies headache(s) Psychiatric: Psychiatric: Denies confusion Endocrine: Endocrine: Denies fatigue Hematologic/Lymphatic: Hematologic/Lymphatic: Denies easy bleeding and Denies easy bruising Allergic/Immunologic: Allergic/Immunologic: Denies wheezing [facility] Medical History (Updated 11/19/24 @ 02:06 by Lisa Gonzales PA-C) HTN (hypertension) Dementia PAD (peripheral artery disease) Invasive ductal carcinoma of right breast History of pneumonia History of dislocation of shoulder Family History Mother Cancer of unknown origin Surgical History History of vein stripping History of appendectomy History of cataract extraction History of left hip replacement History of back surgery Social History Household Members: Spouse Housing: House Do you presently have visiting nurse or other home services: No Alcohol intake: current Alcohol intake frequency: holidays/special occasions only Alcohol type: wine Patient Tobacco Use Status: Former Tobacco user Smoked in Last 30 Days: No Use of substances other than those prescribed or required for medical reasons: No Advance Directives: Yes Advance Directives on File: Yes Advance Directives Date on File: 06/30/24 Do you have a plan to hurt others: No Plan service: No Current occupational status: retired Narrative: no smoking, etoh or drug use Meds Allergies Allergy/AdvReac Type Severity Reaction Status Date / Time Penicillins [PENICILLINS] Allergy Severe ITCHING Verified 11/18/24 14:07 Erythromycin Allergy Severe itching Uncoded 11/18/24 14:07 Active Medications: Current Medications Acetaminophen (Acetaminophen 325 Mg Tablet) 650 mg PO Q6H PRN PRN Reason: Pain, Mild 1-3,fever,headache Calcium Carbonate (Calcium Carbonate 750 Mg Tab.Chew) 750 mg PO Q4H PRN PRN Reason: Heartburn Enoxaparin Sodium (Enoxaparin Sodium 40 Mg/0.4 Ml Syringe) 40 mg SUBCUT Q24H KATHRIN Last Admin: 11/19/24 00:24 Dose: 40 mg Sodium Chloride (Ns) 1,000 mls @ 125 mls/hr IV .Q8H STA Stop: 11/19/24 03:45 Last Admin: 11/18/24 19:48 Dose: 125 mls/hr Magnesium Hydroxide (Milk Of Magnesia 30 Ml Oral.Susp) 30 ml PO DAILY PRN PRN Reason: Constipation Melatonin (Melatonin 3 Mg Tablet) 6 mg PO BEDTIME PRN PRN Reason: Insomnia Morphine Sulfate (Morphine Sulfate 4 Mg/Ml Cartridge) 2 mg IVPUSH Q4H PRN; Protocol PRN Reason: Pain, Severe (Pain Scale 7-10) Ondansetron HCl (Ondansetron Hcl 4 Mg/2 Ml Vial) 4 mg IVPUSH Q8H PRN PRN Reason: Nausea and Vomiting Oxycodone HCl (Oxycodone Hcl Immed Release 5 Mg Tablet) 5 mg PO Q6H PRN PRN Reason: Pain, Moderate(Pain Scale 4-6) Polyethylene Glycol (Polyethylene Glycol 3350 17 Gm Powd.Pack) 17 gm PO DAILY PRN PRN Reason: Constipation Sodium Chloride (0.9 % Sodium Chloride Flush 3 Ml Syringe) 3 ml IVFLUSH QSHIFT [facility] Last Admin: 11/19/24 00:24 Dose: Not Given Home Medications ?Medication ?Instructions ?Recorded ?Confirmed ?Last Taken ?Type albuterol sulfate 90 mcg/actuation 2 inh inhalation Q6H PRN Wheezing 08/23/20 11/18/24 Unknown History breath activated powder inhaler,sensor (Proair Digihaler) aspirin 81 mg chewable tablet 81 mg PO DAILY 08/23/20 11/18/24 06/30/24 History atorvastatin 40 mg tablet 40 mg PO DAILY 08/23/20 11/18/24 06/30/24 History cholecalciferol (vitamin D3) 25 25 mcg PO DAILY 08/23/20 11/18/24 06/30/24 History mcg (1,000 unit) capsule anastrozole 1 mg tablet 1 mg PO DAILY 11/08/20 11/18/24 06/30/24 History famotidine 40 mg tablet 40 mg PO DAILY 10/10/23 11/18/24 06/30/24 History diltiazem HCl 120 mg 120 mg PO DAILY 10/11/23 11/18/24 06/30/24 History capsule,extended release 24 hr ferrous sulfate 324 mg (65 mg 324 mg PO DAILY 10/11/23 11/18/24 06/30/24 History iron) tablet,delayed release salmeterol 50 mcg/dose blister 1 inh inhalation BID PRN Wheezing 10/11/23 11/18/24 Unknown History powder for inhalation (Serevent Diskus) carvedilol 3.125 mg tablet 3.125 mg PO BID 07/02/24 11/18/2406/30/24 History docusate sodium 100 mg capsule 100 mg PO DAILY 07/02/24 11/18/24 06/30/24 History (Colace) mirabegron 50 mg tablet,extended 50 mg PO DAILY 11/18/24 11/18/24 Unknown History release 24 hr (Myrbetriq) oxybutynin chloride 5 mg 5 mg PO BEDTIME 11/18/24 11/18/24 Unknown History tablet,extended release 24 hr risperidone 1 mg tablet 1 mg PO DAILY@1700 11/18/24 11/18/24 Unknown History Physical Exam 2 Vital Signs and Narrative: Vital Signs: Last Vital Signs Temp 99.0 F 11/19/24 00:19 Pulse 97 11/19/24 00:19 Resp 16 11/19/24 00:19 BP 109/58 L 11/19/24 00:19 Pulse Ox 99 11/19/24 00:19 O2 Del Method Room Air 11/19/24 00:19 BMI result Body Mass Index 25.5 General: AOx3, no acute distress Resp: CTA bilaterally CVS: RRR, +murmur GI: +BS, NT with deep palpation, no distention Skin: Warm, dry. decubitus ulcers on sacrum/buttocks. blister R heel, wound L heel. see photos Neuro: Cranial nerves II-XII grossly intact bilaterally. Motor grossly intact bilaterally Extremities: No LE edema Psych: Appropriate affect Const: General: No confusion Orientation/consciousness: No confusion Eyes: Direct Ophthalmoscopy: No photophobia Neuro: General: No confusion Results Labs 11/18/24 15:32 11/18/24 15:29 Labs: Laboratory Results - last 24 hr 11/18/24 11/18/24 11/18/24 15:29 15:30 15:32 MCV 89.5 MCH 30.5 MCHC 34.0 RDW 13.2 Plt Count 193 MPV 11.1 Immature Gran % (Auto) 0.5 H Neut % (Auto) 83.8 H Lymph % (Auto) 5.5 L [place] % (Auto) 9.2 Eos % (Auto) 0.7 Baso % (Auto) 0.3 Lymph # (Auto) 0.6 L [place] # (Auto) 1.0 Eos # (Auto) 0.1 Baso # (Auto) 0.0 Abs Immat Gran (auto) 0.05 H Absolute Neuts (auto) 8.9 H Absolute Nucleated RBC 0.000 Nucleated RBC % (auto) 0.0 ESR 34 H PT 13.3 H INR 1.1 APTT 27.2 Anion Gap 12 Estim Creat Clear Calc 66.7 Estimated GFR > 60 Random Glucose 120 H Lactic Acid Calcium 8.4 D Magnesium 1.8 Total Bilirubin 2.2 H AST 138 H ALT 85 H Alkaline Phosphatase 120 H Total Creatine Kinase 615 H C-Reactive Protein 13.16 H Total Protein 6.1 L Albumin 3.0 L Lipase 20 Urine Color Urine Appearance Urine pH Ur Specific [place] Urine Protein Urine Glucose (UA) Urine Ketones Urine Blood Urine Nitrite Ur Leukocyte Esterase Urine RBC Urine WBC Ur Squamous Epith Cells Urine Bacteria Hyaline Casts Influenza Type A (PCR) NEGATIVE Influenza Type B (PCR) NEGATIVE RSV RNA Qual (PCR) NEGATIVE SARS-CoV-2 RNA (RT-PCR) NEGATIVE 11/18/24 11/18/24 16:27 19:52 MCV MCH MCHC RDW Plt Count MPV Immature Gran % (Auto) Neut % (Auto) Lymph % (Auto) [place] % (Auto) Eos % (Auto) Baso % (Auto) Lymph # (Auto) [place] # (Auto) Eos # (Auto) Baso # (Auto) Abs Immat Gran (auto) Absolute Neuts (auto) Absolute Nucleated RBC Nucleated RBC % (auto) ESR PT INR APTT Anion Gap Estim Creat Clear Calc Estimated GFR Random Glucose Lactic Acid 1.1 Calcium Magnesium Total Bilirubin AST ALT Alkaline Phosphatase Total Creatine Kinase C-Reactive Protein Total Protein Albumin Lipase Urine Color Dark Yellow Urine Appearance Clear Urine pH 6.0 Ur Specific [place] 1.020 Urine Protein Trace Urine Glucose (UA) Negative Urine Ketones Negative Urine Blood Negative Urine Nitrite Negative Ur Leukocyte Esterase Negative Urine RBC 0-2 Urine WBC 0-5 Ur Squamous Epith Cells 0-2 Urine Bacteria None Seen Hyaline Casts 0-2 Influenza Type A (PCR) Influenza Type B (PCR) RSV RNA Qual (PCR) SARS-CoV-2 RNA (RT-PCR) Assessment and Plan (1) Decubitus ulcer, infected: Status: Acute (2) Pressure ulcer of left heel: Status: Acute (3) Blister of right heel: Status: Acute (4) Elevated LFTs: Status: Acute (5) Rhabdomyolysis: Status: Acute (6) Weakness: Status: Acute Plan Patient is an 84-year-old female with a past medical history significant for dementia, breast cancer s/p surgery and radiation, PAD s/p L SFA arthrectomy/stent, L common iliac/external iliac stent, HTN, urinary incontinence, HLD, duodenitis with GI bleed 12/2022 recent fall 2-3 weeks ago admitted at [facility] and discharged home with services, who presented to the ED due to ulcers on the buttocks as well as worsening appearance of left heel wound. Infected decubitus ulcer, pressure ulcer left heel, blister right heel - WBC 10.6, vital signs stable, lactic acid normal, no sepsis - ESR 34, CRP 13.1 - pelvic CT without abscess - started on levaquin and vancomycin in ED, discontinue levaquin and start cefepime, vancomycin and Flagyl - wound care, surgery and ID consult - PT/OT urinary retention - UA negative for infection - bladder scan with 1400cc - bauer catheter placed - urology consult rhabdo - CPK 615 - given 2L IVF in ED - continue NS 75cc/hr elevated LFTs - no acute abd pain - abd US - hepatitis panel - may be secondary to rhabdo if above w/u negative new onset weakness, likely deconditioning - head CT negative - neurochecks Q4H - UA negative - PT/OT as above HTN - resume home meds when appropriate hx GI bleed - hemoglobin 11.3, stable full code VTE prophy: lovenox Pt with new infected decubitus ulcer, complicated by urinary retention, rhabdomyolysis and elevated LFTs, requiring admission for at least 2 midnights stay for IV antibiotics, expert consultation and further evaluation. Quality Stroke Does the patient have a stroke diagnosis?: No VTE Prior VTE?: No VTE Risk Level:: Medical - moderate - high VTE Device Contraindication: Treatment Not Indicated VTE Drug Contraindication: N/A - Med Ordered
[2024-11-19] MEDS: oxyCODONE HCl Immed Release 5 MG TABLET PO ×2 (01:11→10:34)
--- NOTE | 2024-11-19 01:25 | PC.NURSE ---
This Rn took pt vitals, pt repositioned, pt changed into clean hospital attire, bed sheets changed. pt medicated for pain management.
[2024-11-19] MEDS: metroNIDAZOLE/NS 500 MG/100 ML PIGGYBACK 100 MG IV ×4 (02:26→20:13)
--- NOTE | 2024-11-19 02:32 | PC.NURSE ---
medicated per mar.
--- NOTE | 2024-11-19 03:02 | PC.NURSE ---
Bauer was placed prior to my shift for urinary retention per report, bauer intact and draining properly, urine is cloudy
--- NOTE | 2024-11-19 04:12 | PC.NURSE ---
pt repositioned, 650cc of urine emptied from bauer
[2024-11-19] MEDS: cefEPime HCl/D5W 2 GM/50 ML PIGGYBACK IV ×3 (05:59→22:00)
--- NOTE | 2024-11-19 06:01 | PC.NURSE ---
pt repositioned and medicated per mar.
[2024-11-19 06:08] LABS: MANUAL DIFF FLAG NO
[2024-11-19 06:13] LABS: Basophils Percent Auto 0.3 % (0-2); Eosinophils Absolute Auto 0.1 X10*3/uL (0.0-0.4); Eosinophils Percent Auto 0.8 % (0-4); Hematocrit 31.5 % (37.0-47.0); Hemoglobin 10.6 g/dl (12.0-16.0); Imm Gran Abs Auto 0.02 X10*3/uL (0.00-0.03); Imm Gran Pct Auto 0.3 % (0.0-0.4); Lymphocytes Absolute Auto 0.6 X10*3/uL (1.2-4.9); Mean Corpuscular HGB Conc 33.7 g/dl (31.0-35.0); Mean Corpuscular Hemoglobin 30.9 pg (27.0-33.0); Mean Corpuscular Volume 91.8 fL (80.0-98.0); Mean Platelet Volume 10.9 fL (9.4-12.3); Monocytes Absolute Auto 0.7 X10*3/uL (0.1-1.2); Monocytes Percent Auto 9.6 % (2-11); Neutrophils Absolute Auto 6.1 x10*3/uL (2.0-8.3); Platelet Count 150 X10*3/uL (160-400); Red Blood Count 3.43 X10*6/uL (4.20-5.50); White Blood Count 7.5 X10*3/uL (4.8-10.8)
[2024-11-19 06:28] LABS: Alanine Aminotransferase 77 U/L (0-31); Albumin Level 2.6 g/dL (3.5-5.0); Anion Gap 11 (12-20); Aspartate Amino Transferase 114 U/L (5-31); Bilirubin Total 1.4 mg/dL (0.0-1.0); Blood Urea Nitrogen 18 mg/dL (9-16); C Reactive Protein 11.74 mg/dL (< or = 0.50); Calcium 7.9 mg/dL (8.4-10.2); Carbon Dioxide 21 mmol/L (22-29); Chloride 111 mmol/L (96-108); Estimated Glomerular Filt Rate > 60; Glucose Random 131 mg/dL (60-115); Potassium 3.5 mmol/L (3.3-5.1); Sodium 139 mmol/L (135-145); Total Protein 5.2 g/dL (6.5-8.0)
[2024-11-19 06:31] LABS: Alkaline Phosphatase 105 U/L (39-117)
[2024-11-19] MEDS: Acetaminophen 325 MG TABLET 650 MG PO ×2 (06:40→15:04)
[2024-11-19 06:50] LABS: HBS Num1 1.15 mIU/mL (0-7.99); HBc Num1 0.64 S/CO (0.00-0.79); HBsAGNum1 0.29 S/CO (0.00-0.99); Hepatitis A Antibody IgM 0.17 Index (0-0.79); Hepatitis B Core Antibody Nonreactive (Nonreactive); Hepatitis B Surface Antigen Negative (Negative); ~HepC Num1 0.14 S/CO (0.00-0.79); ~Hepatitis A Antibody IgM Nonreactive (Nonreactive); ~Hepatitis B Surface Antibody NONREACTIVE (Nonreactive); ~Hepatitis C Antibody Nonreactive (Nonreactive)
--- NOTE | 2024-11-19 07:16 | PHA.PROG ---
Admission Date/Time: November 18, 2024 23:24 Indication: Skin Weight in k.2 kg Adjusted body weight in Kg: [place] body weight in Kg: Obesity Dosing Indication % IBW: Serum Creatinine - Last 168 Hours 11/18/24 11/19/24 15:29 05:20 Creatinine 0.59 0.57 Estimated CrCl and GFR - Last 168 Hours 11/18/24 11/19/24 15:29 05:20 Estim Creat Clear Calc 66.7 69.0 Estimated GFR > 60 > 60 Vancomycin Loading Dose: 1500mg Current Vancomycin Dosing Regimen: 750mg q12h Vancomycin Monitoring using AUC goal of 400 - 600 range with trough as surrogate marker: 450 mg/L Date and Time for next Vancomycin Level to be drawn: 11/20/2024 @ 0900 Pharmacist Comments on Vancomycin Plan: Vancomycin dosing will take advantage of [employer] as a clinical decision support tool that uses Bayesian modeling to calculate individual patient's pharmacokinetic parameters and forecast the patient's drug concentration time course with the target goal AUC 24 range of 400 - 600 mg/L/hr.
[2024-11-19] MEDS: 0.9 % Sodium Chloride Flush 3 ML SYRINGE IVFLUSH ×3 (07:19→20:15)
--- NOTE | 2024-11-19 07:29 | PC.NURSE ---
Resumed care of patient at 0700, she is currently resting comfortably in her hospital bed, pt currently positioned on her left side. Pt temp remains 100.2f core from bauer. Pt currently getting abd US. Pt will need assistance with eating once she is more awake this AM.
--- NOTE | 2024-11-19 09:32 | PC.NURSE ---
Pt repositioned to right side at 0845, at bedside, pt remains to drowsy to safely eat or take morning medications, MD aware morning medications may be after 9am. Awaiting surgery eval at this time. IVF dc by provider.
[2024-11-19] MEDS: Famotidine 20 MG TABLET 40 MG PO (10:35)
[2024-11-19] MEDS: Docusate Sodium 100 MG CAPSULE PO (10:36)
[2024-11-19] MEDS: Cholecalciferol (Vitamin D3) 25 MCG TABLET PO (10:36)
[2024-11-19] MEDS: Aspirin 81 MG TAB.CHEW PO (10:36)
[2024-11-19] MEDS: Ferrous Sulfate 324 MG TABLET.DR PO (10:36)
[2024-11-19] MEDS: vancomycin HCL 750 MG in 0.9 % Sodium Chloride 250 ML 265 MG IV ×2 (10:36→22:40)
--- NOTE | 2024-11-19 10:54 | PC.NURSE ---
Family at bedside, this RN was notified they fed her some breakfast, this RN brought her meds in with pudding. Pt needed a lot of redirecting and was not fully following commands of opening mouth and full swallowing. Pt is chewing the medications in her pudding. MD aware, this RN requested swallow eval for pt safety at this time.
--- NOTE | 2024-11-19 11:41 | MHC.CM.PN ---
Attempted to meet with patient in regards to discharge planning. Patient has a history of dementia and is currently sleeping. Patient's , Valdez, and sister, Enriqueta are bedside. Discharge planning discussed with Valdez and Enriqueta. Patient lives with Valdez and is active with [facility]. Patient's PCP was Dr Quinones. Patient was transferred to [facility]. However, patient has not seen her PCP yet due to hospitalizations and weakness. Copy of HCP verified to be on file. IMM explained and signed. Both Valdez and Enriqueta feel STR will be necessary. Patient has been to [facility] in the past. Both are agreeable to referral to [facility]. Both are aware case management will need another facility choice if [facility] is unable to offer a bed. Referral made to [facility] via [facility]. Will need S transport at d/c.
--- NOTE | 2024-11-19 12:04 | HO.PM.IMPN ---
Subjective Subjective Date of Service: 11/19/24 Interval History: no complaints Physical Exam Vital Signs: Vital Signs: Last Vital Signs Temp 99.3 F 11/19/24 10:40 Pulse 95 11/19/24 10:47 Resp 16 11/19/24 10:40 BP 107/59 L 11/19/24 10:47 Pulse Ox 95 11/19/24 10:47 O2 Del Method Room Air 11/19/24 10:40 BMI result Body Mass Index 25.5 Alert oriented to name only, no acute distress, diffuse 3/5 strength, lungs clear, decubitus ulcers as pictured in admission note Objective Data Active Medications Acetaminophen (Acetaminophen 325 Mg Tablet) 650 mg PO Q6H PRN PRN Reason: Pain, Mild 1-3,fever,headache Last Admin: 11/19/24 06:40 Dose: 650 mg Documented By: CAM Albuterol Sulfate (Albuterol Sulfate 90 Mcg 8 Gm Inhaler) 2 puff INHALE Q6H PRN PRN Reason: Wheezing Anastrozole (Anastrozole 1 Mg Tablet) 1 mg PO DAILY [facility] Aspirin (Aspirin 81 Mg Tab.Chew) 81 mg PO DAILY [facility] Last Admin: 11/19/24 10:36 Dose: 81 mg Documented By: KEREN Calcium Carbonate (Calcium Carbonate 750 Mg Tab.Chew) 750 mg PO Q4H PRN PRN Reason: Heartburn Diltiazem HCl (Diltiazem Hcl Cd 120 Mg Cap.Er.Deg) 120 mg PO DAILY [facility]; Protocol Docusate Sodium (Docusate Sodium 100 Mg Capsule) 100 mg PO DAILY [facility] Last Admin: 11/19/24 10:36 Dose: 100 mg Documented By: KEREN Enoxaparin Sodium (Enoxaparin Sodium 40 Mg/0.4 Ml Syringe) 40 mg SUBCUT Q24H [facility] Last Admin: 11/19/24 00:24 Dose: 40 mg Documented By: CAM Famotidine (Famotidine 20 Mg Tablet) 40 mg PO DAILY [facility] Last Admin: 11/19/24 10:35 Dose: 40 mg Documented By: KEREN Ferrous Sulfate (Ferrous Sulfate 324 Mg Tablet.Dr) 324 mg PO DAILY [facility] Last Admin: 11/19/24 10:36 Dose: 324 mg Documented By: KEREN Cefepime HCl (Maxipime) 2 gm in 50 mls @ 100 mls/hr IV Q8H [facility] Last Infusion: 11/19/24 07:31 Dose: Infused Documented By: KEREN Metronidazole (Flagyl) 500 mg in 100 mls @ 100 mls/hr IV Q6H [facility] Last Infusion: 11/19/24 08:35 Dose: Infused Documented By: KEREN Vancomycin HCl 750 mg/ Sodium (Chloride) 265 mls @ 265 mls/hr IV Q12H [facility] Last Infusion: 11/19/24 11:56 Dose: Infused Documented By: CHARLEY Magnesium Hydroxide (Milk Of Magnesia 30 Ml Oral.Susp) 30 ml PO DAILY PRN PRN Reason: Constipation Melatonin (Melatonin 3 Mg Tablet) 6 mg PO BEDTIME PRN PRN Reason: Insomnia Morphine Sulfate (Morphine Sulfate 4 Mg/Ml Cartridge) 2 mg IVPUSH Q4H PRN; Protocol PRN Reason: Pain, Severe (Pain Scale 7-10) Ondansetron HCl (Ondansetron Hcl 4 Mg/2 Ml Vial) 4 mg IVPUSH Q8H PRN PRN Reason: Nausea and Vomiting Oxycodone HCl (Oxycodone Hcl Immed Release 5 Mg Tablet) 5 mg PO Q6H PRN PRN Reason: Pain, Moderate(Pain Scale 4-6) Last Admin: 11/19/24 10:34 Dose: 5 mg Documented By: KEREN Pharmacy Consult (Consult Rx Vancomycin Dosing) 1 each MISCELLANE DAILY PRN PRN Reason: Consult order Polyethylene Glycol (Polyethylene Glycol 3350 17 Gm Powd.Pack) 17 gm PO DAILY PRN PRN Reason: Constipation Risperidone (Risperidone 1 Mg Tablet) 1 mg PO DAILY@1700 [facility] Sodium Chloride (0.9 % Sodium Chloride Flush 3 Ml Syringe) 3 ml IVFLUSH QSHIFT [facility] Last Admin: 11/19/24 07:19 Dose: 3 ml Documented By: KEREN Vitamin D (Cholecalciferol (Vitamin D3) 25 Mcg Tablet) 25 mcg PO DAILY [facility] Last Admin: 11/19/24 10:36 Dose: 25 mcg Documented By: KEREN Labs 11/19/24 05:20 11/19/24 05:20 Labs: Laboratory Results - last 24 hr 11/18/24 11/18/24 11/18/24 15:29 15:30 15:32 MCV 89.5 MCH 30.5 MCHC 34.0 RDW 13.2 Plt Count 193 MPV 11.1 Immature Gran % (Auto) 0.5 H Neut % (Auto) 83.8 H Lymph % (Auto) 5.5 L [place] % (Auto) 9.2 Eos % (Auto) 0.7 Baso % (Auto) 0.3 Lymph # (Auto) 0.6 L [place] # (Auto) 1.0 Eos # (Auto) 0.1 Baso # (Auto) 0.0 Abs Immat Gran (auto) 0.05 H Absolute Neuts (auto) 8.9 H Absolute Nucleated RBC 0.000 Nucleated RBC % (auto) 0.0 ESR 34 H PT 13.3 H INR 1.1 APTT 27.2 Anion Gap 12 Estim Creat Clear Calc 66.7 Estimated GFR > 60 Random Glucose 120 H Lactic Acid Calcium 8.4 D Magnesium 1.8 Total Bilirubin 2.2 H AST 138 H ALT 85 H Alkaline Phosphatase 120 H Total Creatine Kinase 615 H C-Reactive Protein 13.16 H Total Protein 6.1 L Albumin 3.0 L Lipase 20 Urine Color Urine Appearance Urine pH Ur Specific [place] Urine Protein Urine Glucose (UA) Urine Ketones Urine Blood Urine Nitrite Ur Leukocyte Esterase Urine RBC Urine WBC Ur Squamous Epith Cells Urine Bacteria Hyaline Casts Hepatitis A IgM Ab Hep Bs Antigen Hep Bs Antibody Hep B Core Total Ab Hepatitis C Ab (EIA) Influenza Type A (PCR) NEGATIVE Influenza Type B (PCR) NEGATIVE RSV RNA Qual (PCR) NEGATIVE SARS-CoV-2 RNA (RT-PCR) NEGATIVE 11/18/24 11/18/24 11/19/24 16:27 19:52 05:20 MCV 91.8 MCH 30.9 MCHC 33.7 RDW 13.0 Plt Count 150 L MPV 10.9 Immature Gran % (Auto) 0.3 Neut % (Auto) 81.0 H Lymph % (Auto) 8.0 L [place] % (Auto) 9.6 Eos % (Auto) 0.8 Baso % (Auto) 0.3 Lymph # (Auto) 0.6 L [place] # (Auto) 0.7 Eos # (Auto) 0.1 Baso # (Auto) 0.0 Abs Immat Gran (auto) 0.02 Absolute Neuts (auto) 6.1 Absolute Nucleated RBC 0.000 Nucleated RBC % (auto) 0.0 ESR PT INR APTT Anion Gap 11 L Estim Creat Clear Calc 69.0 Estimated GFR > 60 Random Glucose 131 H Lactic Acid 1.1 Calcium 7.9 L Magnesium Total Bilirubin 1.4 H AST 114 H ALT 77 H Alkaline Phosphatase 105 Total Creatine Kinase 437 H C-Reactive Protein 11.74 H Total Protein 5.2 L Albumin 2.6 L Lipase Urine Color Dark Yellow Urine Appearance Clear Urine pH 6.0 Ur Specific [place] 1.020 Urine Protein Trace Urine Glucose (UA) Negative Urine Ketones Negative Urine Blood Negative Urine Nitrite Negative Ur Leukocyte Esterase Negative Urine RBC 0-2 Urine WBC 0-5 Ur Squamous Epith Cells 0-2 Urine Bacteria None Seen Hyaline Casts 0-2 Hepatitis A IgM Ab Nonreactive Hep Bs Antigen Negative Hep Bs Antibody NONREACTIVE Hep B Core Total Ab Nonreactive Hepatitis C Ab (EIA) Nonreactive Influenza Type A (PCR) Influenza Type B (PCR) RSV RNA Qual (PCR) SARS-CoV-2 RNA (RT-PCR) Assessment and Plan (1) HTN (hypertension): Status: Acute Plan 84F PMH unspecified dementia, breast cancer status post surgery and radiation, peripheral vascular disease status post left superficial femoral artery arthrectomy and stent, left common iliac/external iliac stent, hypertension, urinary incontinence, hyperlipidemia, duodenitis with GI bleed in 2022, presented with progressive weakness over the past few months, now bed-bound with sacral ulcers and left heel wound Unstageable sacral pressure ulcer and left heel wound with infection Continue vanc, cefepime, Flagyl, follow up Infectious Disease and surgery Urinary retention Alejandra placed, Urology No rhabdomyolysis Chronic mildly elevated CPK with progressive weakness ? Myopathy or myositis Discontinue statin Neurology eval PT OT History of breast cancer Anastrozole Hypertension Diltiazem Peripheral vascular disease Aspirin statin discontinued DVT prophylaxis with Lovenox Full code reason for continued hospitalization: IV antibiotics for significant infection Quality Stroke Does the patient have a stroke diagnosis?: No VTE Prior VTE?: No VTE Risk Level:: Medical - moderate - high VTE Device Contraindication: Treatment Not Indicated VTE Drug Contraindication: N/A - Med Ordered
[2024-11-19 12:40] LABS: Thyroid Stimulating Hormone 0.61 uIU/mL (0.32-4.0)
[2024-11-19] MEDS: Anastrozole 1 MG TABLET PO (12:59)
[2024-11-19] MEDS: Acetaminophen Supp 650 MG SUPP.RECT PR (15:22)
--- NOTE | 2024-11-19 16:31 | PM.NEUROCN ---
History of Present Illness Data of Consult Service Date: 11/19/24 Primary Care Provider: Unknown Physician HPI Reason for consult: Inability to walk possible myositis 84-year-old female with a past medical history significant for dementia, breast cancer s/p surgery and radiation PID s/p L SFA arthrectomy/stent, L common iliac/external iliac stent, HTN, urinary incontinence, HLD, duodenitis with GI bleed 12/2022 recent fall 2-3 weeks ago admitted at [facility] and discharged home with services, who presented to the ED due to ulcers on the buttocks as well as worsening appearance of left heel wound. She was unable to provide any history. Her sister was on the bedside and I talked to her who provided the history stating that she was able to take few small steps until about 2 months ago. Her 84 years old was taking care of her and was not able to take care of her properly. Review of Systems Review of Systems: Could not be done with her [facility] Past Medical History Medical History (Updated 11/19/24 @ 16:33 by Barak Keyes MD) HTN (hypertension) Dementia PAD (peripheral artery disease) Invasive ductal carcinoma of right breast History of pneumonia History of dislocation of shoulder Family History Family History Mother Cancer of unknown origin Surgical History Surgical History History of vein stripping History of appendectomy History of cataract extraction History of left hip replacement History of back surgery Social History Social History Household Members: Spouse Housing: House Do you presently have visiting nurse or other home services: No Alcohol intake: current Alcohol intake frequency: holidays/special occasions only Alcohol type: wine Patient Tobacco Use Status: Former Tobacco user Advance Directives Date on File: 06/30/24 service: No Current occupational status: retired Meds Allergies Allergy/AdvReac Type Severity Reaction Status Date / Time Penicillins [PENICILLINS] Allergy Severe ITCHING Verified 11/18/24 14:07 Erythromycin Allergy Severe itching Uncoded 11/18/24 14:07 Active Medications: Current Medications Acetaminophen (Acetaminophen 325 Mg Tablet) 650 mg PO Q6H PRN PRN Reason: Pain, Mild 1-3,fever,headache Last Admin: 11/19/24 15:04 Dose: 650 mg Albuterol Sulfate (Albuterol Sulfate 90 Mcg 8 Gm Inhaler) 2 puff INHALE Q6H PRN PRN Reason: Wheezing Anastrozole (Anastrozole 1 Mg Tablet) 1 mg PO DAILY [facility] Last Admin: 11/19/24 12:59 Dose: 1 mg Aspirin (Aspirin 81 Mg Tab.Chew) 81 mg PO DAILY [facility] Last Admin: 11/19/24 10:36 Dose: 81 mg Calcium Carbonate (Calcium Carbonate 750 Mg Tab.Chew) 750 mg PO Q4H PRN PRN Reason: Heartburn Diltiazem HCl (Diltiazem Hcl Cd 120 Mg Cap.Er.Deg) 120 mg PO DAILY [facility]; Protocol Docusate Sodium (Docusate Sodium 100 Mg Capsule) 100 mg PO DAILY [facility] Last Admin: 11/19/24 10:36 Dose: 100 mg Enoxaparin Sodium (Enoxaparin Sodium 40 Mg/0.4 Ml Syringe) 40 mg SUBCUT Q24H [facility] Last Admin: 11/19/24 00:24 Dose: 40 mg Famotidine (Famotidine 20 Mg Tablet) 40 mg PO DAILY [facility] Last Admin: 11/19/24 10:35 Dose: 40 mg Ferrous Sulfate (Ferrous Sulfate 324 Mg Tablet.Dr) 324 mg PO DAILY [facility] Last Admin: 11/19/24 10:36 Dose: 324 mg Cefepime HCl (Maxipime) 2 gm in 50 mls @ 100 mls/hr IV Q8H [facility] Last Infusion: 11/19/24 14:01 Dose: Infused Metronidazole (Flagyl) 500 mg in 100 mls @ 100 mls/hr IV Q6H [facility] Last Infusion: 11/19/24 15:11 Dose: Infused Vancomycin HCl 750 mg/ Sodium (Chloride) 265 mls @ 265 mls/hr IV Q12H [facility] Last Infusion: 11/19/24 11:56 Dose: Infused Magnesium Hydroxide (Milk Of Magnesia 30 Ml Oral.Susp) 30 ml PO DAILY PRN PRN Reason: Constipation Melatonin (Melatonin 3 Mg Tablet) 6 mg PO BEDTIME PRN PRN Reason: Insomnia Morphine Sulfate (Morphine Sulfate 4 Mg/Ml Cartridge) 2 mg IVPUSH Q4H PRN; Protocol PRN Reason: Pain, Severe (Pain Scale 7-10) Ondansetron HCl (Ondansetron Hcl 4 Mg/2 Ml Vial) 4 mg IVPUSH Q8H PRN PRN Reason: Nausea and Vomiting Oxycodone HCl (Oxycodone Hcl Immed Release 5 Mg Tablet) 5 mg PO Q6H PRN PRN Reason: Pain, Moderate(Pain Scale 4-6) Last Admin: 11/19/24 10:34 Dose: 5 mg Pharmacy Consult (Consult Rx Vancomycin Dosing) 1 each MISCELLANE DAILY PRN PRN Reason: Consult order Polyethylene Glycol (Polyethylene Glycol 3350 17 Gm Powd.Pack) 17 gm PO DAILY PRN PRN Reason: Constipation Risperidone (Risperidone 1 Mg Tablet) 1 mg PO DAILY@1700 [facility] Sodium Chloride (0.9 % Sodium Chloride Flush 3 Ml Syringe) 3 ml IVFLUSH QSHIFT [facility] Last Admin: 11/19/24 07:19 Dose: 3 ml Vitamin D (Cholecalciferol (Vitamin D3) 25 Mcg Tablet) 25 mcg PO DAILY [facility] Last Admin: 11/19/24 10:36 Dose: 25 mcg Home Medications ?Medication ?Instructions ?Recorded ?Confirmed ?Last Taken ?Type albuterol sulfate 90 mcg/actuation 2 inh inhalation Q6H PRN Wheezing 08/23/20 11/18/24 Unknown History breath activated powder inhaler,sensor (Proair Digihaler) aspirin 81 mg chewable tablet 81 mg PO DAILY 08/23/20 11/18/24 06/30/24 History atorvastatin 40 mg tablet 40 mg PO DAILY 08/23/20 11/18/24 06/30/24 History cholecalciferol (vitamin D3) 25 25 mcg PO DAILY 08/23/20 11/18/24 06/30/24 History mcg (1,000 unit) capsule anastrozole 1 mg tablet 1 mg PO DAILY 11/08/20 11/18/24 06/30/24 History famotidine 40 mg tablet 40 mg PO DAILY 10/10/23 11/18/24 06/30/24 History diltiazem HCl 120 mg 120 mg PO DAILY 10/11/23 11/18/24 06/30/24 History capsule,extended release 24 hr ferrous sulfate 324 mg (65 mg 324 mg PO DAILY 10/11/23 11/18/24 06/30/24 History iron) tablet,delayed release salmeterol 50 mcg/dose blister 1 inh inhalation BID PRN Wheezing 10/11/23 11/18/24 Unknown History powder for inhalation (Serevent Diskus) carvedilol 3.125 mg tablet 3.125 mg PO BID 07/02/24 11/18/24 06/30/24 History docusate sodium 100 mg capsule 100 mg PO DAILY 07/02/24 11/18/24 06/30/24 History (Colace) mirabegron 50 mg tablet,extended 50 mg PO DAILY 11/18/24 11/18/24 Unknown History release 24 hr (Myrbetriq) oxybutynin chloride 5 mg 5 mg PO BEDTIME 11/18/24 11/18/24 Unknown History tablet,extended release 24 hr risperidone 1 mg tablet 1 mg PO DAILY@1700 11/18/24 11/18/24 Unknown History Physical Exam Vital Signs: Vital Signs: Last Vital Signs Temp 100.4 F 11/19/24 14:53 Pulse 81 11/19/24 14:03 Resp 16 11/19/24 14:03 BP 121/61 11/19/24 14:03 Pulse Ox 93 11/19/24 14:03 O2 Del Method Room Air 11/19/24 14:03 BMI result Body Mass Index 25.5 Neuro: Other: She was sleeping and did not cooperative with examination. There was no obvious focal weakness or abnormal movement. Significant decubitus ulcers were noted on her buttocks. Deep tendon reflexes were absent. Results Labs 11/19/24 05:20 11/19/24 05:20 Labs: Short CBC 11/19/24 Range/Units 05:20 WBC 7.5 (4.8-10.8) X10*3/uL Hgb 10.6 L (12.0-16.0) g/dl Hct 31.5 L (37.0-47.0) % Plt Count 150 L (160-400) X10*3/uL BMP 11/19/24 05:20 Sodium 139 Potassium 3.5 Chloride 111 H Carbon Dioxide 21 L BUN 18 H Creatinine 0.57 Calcium 7.9 L Cardiac Enzymes 11/19/24 Range/Units 05:20 Total Creatine Kinase 437 H (26-140) U/L Liver Function 11/19/24 Range/Units 05:20 Total Bilirubin 1.4 H (0.0-1.0) mg/dL AST 114 H (5-31) U/L ALT 77 H (0-31) U/L Alkaline Phosphatase 105 (39-117) U/L Albumin 2.6 L (3.5-5.0) g/dL Urine 11/18/24 Range/Units 19:52 Urine Color Dark Yellow Urine Appearance Clear Urine pH 6.0 (5.0-9.0) Ur Specific [place] 1.020 (1.005-1.025) Urine Protein Trace (Neg-Trace) mg/dL Urine Glucose (UA) Negative (Negative) mg/dL Her CPK was in 400 to 500s. Cat scan of brain revealed significant ventriculomegaly with significant microvascular disease. Assessment and Plan (1) Multifactorial dementia: Status: Acute 84 years old woman with severe multifactorial degenerative +vascular dementia. She also has significant ventriculomegaly, which explains her difficulty with walking and progressive worsening. Though NPH is a treatable condition, lumbar puncture shunting might not be an option for her because of dementia. Her CPK numbers are not high enough to make a diagnosis of myositis or myopathy. Conservative management and placement is recommended (2) NPH (normal pressure hydrocephalus): Status: Acute Procedures Date of Service Date of Service: 11/19/24
[2024-11-19] MEDS: Albumin Human 25 % 100 ML IV ×2 (17:33→23:46)
--- NOTE | 2024-11-19 18:14 | HO.SKINPHOTO ---
Location:Left heel Category:Pressure ulcer Stage: Length: Width: Depth: cm Location: Category: Stage: Length: Width: Depth: cm Location: Category: Stage: Length: Width: Depth: cm Location: Category: Stage: Length: Width: Depth: cm Location: Category: Stage: Length: Width: Depth: cm Location: Category: Stage: Length: Width: Depth: cm
--- NOTE | 2024-11-19 18:15 | HO.SKINPHOTO ---
Location:Right Heel Category:Blister Stage: Length: Width: Depth: cm Location: Category: Stage: Length: Width: Depth: cm Location: Category: Stage: Length: Width: Depth: cm Location: Category: Stage: Length: Width: Depth: cm Location: Category: Stage: Length: Width: Depth: cm Location: Category: Stage: Length: Width: Depth: cm
--- NOTE | 2024-11-19 18:16 | HO.SKINPHOTO ---
Location:Sacrum Ulcer Category:Unstegable Stage: Length: Width: Depth: cm Location: Category: Stage: Length: Width: Depth: cm Location: Category: Stage: Length: Width: Depth: cm Location: Category: Stage: Length: Width: Depth: cm Location: Category: Stage: Length: Width: Depth: cm Location: Category: Stage: Length: Width: Depth: cm
[2024-11-19 22:42] LABS: Erythrocyte Sedimentation Rate 34 MM/HR (0-20)
[2024-11-20] MEDS: metroNIDAZOLE/NS 500 MG/100 ML PIGGYBACK 100 MG IV ×4 (02:05→19:41)
[2024-11-20 03:00] VITALS: BP 145/69; PULSE 87; RESP 20; TEMP 37.6; O2SAT 96
[2024-11-20] MEDS: cefEPime HCl/D5W 2 GM/50 ML PIGGYBACK IV ×3 (05:55→21:27)
[2024-11-20 06:44] LABS: MANUAL DIFF FLAG NO
[2024-11-20 07:05] LABS: Creatinine Clr Calc Pharmacy 72.9; Estimated Glomerular Filt Rate > 60
[2024-11-20 07:07] LABS: Alanine Aminotransferase 43 U/L (0-31); Albumin Level 2.9 g/dL (3.5-5.0); Alkaline Phosphatase 75 U/L (39-117); Anion Gap 9 (12-20); Aspartate Amino Transferase 65 U/L (5-31); Bilirubin Total 1.6 mg/dL (0.0-1.0); Blood Urea Nitrogen 11 mg/dL (9-16); Calcium 7.9 mg/dL (8.4-10.2); Carbon Dioxide 23 mmol/L (22-29); Chloride 109 mmol/L (96-108); Creatinine Clr Calc Pharmacy 71.6; Estimated Glomerular Filt Rate > 60; Glucose Random 100 mg/dL (60-115); Iron 17 mcg/dL (30-160); Percent Iron Saturation 14 % (15-50); Potassium 3.3 mmol/L (3.3-5.1); Sodium 138 mmol/L (135-145); Total Iron Binding Capacity 122 mcg/dL (228-428); Total Protein 5.1 g/dL (6.5-8.0); Unsaturated Iron Binding 105 ug/dL
[2024-11-20] MEDS: Anastrozole 1 MG TABLET PO (07:10)
[2024-11-20] MEDS: Cholecalciferol (Vitamin D3) 25 MCG TABLET PO (07:11)
[2024-11-20] MEDS: Ferrous Sulfate 324 MG TABLET.DR PO (07:11)
[2024-11-20] MEDS: Famotidine 20 MG TABLET 40 MG PO (07:11)
[2024-11-20] MEDS: Aspirin 81 MG TAB.CHEW PO (07:12)
[2024-11-20] MEDS: Docusate Sodium 100 MG CAPSULE PO (07:12)
[2024-11-20] MEDS: 0.9 % Sodium Chloride Flush 3 ML SYRINGE IVFLUSH ×2 (07:13→14:48)
[2024-11-20 07:21] LABS: Basophils Percent Auto 0.2 % (0-2); Eosinophils Absolute Auto 0.1 X10*3/uL (0.0-0.4); Eosinophils Percent Auto 1.8 % (0-4); Hematocrit 26.6 % (37.0-47.0); Hemoglobin 9.2 g/dl (12.0-16.0); Imm Gran Abs Auto 0.02 X10*3/uL (0.00-0.03); Imm Gran Pct Auto 0.5 % (0.0-0.4); Lymphocytes Absolute Auto 0.4 X10*3/uL (1.2-4.9); Lymphocytes Percent Auto 9.8 % (20-40); Mean Corpuscular HGB Conc 34.6 g/dl (31.0-35.0); Mean Corpuscular Hemoglobin 30.9 pg (27.0-33.0); Mean Corpuscular Volume 89.3 fL (80.0-98.0); Mean Platelet Volume 11.2 fL (9.4-12.3); Monocytes Absolute Auto 0.4 X10*3/uL (0.1-1.2); Monocytes Percent Auto 9.1 % (2-11); Neutrophils Absolute Auto 3.5 x10*3/uL (2.0-8.3); Neutrophils Percent Auto 78.6 % (45-73); Platelet Count 127 X10*3/uL (160-400); Red Blood Count 2.98 X10*6/uL (4.20-5.50); Red Cell Distribution Width 12.9 % (11.0-16.0); White Blood Count 4.4 X10*3/uL (4.8-10.8)
[2024-11-20 07:32] VITALS: BP 139/66; PULSE 98; RESP 18; TEMP 37.1; O2SAT 94
--- NOTE | 2024-11-20 07:35 | P.CONGS_ITS ---
History of Present Illness Consult details Consult date: 11/20/24 Narrative: Patient is an elderly, frail 84 year old female with a plethora of comorbidities and intercurrent medical problems including dementia. Consult was obtained for evaluation of the sacral and bilateral heel pressure wounds. Patient is unable to give any history because of her cognitive issues. Chart was reviewed and patient evaluated PMF Past Medical History Medical History (Updated 11/19/24 @ 16:33 by Barak Keyes MD) HTN (hypertension) Dementia PAD (peripheral artery disease) Invasive ductal carcinoma of right breast History of pneumonia History of dislocation of shoulder Family History Family History Mother Cancer of unknown origin Surgical History Surgical History History of vein stripping History of appendectomy History of cataract extraction History of left hip replacement History of back surgery Social History Social History Household Members: Spouse Housing: House Do you presently have visiting nurse or other home services: Yes Alcohol intake: current Alcohol intake frequency: holidays/special occasions only Alcohol type: wine Comment: bauer catheter Patient Tobacco Use Status: Former Tobacco user Advance Directives Date on File: 06/30/24 service: No Current occupational status: retired Meds Allergies Allergy/AdvReac Type Severity Reaction Status Date / Time Penicillins [PENICILLINS] Allergy Severe ITCHING Verified 11/18/24 14:07 Erythromycin Allergy Severe itching Uncoded 11/18/24 14:07 Active Medications: Current Medications Acetaminophen (Acetaminophen 325 Mg Tablet) 650 mg PO Q6H PRN PRN Reason: Pain, Mild 1-3,fever,headache Last Admin: 11/19/24 15:04 Dose: 650 mg Albuterol Sulfate (Albuterol Sulfate 90 Mcg 8 Gm Inhaler) 2 puff INHALE Q6H PRN PRN Reason: Wheezing Anastrozole (Anastrozole 1 Mg Tablet) 1 mg PO DAILY [facility] Last Admin: 11/20/24 07:10 Dose: 1 mg Aspirin (Aspirin 81 Mg Tab.Chew) 81 mg PO DAILY [facility] Last Admin: 11/20/24 07:12 Dose: 81 mg Calcium Carbonate (Calcium Carbonate 750 Mg Tab.Chew) 750 mg PO Q4H PRN PRN Reason: Heartburn Diltiazem HCl (Diltiazem Hcl Cd 120 Mg Cap.Er.Deg) 120 mg PO DAILY [facility]; Protocol Docusate Sodium (Docusate Sodium 100 Mg Capsule) 100 mg PO DAILY [facility] Last Admin: 11/20/24 07:12 Dose: 100 mg Enoxaparin Sodium (Enoxaparin Sodium 40 Mg/0.4 Ml Syringe) 40 mg SUBCUT Q24H [facility] Last Admin: 11/19/24 23:49 Dose: 40 mg Famotidine (Famotidine 20 Mg Tablet) 40 mg PO DAILY [facility] Last Admin: 11/20/24 07:11 Dose: 40 mg Ferrous Sulfate (Ferrous Sulfate 324 Mg Tablet.Dr) 324 mg PO DAILY [facility] Last Admin: 11/20/24 07:11 Dose: 324 mg Cefepime HCl (Maxipime) 2 gm in 50 mls @ 100 mls/hr IV Q8H [facility] Last Infusion: 11/20/24 06:25 Dose: Infused Metronidazole (Flagyl) 500 mg in 100 mls @ 100 mls/hr IV Q6H [facility] Last Admin: 11/20/24 07:09 Dose: 100 mls/hr Vancomycin HCl 750 mg/ Sodium (Chloride) 265 mls @ 265 mls/hr IV Q12H [facility] Last Infusion: 11/19/24 23:41 Dose: Infused Magnesium Hydroxide (Milk Of Magnesia 30 Ml Oral.Susp) 30 ml PO DAILY PRN PRN Reason: Constipation Melatonin (Melatonin 3 Mg Tablet) 6 mg PO BEDTIME PRN PRN Reason: Insomnia Morphine Sulfate (Morphine Sulfate 4 Mg/Ml Cartridge) 2 mg IVPUSH Q4H PRN; Protocol PRN Reason: Pain, Severe (Pain Scale 7-10) Ondansetron HCl (Ondansetron Hcl 4 Mg/2 Ml Vial) 4 mg IVPUSH Q8H PRN PRN Reason: Nausea and Vomiting Oxycodone HCl (Oxycodone Hcl Immed Release 5 Mg Tablet) 5 mg PO Q6H PRN PRN Reason: Pain, Moderate(Pain Scale 4-6) Last Admin: 11/19/24 10:34 Dose: 5 mg Pharmacy Consult (Consult Rx Vancomycin Dosing) 1 each MISCELLANE DAILY PRN PRN Reason: Consult order Polyethylene Glycol (Polyethylene Glycol 3350 17 Gm Powd.Pack) 17 gm PO DAILY PRN PRN Reason: Constipation Risperidone (Risperidone 1 Mg Tablet) 1 mg PO DAILY@1700 [facility] Last Admin: 11/19/24 17:24 Dose: Not Given Sodium Chloride (0.9 % Sodium Chloride Flush 3 Ml Syringe) 3 ml IVFLUSH QSHIFT ON [facility] Last Admin: 11/20/24 07:13 Dose: 3 ml Vitamin D (Cholecalciferol (Vitamin D3) 25 Mcg Tablet) 25 mcg PO DAILY [facility] Last Admin: 11/20/24 07:11 Dose: 25 mcg Home Medications ?Medication ?Instructions ?Recorded ?Confirmed ?Last Taken ?Type albuterol sulfate 90 mcg/actuation 2 inh inhalation Q6H PRN Wheezing 08/23/20 11/18/24 Unknown History breath activated powder inhaler,sensor (Proair Digihaler) aspirin 81 mg chewable tablet 81 mg PO DAILY 08/23/20 11/18/24 06/30/24 History atorvastatin 40 mg tablet 40 mg PO DAILY 08/23/20 11/18/24 06/30/24 History cholecalciferol (vitamin D3) 25 25 mcg PO DAILY 08/23/20 11/18/24 06/30/24 History mcg (1,000 unit) capsule anastrozole 1 mg tablet 1 mg PO DAILY 11/08/20 11/18/24 06/30/24 History famotidine 40 mg tablet 40 mg PO DAILY 10/10/23 11/18/24 06/30/24 History diltiazem HCl 120 mg 120 mg PO DAILY 10/11/23 11/18/24 06/30/24 History capsule,extended release 24 hr ferrous sulfate 324 mg (65 mg 324 mg PO DAILY 10/11/23 11/18/24 06/30/24 History iron) tablet,delayed release salmeterol 50 mcg/dose blister 1 inh inhalation BID PRN Wheezing 10/11/23 11/18/24 Unknown History powder for inhalation (Serevent Diskus) carvedilol 3.125 mg tablet 3.125 mg PO BID 07/02/24 11/18/24 06/30/24 History docusate sodium 100 mg capsule 100 mg PO DAILY 07/02/24 11/18/24 06/30/24 History (Colace) mirabegron 50 mg tablet,extended 50 mg PO DAILY 11/18/24 11/18/24 Unknown History release 24 hr (Myrbetriq) oxybutynin chloride 5 mg 5 mg PO BEDTIME 11/18/24 11/18/24 Unknown History tablet,extended release 24 hr risperidone 1 mg tablet 1 mg PO DAILY@1700 11/18/24 11/18/24 Unknown History Physical Exam 2 Vital Signs: Vital Signs: Last Vital Signs Temp 98.7 F 11/20/24 07:32 Pulse 98 11/20/24 07:32 Resp 18 11/20/24 07:32 BP 139/66 11/20/24 07:32 Pulse Ox 94 11/20/24 07:32 O2 Del Method Room Air 11/20/24 07:32 BMI result Body Mass Index 25.5 Back/Spine/Pelvis: Other: Patient has superficial/stage I decubitus of sacrum. No evidence of infection or drainage at this time. Very superficial Eschar maturing. Extrem: Other: Patient has bilateral heel wounds. Right heel wound is intact eschar. Left wound has some superficial breakdown. No evidence of any cellulitis or abscess at this time. Results Labs 11/20/24 06:25 11/20/24 06:25 Labs: Abnormal lab results 11/19/24 11/20/24 Range/Units 05:20 06:25 WBC 4.4 L (4.8-10.8) X10*3/uL RBC 2.98 L (4.20-5.50) X10*6/uL Hgb 9.2 L (12.0-16.0) g/dl Hct 26.6 L (37.0-47.0) % Plt Count 127 L (160-400) X10*3/uL Immature Gran % (Auto) 0.5 H (0.0-0.4) % Neut % (Auto) 78.6 H (45-73) % Lymph % (Auto) 9.8 L (20-40) % Lymph # (Auto) 0.4 L (1.2-4.9) X10*3/uL ESR 34 H (0-20) MM/HR Chloride 109 H (96-108) mmol/L Anion Gap 9 L (12-20) Calcium 7.9 L (8.4-10.2) mg/dL Iron 17 L (30-160) mcg/dL TIBC 122 L (228-428) mcg/dL % Saturation 14 L (15-50) % Total Bilirubin 1.6 H (0.0-1.0) mg/dL AST 65 H (5-31) U/L ALT 43 H (0-31) U/L Total Protein 5.1 L (6.5-8.0) g/dL Albumin 2.9 L (3.5-5.0) g/dL Short CBC 11/20/24 Range/Units 06:25 WBC 4.4 L (4.8-10.8) X10*3/uL Hgb 9.2 L (12.0-16.0) g/dl Hct 26.6 L (37.0-47.0) % Plt Count 127 L (160-400) X10*3/uL BMP 11/20/24 11/20/24 06:25 06:25 Sodium 138 Potassium 3.3 Chloride 109 H Carbon Dioxide 23 BUN 11 Creatinine 0.55 0.54 Calcium 7.9 L Liver Function 11/20/24 Range/Units 06:25 Total Bilirubin 1.6 H (0.0-1.0) mg/dL AST 65 H (5-31) U/L ALT 43 H (0-31) U/L Alkaline Phosphatase 75 (39-117) U/L Albumin 2.9 L (3.5-5.0) g/dL Urine 11/18/24 Range/Units 19:52 Urine Color Dark Yellow Urine Appearance Clear Urine pH 6.0 (5.0-9.0) Ur Specific [place] 1.020 (1.005-1.025) Urine Protein Trace (Neg-Trace) mg/dL Urine Glucose (UA) Negative (Negative) mg/dL All other labs normal. Assessment and Plan (1) Pressure ulcer of left heel: Status: Acute (2) Blister of right heel: Status: Acute (3) Decubitus ulcer, infected: Status: Acute Plan Current recommendation is postural changes, optimize nutrition, dressings per wound care consult recommendations. At present, no acute surgical intervention is required. Procedures Date of Service Date of Service: 11/20/24
[2024-11-20 07:43] LABS: Folate 5.8 ng/mL (> or = 4.0); Vitamin B12 545 pg/mL (200-900)
[2024-11-20 08:24] VITALS: BP 139/66; PULSE 98; O2SAT 94
--- NOTE | 2024-11-20 09:15 | P.PNIM_ITS ---
Subjective Subjective Date of Service: 11/20/24 Interval History: no complaints Physical Exam 2 Vital Signs: Vital Signs: Last Vital Signs Temp 98.7 F 11/20/24 07:32 Pulse 98 11/20/24 08:24 Resp 18 11/20/24 07:32 BP 139/66 11/20/24 08:24 Pulse Ox 94 11/20/24 08:24 O2 Del Method Room Air 11/20/24 07:32 BMI result Body Mass Index 25.5 Back/Spine/Pelvis: Other: Patient has superficial/stage I decubitus of sacrum. No evidence of infection or drainage at this time. Very superficial Eschar maturing. Extrem: Other: Patient has bilateral heel wounds. Right heel wound is intact eschar. Left wound has some superficial breakdown. No evidence of any cellulitis or abscess at this time. Objective Data Active Medications Acetaminophen (Acetaminophen 325 Mg Tablet) 650 mg PO Q6H PRN PRN Reason: Pain, Mild 1-3,fever,headache Last Admin: 11/19/24 15:04 Dose: 650 mg Documented By: KAROL Albuterol Sulfate (Albuterol Sulfate 90 Mcg 8 Gm Inhaler) 2 puff INHALE Q6H PRN PRN Reason: Wheezing Anastrozole (Anastrozole 1 Mg Tablet) 1 mg PO DAILY [facility] Last Admin: 11/20/24 07:10 Dose: 1 mg Documented By: KAEL Aspirin (Aspirin 81 Mg Tab.Chew) 81 mg PO DAILY [facility] Last Admin: 11/20/24 07:12 Dose: 81 mg Documented By: KAEL Calcium Carbonate (Calcium Carbonate 750 Mg Tab.Chew) 750 mg PO Q4H PRN PRN Reason: Heartburn Diltiazem HCl (Diltiazem Hcl Cd 120 Mg Cap.Er.Deg) 120 mg PO DAILY [facility]; Protocol Docusate Sodium (Docusate Sodium 100 Mg Capsule) 100 mg PO DAILY [facility] Last Admin: 11/20/24 07:12 Dose: 100 mg Documented By: KAEL Enoxaparin Sodium (Enoxaparin Sodium 40 Mg/0.4 Ml Syringe) 40 mg SUBCUT Q24H [facility] Last Admin: 11/19/24 23:49 Dose: 40 mg Documented By: MCKENZIE Famotidine (Famotidine 20 Mg Tablet) 40 mg PO DAILY [facility] Last Admin: 11/20/24 07:11 Dose: 40 mg Documented By: KAEL Ferrous Sulfate (Ferrous Sulfate 324 Mg Tablet.Dr) 324 mg PO DAILY [facility] Last Admin: 11/20/24 07:11 Dose: 324 mg Documented By: KAEL Cefepime HCl (Maxipime) 2 gm in 50 mls @ 100 mls/hr IV Q8H [facility] Last Infusion: 11/20/24 06:25 Dose: Infused Documented By: MCKENZIE Metronidazole (Flagyl) 500 mg in 100 mls @ 100 mls/hr IV Q6H [facility] Last Infusion: 11/20/24 08:33 Dose: Infused Documented By: KAEL Vancomycin HCl 750 mg/ Sodium (Chloride) 265 mls @ 265 mls/hr IV Q12H [facility] Last Infusion: 11/19/24 23:41 Dose: Infused Documented By: MCKENZIE Magnesium Hydroxide (Milk Of Magnesia 30 Ml Oral.Susp) 30 ml PO DAILY PRN PRN Reason: Constipation Melatonin (Melatonin 3 Mg Tablet) 6 mg PO BEDTIME PRN PRN Reason: Insomnia Morphine Sulfate (Morphine Sulfate 4 Mg/Ml Cartridge) 2 mg IVPUSH Q4H PRN; Protocol PRN Reason: Pain, Severe (Pain Scale 7-10) Ondansetron HCl (Ondansetron Hcl 4 Mg/2 Ml Vial) 4 mg IVPUSH Q8H PRN PRN Reason: Nausea and Vomiting Oxycodone HCl (Oxycodone Hcl Immed Release 5 Mg Tablet) 5 mg PO Q6H PRN PRN Reason: Pain, Moderate(Pain Scale 4-6) Last Admin: 11/19/24 10:34 Dose: 5 mg Documented By: KEREN Pharmacy Consult (Consult Rx Vancomycin Dosing) 1 each MISCELLANE DAILY PRN PRN Reason: Consult order Polyethylene Glycol (Polyethylene Glycol 3350 17 Gm Powd.Pack) 17 gm PO DAILY PRN PRN Reason: Constipation Risperidone (Risperidone 1 Mg Tablet) 1 mg PO DAILY@1700 [facility] Last Admin: 11/19/24 17:24 Dose: Not Given Documented By: KAEL Non-Admin Reason: patient sleeping unable to take Sodium Chloride (0.9 % Sodium Chloride Flush 3 Ml Syringe) 3 ml IVFLUSH QSHIFT [facility] Last Admin: 11/20/24 07:13 Dose: 3 ml Documented By: KAEL Vitamin D (Cholecalciferol (Vitamin D3) 25 Mcg Tablet) 25 mcg PO DAILY [facility] Last Admin: 11/20/24 07:11 Dose: 25 mcg Documented By: KAEL Labs 11/20/24 06:25 11/20/24 06:25 Labs: Laboratory Results - last 24 hr 11/19/24 11/20/24 11/20/24 05:20 06:25 06:25 MCV 89.3 MCH 30.9 MCHC 34.6 RDW 12.9 Plt Count 127 L MPV 11.2 Immature Gran % (Auto) 0.5 H Neut % (Auto) 78.6 H Lymph % (Auto) 9.8 L [place] % (Auto) 9.1 Eos % (Auto) 1.8 Baso % (Auto) 0.2 Lymph # (Auto) 0.4 L [place] # (Auto) 0.4 Eos # (Auto) 0.1 Baso # (Auto) 0.0 Abs Immat Gran (auto) 0.02 Absolute Neuts (auto) 3.5 Absolute Nucleated RBC 0.000 Nucleated RBC % (auto) 0.0 ESR 34 H Anion Gap 9 L Estim Creat Clear Calc 71.6 72.9 Estimated GFR > 60 Random Glucose Calcium Iron TIBC % Saturation Unsat Iron Binding Total Bilirubin AST ALT Alkaline Phosphatase Total Protein Albumin Vitamin B12 Folate TSH 0.61 11/20/24 06:25 MCV MCH MCHC RDW Plt Count MPV Immature Gran % (Auto) Neut % (Auto) Lymph % (Auto) [place] % (Auto) Eos % (Auto) Baso % (Auto) Lymph # (Auto) [place] # (Auto) Eos # (Auto) Baso # (Auto) Abs Immat Gran (auto) Absolute Neuts (auto) Absolute Nucleated RBC Nucleated RBC % (auto) ESR Anion Gap Estim Creat Clear Calc Estimated GFR > 60 Random Glucose 100 Calcium 7.9 L Iron 17 L TIBC 122 L % Saturation 14 L Unsat Iron Binding 105 Total Bilirubin 1.6 H AST 65 H ALT 43 H Alkaline Phosphatase 75 Total Protein 5.1 L Albumin 2.9 L Vitamin B12 545 Folate 5.8 TSH Microbiology Microbiology Results: Microbiology 11/18/24 15:29 Blood Culture - Preliminary Blood - Venous No growth after 24 hours. 11/18/24 15:29 Blood Culture - Preliminary Blood - Venous No growth after 24 hours. Assessment and Plan (1) HTN (hypertension): Status: Acute Plan 84F PMH unspecified dementia, breast cancer status post surgery and radiation, peripheral vascular disease status post left superficial femoral artery arthrectomy and stent, left common iliac/external iliac stent, hypertension, urinary incontinence, hyperlipidemia, duodenitis with GI bleed in 2022, presented with progressive weakness over the past few months, now bed-bound with sacral ulcers and left heel wound Unstageable sacral pressure ulcer and left heel wound with infection Continue vanc, cefepime, Flagyl, surgery appreciated - local care follow up ID, wound care Urinary retention Alejandra placed, Urology No rhabdomyolysis Chronic mildly elevated CPK with progressive weakness neuro appreciated Myopathy or myositis felt to be less likely Discontinue statin of doubtful benefit at this point anway possible NPH but unlikely to benefit from work up/treatment PT OT - plan for STR History of breast cancer Anastrozole Hypertension Diltiazem held for borderline bp Peripheral vascular disease Aspirin statin discontinued DVT prophylaxis with Lovenox Full code reason for continued hospitalization: IV antibiotics for significant infection Quality Stroke Does the patient have a stroke diagnosis?: No VTE Prior VTE?: No VTE Risk Level:: Medical - moderate - high VTE Device Contraindication: Treatment Not Indicated VTE Drug Contraindication: N/A - Med Ordered
--- NOTE | 2024-11-20 09:23 | P.CNUR_ITS ---
History of Present Illness Consult details Consult date: 11/20/24 Narrative: 84-year-old female with a past medical history significant for dementia, breast cancer s/p surgery and radiation PID s/p L SFA arthrectomy/stent, L common iliac/external iliac stent, HTN, urinary incontinence, HLD, duodenitis with GI bleed 12/2022 recent fall 2-3 weeks ago admitted at [facility] and discharged home with services, who presented to the ED due to ulcers on the buttocks as well as worsening appearance of left heel wound. Consult requested for urinary retention. The patient's home meds included anticholinergics for h/o urinary retention PMFSH Past Medical History Medical History HTN (hypertension) Dementia PAD (peripheral artery disease) Invasive ductal carcinoma of right breast History of pneumonia History of dislocation of shoulder Family History Family History Mother Cancer of unknown origin Surgical History Surgical History History of vein stripping History of appendectomy History of cataract extraction History of left hip replacement History of back surgery Social History Social History Household Members: Spouse Housing: House Do you presently have visiting nurse or other home services: Yes Alcohol intake: current Alcohol intake frequency: holidays/special occasions only Alcohol type: wine Comment: bauer catheter Patient Tobacco Use Status: Former Tobacco user Advance Directives Date on File: 06/30/24 service: No Current occupational status: retired Meds Allergies Allergy/AdvReac Type Severity Reaction Status Date / Time Penicillins [PENICILLINS] Allergy Severe ITCHING Verified 11/18/24 14:07 Erythromycin Allergy Severe itching Uncoded 11/18/24 14:07 Active Medications: Current Medications Acetaminophen (Acetaminophen 325 Mg Tablet) 650 mg PO Q6H PRN PRN Reason: Pain, Mild 1-3,fever,headache Last Admin: 11/19/24 15:04 Dose: 650 mg Albuterol Sulfate (Albuterol Sulfate 90 Mcg 8 Gm Inhaler) 2 puff INHALE Q6H PRN PRN Reason: Wheezing Anastrozole (Anastrozole 1 Mg Tablet) 1 mg PO DAILY [facility] Last Admin: 11/20/24 07:10 Dose: 1 mg Aspirin (Aspirin 81 Mg Tab.Chew) 81 mg PO DAILY [facility] Last Admin: 11/20/24 07:12 Dose: 81 mg Calcium Carbonate (Calcium Carbonate 750 Mg Tab.Chew) 750 mg PO Q4H PRN PRN Reason: Heartburn Diltiazem HCl (Diltiazem Hcl Cd 120 Mg Cap.Er.Deg) 120 mg PO DAILY [facility]; Protocol Docusate Sodium (Docusate Sodium 100 Mg Capsule) 100 mg PO DAILY [facility] Last Admin: 11/20/24 07:12 Dose: 100 mg Enoxaparin Sodium (Enoxaparin Sodium 40 Mg/0.4 Ml Syringe) 40 mg SUBCUT Q24H [facility] Last Admin: 11/19/24 23:49 Dose: 40 mg Famotidine (Famotidine 20 Mg Tablet) 40 mg PO DAILY [facility] Last Admin: 11/20/24 07:11 Dose: 40 mg Ferrous Sulfate (Ferrous Sulfate 324 Mg Tablet.Dr) 324 mg PO DAILY [facility] Last Admin: 11/20/24 07:11 Dose: 324 mg Cefepime HCl (Maxipime) 2 gm in 50 mls @ 100 mls/hr IV Q8H [facility] Last Infusion: 11/20/24 06:25 Dose: Infused Metronidazole (Flagyl) 500 mg in 100 mls @ 100 mls/hr IV Q6H [facility] Last Infusion: 11/20/24 08:33 Dose: Infused Vancomycin HCl 750 mg/ Sodium (Chloride) 265 mls @ 265 mls/hr IV Q12H [facility] Last Infusion: 11/19/24 23:41 Dose: Infused Magnesium Hydroxide (Milk Of Magnesia 30 Ml Oral.Susp) 30 ml PO DAILY PRN PRN Reason: Constipation Melatonin (Melatonin 3 Mg Tablet) 6 mg PO BEDTIME PRN PRN Reason: Insomnia Morphine Sulfate (Morphine Sulfate 4 Mg/Ml Cartridge) 2 mg IVPUSH Q4H PRN; Protocol PRN Reason: Pain, Severe (Pain Scale 7-10) Ondansetron HCl (Ondansetron Hcl 4 Mg/2 Ml Vial) 4 mg IVPUSH Q8H PRN PRN Reason: Nausea and Vomiting Oxycodone HCl (Oxycodone Hcl Immed Release 5 Mg Tablet) 5 mg PO Q6H PRN PRN Reason: Pain, Moderate(Pain Scale 4-6) Last Admin: 11/19/24 10:34 Dose: 5 mg Pharmacy Consult (Consult Rx Vancomycin Dosing) 1 each MISCELLANE DAILY PRN PRN Reason: Consult order Polyethylene Glycol (Polyethylene Glycol 3350 17 Gm Powd.Pack) 17 gm PO DAILY PRN PRN Reason: Constipation Prednisone (Prednisone 20 Mg Tablet) 40 mg PO DAILY [facility] Risperidone (Risperidone 1 Mg Tablet) 1 mg PO DAILY@1700 [facility] Last Admin: 11/19/24 17:24 Dose: Not Given Sodium Chloride (0.9 % Sodium Chloride Flush 3 Ml Syringe) 3 ml IVFLUSH QSHIFT [facility] Last Admin: 11/20/24 07:13 Dose: 3 ml Vitamin D (Cholecalciferol (Vitamin D3) 25 Mcg Tablet) 25 mcg PO DAILY [facility] Last Admin: 11/20/24 07:11 Dose: 25 mcg Home Medications ?Medication ?Instructions ?Recorded ?Confirmed ?Last Taken ?Type albuterol sulfate 90 mcg/actuation 2 inh inhalation Q6H PRN Wheezing 08/23/20 11/18/24 Unknown History breath activated powder inhaler,sensor (Proair Digihaler) aspirin 81 mg chewable tablet 81 mg PO DAILY 08/23/20 11/18/24 06/30/24 History cholecalciferol (vitamin D3) 25 25 mcg PO DAILY 08/23/20 11/18/24 06/30/24 History mcg (1,000 unit) capsule anastrozole 1 mg tablet 1 mg PO DAILY 11/08/20 11/18/24 06/30/24 History famotidine 40 mg tablet 40 mg PO DAILY 10/10/23 11/18/24 06/30/24 History diltiazem HCl 120 mg 120 mg PO DAILY 10/11/23 11/18/24 06/30/24 History capsule,extended release 24 hr ferrous sulfate 324 mg (65 mg 324 mg PO DAILY 10/11/23 11/18/24 06/30/24 History iron) tablet,delayed release salmeterol 50 mcg/dose blister 1 inh inhalation BID PRN Wheezing 10/11/23 11/18/24 Unknown History powder for inhalation (Serevent Diskus) carvedilol 3.125 mg tablet 3.125 mg PO BID 07/02/24 11/18/24 06/30/24 History docusate sodium 100 mg capsule 100 mg PO DAILY 07/02/24 11/18/24 06/30/24 History (Colace) mirabegron 50 mg tablet,extended 50 mg PO DAILY 11/18/24 11/18/24 Unknown History release 24 hr (Myrbetriq) oxybutynin chloride 5 mg 5 mg PO BEDTIME 11/18/24 11/18/24 Unknown History tablet,extended release 24 hr risperidone 1 mg tablet 1 mg PO DAILY@1700 11/18/24 11/18/24 Unknown History Physical Exam 2 Vital Signs: Vital Signs: Last Vital Signs Temp 98.7 F 11/20/24 07:32 Pulse 98 11/20/24 08:24 Resp 18 11/20/24 07:32 BP 139/66 11/20/24 08:24 Pulse Ox 94 11/20/24 08:24 O2 Del Method Room Air 11/20/24 07:32 BMI result Body Mass Index 25.5 Skin: Other: ulcerations to perineum and buttucks Results Labs 11/22/24 06:22 11/23/24 09:39 Labs: Abnormal lab results 11/19/24 11/20/24 Range/Units 05:20 06:25 WBC 4.4 L (4.8-10.8) X10*3/uL RBC 2.98 L (4.20-5.50) X10*6/uL Hgb 9.2 L (12.0-16.0) g/dl Hct 26.6 L (37.0-47.0) % Plt Count 127 L (160-400) X10*3/uL Immature Gran % (Auto) 0.5 H (0.0-0.4) % Neut % (Auto) 78.6 H (45-73) % Lymph % (Auto) 9.8 L (20-40) % Lymph # (Auto) 0.4 L (1.2-4.9) X10*3/uL ESR 34 H (0-20) MM/HR Chloride 109 H (96-108) mmol/L Anion Gap 9 L (12-20) Calcium 7.9 L (8.4-10.2) mg/dL Iron 17 L (30-160) mcg/dL TIBC 122 L (228-428) mcg/dL % Saturation 14 L (15-50) % Total Bilirubin 1.6 H (0.0-1.0) mg/dL AST 65 H (5-31) U/L ALT 43 H (0-31) U/L Total Protein 5.1 L (6.5-8.0) g/dL Albumin 2.9 L (3.5-5.0) g/dL Short CBC 11/20/24 Range/Units 06:25 WBC 4.4 L (4.8-10.8) X10*3/uL Hgb 9.2 L (12.0-16.0) g/dl Hct 26.6 L (37.0-47.0) % Plt Count 127 L (160-400) X10*3/uL BMP 11/20/24 11/20/24 06:25 06:25 Sodium 138 Potassium 3.3 Chloride 109 H Carbon Dioxide 23 BUN 11 Creatinine 0.55 0.54 Calcium 7.9 L Liver Function 11/20/24 Range/Units 06:25 Total Bilirubin 1.6 H (0.0-1.0) mg/dL AST 65 H (5-31) U/L ALT 43 H (0-31) U/L Alkaline Phosphatase 75 (39-117) U/L Albumin 2.9 L (3.5-5.0) g/dL Urine 11/18/24 Range/Units 19:52 Urine Color Dark Yellow Urine Appearance Clear Urine pH 6.0 (5.0-9.0) Ur Specific [place] 1.020 (1.005-1.025) Urine Protein Trace (Neg-Trace) mg/dL Urine Glucose (UA) Negative (Negative) mg/dL Assessment and Plan (1) Urinary incontinence: Status: Acute (2) Acute urinary retention: Status: Acute (3) Dementia: Status: Acute (4) Decubitus skin ulcer: Status: Acute Plan Cont bauer to divert urine away from wounds home meds myrbetriq and oxybutinin have been d/c'd Procedures Date of Service Date of Service: 11/25/24
[2024-11-20 09:50] LABS: Vancomycin Random 9.7 mcg/mL (15-20)
--- NOTE | 2024-11-20 10:11 | HE.PHANOTE ---
RE: VANCO DOSING Trough came back as 9.7 mg/L. Renal function is stable. Dose is increased to 1000 mg q12h. Next trough is scheduled for 11/21/24 @0900.
[2024-11-20 10:32] VITALS: BMI 25.5
[2024-11-20] MEDS: predniSONE 20 MG TABLET 40 MG PO (10:42)
[2024-11-20] MEDS: vancomycin HCL 1,000 MG in 0.9 % Sodium Chloride 250 ML 270 MG IV ×2 (10:43→22:28)
--- NOTE | 2024-11-20 11:03 | MHC.SL.SWA ---
Speech Pathologist Impression: Risk of Aspiration, Oropharyngeal Dysphagia Risk of Aspiration Due to: Neurological Condition Reduced Cognition Dysphasia Diet Status: Downgrade to NDD3 Liquid Consistency and Strategies for Safe Swallow: Liquid Intake Recommendation: Thin Liquid Intake Strategies: Small Sips Solid Food Consistency: Dietary Recommendations: Chopped/Advanced (NDD3) Additional Modifications to Solid Foods: Recommend CHOPPED/ADVANCED (NDD3) diet for ease of mastication and to facilitate self-feeding, THIN liquids, pills WHOLE in LIQUID or PUREE per patient's tolerance. She is recommended direct supervision at meal time d/t confusion in setting of dementia. Patient is encouraged independence when feeding, but will need assistance opening containers and provided redirection and cues for safe feeding. Oral Medication Intake: Whole with Liquid Please contact the pharmacy regarding appropriate crushable or liquid drug formulations that are available whenever modified delivery is recommended. Compensatory Strategies and Precautions to be Taken for Safe Swallow: Sitting Upright (90 deg) Small Bites and Sips Alternate Liquids/Solids Rate of Ingestion Change Avoid Specific Foods Supervision While Eating and Drinking for Safe Swallow: Total Supervision (1:1) Foods to Avoid: [place] hard or sticky foods Swallowing Recommended Treatments: Recommendation for Speech: Inpatient Speech Therapy Comment: 1 f/u to monitor tolerance Frequency/Duration: Date Range for Service Req: Timeline to reassess: Road Manager Clinican/Clinical Fellow: No Supervisory Statement: I have reviewed and agree with the student/clinical fellow's documentation: N/A Speech Language Pathologist: Anai Villarreal M.A., CCC-SCHEDULING REPRESENTATIVE
--- NOTE | 2024-11-20 11:53 | MHC.CM.PN ---
Per MD rounds patient not medically cleared for dc. CM will continue to follow.
--- NOTE | 2024-11-20 15:08 | W.PM.IDCN ---
History of Present Illness Data of Consult Service Date: 11/20/24 Requesting physician: Edilberto Holley Primary Care Provider: Makenzie Colindres MD HPI Reason for consult: buttock wounds,heel wounds She presents with blood from buttock area when wiping was done as she has dementia and is dependent on others. She has buttock lesions with no CT evidence of OM and no probe to bone. She has no fever or chills/ She has had hospitalization [facility] 2 weeks ago. Review of Systems Review of Systems: Yes Unobtainable due to mental status PMFSH Past Medical History Medical History HTN (hypertension) Dementia PAD (peripheral artery disease) Invasive ductal carcinoma of right breast History of pneumonia History of dislocation of shoulder Family History Family History Mother Cancer of unknown origin Family history: reviewed and not pertinent Surgical History Surgical History History of vein stripping History of appendectomy History of cataract extraction History of left hip replacement History of back surgery Social History Social History Household Members: Spouse Housing: House Do you presently have visiting nurse or other home services: Yes Alcohol intake: current Alcohol intake frequency: holidays/special occasions only Alcohol type: wine Comment: bauer catheter Patient Tobacco Use Status: Former Tobacco user Advance Directives Date on File: 06/30/24 service: No Current occupational status: retired Meds Allergies Allergy/AdvReac Type Severity Reaction Status Date / Time Penicillins [PENICILLINS] Allergy Severe ITCHING Verified 11/18/24 14:07 Erythromycin Allergy Severe itching Uncoded 11/18/24 14:07 Active Medications: Current Medications Acetaminophen (Acetaminophen 325 Mg Tablet) 650 mg PO Q6H PRN PRN Reason: Pain, Mild 1-3,fever,headache Last Admin: 11/19/24 15:04 Dose: 650 mg Albuterol Sulfate (Albuterol Sulfate 90 Mcg 8 Gm Inhaler) 2 puff INHALE Q6H PRN PRN Reason: Wheezing Anastrozole (Anastrozole 1 Mg Tablet) 1 mg PO DAILY [facility] Last Admin: 11/20/24 07:10 Dose: 1 mg Aspirin (Aspirin 81 Mg Tab.Chew) 81 mg PO DAILY [facility] Last Admin: 11/20/24 07:12 Dose: 81 mg Calcium Carbonate (Calcium Carbonate 750 Mg Tab.Chew) 750 mg PO Q4H PRN PRN Reason: Heartburn Diltiazem HCl (Diltiazem Hcl Cd 120 Mg Cap.Er.Deg) 120 mg PO DAILY [facility]; Protocol Docusate Sodium (Docusate Sodium 100 Mg Capsule) 100 mg PO DAILY [facility] Last Admin: 11/20/24 07:12 Dose: 100 mg Enoxaparin Sodium (Enoxaparin Sodium 40 Mg/0.4 Ml Syringe) 40 mg SUBCUT Q24H [facility] Last Admin: 11/19/24 23:49 Dose: 40 mg Famotidine (Famotidine 20 Mg Tablet) 40 mg PO DAILY [facility] Last Admin: 11/20/24 07:11 Dose: 40 mg Ferrous Sulfate (Ferrous Sulfate 324 Mg Tablet.Dr) 324 mg PO DAILY [facility] Last Admin: 11/20/24 07:11 Dose: 324 mg Cefepime HCl (Maxipime) 2 gm in 50 mls @ 100 mls/hr IV Q8H [facility] Last Admin: 11/20/24 14:47 Dose: 100 mls/hr Metronidazole (Flagyl) 500 mg in 100 mls @ 100 mls/hr IV Q6H [facility] Last Infusion: 11/20/24 14:41 Dose: Infused Vancomycin HCl 1,000 mg/ (Sodium Chloride) 270 mls @ 270 mls/hr IV Q12H [facility] Last Infusion: 11/20/24 12:21 Dose: Infused Magnesium Hydroxide (Milk Of Magnesia 30 Ml Oral.Susp) 30 ml PO DAILY PRN PRN Reason: Constipation Melatonin (Melatonin 3 Mg Tablet) 6 mg PO BEDTIME PRN PRN Reason: Insomnia Morphine Sulfate (Morphine Sulfate 4 Mg/Ml Cartridge) 2 mg IVPUSH Q4H PRN; Protocol PRN Reason: Pain, Severe (Pain Scale 7-10) Ondansetron HCl (Ondansetron Hcl 4 Mg/2 Ml Vial) 4 mg IVPUSH Q8H PRN PRN Reason: Nausea and Vomiting Oxycodone HCl (Oxycodone Hcl Immed Release 5 Mg Tablet) 5 mg PO Q6H PRN PRN Reason: Pain, Moderate(Pain Scale 4-6) Last Admin: 11/19/24 10:34 Dose: 5 mg Pharmacy Consult (Consult Rx Vancomycin Dosing) 1 each MISCELLANE DAILY PRN PRN Reason: Consult order Polyethylene Glycol (Polyethylene Glycol 3350 17 Gm Powd.Pack) 17 gm PO DAILY PRN PRN Reason: Constipation Prednisone (Prednisone 20 Mg Tablet) 40 mg PO DAILY [facility] Last Admin: 11/20/24 10:42 Dose: 40 mg Risperidone (Risperidone 1 Mg Tablet) 1 mg PO DAILY@1700 [facility] Last Admin: 11/19/24 17:24 Dose: Not Given Sodium Chloride (0.9 % Sodium Chloride Flush 3 Ml Syringe) 3 ml IVFLUSH QSHIFT [facility] Last Admin: 11/20/24 14:48 Dose: 3 ml Vitamin D (Cholecalciferol (Vitamin D3) 25 Mcg Tablet) 25 mcg PO DAILY [facility] Last Admin: 11/20/24 07:11 Dose: 25 mcg Home Medications ?Medication ?Instructions ?Recorded ?Confirmed ?Last Taken ?Type albuterol sulfate 90 mcg/actuation 2 inh inhalation Q6H PRN Wheezing 08/23/20 11/18/24 Unknown History breath activated powder inhaler,sensor (Proair Digihaler) aspirin 81 mg chewable tablet 81 mg PO DAILY 08/23/20 11/18/24 06/30/24 History atorvastatin 40 mg tablet 40 mg PO DAILY 08/23/20 11/18/24 06/30/24 History cholecalciferol (vitamin D3) 25 25 mcg PO DAILY 08/23/20 11/18/24 06/30/24 History mcg (1,000 unit) capsule anastrozole 1 mg tablet 1 mg PO DAILY 11/08/20 11/18/24 06/30/24 History famotidine 40 mg tablet 40 mg PO DAILY 10/10/23 11/18/24 06/30/24 History diltiazem HCl 120 mg 120 mg PO DAILY 10/11/23 11/18/24 06/30/24 History capsule,extended release 24 hr ferrous sulfate 324 mg (65 mg 324 mg PO DAILY 10/11/23 11/18/24 06/30/24 History iron) tablet,delayed release salmeterol 50 mcg/dose blister 1 inh inhalation BID PRN Wheezing 10/11/23 11/18/24 Unknown History powder for inhalation (Serevent Diskus) carvedilol 3.125 mg tablet 3.125 mg PO BID 07/02/24 11/18/24 06/30/24 History docusate sodium 100 mg capsule 100 mg PO DAILY 07/02/24 11/18/24 06/30/24 History (Colace) mirabegron 50 mg tablet,extended 50 mg PO DAILY 11/18/24 11/18/24 Unknown History release 24 hr (Myrbetriq) oxybutynin chloride 5 mg 5 mg PO BEDTIME 11/18/24 11/18/24 Unknown History tablet,extended release 24 hr risperidone 1 mg tablet 1 mg PO DAILY@1700 11/18/24 11/18/24 Unknown History Physical Exam Vital Signs: Vital Signs: Last Vital Signs Temp 98.7 F 11/20/24 07:32 Pulse 98 11/20/24 08:24 Resp 18 11/20/24 07:32 BP 139/66 11/20/24 08:24 Pulse Ox 94 11/20/24 08:24 O2 Del Method Room Air 11/20/24 07:32 BMI result Body Mass Index 25.5 Const: General: cooperative HEENT: Head: Yes normal to inspection Face and sinus: Yes normal facial exam Mouth: Normal oral and palatal mucosa present Teeth and gingiva: dentition normal Eyes: General: appearance normal, both eyes and all related structures Pupils: Equal, round and reactive pupils present Resp: Effort & Inspection: normal respiratory effort Cardio: Rate: regular rate Rhythm: regular rhythm GI: Palpation (GI): Soft to palpation and nontender : General: Yes no CVA tenderness Back/Spine/Pelvis: Back: no CVA tenderness Skin: General skin exam: no rashes or lesions noted Neuro: General: moves all extremities Cranial nerves: Yes Equal, round and reactive pupils present Extrem: Other: buttocks open wound stage 4 Psych: Other: nonverbal Results Labs 11/20/24 06:25 11/20/24 06:25 Labs: Short CBC 11/20/24 Range/Units 06:25 WBC 4.4 L (4.8-10.8) X10*3/uL Hgb 9.2 L (12.0-16.0) g/dl Hct 26.6 L (37.0-47.0) % Plt Count 127 L (160-400) X10*3/uL BMP 11/20/24 11/20/24 06:25 06:25 Sodium 138 Potassium 3.3 Chloride 109 H Carbon Dioxide 23 BUN 11 Creatinine 0.55 0.54 Calcium 7.9 L Liver Function 11/20/24 Range/Units 06:25 Total Bilirubin 1.6 H (0.0-1.0) mg/dL AST 65 H (5-31) U/L ALT 43 H (0-31) U/L Alkaline Phosphatase 75 (39-117) U/L Albumin 2.9 L (3.5-5.0) g/dL Microbiology Microbiology Results: Microbiology 11/18/24 15:29 Blood - Venous Blood Culture - Preliminary No growth after 24 hours. 11/18/24 15:29 Blood - Venous Blood Culture - Preliminary No growth after 24 hours. Assessment and Plan (1) Multifactorial dementia: Status: Acute (2) Blister of right heel: Status: Acute (3) Pressure ulcer of left heel: Status: Acute (4) Decubitus ulcer, infected: Status: Acute Plan Local infection pressure buttocks and possible heels Would give IV Cefepime,flagyl and Vancomycin until improved and then po Doxycycline and Ceftin for two weeks. Wound [facility] outpatent.
[2024-11-20 15:31] VITALS: BP 144/64; PULSE 86; RESP 16; TEMP 36.9; O2SAT 94
[2024-11-20] MEDS: risperiDONE 1 MG TABLET PO (15:34)
--- NOTE | 2024-11-20 15:35 | PM.EVENT ---
Event Note Date of Service: 11/20/24 Time Spent With Patient Time: Total time managing care of this patient today ____ minutes.
--- NOTE | 2024-11-20 17:37 | HO.WOUND ---
Wound Consult: Initial 84yr old?female admitted to [facility] on 11/18/24 - See progress notes and H&P for detailed history.? Wound consult placed for Sacrum, Bilateral Heels.? Patient agreeable to assessment and photo documentation.? Patient and sister at bedside. Patient unable to report details but is agreeable to assessment. Patient sister Enriqueta reports she was helping patient bath her but they they never really looked at her buttock since she was so difficult to move. Sacrococcygeal (Sacrum, Coccyx and Buttock) Etiology: ??Unstageable Pressure Injury Present on Admission Measurements:15 cm x 17cm x 0.3cm Wound Bed: adherent thick eschar and slough - not yet ready for debridement Drainage / Odor: Krishnamurthy mild odor drianage Edges: ? irregular Tracey wound: MASD - Dark red tissue ? No Induration, Fluctuance or Warmth noted Pain: mild pain reported Goals of Treatment: ? Triad to allow for autolytic debridement Concer for wound worsening although not yet ready for debridement will monitor for progression - consider santly at future assessment. Left Heel Etiology: ?Unstageable Pressure injury ?Present on Admission Measurements: 6cm x 7cm x 0.3cm Wound Bed: central black brown eschar with pink moist tissue surrounded - epidermal lifting noted Drainage / Odor: krishnamurthy drainage noted - no odor Edges: ? irregular Tracey wound: ?intact No Induration, Fluctuance or Warmth noted Pain: mild pain reported Goals of Treatment: ? Xeroform for moist autolytic debridement - will assess for Medihoney or Santly at future appointment Right Heel Etiology: ??Unstageable Pressure Injury Present on Admission Measurements: 5cm x6cm Wound Bed: intact fluid filled bulla - the wound bed appears dark in some areas there for concern for rupture to reveal full thickness wound bed - unable to determine at this time Drainage / Odor: None Edges: ? unattached Tracey wound: Maroon pink tissue ? No Induration, Fluctuance or Warmth noted Pain: pain reported Goals of Treatment: ? Xeroform and dry gauze wrap Recommendations: 1. Turn and Reposition every 2 hours and as needed for patient comfort.? Use pillows or wedges to support off loading positions. 2. Off Load all bony prominences with use of pillows and heel boots if needed.? Apply Preventative foams where needed. ? 3. Monitor for incontinence and moisture control, use barrier creams when needed for prevention and treatment. 4. Provide adequate and supplemental nutrition.? 5. Order Pulsate bed from [employer] low air loss mattress. 6. When applicable maintain blood glucose levels per Providers order. Sacrococcygeal - Off Load Pressure with Q2 hr turns and use of pillows - Cleanse with PH balance spray or wipes, pat dry. ?Apply thin layer of Triad to wound bed - only pat and dab no scrub and rub when soiling occurs. Reapply thin layer PRN after each episode of incontinence. Bilateral Heels - Elevate heel off of bed surface with heel protector boots (Purple boots). Cleanse with NS, pat dry. Apply xeroform over wound bed cover with dry gauze, ABd pad and wrap. Change daily. Re-consult wound care Nurse for wound deterioration or wound changes.
[2024-11-20 19:22] VITALS: BP 138/60; PULSE 87; RESP 18; TEMP 36.9; O2SAT 95
[2024-11-21] MEDS: metroNIDAZOLE/NS 500 MG/100 ML PIGGYBACK 100 MG IV ×4 (00:33→19:17)
[2024-11-21] MEDS: Enoxaparin Sodium 40 MG/0.4 ML SYRINGE SUBCUT ×2 (00:34→23:00)
[2024-11-21 03:24] VITALS: BP 138/63; PULSE 70; RESP 18; TEMP 36.7; O2SAT 98
[2024-11-21] MEDS: cefEPime HCl/D5W 2 GM/50 ML PIGGYBACK IV ×3 (05:28→21:20)
[2024-11-21 06:37] LABS: MANUAL DIFF FLAG NO
[2024-11-21 06:39] LABS: Eosinophils Percent Auto 0.2 % (0-4); Hemoglobin 9.6 g/dl (12.0-16.0); Imm Gran Abs Auto 0.06 X10*3/uL (0.00-0.03); Imm Gran Pct Auto 1.1 % (0.0-0.4); Lymphocytes Absolute Auto 0.5 X10*3/uL (1.2-4.9); Lymphocytes Percent Auto 9.5 % (20-40); Mean Corpuscular HGB Conc 34.3 g/dl (31.0-35.0); Mean Corpuscular Hemoglobin 30.6 pg (27.0-33.0); Mean Corpuscular Volume 89.2 fL (80.0-98.0); Mean Platelet Volume 10.7 fL (9.4-12.3); Monocytes Absolute Auto 0.6 X10*3/uL (0.1-1.2); Monocytes Percent Auto 11.3 % (2-11); Neutrophils Absolute Auto 4.3 x10*3/uL (2.0-8.3); Neutrophils Percent Auto 77.9 % (45-73); Platelet Count 143 X10*3/uL (160-400); Red Blood Count 3.14 X10*6/uL (4.20-5.50); Red Cell Distribution Width 12.8 % (11.0-16.0); White Blood Count 5.6 X10*3/uL (4.8-10.8)
[2024-11-21 06:59] LABS: Alanine Aminotransferase 39 U/L (0-31); Albumin Level 2.7 g/dL (3.5-5.0); Alkaline Phosphatase 70 U/L (39-117); Anion Gap 8 (12-20); Aspartate Amino Transferase 48 U/L (5-31); Bilirubin Direct 0.3 mg/dL (0.0-0.5); Bilirubin Total 0.8 mg/dL (0.0-1.0); Blood Urea Nitrogen 20 mg/dL (9-16); Carbon Dioxide 24 mmol/L (22-29); Chloride 111 mmol/L (96-108); Creatinine Clr Calc Pharmacy 67.8; Estimated Glomerular Filt Rate > 60; Glucose Random 141 mg/dL (60-115); Potassium 3.4 mmol/L (3.3-5.1); Sodium 140 mmol/L (135-145); Total Protein 4.9 g/dL (6.5-8.0)
[2024-11-21 07:22] VITALS: BP 141/63; PULSE 66; RESP 16; TEMP 36.8; O2SAT 94
[2024-11-21] MEDS: 0.9 % Sodium Chloride Flush 3 ML SYRINGE IVFLUSH (07:39)
--- NOTE | 2024-11-21 09:32 | P.PNIM_ITS ---
Subjective Subjective Date of Service: 11/21/24 Review of Systems Review of Systems: Yes Unobtainable due to mental condition Physical Exam 2 Vital Signs: Vital Signs: Last Vital Signs Temp 98.2 F 11/21/24 07:22 Pulse 66 11/21/24 07:22 Resp 16 11/21/24 07:22 BP 141/63 H 11/21/24 07:22 Pulse Ox 94 11/21/24 07:22 O2 Del Method Room Air 11/21/24 07:22 BMI result Body Mass Index 25.5 Const: General: cooperative HEENT: Head: Yes normal to inspection Face and sinus: Yes normal facial exam Mouth: Normal oral and palatal mucosa present Teeth and gingiva: d entition normal Eyes: General: appearance normal, both eyes and all related structures P upils: Equal, round and reactive pupils present Resp: Effort & Inspection: normal respiratory effort Cardio: Rate: regular rate Rhythm: regular rhythm GI: Palpation (GI): Soft to palpation and nontender : General: Yes no CVA tenderness Back/Spine/Pelvis: Back: no CVA tenderness Skin: General skin exam: no rashes or lesions noted Neuro: General: moves all extremities Cranial nerves: Yes Equal, round and reactive pupils present Extrem: Other: buttocks open wound stage 4 Psych: Other: nonverbal Objective Data Active Medications Acetaminophen (Acetaminophen 325 Mg Tablet) 650 mg PO Q6H PRN PRN Reason: Pain, Mild 1-3,fever,headache Last Admin: 11/19/24 15:04 Dose: 650 mg Documented By: KAROL Albuterol Sulfate (Albuterol Sulfate 90 Mcg 8 Gm Inhaler) 2 puff INHALE Q6H PRN PRN Reason: Wheezing Anastrozole (Anastrozole 1 Mg Tablet) 1 mg PO DAILY [facility] Last Admin: 11/20/24 07:10 Dose: 1 mg Documented By: KAEL Aspirin (Aspirin 81 Mg Tab.Chew) 81 mg PO DAILY [facility] Last Admin: 11/20/24 07:12 Dose: 81 mg Documented By: KAEL Calcium Carbonate (Calcium Carbonate 750 Mg Tab.Chew) 750 mg PO Q4H PRN PRN Reason: Heartburn Diltiazem HCl (Diltiazem Hcl Cd 120 Mg Cap.Er.Deg) 120 mg PO DAILY [facility]; Protocol Docusate Sodium (Docusate Sodium 100 Mg Capsule) 100 mg PO DAILY [facility] Last Admin: 11/20/24 07:12 Dose: 100 mg Documented By: KAEL Enoxaparin Sodium (Enoxaparin Sodium 40 Mg/0.4 Ml Syringe) 40 mg SUBCUT Q24H [facility] Last Admin: 11/21/24 00:34 Dose: 40 mg Documented By: JAVAD Famotidine (Famotidine 20 Mg Tablet) 40 mg PO DAILY [facility] Last Admin: 11/20/24 07:11 Dose: 40 mg Documented By: KAEL Ferrous Sulfate (Ferrous Sulfate 324 Mg Tablet.) 324 mg PO DAILY [facility] Last Admin: 11/20/24 07:11 Dose: 324 mg Documented By: KAEL Cefepime HCl (Maxipime) 2 gm in 50 mls @ 100 mls/hr IV Q8H [facility] Last Infusion: 11/21/24 05:58 Dose: Infused Documented By: JAVAD Metronidazole (Flagyl) 500 mg in 100 mls @ 100 mls/hr IV Q6H [facility] Last Infusion: 11/21/24 08:50 Dose: Infused Documented By: PAUL Vancomycin HCl 1,000 mg/ (Sodium Chloride) 270 mls @ 270 mls/hr IV Q12H [facility] Last Infusion: 11/20/24 23:28 Dose: Infused Documented By: JAVAD Magnesium Hydroxide (Milk Of Magnesia 30 Ml Oral.Susp) 30 ml PO DAILY PRN PRN Reason: Constipation Melatonin (Melatonin 3 Mg Tablet) 6 mg PO BEDTIME PRN PRN Reason: Insomnia Morphine Sulfate (Morphine Sulfate 4 Mg/Ml Cartridge) 2 mg IVPUSH Q4H PRN; Protocol PRN Reason: Pain, Severe (Pain Scale 7-10) Ondansetron HCl (Ondansetron Hcl 4 Mg/2 Ml Vial) 4 mg IVPUSH Q8H PRN PRN Reason: Nausea and Vomiting Oxycodone HCl (Oxycodone Hcl Immed Release 5 Mg Tablet) 5 mg PO Q6H PRN PRN Reason: Pain, Moderate(Pain Scale 4-6) Last Admin: 11/19/24 10:34 Dose: 5 mg Documented By: KEREN Pharmacy Consult (Consult Rx Vancomycin Dosing) 1 each MISCELLANE DAILY PRN PRN Reason: Consult order Polyethylene Glycol (Polyethylene Glycol 3350 17 Gm Powd.Pack) 17 gm PO DAILY PRN PRN Reason: Constipation Prednisone (Prednisone 20 Mg Tablet) 40 mg PO DAILY [facility] Last Admin: 11/20/24 10:42 Dose: 40 mg Documented By: KAEL Risperidone (Risperidone 1 Mg Tablet) 1 mg PO DAILY@1700 [facility] Last Admin: 11/20/24 15:34 Dose: 1 mg Documented By: KAEL Sodium Chloride (0.9 % Sodium Chloride Flush 3 Ml Syringe) 3 ml IVFLUSH QSHIFT [facility] Last Admin: 11/21/24 07:39 Dose: 3 ml Documented By: PAUL Vitamin D (Cholecalciferol (Vitamin D3) 25 Mcg Tablet) 25 mcg PO DAILY [facility] Last Admin: 11/20/24 07:11 Dose: 25 mcg Documented By: AKEL Labs 11/21/24 06:17 11/21/24 06:17 Labs: Laboratory Results - last 24 hr 11/20/24 11/21/24 11/21/24 09:07 06:17 08:57 MCV 89.2 MCH 30.6 MCHC 34.3 RDW 12.8 Plt Count 143 L MPV 10.7 Immature Gran % (Auto) 1.1 H Neut % (Auto) 77.9 H Lymph % (Auto) 9.5 L Gordon % (Auto) 11.3 H Eos % (Auto) 0.2 Baso % (Auto) 0.0 Lymph # (Auto) 0.5 L Gordon # (Auto) 0.6 Eos # (Auto) 0.0 Baso # (Auto) 0.0 Abs Immat Gran (auto) 0.06 H Absolute Neuts (auto) 4.3 Absolute Nucleated RBC 0.000 Nucleated RBC % (auto) 0.0 Hold Purple Top SEE NOTE Anion Gap 8 L Estim Creat Clear Calc 67.8 Estimated GFR > 60 Random Glucose 141 H Calcium 8.0 L Total Bilirubin 0.8 Direct Bilirubin 0.3 AST 48 H ALT 39 H Alkaline Phosphatase 70 Total Protein 4.9 L Albumin 2.7 L Random Vancomycin 9.7 L Microbiology Microbiology Results: Microbiology 11/18/24 15:29 Blood Culture - Preliminary Blood - Venous No growth after 48 hours. 11/18/24 15:29 Blood Culture - Preliminary Blood - Venous No growth after 48 hours. Assessment and Plan (1) HTN (hypertension): Status: Acute Plan 84F PMH unspecified dementia, breast cancer status post surgery and radiation, peripheral vascular disease status post left superficial femoral artery arthrectomy and stent, left common iliac/external iliac stent, hypertension, urinary incontinence, hyperlipidemia, duodenitis with GI bleed in 2022, presented with progressive weakness over the past few months, now bed-bound with sacral ulcers and left heel wound Unstageable sacral pressure ulcer and left heel wound with infection Continue vanc, cefepime, Flagyl, surgery appreciated - local care ID appreciated, continue IV antibiotics as above and on discharge transitioned to 2 weeks of p.o. doxycycline and Ceftin Wound care appreciated, heels continue with Xeroform, sacrum continue with offloading, cleansing with pH balance sprays or wipes, thin layer of triad to wound bed Urinary retention Alejandra placed, Urology appreciated we will continue Alejandra for skin protection No rhabdomyolysis Chronic mildly elevated CPK with progressive weakness neuro appreciated Myopathy or myositis felt to be less likely Discontinue statin of doubtful benefit at this point anyway, we will start trial of prednisone possible NPH but unlikely to benefit from work up/treatment PT OT - plan for STR History of breast cancer Anastrozole Hypertension Diltiazem held for borderline bp Peripheral vascular disease Aspirin statin discontinued DVT prophylaxis with Lovenox Full code reason for continued hospitalization: IV antibiotics for significant infection Quality Stroke Does the patient have a stroke diagnosis?: No VTE Prior VTE?: No VTE Risk Level:: Medical - moderate - high VTE Device Contraindication: Treatment Not Indicated VTE Drug Contraindication: N/A - Med Ordered
[2024-11-21 09:36] LABS: Vancomycin Random 10.8 mcg/mL (15-20)
[2024-11-21] MEDS: Ferrous Sulfate 324 MG TABLET.DR PO (09:44)
[2024-11-21] MEDS: Famotidine 20 MG TABLET 40 MG PO (09:44)
[2024-11-21] MEDS: Cholecalciferol (Vitamin D3) 25 MCG TABLET PO (09:44)
[2024-11-21] MEDS: predniSONE 20 MG TABLET 40 MG PO (09:44)
[2024-11-21] MEDS: Anastrozole 1 MG TABLET PO (09:44)
[2024-11-21] MEDS: Docusate Sodium 100 MG CAPSULE PO (09:44)
[2024-11-21] MEDS: Aspirin 81 MG TAB.CHEW PO (09:44)
--- NOTE | 2024-11-21 09:52 | HE.PHANOTE ---
Vancomycin addendum: level came back as 10.8, predicted AUC 451 will keep dose the same and recheck level rhina
[2024-11-21] MEDS: vancomycin HCL 1,000 MG in 0.9 % Sodium Chloride 250 ML 270 MG IV ×2 (11:17→23:00)
[2024-11-21] MEDS: Milk of Magnesia 30 ML ORAL.SUSP PO (14:22)
[2024-11-21 15:25] VITALS: BP 109/56; PULSE 92; RESP 14; TEMP 37.1; O2SAT 95
[2024-11-21] MEDS: risperiDONE 1 MG TABLET PO (17:04)
[2024-11-21 19:26] VITALS: BP 105/54; PULSE 103; RESP 18; TEMP 37.4; O2SAT 92
[2024-11-22] MEDS: metroNIDAZOLE/NS 500 MG/100 ML PIGGYBACK 100 MG IV ×4 (00:41→20:04)
[2024-11-22 03:24] VITALS: BP 150/73; PULSE 76; RESP 18; TEMP 36.6; O2SAT 94
[2024-11-22] MEDS: cefEPime HCl/D5W 2 GM/50 ML PIGGYBACK IV ×3 (05:06→21:18)
[2024-11-22 07:00] LABS: Blood Urea Nitrogen 23 mg/dL (9-16); Calcium 8.2 mg/dL (8.4-10.2); Creatinine Clr Calc Pharmacy 65.6; Estimated Glomerular Filt Rate > 60; Glucose Random 123 mg/dL (60-115)
[2024-11-22 07:08] LABS: Anion Gap 8 (12-20); Carbon Dioxide 26 mmol/L (22-29); Chloride 110 mmol/L (96-108); Potassium 4.3 mmol/L (3.3-5.1); Sodium 140 mmol/L (135-145)
[2024-11-22 07:10] LABS: Hematocrit 29.3 % (37.0-47.0); Hemoglobin 10.1 g/dl (12.0-16.0); Mean Corpuscular HGB Conc 34.5 g/dl (31.0-35.0); Mean Corpuscular Hemoglobin 31.1 pg (27.0-33.0); Mean Corpuscular Volume 90.2 fL (80.0-98.0); Mean Platelet Volume 11.3 fL (9.4-12.3); Platelet Count 155 X10*3/uL (160-400); Red Blood Count 3.25 X10*6/uL (4.20-5.50); White Blood Count 6.2 X10*3/uL (4.8-10.8)
[2024-11-22] MEDS: 0.9 % Sodium Chloride Flush 3 ML SYRINGE IVFLUSH ×2 (07:26→21:47)
[2024-11-22 07:56] VITALS: BP 168/75; PULSE 75; RESP 18; TEMP 36.3; O2SAT 97
--- NOTE | 2024-11-22 08:31 | HO.PM.IMPN ---
Subjective Subjective Date of Service: 11/22/24 Interval History: feeling motivated to work with pt Physical Exam Vital Signs: Vital Signs: Last Vital Signs Temp 97.3 F 11/22/24 07:56 Pulse 75 11/22/24 07:56 Resp 18 11/22/24 07:56 BP 168/75 H 11/22/24 07:56 Pulse Ox 97 11/22/24 07:56 O2 Del Method Room Air 11/22/24 07:56 BMI result Body Mass Index 25.5 Const: General: cooperative HEENT: Head: Yes normal to inspection Face and sinus: Yes normal facial exam Mouth: Normal oral and palatal mucosa present Teeth and gingiva: dentition normal Eyes: General: appearance normal, both eyes and all related structures Pupils: Equal, round and reactive pupils present Resp: Effort & Inspection: normal respiratory effort Cardio: Rate: regular rate Rhythm: regular rhythm GI: Palpation (GI): Soft to palpation and nontender : General: Yes no CVA tenderness Back/Spine/Pelvis: Back: no CVA tenderness Skin: General skin exam: no rashes or lesions noted Neuro: General: moves all extremities Cranial nerves: Yes Equal, round and reactive pupils present Extrem: Other: buttocks open wound stage 4 Psych: Other: nonverbal Objective Data Active Medications Acetaminophen (Acetaminophen 325 Mg Tablet) 650 mg PO Q6H PRN PRN Reason: Pain, Mild 1-3,fever,headache Last Admin: 11/19/24 15:04 Dose: 650 mg Documented By: KAROL Albuterol Sulfate (Albuterol Sulfate 90 Mcg 8 Gm Inhaler) 2 puff INHALE Q6H PRN PRN Reason: Wheezing Anastrozole (Anastrozole 1 Mg Tablet) 1 mg PO DAILY [facility] Last Admin: 11/21/24 09:44 Dose: 1 mg Documented By: PAUL Aspirin (Aspirin 81 Mg Tab.Chew) 81 mg PO DAILY [facility] Last Admin: 11/21/24 09:44 Dose: 81 mg Documented By: PAUL Calcium Carbonate (Calcium Carbonate 750 Mg Tab.Chew) 750 mg PO Q4H PRN PRN Reason: Heartburn Diltiazem HCl (Diltiazem Hcl Cd 120 Mg Cap.Er.Deg) 120 mg PO DAILY [facility]; Protocol Docusate Sodium (Docusate Sodium 100 Mg Capsule) 100 mg PO DAILY [facility] Last Admin: 11/21/24 09:44 Dose: 100 mg Documented By: PAUL Enoxaparin Sodium (Enoxaparin Sodium 40 Mg/0.4 Ml Syringe) 40 mg SUBCUT Q24H [facility] Last Admin: 11/21/24 23:00 Dose: 40 mg Documented By: JAVAD Famotidine (Famotidine 20 Mg Tablet) 40 mg PO DAILY [facility] Last Admin: 11/21/24 09:44 Dose: 40 mg Documented By: PAUL Ferrous Sulfate (Ferrous Sulfate 324 Mg Tablet.Dr) 324 mg PO DAILY [facility] Last Admin: 11/21/24 09:44 Dose: 324 mg Documented By: PAUL Cefepime HCl (Maxipime) 2 gm in 50 mls @ 100 mls/hr IV Q8H [facility] Last Infusion: 11/22/24 05:42 Dose: Infused Documented By: JAVAD Metronidazole (Flagyl) 500 mg in 100 mls @ 100 mls/hr IV Q6H [facility] Last Infusion: 11/22/24 08:29 Dose: Infused Documented By: PAUL Vancomycin HCl 1,000 mg/ (Sodium Chloride) 270 mls @ 270 mls/hr IV Q12H [facility] Last Infusion: 11/22/24 00:04 Dose: Infused Documented By: JAVAD Magnesium Hydroxide (Milk Of Magnesia 30 Ml Oral.Susp) 30 ml PO DAILY PRN PRN Reason: Constipation Last Admin: 11/21/24 14:22 Dose: 30 ml Documented By: PAUL Melatonin (Melatonin 3 Mg Tablet) 6 mg PO BEDTIME PRN PRN Reason: Insomnia Morphine Sulfate (Morphine Sulfate 4 Mg/Ml Cartridge) 2 mg IVPUSH Q4H PRN; Protocol PRN Reason: Pain, Severe (Pain Scale 7-10) Ondansetron HCl (Ondansetron Hcl 4 Mg/2 Ml Vial) 4 mg IVPUSH Q8H PRN PRN Reason: Nausea and Vomiting Oxycodone HCl (Oxycodone Hcl Immed Release 5 Mg Tablet) 5 mg PO Q6H PRN PRN Reason: Pain, Moderate(Pain Scale 4-6) Last Admin: 11/19/24 10:34 Dose: 5 mg Documented By: KEREN Pharmacy Consult (Consult Rx Vancomycin Dosing) 1 each MISCELLANE DAILY PRN PRN Reason: Consult order Polyethylene Glycol (Polyethylene Glycol 3350 17 Gm Powd.Pack) 17 gm PO DAILY PRN PRN Reason: Constipation Prednisone (Prednisone 20 Mg Tablet) 40 mg PO DAILY [facility] Last Admin: 11/21/24 09:44 Dose: 40 mg Documented By: PAUL Risperidone (Risperidone 1 Mg Tablet) 1 mg PO DAILY@1700 [facility] Last Admin: 11/21/24 17:04 Dose: 1 mg Documented By: PAUL Sodium Chloride (0.9 % Sodium Chloride Flush 3 Ml Syringe) 3 ml IVFLUSH QSHIFT [facility] Last Admin: 11/22/24 07:26 Dose: 3 ml Documented By: PAUL Vitamin D (Cholecalciferol (Vitamin D3) 25 Mcg Tablet) 25 mcg PO DAILY [facility] Last Admin: 11/21/24 09:44 Dose: 25 mcg Documented By: PAUL Labs 11/22/24 06:22 11/22/24 06:22 Labs: Laboratory Results - last 24 hr 11/21/24 11/21/24 11/22/24 08:48 08:57 06:22 MCV 90.2 MCH 31.1 MCHC 34.5 RDW 13.0 Plt Count 155 L MPV 11.3 Absolute Nucleated RBC 0.000 Nucleated RBC % (auto) 0.0 Hold Purple Top SEE NOTE Anion Gap 8 L Estim Creat Clear Calc 65.6 Estimated GFR > 60 Random Glucose 123 H Calcium 8.2 L Random Vancomycin 10.8 L Assessment and Plan (1) HTN (hypertension): Status: Acute Plan 84F PMH unspecified dementia, breast cancer status post surgery and radiation, peripheral vascular disease status post left superficial femoral artery arthrectomy and stent, left common iliac/external iliac stent, hypertension, urinary incontinence, hyperlipidemia, duodenitis with GI bleed in 2022, presented with progressive weakness over the past few months, now bed-bound with sacral ulcers and left heel wound Unstageable sacral pressure ulcer and bilateral heel wound with infection Continue vanc, cefepime, Flagyl, surgery appreciated - local care ID appreciated, continue IV antibiotics as above and on discharge transitioned to 2 weeks of p.o. doxycycline and Ceftin Wound care appreciated, heels continue with Xeroform, sacrum continue with offloading, cleansing with pH balance sprays or wipes, thin layer of triad to wound bed Urinary retention Alejandra placed, Urology appreciated will continue Alejandra for skin protection No rhabdomyolysis Chronic mildly elevated CPK with progressive weakness neuro appreciated Myopathy or myositis felt to be less likely Discontinue statin of doubtful benefit at this point anyway, started trial of prednisone possible NPH but unlikely to benefit from work up/treatment PT OT - plan for STR History of breast cancer Anastrozole Hypertension Diltiazem held for borderline bp Peripheral vascular disease Aspirin statin discontinued DVT prophylaxis with Lovenox Full code reason for continued hospitalization: IV antibiotics for significant infection Quality Stroke Does the patient have a stroke diagnosis?: No VTE Prior VTE?: No VTE Risk Level:: Medical - moderate - high VTE Device Contraindication: Treatment Not Indicated VTE Drug Contraindication: N/A - Med Ordered
[2024-11-22] MEDS: Docusate Sodium 100 MG CAPSULE PO (09:23)
[2024-11-22] MEDS: Cholecalciferol (Vitamin D3) 25 MCG TABLET PO (09:23)
[2024-11-22] MEDS: Ferrous Sulfate 324 MG TABLET.DR PO (09:23)
[2024-11-22] MEDS: Aspirin 81 MG TAB.CHEW PO (09:23)
[2024-11-22] MEDS: predniSONE 20 MG TABLET 40 MG PO (09:23)
[2024-11-22] MEDS: Famotidine 20 MG TABLET 40 MG PO (09:23)
[2024-11-22] MEDS: Anastrozole 1 MG TABLET PO (09:24)
[2024-11-22] MEDS: Milk of Magnesia 30 ML ORAL.SUSP PO (09:29)
[2024-11-22 10:28] LABS: Vancomycin Trough 13.4 mcg/mL (10.0-20.0)
[2024-11-22] MEDS: vancomycin HCL 1,000 MG in 0.9 % Sodium Chloride 250 ML 270 MG IV ×2 (11:05→21:50)
[2024-11-22 15:12] VITALS: BP 112/54; PULSE 95; RESP 16; TEMP 37.1; O2SAT 94
[2024-11-22] MEDS: risperiDONE 1 MG TABLET PO (16:41)
[2024-11-22 19:30] VITALS: BP 114/54; PULSE 95; RESP 18; TEMP 36.7; O2SAT 95
[2024-11-22] MEDS: Enoxaparin Sodium 40 MG/0.4 ML SYRINGE SUBCUT (22:49)
[2024-11-23] MEDS: metroNIDAZOLE/NS 500 MG/100 ML PIGGYBACK 100 MG IV ×2 (02:05→08:17)
[2024-11-23 03:46] VITALS: BP 142/64; PULSE 89; RESP 16; TEMP 36.2; O2SAT 95
[2024-11-23] MEDS: cefEPime HCl/D5W 2 GM/50 ML PIGGYBACK IV (05:11)
[2024-11-23 07:59] VITALS: BP 165/79; PULSE 74; RESP 18; TEMP 36.3; O2SAT 96
[2024-11-23] MEDS: Docusate Sodium 100 MG CAPSULE PO (08:17)
[2024-11-23] MEDS: Famotidine 20 MG TABLET 40 MG PO (08:17)
[2024-11-23] MEDS: Cholecalciferol (Vitamin D3) 25 MCG TABLET PO (08:17)
[2024-11-23] MEDS: Aspirin 81 MG TAB.CHEW PO (08:17)
[2024-11-23] MEDS: Anastrozole 1 MG TABLET PO (08:17)
[2024-11-23] MEDS: Ferrous Sulfate 324 MG TABLET.DR PO (08:17)
[2024-11-23] MEDS: predniSONE 20 MG TABLET 40 MG PO (08:17)
[2024-11-23] MEDS: 0.9 % Sodium Chloride Flush 3 ML SYRINGE IVFLUSH (08:18)
[2024-11-23 10:02] LABS: Creatinine Clr Calc Pharmacy 63.5; Estimated Glomerular Filt Rate > 60; Vancomycin Trough 13.9 mcg/mL (10.0-20.0)
--- NOTE | 2024-11-23 10:08 | HE.PHANOTE ---
Re: Vanco Stable renal function. Trough returned at 13.9, pt is therapeutic. Continue dose at 1,000mg q12h, with predicted AUC 478, predicted trough 13.2. Next trough 11/24 @ 0900.
--- NOTE | 2024-11-23 11:15 | P.DS_ITS ---
DS: Providers Provider Date of Service: 11/23/24 Date of admission: 11/18/24 23:24 Date of discharge: 11/23/24 Primary care physician: Makenzie Colindres MD Consults: 11/18/24 23:29 Consult to Urology Routine Consulting Provider: [facility] Reason for consultation: urinary retention Has provider been notified: No Consult to Wound Care Routine Reason for consultation: wounds buttocks and bilat heels 11/19/24 05:35 Consult to General Surgery Routine Consulting Provider: [facility] Reason for consultation: decubitus ulcers and wound L heel Has provider been notified: No Consult to Infectious Diseases Routine Consulting Provider: [facility] Reason for consultation: decubitus ulcers. heel wounds. Has provider been notified: No 11/19/24 12:03 Consult to Neurology Routine Consulting Provider: [facility] Reason for consultation: ?myopathy/myositis, diffuse weakness, was walking 1 month ago 11/19/24 18:02 Consult to Wound Care Routine Reason for consultation: bilateral heel wounds,sacral ulceration Has provider been notified: Yes DS: Diagnosis Discharge Diagnosis (1) HTN (hypertension): Status: Acute DS: Summary Hospital Course Hospital Course: from initial hpi: 84-year-old female with a past medical history significant for dementia, breast cancer s/p surgery and radiation PID s/p L SFA arthrectomy/stent, L common iliac/external iliac stent, HTN, urinary incontinence, HLD, duodenitis with GI bleed 12/2022 recent fall 2-3 weeks ago admitted at [facility] and discharged home with services, who presented to the ED due to ulcers on the buttocks as well as worsening appearance of left heel wound. The patient's has been caring for her and has been been hard time. He notes 2 days ago when cleaning after that she blood on the tissue, but he was unable to evaluate the source as he has told her upright. When evaluated by the visiting nurse the following day, she noted sacral/buttocks decubitus ulcers, new over the past 3 weeks. The patient has not any fever, chills, nausea, vomiting, or abd pain. She denies any pain and states that she is feeling well. hospital course: Patient was admitted for unstageable sacral pressure ulcer and bilateral heel wounds with superimposed cellulitis. Was treated with broad-spectrum antibiotics with vancomycin, cefepime, Flagyl to cover MRSA, multidrug resistant g negatives and anaerobes. Cultures were negative, was seen by surgery who felt local care was appropriate at this time did not recommend debridement. Was seen by wound care, see discharge instructions. Was seen by infectious disease who recommended discharged on 2 weeks of oral doxycycline and Ceftin. For urinary retention and skin protection Alejandra catheter was placed and patient will be discharged with Alejandra, when patient is more ambulatory would recommend trial of void. Patient was noted to have mildly elevated CPK and given the progressive muscle weakness there was concern for myopathy or myositis. Statin has been discontinued and will be discharged on prednisone taper. Was also seen by Neurology felt possible NPH based on CT head but did not recommend further workup as unlikely to benefit. Was seen by physical therapy who recommended short-term rehab to which patient will be discharged. She was expected require less than 30 days. History of breast cancer was continued on anastrozole. For hypertension will be continued on carvedilol and diltiazem. For peripheral vascular disease was continued on aspirin, statin discontinued as mentioned. Time Attestation Discharge Coordination Time (in mins): 33 Quality: Safe Use of Opioids Does Pt have an Active Cancer Diagnosis on the Problem List?: No Quality: Stroke Does the patient have a stroke diagnosis?: No Physical Exam Vital Signs: Vital Signs: Last Vital Signs Temp 97.4 F 11/23/24 07:59 Pulse 74 11/23/24 07:59 Resp 18 11/23/24 07:59 BP 165/79 H 11/23/24 07:59 Pulse Ox 96 11/23/24 07:59 O2 Del Method Room Air 11/23/24 07:59 BMI result Body Mass Index 25.5 Const: General: cooperative HEENT: Head: Yes normal to inspection Face and sinus: Yes normal facial exam Mouth: Normal oral and palatal mucosa present Teeth and gingiva: dentition normal Eyes: General: appearance normal, both eyes and all related structures Pupils: Equal, round and reactive pupils present Resp: Effort & Inspection: normal respiratory effort Cardio: Rate: regular rate Rhythm: regular rhythm GI: Palpation (GI): Soft to palpation and nontender : General: Yes no CVA tenderness Back/Spine/Pelvis: Back: no CVA tenderness Skin: General skin exam: no rashes or lesions noted Neuro: General: moves all extremities Cranial nerves: Yes Equal, round and reactive pupils present Extrem: Other: buttocks open wound stage 4 Psych: Other: nonverbal DS: Data Data Completed and Pending Completed studies during hospitalization [Text1]: Procedures Control Bleeding in Gastrointestinal Tract, Via Natural or Artificial Opening Endoscopic (01/22/23) Excision of Ascending Colon, Via Natural or Artificial Opening Endoscopic, Diagnostic (01/22/23) Inspection of Upper Intestinal Tract, Via Natural or Artificial Opening Endoscopic (01/22/23) Transfusion of Nonautologous Red Blood Cells into Peripheral Vein, Percutaneous Approach (01/22/23) Labs on day of discharge: Laboratory Results - last 24 hr 11/23/24 09:39 Hold Purple Top SEE NOTE Creatinine 0.62 Estim Creat Clear Calc 63.5 Estimated GFR > 60 Vancomycin Trough 13.9 Preliminary micro results at discharge 11/18/24 15:29 Blood Culture - Preliminary Blood - Venous No growth after 48 hours. 11/18/24 15:29 Blood Culture - Preliminary Blood - Venous No growth after 48 hours. Discharge Plan Discharge Anticipated Discharge Date/Time: 11/23/24 11:07 Patient Disposition: Xfer SNF Discharge Diagnosis: Infected ulcers, weakness, NPH Referrals: [facility] [Outside] - 1 Day (short term rehab) Makenzie Colindres MD [Primary Care Provider] - 1 Week Discharge Medications: New prednisone 20 mg tablet See Rx Instructions .ROUTE .COMPLEX Qty: 10 0RF Rx Instructions: 40 mg daily for 5 more days, then decrease to 20 mg daily for 7 days then decrease to 10 mg daily for 7 days then decrease to 5 mg daily for 7 days then discontinue cefuroxime axetil 500 mg tablet 500 mg PO Q12H Qty: 28 0RF doxycycline hyclate 100 mg capsule 100 mg PO BID Qty: 28 0RF Continued famotidine 40 mg tablet 40 mg PO DAILY Serevent Diskus 50 mcg/dose blister with device 1 inh inhalation BID PRN (Reason: Wheezing) diltiazem HCl 120 mg capsule,extended release 24hr 120 mg PO DAILY ferrous sulfate 324 mg (65 mg iron) tablet,delayed release (DR/EC) 324 mg PO DAILY carvedilol 3.125 mg tablet 3.125 mg PO BID docusate sodium [Colace] 100 mg Capsule 100 mg PO DAILY oxybutynin chloride 5 mg tablet extended release 24hr 5 mg PO BEDTIME risperidone 1 mg tablet 1 mg PO DAILY@1700 mirabegron [Myrbetriq] 50 mg tablet extended release 24 hr 50 mg PO DAILY anastrozole 1 mg tablet 1 mg PO DAILY Proair Digihaler 90 mcg/actuation aero powdr breath act w/sensor 2 inh inhalation Q6H PRN (Reason: Wheezing) cholecalciferol (vitamin D3) 25 mcg (1,000 unit) capsule 25 mcg PO DAILY aspirin 81 mg tablet,chewable 81 mg PO DAILY Discontinued atorvastatin 40 mg tablet 40 mg PO DAILY Discharge Orders: Discharge Order (Routine); Ordered 11/23/24 Ordered By: Edilberto Holley Diet: Advance to usual diet Activity on Discharge: As tolerated Stand Alone Forms: Patient Portal Discharge page Print Language: Danish Care Plan Goals: Recovery Health Concerns: Cellulitis, pressure ulcers, deconditioning Plan of Treatment: Empirically treating a potential myositis with 1 month prednisone taper, starting at 40 mg daily and then decreasing by 50% every week Discontinue statin Fourteen more days of doxycycline and Ceftin Local wound care - for sacrum offload pressure q.2 hours with turns and use of pillows, cleanse with pH balance spray or wipes and pat dry apply thin layer of triad to the wound bed, only pat dry no scrubbing, reapply thin layer as needed For bilateral heels LFA he will off bed service with heel protectors, cleanse with normal saline and pat dry, Xeroform over wound bed and cover with dry gauze, abdominal pad and wrap Change dressings daily Alejandra catheter for skin protection, discontinue when more ambulatory or reliably continent Assessment: See above
--- NOTE | 2024-11-23 11:22 | MHC.CM.PN ---
PER MD ROUNDS PATIENT MEDICALLY CLEARED FOR DC TO [facility]. [facility] TRANSPORT SCHEDULED FOR 230PM TO [facility]. RN, AND PATIENT AWARE. IMM DELIVERED.
[2024-11-23] MEDS: vancomycin HCL 1,000 MG in 0.9 % Sodium Chloride 250 ML 270 MG IV (11:29)
[2024-11-23] MEDS: Acetaminophen 325 MG TABLET 650 MG PO (12:51)
--- NOTE | 2024-11-23 13:42 | MHC.SLORD ---
Speech Language Pathology Order Status: Pt d/c to [facility], recc [employer]ER [employer]IENCE STRATEGIST at facility followup.
[2024-11-23 13:47] VITALS: BP 145/66; PULSE 100; RESP 18; TEMP 36.5; O2SAT 97
== END 2024-11-23 15:19 | disposition skilled nursing facility (03) | DRG 593 ==
LOC: HO.ED 20:43 → HO.EDOVER 23:40 → HO.S3 11-19 15:09
PROVIDERS: Admitting Provider Physician Assistant; Emergency Provider Emergency Medicine Emergency Medical Services; PCP Internal Medicine; Visit Provider Internal Medicine
DX: L89.150 Pressure ulcer of sacral region, unstageable (principal); G91.2 (Idiopathic) normal pressure hydrocephalus; M62.82 Rhabdomyolysis; L03.312 Cellulitis of back [any part except buttock and flank]; L89.620 Pressure ulcer of left heel, unstageable; F03.90 Unspecified dementia, unspecified severity, without behavioral disturbance, psychotic disturbance, mood disturbance, and anxiety; M60.9 Myositis, unspecified; F01.50 Vascular dementia, unspecified severity, without behavioral disturbance, psychotic disturbance, mood disturbance, and anxiety; C50.911 Malignant neoplasm of unspecified site of right female breast; L89.610 Pressure ulcer of right heel, unstageable; E78.2 Mixed hyperlipidemia; I10 Essential (primary) hypertension; R33.9 Retention of urine, unspecified; I70.202 Unspecified atherosclerosis of native arteries of extremities, left leg; Z20.822 Contact with and (suspected) exposure to COVID-19; Z79.811 Long term (current) use of aromatase inhibitors; Z87.891 Personal history of nicotine dependence; Z79.82 Long term (current) use of aspirin; Z79.899 Other long term (current) drug therapy
CPT/HCPCS: 0241U; 36415; 70450; 72193; 76705; 80048; 80053; 80202; 81001; 82248; 82550; 82565; 82607; 82746; 83540; 83605; 83690; 83735; 84443; 85025; 85027; 85610; 85652; 85730; 86140; 86704; 86706; 86709; 86803; 87040; 87340; 92610; 97110; 97163; 97166; 97530; 97535; 99285; J0692; J1650; J1836; J3370; J3371; P9047; Q9967

== ENCOUNTER → 2024-11-18 19:43 | Outpatient (BNV) | payer MEDICARE, SELFPAY | PROVIDERS: Emergency Provider Emergency Medicine Emergency Medical Services; Visit Provider Nuclear Medicine | DX: L89.899 Pressure ulcer of other site, unspecified stage (principal) | CPT/HCPCS: 72193 ==

== ENCOUNTER 2024-11-18 23:24 | Outpatient (BNV) | payer MEDICARE, SELFPAY | END 2024-11-19 07:00 | PROVIDERS: Admitting Provider Physician Assistant; Emergency Provider Emergency Medicine Emergency Medical Services; Visit Provider Radiology Diagnostic Radiology | DX: R74.01 Elevation of levels of liver transaminase levels (principal) | CPT/HCPCS: 76705 ==

== ENCOUNTER → 2024-11-18 23:24 | Outpatient (BNV) | payer MEDICARE, SELFPAY | PROVIDERS: Admitting Provider Physician Assistant; Emergency Provider Emergency Medicine Emergency Medical Services; PCP Internal Medicine; Visit Provider Urology | DX: R32 Unspecified urinary incontinence (principal); R33.8 Other retention of urine; F03.90 Unspecified dementia, unspecified severity, without behavioral disturbance, psychotic disturbance, mood disturbance, and anxiety; L89.90 Pressure ulcer of unspecified site, unspecified stage | CPT/HCPCS: 99222 ==

== ENCOUNTER → 2024-11-18 23:24 | Outpatient (BNV) | payer MEDICARE, SELFPAY | PROVIDERS: Admitting Provider Physician Assistant; Emergency Provider Emergency Medicine Emergency Medical Services; Visit Provider Surgery | DX: L89.629 Pressure ulcer of left heel, unspecified stage (principal); S90.821A Blister (nonthermal), right foot, initial encounter; L89.90 Pressure ulcer of unspecified site, unspecified stage; L08.9 Local infection of the skin and subcutaneous tissue, unspecified | CPT/HCPCS: 99222 ==

== ENCOUNTER → 2024-11-18 23:24 | Outpatient (BNV) | payer MEDICARE, SELFPAY | PROVIDERS: Admitting Provider Physician Assistant; Emergency Provider Emergency Medicine Emergency Medical Services; Visit Provider Internal Medicine | DX: I10 Essential (primary) hypertension (principal) | CPT/HCPCS: 99232; 99233 ==

== ENCOUNTER → 2024-11-18 23:24 | Outpatient (BNV) | payer MEDICARE, SELFPAY | PROVIDERS: Admitting Provider Physician Assistant; Emergency Provider Emergency Medicine Emergency Medical Services; Visit Provider Psychiatry & Neurology Neurology | DX: F03.90 Unspecified dementia, unspecified severity, without behavioral disturbance, psychotic disturbance, mood disturbance, and anxiety (principal); G91.2 (Idiopathic) normal pressure hydrocephalus | CPT/HCPCS: 99222 ==

== ENCOUNTER → 2024-11-18 23:24 | Outpatient (BNV) | payer MEDICARE, SELFPAY | PROVIDERS: Admitting Provider Physician Assistant; Emergency Provider Emergency Medicine Emergency Medical Services; PCP Internal Medicine; Visit Provider Internal Medicine | DX: F03.90 Unspecified dementia, unspecified severity, without behavioral disturbance, psychotic disturbance, mood disturbance, and anxiety (principal); S90.821A Blister (nonthermal), right foot, initial encounter; L89.629 Pressure ulcer of left heel, unspecified stage; L89.90 Pressure ulcer of unspecified site, unspecified stage; L08.9 Local infection of the skin and subcutaneous tissue, unspecified | CPT/HCPCS: 99222 ==

== ENCOUNTER 2024-12-10 14:30 | Inpatient (IN) | payer MEDICARE, SELFPAY ==
[2024-12-10] VITALS (7 sets, daily range): BP systolic 94–151; BP diastolic 49–85; PULSE 89–111; RESP 12–16; TEMP 35.8–38.6; O2SAT 90–96; BMI 22.7; BMI 24.8
--- NOTE | ~2024-12-10 | XR_ITS ---
EXAMINATION: XR CHEST 1 VIEW HISTORY: fever, hypoxia COMPARISON: Comparison is made with the prior examination dated 06/30/2024. FINDINGS: A single AP portable view of the chest performed at 3:37 PM is submitted. There are low lung volumes. There are patchy opacities in the right midlung zone and at the left lung base which may represent early pneumonia. There is no pleural effusion, pneumothorax, or pulmonary vascular congestion. The heart is normal in size. There is degenerative disc disease of the spine. XR/XR chest 1V IMPRESSION: Low lung volumes. Patchy opacities in the right midlung zone and at the left lung base which may represent early pneumonia. Follow-up is recommended. Electronically signed by: Otoniel Ayoub MD 12/10/2024 03:46 PM EDT
--- NOTE | ~2024-12-10 | CT_ITS ---
CLINICAL HISTORY: unstageable sacral ulcer, ?abscess nec fasc CT pelvis with contrast Comparison: CT - CT PELVIS W IV CON - 11/18/24 19:56 EDT Findings: Sacral decubitus ulcer measuring 3.0 x 1.3 x 2.9 cm, new since the prior study. Soft tissue overlies osseous structures measuring up to 6 mm. No cortical destruction or periostitis to indicate osteomyelitis. No rim enhancing fluid collection. No soft tissue gas. There is decreased attenuation in the adjacent gluteal muscles, greater on the left. Sclerosis, height loss and cortical irregularity with lucency involving L5, unchanged and likely indicating a healing compression fracture. Intact left total hip arthroplasty. Moderate to severe degenerative change of the right hip. Grade 1 anterolisthesis of L4 on L5, degenerative. Severe lower lumbar degenerative change. A trace right hip joint effusion could be considered. There is severe atrophy of the left piriformis muscle and bilateral paraspinous muscles. There is otherwise mild muscular atrophy. The musculature is normal in attenuation aside from edema seen within the medial gluteal musculature. Severe calcified atherosclerotic disease. Moderate to severe increase in stool quantity. The rectum is distended with stool, measuring 8.5 x 7.7 cm. There is presacral edema. There is a Alejandra catheter in the bladder which is decompressed/thick-walled. Impression: Sacral decubitus ulcer which does not extend to bone. CT evidence of osteomyelitis. No abscess. No necrotizing fasciitis. Associated gluteal myositis. Distention of the rectum with stool may indicate fecal impaction. Moderate to severe increase in stool quantity may indicate constipation. Alejandra catheter within the bladder which is underdistended/thick-walled. Correlate with urinalysis to exclude cystitis. Compression fracture of L5, also present on the prior study. Sclerosis is favored to indicate healing. This document has been electronically signed by: Ariadne Luque MD on 12/10/2024 17:51:54
--- NOTE | 2024-12-10 15:05 | PC.NURSE ---
patient presented to the ED by ems from [facility], patient has large sacral wound that was debrided at facility on 12/08. patient now febrile, tachy with lethargy. upon arrival to ED patient arousable to name, able to answer questions appropriately. patient was wearing a clean brief from [facility], patient meplex dressing soaked in wound discharge and loose stool. patient wound noted to be mal odorous, gauze fell out of wound noted to be soaked in unknown body fluid. patient febrile 101.4 rectal, tachycardic and hypertensive. patient noted to have unstagable wound to right heal and left heal. ED provider at bedside, IV access obtained bilat, #18 left wrist and #20 in RAC. patient medicated per OCT. patient sister and at bedside given update. patient placed on tele monitor, patient on 2l NC at this time for o2 sat of 89% for ems.
--- NOTE | 2024-12-10 15:05 | ECG_ITS ---
Test Reason : WEAKNESS Blood Pressure : */* mmHG Vent. Rate : 99 BPM Atrial Rate : 99 BPM P-R Int : 142 ms QRS Dur : 74 ms QT Int : 318 ms P-R-T Axes : 49 -51 46 degrees QTcB Int : 408 ms Normal sinus rhythm Low voltage QRS Left anterior fascicular block Cannot rule out Inferior infarct (masked by fascicular block?) , age undetermined Possible Anterolateral infarct (cited on or before 22-Jan-2023) Abnormal ECG When compared with ECG of 30-Jun-2024 13:12, T wave inversion no longer evident in Inferior leads Referred By: Zoila Restrepo Electronically Signed By: MARGUERITE DOW MD
--- NOTE | 2024-12-10 15:08 | ED.GENADULT ---
HPI - General Adult General Chief complaint: Wound/Laceration Stated complaint: sacral wound, AMS, sepsis alert Time Seen by Provider: 12/10/24 14:56 Source: family and EMS Mode of arrival: EMS Limitations: altered mental status History of Present Illness ED Provider: BRANDEE CELIS narrative: 84-year-old female with a past medical history significant for dementia, breast cancer s/p surgery and radiation PID s/p L SFA arthrectomy/stent, L common iliac/external iliac stent, HTN, urinary incontinence, HLD, duodenitis with GI bleed 12/2022, sacral ulcer, presents to the ED from SNF due to worsening sacral ulcer and tachycardia. Patient has an altered mental status and is an unreliable historian. Per patients family, she has been confused for the past few days. Family states she had her sacral ulcer debrided yesterday (12/09) and her overall condition has been declining since then. When asking the patient if she feels sick she responds no, I feel fine . She was recently admitted [place] [facility] [place] for worsening sacral and bilateral heel decubitus ulcers and treated with vancomycin, cefepime, and flagyl during her hospital course. She was discharged on 2 weeks of oral doxycycline and ceftin per infectious disease recommendations. MD complaint: fevers, weakness, confusion Onset (ago): week(s) (3) Location: buttocks (sacral decubitus ulcer ) and lower extremity (bilateral heel ulcers ) Severity: severe Quality: constant Pain Consistency: constant Relieving factors: none Exacerbating factors: none Associated symptoms: confusion and other (tachycardia) Treatments prior to arrival: none Related Data Home Medications ?Medication ?Instructions ?Recorded ?Confirmed albuterol sulfate 90 mcg/actuation 2 inh inhalation Q6H PRN Wheezing 08/23/20 11/18/24 breath activated powder inhaler,sensor (Proair Digihaler) aspirin 81 mg chewable tablet 81 mg PO DAILY 08/23/20 11/18/24 cholecalciferol (vitamin D3) 25 25 mcg PO DAILY 08/23/20 11/18/24 mcg (1,000 unit) capsule anastrozole 1 mg tablet 1 mg PO DAILY 11/08/20 11/18/24 famotidine 40 mg tablet 40 mg PO DAILY 10/10/23 11/18/24 diltiazem HCl 120 mg 120 mg PO DAILY 10/11/23 11/18/24 capsule,extended release 24 hr ferrous sulfate 324 mg (65 mg 324 mg PO DAILY 10/11/23 11/18/24 iron) tablet,delayed release salmeterol 50 mcg/dose blister 1 inh inhalation BID PRN Wheezing 10/11/23 11/18/24 powder for inhalation (Serevent Diskus) carvedilol 3.125 mg tablet 3.125 mg PO BID 07/02/24 11/18/24 docusate sodium 100 mg capsule 100 mg PO DAILY 07/02/24 11/18/24 (Colace) mirabegron 50 mg tablet,extended 50 mg PO DAILY 11/18/24 11/18/24 release 24 hr (Myrbetriq) oxybutynin chloride 5 mg 5 mg PO BEDTIME 11/18/24 11/18/24 tablet,extended release 24 hr risperidone 1 mg tablet 1 mg PO DAILY@1700 11/18/24 11/18/24 Previous Rx's ?Medication ?Instructions ?Recorded cefuroxime axetil 500 mg tablet 500 mg PO Q12H #28 tabs 11/23/24 doxycycline hyclate 100 mg capsule 100 mg PO BID #28 caps 11/23/24 prednisone 20 mg tablet See Rx Instructions .Route 11/23/24 .COMPLEX #10 tabs Allergies Allergy/AdvReac Type Severity Reaction Status Date / Time Penicillins [PENICILLINS] Allergy Severe ITCHING Verified 12/10/24 14:57 azithromycin Allergy Unknown Verified 12/10/24 15:12 Erythromycin Allergy Severe itching Uncoded 12/10/24 14:57 Review of Systems Review of Systems: ROS unable to be obtained due to altered mental status [facility] Past Medical History Attestation statement: The following information was validated with the patient. (patient altered, confirmed history with family at bedside and EMS) Source: old records reviewed Medical History HTN (hypertension) Dementia PAD (peripheral artery disease) Invasive ductal carcinoma of right breast History of pneumonia History of dislocation of shoulder Surgical History History of vein stripping History of appendectomy History of cataract extraction History of left hip replacement History of back surgery Family History Family History Mother Cancer of unknown origin Social History Social History Household Members: Spouse Housing: House Do you presently have visiting nurse or other home services: Yes Alcohol intake: current Alcohol intake frequency: holidays/special occasions only Alcohol type: wine Comment: bauer catheter Patient Tobacco Use Status: Former Tobacco user Advance Directives: Yes Advance Directives on File: Yes Advance Directives Date on File: 06/30/24 service: No Current occupational status: retired Physical Exam ED Vital Signs: Vital Signs - 24 hr 12/10/24 14:38 Temperature 101.4 F H Pulse Rate 111 H Respiratory Rate 12 Blood Pressure 145/75 H Pulse Oximetry 91 L Oxygen Delivery Method Nasal Cannula BMI result Body Mass Index 22.7 Appearance: lethargic, frail, AMS, oriented to self only. No acute distress. Eyes: Pupils equal, round and reactive to light. ENT: Pharynx normal. Neck: Normal inspection. Neck supple. CVS: tachycardic heart rate and normal rhythm. Pulses normal. Respiratory: No respiratory distress. Breath sounds diminished in bases 91% on RA placed on 2L Abdomen: Soft and nontender. Skin: Skin warm and dry. Normal skin color. decreased skin turgor. Non-stageable, large sacral decubitus wound with odor, Hemorrhagic pressure ulcer on R heel, stage 3 pressure ulcer on L heel Extremities: No lower extremity edema. No calf ttp Neuro: Oriented X 1 to self only. No motor deficit. No sensory deficit. CN2-12 intact Medications Administered Discontinued Medications Generic Name Dose Route Start Last Admin Trade Name Freq PRN Reason Stop Dose Admin Cefepime HCl 2 gm in 50 mls @ 100 mls/hr 12/10/24 15:05 12/10/24 15:53 Maxipime IV 12/10/24 15:34 Infused ONCE ONE Infusion Metronidazole 500 mg in 100 mls @ 100 mls/hr 12/10/24 15:05 12/10/24 15:53 Flagyl IV 12/10/24 16:04 100 mls/hr ONCE ONE Administration Acetaminophen 1,000 mg in 100 mls @ 400 mls/hr 12/10/24 15:06 12/10/24 15:54 Ofirmev IV 12/10/24 15:20 Infused ONCE ONE Infusion Lactated Ringer's 1,800 mls @ 1,800 mls/hr 12/10/24 15:06 12/10/24 15:14 Lr 30 ml/kg infuse over 1 hr (1800 ml) 12/10/24 16:05 1,800 mls/hr IV Administration .Q1H ONE Medical Decision Making Medical Decision Making [facility] Narrative: 84-year-old female with a past medical history significant for dementia, breast cancer s/p surgery and radiation PID s/p L SFA arthrectomy/stent, L common iliac/external iliac stent, HTN, urinary incontinence, HLD, duodenitis with GI bleed 12/2022, sacral ulcer, presents to the ED from SNF due to worsening sacral ulcer, tachycardia and hypotension. EMS reports hypotension resolved while en route. Patient has an altered mental status and is an unreliable historian. Per patients family, she has been confused for the past few days. Family states she had her sacral ulcer debrided yesterday (12/09) and her overall condition has been declining since then. When asking the patient if she feels sick she responds no, I feel fine . She was recently admitted to [facility] [place] for worsening sacral and bilateral heel decubitus ulcers and treated with vancomycin, cefepime, and flagyl during her hospital course. She was discharged on 2 weeks of oral doxycycline and Ceftin per infectious disease recommendations. Sacral ulcer is worsening since photo evidence of recent admission on 11/18. Concern for abscess or narcotizing faciitis, will obtain CT pelvis with contrast to evaluate infection. Awaiting lab results, lactic acid, blood cultures to evaluate for infection, kidney function, liver function. Awaiting EKG and troponin to evaluate for cardiac process. Highly suspect infection due to worsening unstageable sacral ulcer. Will begin on IV fluids, flagyl and vancomycin to treat empirically while awaiting lab results Differential Diagnosis Differential Diagnoses: The differential diagnosis associated with the presentation includes cellulitis, necroizing faciitis, osteomyelitis, abscess, lyte abnormality, anemia, Admission/Observation Consideration of admission/observation: Escalation of care including admission/observation considered admit for further sepsis work up Consult Healthcare Provider Management of the patient was discussed with: Hospitalist (will admit - aware CT scan is pending not for abscess but for osteo) Lab Data [facility] Lab Attestation statement: I reviewed the patient's lab results. 12/10/24 15:12/10/24 15:05 Labs: Lab Results 12/10/24 12/10/24 Range/Units 15:05 15:19 WBC 6.7 (4.8-10.8) X10*3/uL RBC 4.35 D (4.20-5.50) X10*6/uL Hgb 13.1 D (12.0-16.0) g/dl Hct 39.9 D (37.0-47.0) % MCV 91.7 (80.0-98.0) fL MCH 30.1 (27.0-33.0) pg MCHC 32.8 (31.0-35.0) g/dl RDW 13.6 (11.0-16.0) % Plt Count 180 (160-400) X10*3/uL MPV 10.3 (9.4-12.3) fL Immature Gran % (Auto) 0.6 H (0.0-0.4) % Neut % (Auto) 78.1 H (45-73) % Lymph % (Auto) 9.4 L (20-40) % [place] % (Auto) 10.9 (2-11) % Eos % (Auto) 0.7 (0-4) % Baso % (Auto) 0.3 (0-2) % Lymph # (Auto) 0.6 L (1.2-4.9) X10*3/uL [place] # (Auto) 0.7 (0.1-1.2) X10*3/uL Eos # (Auto) 0.1 (0.0-0.4) X10*3/uL Baso # (Auto) 0.0 (0.0-0.2) X10*3/uL Abs Immat Gran (auto) 0.04 H (0.00-0.03) X10*3/uL Absolute Neuts (auto) 5.2 (2.0-8.3) x10*3/uL Absolute Nucleated RBC 0.000 (0.0-0.012) X10*3/uL Nucleated RBC % (auto) 0.0 (0.0-0.2) /100WBC Hold Purple Top SEE NOTE Hold Blue Top SEE NOTE VBG pH 7.46 H (7.32-7.43) VBG pCO2 45 mmHg VBG pO2 43 mmHg VBG HCO3 32 H (22-26) mmol/L VBG O2 Saturation 70.0 % VBG Base Excess 7.8 mmol/L Sodium 138 (135-145) mmol/L Potassium 4.6 (3.3-5.1) mmol/L Chloride 102 (96-108) mmol/L Carbon Dioxide 27 (22-29) mmol/L Anion Gap 14 (12-20) BUN 19 H (9-16) mg/dL Creatinine 0.74 (0.5-1.4) mg/dL Estim Creat Clear Calc 50.6 Estimated GFR > 60 Random Glucose 150 H (60-115) mg/dL Lactic Acid 1.9 (0.5-2.0) mmol/L Calcium 8.8 D (8.4-10.2) mg/dL Magnesium 1.9 (1.6-2.6) mg/dL Total Bilirubin 0.8 (0.0-1.0) mg/dL Direct Bilirubin 0.3 (0.0-0.5) mg/dL AST 66 H (5-31) U/L ALT 133 H (0-31) U/L Alkaline Phosphatase 76 (39-117) U/L Troponin I High Sens < 2.7 D (<3.5-17.0) ng/L C-Reactive Protein 4.22 H (< or = 0.50) mg/dL Total Protein 6.5 (6.5-8.0) g/dL Albumin 3.2 L (3.5-5.0) g/dL Influenza Type A (PCR) NEGATIVE (Negative) Influenza Type B (PCR) NEGATIVE (Negative) RSV RNA Qual (PCR) NEGATIVE (Negative) SARS-CoV-2 RNA (RT-PCR) NEGATIVE (Negative) Independent Interpretation I performed an independent interpretation of an: EKG, Plain X-Ray (RML opacities) and CT Scan Interpretation: Rate: 99 Rhythm: NSR [place]: left Normal P waves. Normal FELICIA. Normal QRS complex. ST T wave : no JOURDAN, poor R wave progression, inverted t wave V1 qTC: 408 prior studies: no acute ischemia The study has been interpreted contemporaneously by me. . Radiology Impression Discussion of test interpretation with radiology: I have reviewed the radiologist's reading. Independent Historian Clinical information obtained from an independent historian. History obtained from or confirmed by: EMS and Other (sister, ) External Record Review External record reviewed: Inpatient record and Outpatient record Prescription Management I considered prescription management with: Antibiotic (flagyl, vancomycin ) and Other Chronic Conditions Patient?s care impacted by: Hypertension and Cancer (IDC of right breast) Critical Care Time Critical Care Time Critical Care Time: Yes Total Critical Care Time: 45 Attestation: Time is exclusive of separately billable procedures. Time includes: direct patient care, patient reassessment, coordination of patient care, interpretation of data (laboratory data, pulse oximetry, venous blood gases and chest xrays), review of patient's medical records, medical consultation and documentation of patient care. Procedures excluded from critical care time: electrocardiography. Sepsis protocol initiated I attest to this time spent taking care of the patient Discharge Plan Discharge Clinical Impression: Fever and chills, Ulcer of sacral region, unstageable, Pneumonia Patient Disposition: Admitted As Inpatient Prescriptions: No Action famotidine 40 mg tablet 40 mg PO DAILY Serevent Diskus 50 mcg/dose blister with device 1 inh inhalation BID PRN (Reason: Wheezing) diltiazem HCl 120 mg capsule,extended release 24hr 120 mg PO DAILY ferrous sulfate 324 mg (65 mg iron) tablet,delayed release (DR/EC) 324 mg PO DAILY carvedilol 3.125 mg tablet 3.125 mg PO BID docusate sodium [Colace] 100 mg Capsule 100 mg PO DAILY oxybutynin chloride 5 mg tablet extended release 24hr 5 mg PO BEDTIME risperidone 1 mg tablet 1 mg PO DAILY@1700 mirabegron [Myrbetriq] 50 mg tablet extended release 24 hr 50 mg PO DAILY prednisone 20 mg tablet See Rx Instructions .ROUTE .COMPLEX Qty: 10 0RF Rx Instructions: 40 mg daily for 5 more days, then decrease to 20 mg daily for 7 days then decrease to 10 mg daily for 7 days then decrease to 5 mg daily for 7 days then discontinue cefuroxime axetil 500 mg tablet 500 mg PO Q12H Qty: 28 0RF doxycycline hyclate 100 mg capsule 100 mg PO BID Qty: 28 0RF anastrozole 1 mg tablet 1 mg PO DAILY Proair Digihaler 90 mcg/actuation aero powdr breath act w/sensor 2 inh inhalation Q6H PRN (Reason: Wheezing) cholecalciferol (vitamin D3) 25 mcg (1,000 unit) capsule 25 mcg PO DAILY aspirin 81 mg tablet,chewable 81 mg PO DAILY Print Language: Prydeinig
[2024-12-10] MEDS: Acetaminophen 1,000 MG/100 ML PIGGYBACK 400 MG IV (15:13)
[2024-12-10] MEDS: LACTATED RINGERS 1800 ML IV (15:14)
[2024-12-10 15:18] LABS: MANUAL DIFF FLAG NO
[2024-12-10] MEDS: cefEPime HCl/D5W 2 GM/50 ML PIGGYBACK IV ×2 (15:21→23:34)
[2024-12-10 15:22] LABS: Basophils Percent Auto 0.3 % (0-2); Eosinophils Absolute Auto 0.1 X10*3/uL (0.0-0.4); Eosinophils Percent Auto 0.7 % (0-4); Hematocrit 39.9 % (37.0-47.0); Hemoglobin 13.1 g/dl (12.0-16.0); Imm Gran Abs Auto 0.04 X10*3/uL (0.00-0.03); Imm Gran Pct Auto 0.6 % (0.0-0.4); Lymphocytes Absolute Auto 0.6 X10*3/uL (1.2-4.9); Lymphocytes Percent Auto 9.4 % (20-40); Mean Corpuscular HGB Conc 32.8 g/dl (31.0-35.0); Mean Corpuscular Hemoglobin 30.1 pg (27.0-33.0); Mean Corpuscular Volume 91.7 fL (80.0-98.0); Mean Platelet Volume 10.3 fL (9.4-12.3); Monocytes Absolute Auto 0.7 X10*3/uL (0.1-1.2); Monocytes Percent Auto 10.9 % (2-11); Neutrophils Absolute Auto 5.2 x10*3/uL (2.0-8.3); Neutrophils Percent Auto 78.1 % (45-73); Platelet Count 180 X10*3/uL (160-400); Red Blood Count 4.35 X10*6/uL (4.20-5.50); Red Cell Distribution Width 13.6 % (11.0-16.0); White Blood Count 6.7 X10*3/uL (4.8-10.8)
[2024-12-10 15:30] LABS: Venous Blood Gas Refer to POC result
[2024-12-10 15:35] LABS: Lactic Acid 1.9 mmol/L (0.5-2.0)
[2024-12-10 15:36] LABS: VBG Base Excess 7.8 mmol/L; VBG HCO3 32 mmol/L (22-26); VBG pCO2 45 mmHg; VBG pH 7.46 (7.32-7.43); VBG pO2 43 mmHg
[2024-12-10 15:43] LABS: Alanine Aminotransferase 133 U/L (0-31); Albumin Level 3.2 g/dL (3.5-5.0); Anion Gap 14 (12-20); Aspartate Amino Transferase 66 U/L (5-31); Bilirubin Direct 0.3 mg/dL (0.0-0.5); Bilirubin Total 0.8 mg/dL (0.0-1.0); Blood Urea Nitrogen 19 mg/dL (9-16); C Reactive Protein 4.22 mg/dL (< or = 0.50); Calcium 8.8 mg/dL (8.4-10.2); Carbon Dioxide 27 mmol/L (22-29); Chloride 102 mmol/L (96-108); Creatinine Clr Calc Pharmacy 50.6; Estimated Glomerular Filt Rate > 60; Glucose Random 150 mg/dL (60-115); Magnesium 1.9 mg/dL (1.6-2.6); Potassium 4.6 mmol/L (3.3-5.1); Sodium 138 mmol/L (135-145); Total Protein 6.5 g/dL (6.5-8.0)
[2024-12-10 15:46] LABS: Troponin-I High Sensitivity < 2.7 ng/L (<3.5-17.0)
[2024-12-10] MEDS: metroNIDAZOLE/NS 500 MG/100 ML PIGGYBACK 100 MG IV (15:53)
[2024-12-10 16:08] LABS: Influenza A PCR NEGATIVE (Negative); Influenza B PCR NEGATIVE (Negative); Resp Syncy Virus RNA Qual PCR NEGATIVE (Negative); SARS COV2 PCR INHOUSE NEGATIVE (Negative)
[2024-12-10 16:12] LABS: Alkaline Phosphatase 76 U/L (39-117)
[2024-12-10 16:27] LABS: Procalcitonin 0.08 ng/mL
[2024-12-10] MEDS: vancomycin HCL 1,500 MG in 0.9 % Sodium Chloride 500 ML 333.33 MG IV (17:04)
--- NOTE | 2024-12-10 17:12 | P.HPHOSP_ITS ---
History of Present Illness Date of Service: 12/10/24 Chief Complaint: fever, sacral wound, cough An 84-year-old female with PMH of dementia, breast cancer s/p surgery and radiation PID s/p L SFA arthrectomy/stent, L common iliac/external iliac stent, HTN, urinary incontinence, HLD, GIB 12/2022, falls, who presented to the ED due to fever and worsening sacral ulcer among other wounds. She was recently discharged from the hospital after being treated for sacral and bilateral heel decubitus ulcer and discharged on Doxy and Ceftin for 2 weeks with wound care. The patient is demented and altered unable to provide good history. per family her confusion worsened over the last few days. She had debridement of the wound yesterday. In ED found to have worse looking wound. CXR suggestive of pneumonia. met sepsis protocol and started broad spectrum antibiotics. Admitted for further work up and treatment. Review of Systems 2 Review of Systems: having fever, chills or weakness No chest pain, palpitation No shortness of breath or coughing No abdominal pain, nausea or vomiting No urinary symptoms open sacral wounds PMFSH Medical History HTN (hypertension) Dementia PAD (peripheral artery disease) Invasive ductal carcinoma of right breast History of pneumonia History of dislocation of shoulder Family History Mother Cancer of unknown origin Surgical History History of vein stripping History of appendectomy History of cataract extraction History of left hip replacement History of back surgery Social History Household Members: Unknown / Unable to assess Housing: Snf Do you presently have visiting nurse or other home services: Yes Alcohol intake: current Alcohol intake frequency: holidays/special occasions only Alcohol type: wine Comment: bauer catheter Patient Tobacco Use Status: Former Tobacco user Use of substances other than those prescribed or required for medical reasons: Refusing to respond Currently Displaying Signs/Symptoms of Drug Intoxication Withdrawal: No Advance Directives: Yes Advance Directives on File: Yes Advance Directives Date on File: 06/30/24 Do you have a plan to hurt others: No Plan Recently lost weight without trying: Unsure How much weight loss: Unsure Nutrition Risks: No Nutritional Risk Patient : No service: No Current occupational status: retired Meds Allergies Allergy/AdvReac Type Severity Reaction Status Date / Time Penicillins [PENICILLINS] Allergy Severe ITCHING Verified 12/10/24 14:57 azithromycin Allergy Unknown Verified 12/10/24 15:12 Erythromycin Allergy Severe itching Uncoded 12/10/24 14:57 Active Medications: Current Medications Acetaminophen (Acetaminophen 325 Mg Tablet) 650 mg PO Q6H PRN PRN Reason: Pain, Mild 1-3,fever,headache Albuterol/Ipratropium (Albuterol/Iprat 2.5/0.5mg 3 Ml Ampul.Neb) 3 ml INHALE Q4H PRN PRN Reason: Shortness of Breath/Wheezing Benzonatate (Benzonatate 100 Mg Capsule) 100 mg PO TID PRN PRN Reason: Cough Calcium Carbonate (Calcium Carbonate 750 Mg Tab.Chew) 750 mg PO Q4H PRN PRN Reason: Heartburn Enoxaparin Sodium (Enoxaparin Sodium 40 Mg/0.4 Ml Syringe) 40 mg SUBCUT Q24H KATHRIN Lactated Ringer's (Lr) 1,000 mls @ 100 mls/hr IVCONT .Q10H KATHRIN Cefepime HCl (Maxipime) 2 gm in 50 mls @ 100 mls/hr IV Q8H KATHRIN Magnesium Hydroxide (Milk Of Magnesia 30 Ml Oral.Susp) 30 ml PO DAILY PRN PRN Reason: Constipation Melatonin (Melatonin 3 Mg Tablet) 6 mg PO BEDTIME PRN PRN Reason: Insomnia Morphine Sulfate (Morphine Sulfate 4 Mg/Ml Cartridge) 2 mg IVPUSH Q4H PRN; Protocol PRN Reason: Pain, Severe (Pain Scale 7-10) Ondansetron HCl (Ondansetron Hcl 4 Mg/2 Ml Vial) 4 mg IVPUSH Q8H PRN PRN Reason: Nausea and Vomiting Pharmacy Consult (Consult Rx Vancomycin Dosing) 1 each MISCELLANE DAILY PRN PRN Reason: Consult order Sodium Chloride (0.9 % Sodium Chloride Flush 3 Ml Syringe) 3 ml IVFLUSH QSHIFT [facility] Home Medications ?Medication ?Instructions ?Recorded ?Confirmed ?Last Taken ?Type albuterol sulfate 90 mcg/actuation 2 inh inhalation Q6H PRN Wheezing 08/23/20 12/10/24 Unknown History breath activated powder inhaler,sensor (Proair Digihaler) aspirin 81 mg chewable tablet 81 mg PO DAILY 08/23/20 12/10/24 06/30/24 History cholecalciferol (vitamin D3) 25 25 mcg PO DAILY 08/23/20 12/10/24 06/30/24 History mcg (1,000 unit) capsule anastrozole 1 mg tablet 1 mg PO BEDTIME 11/08/20 12/10/24 06/30/24 History famotidine 40 mg tablet 40 mg PO BID 10/10/23 12/10/24 06/30/24 History diltiazem HCl 120 mg 120 mg PO DAILY 10/11/23 12/10/24 06/30/24 History capsule,extended release 24 hr ferrous sulfate 324 mg (65 mg 324 mg PO DAILY 10/11/23 12/10/24 06/30/24 History iron) tablet,delayed release salmeterol 50 mcg/dose blister 1 inh inhalation BID PRN Wheezing 10/11/23 12/10/24 Unknown History powder for inhalation (Serevent Diskus) carvedilol 3.125 mg tablet 3.125 mg PO BID 07/02/24 12/10/24 06/30/24 History docusate sodium 100 mg capsule 100 mg PO DAILY 07/02/24 12/10/24 06/30/24 History (Colace) mirabegron 50 mg tablet,extended 50 mg PO BEDTIME 11/18/24 12/10/24 Unknown History release 24 hr (Myrbetriq) oxybutynin chloride 5 mg 5 mg PO BEDTIME 11/18/24 12/10/24 Unknown History tablet,extended release 24 hr risperidone 1 mg tablet 1 mg PO DAILY@1800 11/18/24 12/10/24 Unknown History acetaminophen 325 mg tablet 650 mg PO Q6H PRN pain or fever 12/10/24 12/10/24 Unknown History ascorbic acid (vitamin C) 250 mg 250 mg PO DAILY 12/10/24 12/10/24 Unknown History tablet (Vitamin C) atenolol 25 mg tablet 25 mg PO DAILY 12/10/24 12/10/24 Unknown History atorvastatin 40 mg tablet 40 mg PO BEDTIME 12/10/24 12/10/24 Unknown History bisacodyl 10 mg rectal suppository 10 mg VT DAILY PRN constipation, 12/10/24 12/10/24 Unknown History no effect from MOM clopidogrel 75 mg tablet 75 mg PO DAILY 12/10/24 12/10/24 Unknown History collagenase clostridium histo. 250 1 appl topical DAILY PRN 12/10/24 12/10/24 Unknown History unit/gram topical ointment (Santyl) alteration in skin integrity magnesium hydroxide 400 mg/5 mL 30 ml PO DAILY PRN constipation, 12/10/24 12/10/24 Unknown History oral suspension (Milk of Magnesia) no BM in 3 days multivitamin 1 tab PO DAILY 12/10/24 12/10/24 Unknown History nutritional supplements 1 ea PO BEDTIME 12/10/24 12/10/24 Unknown History omeprazole 20 mg capsule,delayed 20 mg PO BID@0630,1630 12/10/24 12/10/24 Unknown History release oxycodone 5 mg tablet 5 mg PO Q6H PRN Pain 12/10/24 12/10/24 Unknown History prednisone 20 mg tablet See Rx Instructions .ROUTE .COMPLEX 12/10/24 12/10/24 Unknown History sennosides 8.6 mg tablet (senna) 8.6 mg PO DAILY 12/10/24 12/10/24 Unknown History sodium hypochlorite 0.125 % 1 appl topical DAILY PRN dressing 12/10/24 12/10/24 Unknown History solution (Dakin's Solution) change sodium phosphates 19 gram-7 118 ml VT DAILY PRN constipation, 12/10/24 12/10/24 Unknown History gram/118 mL enema (Fleet Enema) ducolax not effective tolterodine 4 mg capsule,extended 4 mg PO DAILY 12/10/24 12/10/24 Unknown History release 24 hr tramadol 50 mg tablet 25 mg PO Q6H PRN Pain 12/10/24 12/10/24 Unknown History tramadol 50 mg tablet 50 mg PO DAILY PRN prior to 12/10/24 12/10/24 Unknown History dressing change Physical Exam 2 Vital Signs and Narrative: Vital Signs: Last Vital Signs Temp 98.7 F 12/10/24 16:32 Pulse 90 12/10/24 17:05 Resp 16 12/10/24 17:05 BP 95/49 L 12/10/24 17:05 Pulse Ox 96 12/10/24 16:32 O2 Del Method Nasal Cannula 12/10/24 16:32 O2 Flow Rate 1 12/10/24 16:32 Oxygen Flow Rate 2 12/10/24 14:38 BMI result Body Mass Index 22.7 Const: Other: Constitutional : interactive, lethargic looking, not in distress Cardiovascular : no JVP, no lower extremity edema Respiratory : bilateral chest movement, not in resp distress Gastrointestinal: soft, lax, Non tender Skin : Warm, Dry, large sacral decubitus wound with odor,pressure ulcer on R heel with ischemia, stage 3 pressure ulcer on L heel Neurological : Alert & oriented to self only otherwise confused, No focal deficit Results Labs 12/11/24 05:21 12/11/24 05:21 Labs: Laboratory Results - last 24 hr 12/10/24 12/10/24 15:05 15:19 MCV 91.7 MCH 30.1 MCHC 32.8 RDW 13.6 Plt Count 180 MPV 10.3 Immature Gran % (Auto) 0.6 H Neut % (Auto) 78.1 H Lymph % (Auto) 9.4 L Hood % (Auto) 10.9 Eos % (Auto) 0.7 Baso % (Auto) 0.3 Lymph # (Auto) 0.6 L Hood # (Auto) 0.7 Eos # (Auto) 0.1 Baso # (Auto) 0.0 Abs Immat Gran (auto) 0.04 H Absolute Neuts (auto) 5.2 Absolute Nucleated RBC 0.000 Nucleated RBC % (auto) 0.0 Hold Purple Top SEE NOTE Hold Blue Top SEE NOTE VBG pH 7.46 H VBG pCO2 45 VBG pO2 43 VBG HCO3 32 H VBG O2 Saturation 70.0 VBG Base Excess 7.8 Anion Gap 14 Estim Creat Clear Calc 50.6 Estimated GFR > 60 Random Glucose 150 H Lactic Acid 1.9 Calcium 8.8 D Magnesium 1.9 Total Bilirubin 0.8 Direct Bilirubin 0.3 AST 66 H ALT 133 H Alkaline Phosphatase 76 C-Reactive Protein 4.22 H Total Protein 6.5 Albumin 3.2 L Procalcitonin 0.08 Influenza Type A (PCR) NEGATIVE Influenza Type B (PCR) NEGATIVE RSV RNA Qual (PCR) NEGATIVE SARS-CoV-2 RNA (RT-PCR) NEGATIVE Imaging Radiologist's Impressions: Impressions Chest X-Ray 12/10/24 15:25 IMPRESSION: Low lung volumes. Patchy opacities in the right midlung zone and at the left lung base which may represent early pneumonia. Follow-up is recommended. Electronically signed by: Otoniel Ayoub MD 12/10/2024 03:46 PM EDT RP Assessment and Plan (1) Pneumonia: Qualifiers: Laterality: right Lung location: unspecified part of lung Pneumonia type: due to unspecified organism Qualified Code(s): J18.9 - Pneumonia, unspecified organism Status: Acute (2) Ulcer of sacral region, unstageable: Status: Acute (3) Decubitus skin ulcer: Status: Acute (4) Fever and chills: Status: Acute (5) Sepsis: Status: Acute Plan An 84-year-old female with PMH of dementia, breast cancer s/p surgery and radiation PID s/p L SFA arthrectomy/stent, L common iliac/external iliac stent, HTN, urinary incontinence, HLD, GIB 12/2022, falls, who presented to the ED due to fever and worsening sacral ulcer among other wounds. Sepsis 2/2 Stage 4 sacral pressure ulcer and bilateral heel wound with infection Meets sepsis with source, tachycardia and fever pendign cultures Start vancomycin, cefepime, Flagyl, surgery consult Get ID eval For Wound care aconsult Pneumonia as seen on CXR covered with antibiotics progressive weakness evaluated last admission by neuro with rec to DC Statin and trial of prednisone possible NPH but unlikely to benefit from work up/treatment PT eval History of breast cancer Anastrozole Hypertension Diltiazem held for low bp Peripheral vascular disease Aspirin statin discontinued DVT prophylaxis with Lovenox Full code The patient will need 2 overnight stay for treatment of sepsis from deep wounds infection on IV antibiotics pending final cultures and human performance consultant evaluation Quality Stroke Does the patient have a stroke diagnosis?: No VTE Prior VTE?: No VTE Risk Level:: Medical - moderate - high VTE Device Contraindication: Treatment Not Indicated VTE Drug Contraindication: N/A - Med Ordered
--- NOTE | 2024-12-10 17:37 | PHA.PROG ---
Admission Date/Time: Indication: Skin Weight in k kg Serum Creatinine - Last 168 Hours 12/10/24 15:05 Creatinine 0.74 Estimated CrCl and GFR - Last 168 Hours 12/10/24 15:05 Estim Creat Clear Calc 50.6 Estimated GFR > 60 Vancomycin Loading Dose: 1500mg Current Vancomycin Dosing Regimen: 1000 q24h Vancomycin Monitoring using AUC goal of 400 - 600 range with trough as surrogate marker: 412, predicted trough 11.6 Date and Time for next Vancomycin Level to be drawn: 12/12 @ 1500 Pharmacist Comments on Vancomycin Plan: Vancomycin dosing will take advantage of [employer] as a clinical decision support tool that uses Bayesian modeling to calculate individual patient's pharmacokinetic parameters and forecast the patient's drug concentration time course with the target goal AUC 24 range of 400 - 600 mg/L/hr.
[2024-12-10] MEDS: Lactated Ringers 1,000 ML 100 ML IVCONT (18:05)
--- NOTE | 2024-12-10 18:06 | PC.NURSE ---
patient is more awake and alert, resp even and unlabored. patient talking more. sister at bedside, patient sitting up and eating orange
--- OUTSIDE RECORDS SUMMARY | 2024-12-10 18:20 | XMS_ITS | Patient Health Record ---
Author Organization [facility] Address [address] [place] [address] Care Team Providers Care Rough Rice Grader Name Role Phone Bob Quinones MD Primary Care Provider Otoniel Henriquez Unavailable [phone] Allergies Allergen (clinical drug ingredient) Drug/Non Drug Allergy documented on EMR Reaction Allergy Type Onset Date Status Penicillin Unknown Drug Allergy Active erythromycin Erythromycin Unknown Drug Allergy A ctive Reason For Referral No Information Medications Medication [...] FOR 90 DAYS Oral for 90 Active Immunizations Vaccine Route Administration Date Status Comme nts Influenza Unknown 06/05/2023 Administered Social History Tobacco Use: Social History Observation [...] Never (0 point) Points 4 Interpretation Positive Problems Problem Type SNOMED Code ICD Code Onset Dates Problem Status W/U Status Risk Notes Problem Duodenitis (56416122) Duodenitis (K29.80) Active confirmed Problem 611753010 Iron deficiency anemia due to chronic blood loss (D50.0) Active confirmed Problem 230708192 Anemia, unspecified type (D64.9) Active confirmed Vital Signs Blood pressure diastolic 00 mm Hg 04/15/2024 Height 5 ft 5 in in 04/15/2024 Blood pressure systolic 00 mm Hg 04/15/2024 Weight 132 lbs 04/15/2024 BMI 21.96 kg/m2 04/15/2024 Encounters Encounter Location Date Provider Diagnosis [facility] [address] [place] [phone] 04/15/2024 Otoniel Coates Iron deficiency anemia due to chronic blood loss D50.0 [facility] [address] [place] [phone] 12/18/2023 Otoniel Coates [facility] [address] [place] [phone] 04/15/2024 Otoniel Coates Assessments Encounter Date Diagnosis (ICD Code) Assessment Notes Treatment Notes Treatment Clinical Notes Section Notes 04/15/2024 Iron deficiency anemia due to chronic blood loss (ICD-10 - D50.0) Follow up with Dr. Quinones for future blood counts and see me as needed. Continue the Famotidine and Iron assisted. Overall, Radha appears quite well at the present time. She does not exhibit any signs nor describe any symptoms to suggest a worsening anemia. Her most recent hemoglobin in January appears to have been dtable. It does appear that remaining off of the clopidogrel has definitely helped to resolve her anemia. 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 At this point since she appears stable I don't think any further workup is needed on my part. I did advise her to continue to have periodic blood counts with you. I did advise her to continue the famotidine and iron on a long-term basis. She will see me on a p.r.n. basis but I advised her and her sister to certainly call if there are any problems or questions I can be of assistance with. They were both comfortable with this plan. Thank you again for allowing me to participate in Radha's care. I shall continue to keep you advised of her progress. Plan Of Treatment Pending Test Test Name Order Date IRON + IBC (FE) 05/30/2023 CBC w DIFF 05/30/2023 CBC w DIFF 06/19/2023 Ferritin 05/30/2023 Insurance Providers Payer Name Payer Address Payer Phone Subscriber Number Group Number Insured Name Patient Relationship to Insured Coverage Start Date Coverage End Date MEDICARE OF [place] [address] [place] [phone] [id number] ALEXANDRA QIULEY Self - patient is the insured [employer] CLAIM[employer] [address] [place] [phone] [id number] ALEXANDRA QIULEY Self - patient is the insured Medical (General) History Medical History History ICD Code Iron deficiency [...]
--- OUTSIDE RECORDS SUMMARY | 2024-12-10 18:20 | XMS_ITS | Patient Health Record ---
Author Organization Otoniel Lees III, MD Address [address] [place] [address] [place] [address] Care Team Providers Care In Flight Refueling System Repairer Name Role Phone Bob Quinones MD Primary Care Provider Unavaila Otoniel Mccain Unavailable [phone] Allergies Allergen (clinical drug ingredient) Drug/Non Drug Allergy documented on EMR Reaction Allergy Type Onset Date Status penicillin G Penicillin G Sodium Unknown Drug Allergy Active erythromycin Erythromycin Unknown Drug Allergy A ctive Results Component Value Reference Range Notes MM tomosynthesis screening B I Reviewed date:04/12/2024 06:35:53 AM Interpretation: Performing Lab: Notes/Report: [address] [place] [address] Mammography Report Signed Patient: Radha Gautam MR#: [id number] : 1940 Acct:[id number] Age/Sex: 83 / F ADM Date: 02/05/24 Loc: HO.MAMMO Attending Dr: Otoniel Lees MD Ordering Physician: Otoniel Lees MD Results: 0Incompl ete: Needs Additional Imaging Evaluation Date of Service: 02/05/24 Follow Up: Additional Imagi ng Procedure(s): MM tomosynthesis screening BI Accession Number(s): [id number] cc: Otoniel Lees MD; Bob Quinones MD [...] in OV> 03/06/24 0834 DD/ 1245 TD/TT: Jailkeeper: [place] [facility] [address] [place] [address] Mammography Report Signed Patient: David Gautam MR#: [id number] : 1940 Acct:[id number] Age/Sex: 83 / F ADM Date: 02/05/24 Loc: HO.MAMMO Attending Dr: Otoniel Lees MD Ordering Physician: Otoniel Lees MD Results: 0Incompl ete: Needs Additiona l Imaging Evaluation Date of Service: 08/18 Follow Up: Additional Imagi ng Procedure(s): MM rhina osynthesis screening BI Accession Number(s): [id number] cc: Otoniel Lees MD; Bob Quinones MD [...] in OV> 03/06/24 0834 DD/ 1245 TD/TT: Jailkeeper: MIKKI tomosynthepierre added views L Reviewed date:04/12/2024 06:35:53 AM Interpretation: Performing Lab: Notes/Report: [facility] [address] [place] [address] Mammography Report Signed Patient: Radha Gautam MR#: [id number] : 1940 Acct:[id number] Age/Sex: 83 / F ADM Date: 04/09/24 Loc: MIGDALIAO Attending Dr: Otoniel Lees MD Ordering Physician: Otoniel Lees MD Results: 2Benign Findings Date of Service: 04/09/24 Follow Up: 1 Year From Orig inal Mammogram Procedure(s): MM tomosynthesis added views L Accession Number(s): [id number] cc: Otoniel Lees MD; Bob Quinones MD [...] in OV> 04/09/24 1620 DD/ 1452 TD/TT: Jailkeeper: [facility] [address] [place] [address] Mammography Report Signed Patient: David Gautam MR#: [id number] : 1940 Acct:[id number] Age/Sex: 83 / F ADM Date: 04/09/24 Loc: HO.MAMMO Attending Dr: Otoniel Lees MD Ordering Physician: Otoniel Lees MD Results: 2Benign Findings Date of Service: Follow Up: 1 Year From Orig inal Mammogram Procedure(s): MM rhina osynthesis added views L Accession Number(s): [id number] cc: Otoniel Lees MD; Bob Quinones MD [...] in OV> 04/09/24 1620 DD/ 1452 TD/TT: Jailkeeper: Reason For Referral No Information Medications Medication [...] W/U Status Risk Notes Problem Former smoker (1539216) Former smoker (Z87.891) Active confirmed She has a plan to prevent relapse in times of stress and illness. She is highly motivated not to smoke. Problem Hyperlipidemia (27736496) Hyperlipidemia (E78.5) Active confirmed She will continue on current medications at this time. Problem Essential hypertension (70493211) Essential hypertension (I10) Active confirmed Her blood pressure today was 120/60. No change in her regimen was needed. Problem COPD - Chronic obstructive pulmonary disease (53475062) COPD (chronic obstructive pulmonary disease) (J44.9) Active confirmed She stopped smoking 15 years ago and is symptomatic only with prolonged exertion. She is stable breathing room air. She is not wheezing today. Problem Penicillin allergy (43124730) Penicillin allergy (Z88.0) Active confirmed Problem Osteoarthritis (849343542) Osteoarthritis (M19.90) Active confirmed She is affected mainly in her shoulders. No change in her regimen is needed today. Problem Malignant neoplasm of female breast (391094295) Breast cancer, stage 1 (C50.919) Active confirmed [...] Date Provider Diagnosis Otoniel Lees III, MD [address] [place] [address] [address] [place], [place] [phone] 03/19/2024 Otoniel Lees Breast cancer, stage 1 C50.919 ; Essential hypertension I10 ; Former smoker Z87.891 and Osteoarthritis M19.90 Otoniel Lees III, MD [address] [place] [address] [address] [place], [place] [phone] 03/19/2024 Otoniel Lees Breasts asymmetrical N64.89 Otoniel Lees III, MD [address] [place] [address] [address] [place], [place]ER[place] [phone] 11/30/2024 Otoniel Lees Assessments Encounter Date Diagnosis (ICD Code) Assessment Notes Treat ment Notes Treatment Clinical Notes 03/19/2024 Essential hypertension (ICD-10 - I10) Her [...] a new primary. Surveillance will continue. 03/19/2024 Former smoker (ICD-1 0 - Z87.891) She has a plan to prevent relapse in times of stress and illness. She is highly motivated not to smoke. 03/19/2024 Breasts asymmetrical (ICD-10 - N64.89) 03/19/2024 Osteoarthritis (ICD-10 - M19.90) She is affected mainly in her shoulders. No change in her regimen is needed today. Plan Of Treatment Pending Test Test Name Order Date Echocardiogram 06/07/2020 BREAST [facility] 03/19/20 24 MM tomosynthesis diagnostic LT 4 Insurance Providers Payer Name Payer Address Payer Phone Subscriber Number Group Number Insured Name Patient Relationship to Insured Coverage Start Date Coverage End Date MEDICARE N[place] [address] [place] [address] [id number] Radha Gautam Self - patient is the insured [facility] [address] [place], [place] [id number] [phone] [id number] Radha Gautam Self - patient is the insured Medical (General) History Medical History History ICD Code Hypertension I10 Hypercholesteremia E78.00 COPD (chronic obstructive pulmonary dise ase) J44.9 04/2020 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
--- OUTSIDE RECORDS SUMMARY | 2024-12-10 18:20 | XMS_ITS ---
Author Organization [facility] Address [address] [place] [address] Care Team Providers Care Configuration Management Administrator Name Role Phone Bob Quinones MD Primary Care Provider Otoniel Henriquez [phone] Encounters Encounter Location Date Provider Diagnosis [facility] [address] [place] [address] 04/15/2024 Otoniel Coates Plan Of Treatment No Information Progress Notes * KRISHNA QIU ADOB: [birth year] (83 yo F)Acc No.[id number]:04/15/2024 Patient:?KRISHNA QIU :1940???Age:83 Y???Sex:Female Address: [place] [address] Subjective: * Chief Complaints: * ??? * Medical History:? * Surgical History:? * Hospitalization/Major Diagno stic Procedure:? * Medications:? Objective: Assessment: Plan: * Treatment: * Procedure Codes:? * Preventive Medicine:? ??Screenings:?Fall Risk Screening?Plan of Care:?Documented,?Type of fall plan of care:?Balance, strength and gait training or instruction provided.? * true * Date:? Generated for Tamra early/Orin/eTransmitting on:?12/10/2024 06:19 PM EDT
--- OUTSIDE RECORDS SUMMARY | 2024-12-10 18:20 | XMS_ITS ---
Author Organization [facility] Address [address] [place] [address] Care Team Providers Care Small Brake Form Operator Name Role Phone Bob Quinones MD Primary Care Provider Otoniel Henriquez Unavailable [phone] Allergies Allergen (clinical drug ingredient) Drug/Non Drug Allergy documented on EMR Reaction Allergy Type Onset Date Status Penicillin Unknown Drug Allergy Active erythromycin Erythromycin Unknown Drug Allergy A ctive REASON FOR VISIT Patient presents today for fe def anemia Medications Medication SIG (Take, Route, Frequency, Duration) [...] 7.5 MG Oral for 30 A ctive Social History Tobacco Use: Social History Observation [...] Never (0 point) Points 4 Interpretation Positive Vital Signs Blood pressure systolic 00 mm Hg 04/15/20 24 Blood pressure diastolic 00 mm Hg 024 Height 5 ft 5 in in 04/15/2024 Weight 132 lbs 04/15/2024 BMI 21.96 kg/m2 04/15/2024 Encounters Encounter Location Date Provider Diagnosis [facility] [address] [place] [address] 04/15/2024 Otoniel Coates Iron deficiency anemia due to chronic blood loss D50.0 Assessments Encounter Date Diagnosis (ICD Code) Assessment Notes Treatment Notes Treatment Clinical Notes Section Notes 04/15/2024 Iron deficiency anemia due to chronic blood loss (ICD-10 - D50.0) Follow up with Dr. Quinones for future blood counts and see me as needed. Continue the Famotidine and Iron superintendent container terminal. Overall, Radha appears quite well at the [...] advised of her progress. Plan Of Treatment Treatment Notes Assessment Notes Iron deficiency anemia due t o chronic blood loss Follow up with Dr. Quinones for future blood counts and see me as needed. Continue the Famotidine and Iron superintendent container terminal. Next Appt Details Follow Up: prn, Reason: Progress Notes * RADHA QIU ADOB: [birth year] (83 yo F)Acc No.[id number]:04/15/2024 Progress Notes Patient:?RADHA QIU A Provider:?Otoniel Coates MD :1940???Age:83 Y???Sex:Female D ate:04/15/2024 Address:[address] [place], [place] [id number] Pcp:Bob Quinones MD Subjective: * Chief Complaints: * ???Patient presents today fo r fe def anemia * HPI: ???incontinence:? I saw Radha in followup today in regard to her previous iron deficiency anemia. She is accompanied by her sister, Enriqueta. ?I last saw Radha in May 2023. Since that time she has been doing well from a GI standpoint. She has not needed any transfusions since that time. She has been able to stay off of the clopidogrel and is only using one 81 mg aspirin daily. She enjoys a good appetite and denies any significant heartburn or dysphagia. Her bowel movements are regular and without any melena nor hematochezia. She denies abdominal pain, jaundice, nor significant fatigue. ?She does remain on a daily famotidine and iron. ?Her most recent hemoglobin in January was 11.5 with MCV of 91. Her LFTs were normal at that time as well. * ROS:?General/Constitutional:?Change in appetite?denies.?Chills?denies.?Fatigue?denies.?Ophthalmologic:?Comments?all negative.?ENT:?Comments?all negative.?Respiratory:?hemoptysis?denies.?Cough?denies.?Cardiovascular:?Chest pain?denies.?Orthopnea?denies.?Gastrointestinal:?Comments?See HPI for details.?Genitourinary:?Hematuria?denies.?Dysuria?denies.?Musculoskeletal:?Painful joints?denies.?Weakness?denies.?Skin:?Itching?denies.?Rash?denies.?Neurologic:?Headache?denies.?Seizures?denies.?Psychiatric:?Comments?all negative.? * Medical History:? * Surgical History:?total hip replacement back surgery cateract surgery both eyes veins a long time ago bilateral stents femoral 01/15lumpectomy right breast * Hospitalization/Major Diagno stic Procedure:?No Hospitalization History. * Family History:?Father: dece ased, diagnosed with HTN (hypertension), Diabetes, Heart disease.?Mother: , diagnosed with HTN (hypertension), Diabetes, Heart disease.? No family history of liver cancer or colon cancer. * Social History:?Tobacco Use:?Tobacco Use/Smoking?Patient is a?former smoker.?Drugs/Alcohol:?Alcohol Screen?Did you have a drink containing alcohol in the past year??Yes,?How often did you have a drink containing alcohol in the past year??4 or more times a week (4 points),?How many drinks did you have on a typical day when you were drinking in the past year??1 or 2 drinks (0 point),?How often did you have 6 or more drinks on one occasion in the past year??Never (0 point),?Points?4,?Interpretation?Positive.?Miscellaneous:?Marital status: . Occupation: retired. * Medications:?TakingCoreg 3.1 25 MG Tablet 1 tablet with food Orally Twice a dayAspirin 81 81 MG Tablet Delayed Release 1 tablet Orally Once a dayFamotidine 40 MG Tablet 1 Orally Once a dayFerrous Sulfate 324 (65 Fe) MG Tablet Delayed Release TAKE 1 TABLET BY MOUTH EVERY DAY Oral dilTIAZem HCl ER Coated Beads 120 MG Capsule Extended Release 24 Hour Oral Serevent Diskus 50 MCG/ACT Aerosol Powder Breath Activated Inhalation Atorvastatin Calcium 40 MG Tablet Oral Anastrozole 1 MG Tablet Oral Meloxicam 7.5 MG Tablet Oral Meclizine HCl 12.5 MG Tablet TAKE 1 TABLET BY MOUTH THREE TIMES A DAY NEEDED Oral risperiDONE 1 MG Tablet TAKE 1 TABLET BY MOUTH EVERY DAY AT 5PM AND NEEDED FOR 90 DAYS Oral Taking Coreg 3.125 MG Tablet 1 tablet with food Orally Twice a dayTaking Aspirin 81 81 MG Tablet Delayed Release 1 tablet Orally Once a dayTaking Famotidine 40 MG Tablet 1 Orally Once a dayTaking Ferrous Sulfate 324 (65 Fe) MG Tablet Delayed Release TAKE 1 TABLET BY MOUTH EVERY DAY Oral Taking dilTIAZem HCl ER Coated Beads 120 MG Capsule Extended Release 24 Hour Oral Taking Serevent Diskus 50 MCG/ACT Aerosol Powder Breath Activated Inhalation Taking Atorvastatin Calcium 40 MG Tablet Oral Taking Anastrozole 1 MG Tablet Oral Taking Meloxicam 7.5 MG Tablet Oral Taking Meclizine HCl 12.5 MG Tablet TAKE 1 TABLET BY MOUTH THREE TIMES A DAY NEEDED Oral Taking risperiDONE 1 MG Tablet TAKE 1 TABLET BY MOUTH EVERY DAY AT 5PM AND NEEDED FOR 90 DAYS Oral Not-Taking/PRNOmeprazole 20 MG Capsule Delayed Release Oral Nitrofurantoin Monohyd Macro 100 MG Capsule Oral Clopidogrel Bisulfate 75 MG Tablet TAKE 1 TABLET BY MOUTH EVERY DAY Oral Not-Taking/PRN Omeprazole 20 MG Capsule Delayed Release Oral Not-Taking/PRN Nitrofurantoin Monohyd Macro 100 MG Capsule Oral Not-Taking/PRN Clopidogrel Bisulfate 75 MG Tablet TAKE 1 TABLET BY MOUTH EVERY DAY Oral DiscontinuedAtenolol 25 MG Tablet Oral Myrbetriq 50 MG Tablet Extended Release 24 Hour Oral Medication List reviewed and reconciled with the patientDiscontinued Atenolol 25 MG Tablet Oral Discontinued Myrbetriq 50 MG Tablet Extended Release 24 Hour Oral Medication List reviewed and reconciled with the patient * Allergies:?PenicillinErythro mycinyes[Allergies Verified] Objective: * Vitals:?Wt: 132 lbs, Ht: 5 f t 5 in, BMI:21.96 Index, BP: 00/00 mm Hg. * Examination: ???General Examination: ?GENERAL APPEARANCE:?pleasant, well nourished, well developed, in no acute distress.?EYES:?sclera non-icteric.?ORAL CAVITY:?mucosa moist.?NECK/THYROID:?no cervical lymphadenopathy, neck supple.?SKIN:?nonjaundiced, no spider angiomata.?HEART:?S1, S2 normal.?LUNGS:?clear to auscultation bilaterally.?ABDOMEN:?normal bowel sounds, no guarding or rigidity, no guarding or rigidity, no masses palpable, soft, nontender, nondistended.?EXTREMITIES:?no edema.?NEUROLOGIC:?alert and oriented.? Assessment: * Assessment: 1.?Iron deficiency anemia du e to chronic blood loss - D50.0 (Primary)? Overall, Radha appears hernesto te well at the present time. She does [...] to keep you advised of her progress. Plan: * Treatment: * Procedure Codes:?1036F TOBAC CO [id number] BP SCR NOT PRFRM REC REASON NOS * Preventive Medicine:? ??Counseling:?Care goal follow-up plan:?Above Normal BMI Follow-up?Giving encouragement to exercise,?BMI management provided?Yes.? ??Urinary Incontinence:?Urinary Incontinence?Assessment:?Present,?Plan of care documented:?Yes,?Type of plan of care:?Lifestyle interventions.? ??Screenings:?Fall Risk Screening?Fall Risk Assessment:?One fall with injury in the past year.? * Follow Up:?prn * * Sign off status: Completed true * Provider:?Otoniel Coates MD Date:? 024 Generated for Tamra early/Orin/Carlos on:?12/10/2024 06:20 PM EDT History and Physical Notes * HPI (History of Present Illness) Category Sub-Category Detail Notes Category Not es incontinence I saw Radha in followup today in regard to her previous iron deficiency anemia. She is accompanied by her sister, Enriqueta. I last saw Radha in May 2023. Since that time she has been doing well from a GI standpoint. She has not needed any transfusions since that time. She has been able to stay off of the clopidogrel and is only using one 81 mg aspirin daily. She enjoys a good appetite and denies any significant heartburn or dysphagia. Her bowel movements are regular and without any melena nor hematochezia. She denies abdominal pain, jaundice, nor significant fatigue. She does remain on a daily famotidine and iron. Her most recent hemoglobin in January was 11.5 with MCV of 91. Her LFTs were normal at that time as well. Examination Category Sub-Category Detail Notes Category Not es General Examination GENERAL APPEARANCE: pleasant , well [...]
--- OUTSIDE RECORDS SUMMARY | 2024-12-10 18:20 | XMS_ITS ---
Author Organization Otoniel Lees III, MD Address [address] [place] [address] [place] [address] Care Team Providers Care Distillery Miller Name Role Phone Bob Quinones MD Primary Care Provider Otoniel Alexander [phone] REASON FOR VISIT pt needs additional views and ultrasound of left breast Encounters Encounter Location Date Provider Diagnosis Otoniel Lees III, MD [address] [place] [address] [place] [address] 03/19/2024 Otoniel Lees Breasts asymmetrical N64.89 Assessments Encounter Date Diagnosis (ICD Code) Assessment Notes Treat ment Notes Treatment Clinical Notes 03/19/2024 Breasts asymmetrical (ICD-10 - N64.89) Plan Of Treatment Pending Test Test Name Order Date US BREAST LEFT ([facility]) 03/19/20 24 MM tomosynthesis diagnostic LT Progress Notes * Radha GAUTAM ADOB: 2 (83 yo F)Acc No.[id number]:03/19/2024 Patient:?Radha Gautam :1940???Age:83 Y???Sex:Female Address:[address] [place] [address] [place], [address] Subjective: * Chief Complaints: * ???Pt needs additional views and ultrasound of left breast * Medical History:? * Surgical History:? * Hospitalization/Major Diagno stic Procedure:? * Medications:? Objective: Assessment: * Assessment: 1.?Breasts asymmetrical - N6 4.89? Plan: * Treatment: * Procedure Codes:? * true * Date:? Generated for Tamra early/Orin/Carlos on:?12/10/2024 06:20 PM EDT
--- OUTSIDE RECORDS SUMMARY | 2024-12-10 18:20 | XMS_ITS ---
Author Organization [facility] Address [address] [place] [address] Care Team Providers Care It Security Analyst Name Role Phone Bob Quinones MD Primary Care Provider Otoniel Henriquez [phone] REASON FOR VISIT Patient presents today for fe def anemia Encounters Encounter Location Date Provider Diagnosis [facility] [address] [place] [address] 12/19/2023 Otoniel Coates Plan Of Treatment No Information Progress Notes * KRISHNA QIU ADOB: [birth year] (84 yo F)Acc No.[id number]:12/19/2023 Progress Notes Patient:?KRISHNA QIU Provider:?Otoniel Coates MD :1940???Age:83 Y???Sex:Female D ate:12/19/2023 Address:[address] [place], [place] [id number] Pcp:Bob Quinones MD Subjective: * Chief Complaints: * ???1. Patient presents today for fe def anemia. * Medical History:? Objective: * Vitals:? Assessment: Plan: * Treatment: * * The named appointment provid er may or may not be the originator of this progress note, and it is not deemed complete until electronically signed by the appointment provider. Sign off status: Pending * Provider:?Otoniel Coates MD Date:? 024 Generated for Tamra early/Orin/eTransmitting on:?12/10/2024 06:19 PM EDT
--- OUTSIDE RECORDS SUMMARY | 2024-12-10 18:20 | XMS_ITS ---
Author Organization Otoniel Lees III, MD Address [address] [place] [address] [place] [address] Care Team Providers Care Pet Feeder Name Role Phone Bob Quinones MD Primary Care Provider Otoniel Alexander [phone] REASON FOR VISIT Followup Encounters Encounter Location Date Provider Diagnosis Otoniel Lees III, MD [address] [place] [address] [place] [address] 09/17/2024 Otoniel Lees Plan Of Treatment No Information Progress Notes * Radha GAUTAM ADOB: [birth year] (84 yo F)Acc No.[id number]:09/17/2024 Progress Notes Patient:?Radha GAUTAM Provider:?Otoniel Lees MD :1940???Age:84 Y???Sex:Female D ate:09/17/2024 Address:[address] [place] [address] [id number] Pcp:Bob Quinones MD Subjective: * Chief Complaints: * ???1. Followup. * Medical History:? Objective: * Vitals:? Assessment: Plan: * Treatment: * Images: * The named appointment provid er may or may not be the originator of this progress note, and it is not deemed complete until electronically signed by the appointment provider. Sign off status: Pending * Provider:?Otoniel Lees MD Date:?08/27 Generated for Tamra early/Orin/eTransmitting on:?12/10/2024 06:19 PM EDT
--- OUTSIDE RECORDS SUMMARY | 2024-12-10 18:20 | XMS_ITS ---
Author Organization Otoniel Lees III, MD Address [address] [place] [address] [place] [address] Care Team Providers Care Lunchroom Food Service Supervisor Name Role Phone Bob Quinones MD Primary Care Provider Otoniel Alexander [phone] REASON FOR VISIT ? Rx Encounters Encounter Location Date Provider Diagnosis Otoniel Lees III, MD [address] [place] [address] [place] [address] 11/30/2024 Otoniel Lees Plan Of Treatment No Information Progress Notes * Radha GAUTAM ADOB: [birth year] (84 yo F)Acc No.[id number]:11/30/2024 Patient:?Radha GAUTAM :1940???Age:84 Y???Sex:Female Address:[address] [place] [address], [address] * true * Date:? Generated for Printi nneka/Fadheerajg/eTransmitting on:?12/10/2024 06:19 PM EDT
--- NOTE | 2024-12-10 20:34 | PC.NURSE ---
pt noted to be incontinent of stool, cleaned up, bed linen changed. pt repositioned to L. side. vitals as documented. awaiting transport to [facility].
--- NOTE | 2024-12-10 21:03 | PHA.MEDREC ---
Pharmacy Consult ? Medication Reconciliation Pharmacy has completed the medication reconciliation, utilized list from [facility].
[2024-12-11] VITALS (8 sets, daily range): BP systolic 96–163; BP diastolic 58–90; PULSE 80–107; RESP 16–18; TEMP 36–36.9; O2SAT 93–97; BMI 24.8
[2024-12-11] MEDS: metroNIDAZOLE/NS 500 MG/100 ML PIGGYBACK 100 MG IV ×4 (00:36→23:54)
[2024-12-11] MEDS: 0.9 % Sodium Chloride Flush 3 ML SYRINGE IVFLUSH ×3 (00:37→16:06)
[2024-12-11 05:26] LABS: MANUAL DIFF FLAG NO
[2024-12-11 05:29] LABS: Basophils Percent Auto 0.4 % (0-2); Eosinophils Absolute Auto 0.1 X10*3/uL (0.0-0.4); Eosinophils Percent Auto 1.4 % (0-4); Hemoglobin 11.8 g/dl (12.0-16.0); Imm Gran Abs Auto 0.04 X10*3/uL (0.00-0.03); Imm Gran Pct Auto 0.8 % (0.0-0.4); Lymphocytes Absolute Auto 0.7 X10*3/uL (1.2-4.9); Lymphocytes Percent Auto 13.9 % (20-40); Mean Corpuscular HGB Conc 32.8 g/dl (31.0-35.0); Mean Corpuscular Volume 91.6 fL (80.0-98.0); Mean Platelet Volume 9.9 fL (9.4-12.3); Monocytes Absolute Auto 0.6 X10*3/uL (0.1-1.2); Monocytes Percent Auto 11.9 % (2-11); Neutrophils Absolute Auto 3.6 x10*3/uL (2.0-8.3); Neutrophils Percent Auto 71.6 % (45-73); Platelet Count 135 X10*3/uL (160-400); Red Blood Count 3.93 X10*6/uL (4.20-5.50); Red Cell Distribution Width 13.6 % (11.0-16.0)
[2024-12-11 05:43] LABS: Anion Gap 13 (12-20); Blood Urea Nitrogen 13 mg/dL (9-16); Calcium 8.4 mg/dL (8.4-10.2); Carbon Dioxide 26 mmol/L (22-29); Chloride 106 mmol/L (96-108); Creatinine Clr Calc Pharmacy 70.6; Estimated Glomerular Filt Rate > 60; Glucose Random 118 mg/dL (60-115); Potassium 4.1 mmol/L (3.3-5.1); Sodium 141 mmol/L (135-145)
[2024-12-11] MEDS: Lactated Ringers 1,000 ML 100 ML IVCONT ×2 (06:12→14:12)
--- NOTE | 2024-12-11 08:09 | P.CONGS_ITS ---
History of Present Illness Consult details Consult date: 12/11/24 Requesting physician: Lionel Chance Narrative: 84-year-old female patient admitted to the hospitalist service from a SNF with worsening sacral decubitus ulcer and tachycardia. 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 Nicole. She now has worsening dementia, hypertension, urinary incontinence, hyperlipidemia, PVD status post left SFA arthrectomy/stent. She was previously noted to have sacral decubitus ulcer and has under gone debridement the most recent apparently on 12/09/2024. In the emergency department she was noted to have area of necrosis within the sacral decubitus ulcer with foul-smelling discharge, as well as bilateral heel decubiti. She was admitted to the hospitalist service for antibiotics. Surgical consultation was requested for possible debridement of the decubitus ulcers. Review of Systems 2 Review of Systems: Yes Unobtainable due to mental status PMFSH Past Medical History Medical History HTN (hypertension) Dementia PAD (peripheral artery disease) Invasive ductal carcinoma of right breast History of pneumonia History of dislocation of shoulder Family History Family History Mother Cancer of unknown origin Surgical History Surgical History History of vein stripping History of appendectomy History of cataract extraction History of left hip replacement History of back surgery Social History Social History Household Members: Unknown / Unable to assess Housing: Senior Living Do you presently have visiting nurse or other home services: Yes Alcohol intake: current Alcohol intake frequency: holidays/special occasions only Alcohol type: wine Comment: bauer catheter Patient Tobacco Use Status: Former Tobacco user Use of substances other than those prescribed or required for medical reasons: Refusing to respond Currently Displaying Signs/Symptoms of Drug Intoxication Withdrawal: No Advance Directives: Yes Advance Directives on File: Yes Advance Directives Date on File: 06/30/24 Do you have a plan to hurt others: No Plan Recently lost weight without trying: Unsure How much weight loss: Unsure Nutrition Risks: No Nutritional Risk Patient : No service: No Current occupational status: retired Meds Allergies Allergy/AdvReac Type Severity Reaction Status Date / Time Penicillins [PENICILLINS] Allergy Severe ITCHING Verified 12/10/24 14:57 azithromycin Allergy Unknown Verified 12/10/24 15:12 Erythromycin Allergy Severe itching Uncoded 12/10/24 14:57 Active Medications: Current Medications Acetaminophen (Acetaminophen 325 Mg Tablet) 650 mg PO Q6H PRN PRN Reason: Pain, Mild 1-3,fever,headache Albuterol Sulfate (Albuterol Sulfate 90 Mcg 8 Gm Inhaler) 2 puff INHALE Q6H PRN PRN Reason: Wheezing Albuterol/Ipratropium (Albuterol/Iprat 2.5/0.5mg 3 Ml Ampul.Neb) 3 ml INHALE Q4H PRN PRN Reason: Shortness of Breath/Wheezing Anastrozole (Anastrozole 1 Mg Tablet) 1 mg PO BEDTIME [facility] Ascorbic Acid (Ascorbic Acid 250 Mg Tablet) 250 mg PO DAILY KATHRIN Aspirin (Aspirin 81 Mg Tab.Chew) 81 mg PO DAILY KATHRIN Atorvastatin Calcium (Atorvastatin Calcium 40 Mg Tablet) 40 mg PO BEDTIME KAT[facility]IN Benzonatate (Benzonatate 100 Mg Capsule) 100 mg PO TID PRN PRN Reason: Cough Bisacodyl (Bisacodyl 10 Mg Supp.Rect) 10 mg WV DAILY PRN PRN Reason: constipation, no effect from MOM Calcium Carbonate (Calcium Carbonate 750 Mg Tab.Chew) 750 mg PO Q4H PRN PRN Reason: Heartburn Carvedilol (Carvedilol 3.125 Mg Tablet) 3.125 mg PO BID KATHRIN; Protocol Clopidogrel Bisulfate (Clopidogrel Bisulfate 75 Mg Tablet) 75 mg PO DAILY KATHRIN Collagenase (Collagenase Clostridium Hist. 30 Gm Tube) 1 appl TOPICAL DAILY PRN; Protocol PRN Reason: alteration in skin integrity Diltiazem HCl (Diltiazem Hcl Cd 120 Mg Cap.Er.Deg) 120 mg PO DAILY KATHRIN; Protocol Docusate Sodium (Docusate Sodium 100 Mg Capsule) 100 mg PO DAILY KATHRIN Enoxaparin Sodium (Enoxaparin Sodium 40 Mg/0.4 Ml Syringe) 40 mg SUBCUT Q24H KATHRIN Last Admin: 12/10/24 19:00 Dose: Not Given Famotidine (Famotidine 20 Mg Tablet) 40 mg PO BID [facility] Ferrous Sulfate (Ferrous Sulfate 324 Mg Tablet.) 324 mg PO DAILY [facility] Lactated Ringer's (Lr) 1,000 mls @ 100 mls/hr IVCONT .Q10H [facility] Last Admin: 12/11/24 06:12 Dose: 100 mls/hr Cefepime HCl (Maxipime) 2 gm in 50 mls @ 100 mls/hr IV Q8H [facility] Last Infusion: 12/11/24 00:15 Dose: Infused Metronidazole (Flagyl) 500 mg in 100 mls @ 100 mls/hr IV Q8H [facility] Last Infusion: 12/11/24 02:16 Dose: Infused Vancomycin HCl 1,000 mg/ (Sodium Chloride) 270 mls @ 270 mls/hr IV Q24H [facility] Magnesium Hydroxide (Milk Of Magnesia 30 Ml Oral.Susp) 30 ml PO DAILY PRN PRN Reason: Constipation Magnesium Hydroxide (Milk Of Magnesia 30 Ml Oral.Susp) 30 ml PO DAILY PRN PRN Reason: constipation, no BM in 3 days Melatonin (Melatonin 3 Mg Tablet) 6 mg PO BEDTIME PRN PRN Reason: Insomnia Mirabegron (Mirabegron 50 Mg Tab.Er.24h) 50 mg PO BEDTIME [facility] Morphine Sulfate (Morphine Sulfate 4 Mg/Ml Cartridge) 2 mg IVPUSH Q4H PRN; Protocol PRN Reason: Pain, Severe (Pain Scale 7-10) Multivitamins/Vitamin C (Multivitamin Tablet) 1 tab PO DAILY [facility] Omeprazole (Omeprazole 20 Mg Capsule.) 20 mg PO BID@0630,1630 [facility] Ondansetron HCl (Ondansetron Hcl 4 Mg/2 Ml Vial) 4 mg IVPUSH Q8H PRN PRN Reason: Nausea and Vomiting Oxybutynin Chloride (Oxybutynin Chloride Er 5 Mg Tab.Er.24) 5 mg PO BEDTIME [facility] Oxycodone HCl (Oxycodone Hcl Immed Release 5 Mg Tablet) 5 mg PO Q6H PRN PRN Reason: Pain, Moderate(Pain Scale 4-6) Pharmacy Consult (Consult Rx Vancomycin Dosing) 1 each MISCELLANE DAILY PRN PRN Reason: Consult order Prednisone (Prednisone 20 Mg Tablet) 0 mg PO .COMPLEX KATHRIN; Taper Stop: 12/20/24 07:59 Risperidone (Risperidone 1 Mg Tablet) 1 mg PO DAILY@1800 [facility] Salmeterol Xinafoate (Salmeterol Xinafoate 50 Mcg Blst.W.Dev) 1 puff INHALE BID PRN PRN Reason: Wheezing Senna (Sennosides 8.6 Mg Tablet) 8.6 mg PO DAILY [facility] Sodium Biphosphate/Sodium Phosphate (Sodium Phosphate,Kaufman-Dibasic 133 Ml Enema) 118 ml WV DAILY PRN PRN Reason: constipation, ducolax not effective Sodium Chloride (0.9 % Sodium Chloride Flush 3 Ml Syringe) 3 ml IVFLUSH QSHIFT [facility] Last Admin: 12/11/24 00:37 Dose: 3 ml Sodium Hypochlorite (Sodium Hypochlorite 0.125% 473 Ml Solution) 1 appl TOPICAL DAILY PRN PRN Reason: dressing change Tolterodine Tartrate (Tolterodine Tartrate La 4 Mg Cap.Er.24h) 4 mg PO DAILY [facility] Tramadol HCl (Tramadol Hcl 50 Mg Tablet) 50 mg PO DAILY PRN PRN Reason: prior to dressing change Vitamin D (Cholecalciferol (Vitamin D3) 25 Mcg Tablet) 25 mcg PO DAILY [facility] Home Medications ?Medication ?Instructions ?Recorded ?Confirmed ?Last Taken ?Type albuterol sulfate 90 mcg/actuation 2 inh inhalation Q6H PRN Wheezing 08/23/20 12/10/24 Unknown History breath activated powder inhaler,sensor (Proair Digihaler) aspirin 81 mg chewable tablet 81 mg PO DAILY 08/23/20 12/10/24 06/30/24 History cholecalciferol (vitamin D3) 25 25 mcg PO DAILY 08/23/20 12/10/24 06/30/24 History mcg (1,000 unit) capsule anastrozole 1 mg tablet 1 mg PO BEDTIME 11/08/20 12/10/24 06/30/24 History famotidine 40 mg tablet 40 mg PO BID 10/10/23 12/10/24 06/30/24 History diltiazem HCl 120 mg 120 mg PO DAILY 10/11/23 12/10/24 06/30/24 History capsule,extended release 24 hr ferrous sulfate 324 mg (65 mg 324 mg PO DAILY 10/11/23 12/10/24 06/30/24 History iron) tablet,delayed release salmeterol 50 mcg/dose blister 1 inh inhalation BID PRN Wheezing 10/11/23 12/10/24 Unknown History powder for inhalation (Serevent Diskus) carvedilol 3.125 mg tablet 3.125 mg PO BID 07/02/24 12/10/24 06/30/24 History docusate sodium 100 mg capsule 100 mg PO DAILY 07/02/24 12/10/24 06/30/24 History (Colace) mirabegron 50 mg tablet,extended 50 mg PO BEDTIME 11/18/24 12/10/24 Unknown History release 24 hr (Myrbetriq) oxybutynin chloride 5 mg 5 mg PO BEDTIME 11/18/24 12/10/24 Unknown History tablet,extended release 24 hr risperidone 1 mg tablet 1 mg PO DAILY@1800 11/18/24 12/10/24 Unknown History acetaminophen 325 mg tablet 650 mg PO Q6H PRN pain or fever 12/10/24 12/10/24 Unknown History ascorbic acid (vitamin C) 250 mg 250 mg PO DAILY 12/10/24 12/10/24 Unknown History tablet (Vitamin C) atenolol 25 mg tablet 25 mg PO DAILY 12/10/24 12/10/24 Unknown History atorvastatin 40 mg tablet 40 mg PO BEDTIME 12/10/24 12/10/24 Unknown History bisacodyl 10 mg rectal suppository 10 mg WV DAILY PRN constipation, 12/10/24 12/10/24 Unknown History no effect from MOM clopidogrel 75 mg tablet 75 mg PO DAILY 12/10/24 12/10/24 Unknown History collagenase clostridium histo. 250 1 appl topical DAILY PRN 12/10/24 12/10/24 Unknown History unit/gram topical ointment (Santyl) alteration in skin integrity magnesium hydroxide 400 mg/5 mL 30 ml PO DAILY PRN constipation, 12/10/24 12/10/24 Unknown History oral suspension (Milk of Magnesia) no BM in 3 days multivitamin 1 tab PO DAILY 12/10/24 12/10/24 Unknown History nutritional supplements 1 ea PO BEDTIME 12/10/24 12/10/24 Unknown History omeprazole 20 mg capsule,delayed 20 mg PO BID@0630,1630 12/10/24 12/10/24 Unknown History release oxycodone 5 mg tablet 5 mg PO Q6H PRN Pain 12/10/24 12/10/24 Unknown History prednisone 20 mg tablet See Rx Instructions .ROUTE .COMPLEX 12/10/24 12/10/24 Unknown History sennosides 8.6 mg tablet (senna) 8.6 mg PO DAILY 12/10/24 12/10/24 Unknown History sodium hypochlorite 0.125 % 1 appl topical DAILY PRN dressing 12/10/24 12/10/24 Unknown History solution (Dakin's Solution) change sodium phosphates 19 gram-7 118 ml WV DAILY PRN constipation, 12/10/24 12/10/24 Unknown History gram/118 mL enema (Fleet Enema) ducolax not effective tolterodine 4 mg capsule,extended 4 mg PO DAILY 12/10/24 12/10/24 Unknown History release 24 hr tramadol 50 mg tablet 25 mg PO Q6H PRN Pain 12/10/24 12/10/24 Unknown History tramadol 50 mg tablet 50 mg PO DAILY PRN prior to 12/10/24 12/10/24 Unknown History dressing change Physical Exam 2 Vital Signs: Vital Signs: Last Vital Signs Temp 98.4 F 12/11/24 04:00 Pulse 98 12/11/24 04:00 Resp 16 12/11/24 04:00 BP 163/75 H 12/11/24 04:00 Pulse Ox 96 12/11/24 04:00 O2 Del Method Room Air 12/11/24 04:00 O2 Flow Rate 1 12/10/24 20:34 Oxygen Flow Rate 2 12/10/24 14:38 BMI result Body Mass Index 24.8 Const: General: lethargic and patient obtunded Nutritional Appearance: well nourished Orientation/consciousness: patient obtunded and lethargic HEENT: Head: Yes normocephalic and Yes atraumatic Resp: Effort & Inspection: normal respiratory effort and no cough GI: Inspection: Yes normal to inspection Back/Spine/Pelvis: Other: Large midline sacral decubitus ulcer with central areas of necrosis and foul- smelling discharge. Surrounding areas skin reveals some granulation tissue. Necrotic tissue appears to extend down to sacrum. Unable to completely examine area due to patient's mental status. Back/spine/pelvis image: 1. Sacral decubitus ulcer Neuro: General: patient obtunded Extrem: Other: Left heel with an open wound with surrounding desquamated skin, no apparent abscess or hematoma; right heel with pressure changes but no discharge. No open wounds appreciated. Results Labs 12/11/24 05:21 12/11/24 05:21 Labs: Abnormal lab results 12/10/24 12/10/24 12/11/24 Range/Units 15:05 15:19 05:21 RBC 3.93 L (4.20-5.50) X10*6/uL Hgb 11.8 L (12.0-16.0) g/dl Hct 36.0 L (37.0-47.0) % Plt Count 135 L (160-400) X10*3/uL Immature Gran % (Auto) 0.6 H 0.8 H (0.0-0.4) % Neut % (Auto) 78.1 H (45-73) % Lymph % (Auto) 9.4 L 13.9 L (20-40) % Kaufman % (Auto) 11.9 H (2-11) % Lymph # (Auto) 0.6 L 0.7 L (1.2-4.9) X10*3/uL Abs Immat Gran (auto) 0.04 H 0.04 H (0.00-0.03) X10*3/uL VBG pH 7.46 H (7.32-7.43) VBG HCO3 32 H (22-26) mmol/L BUN 19 H (9-16) mg/dL Random Glucose 150 H 118 H (60-115) mg/dL AST 66 H (5-31) U/L ALT 133 H (0-31) U/L C-Reactive Protein 4.22 H (< or = 0.50) mg/dL Albumin 3.2 L (3.5-5.0) g/dL Short CBC 12/10/24 12/11/24 Range/Units 15:05 05:21 WBC 6.7 5.0 (4.8-10.8) X10*3/uL Hgb 13.1 D 11.8 L (12.0-16.0) g/dl Hct 39.9 D 36.0 L (37.0-47.0) % Plt Count 180 135 L (160-400) X10*3/uL BMP 12/10/24 12/11/24 15:05 05:21 Sodium 138 141 Potassium 4.6 4.1 Chloride 102 106 Carbon Dioxide 27 26 BUN 19 H 13 Creatinine 0.74 0.53 Calcium 8.8 D 8.4 Liver Function 12/10/24 Range/Units 15:05 Total Bilirubin 0.8 (0.0-1.0) mg/dL Direct Bilirubin 0.3 (0.0-0.5) mg/dL AST 66 H (5-31) U/L ALT 133 H (0-31) U/L Alkaline Phosphatase 76 (39-117) U/L Albumin 3.2 L (3.5-5.0) g/dL All other labs normal. Assessment and Plan (1) Pressure ulcer of left heel: Qualifiers: Pressure injury stage: stage 3 Qualified Code(s): L89.623 - Pressure ulcer of left heel, stage 3 Status: Acute (2) Blister of right heel: Qualifiers: Encounter type: initial encounter Qualified Code(s): S90.821A - Blister (nonthermal), right foot, initial encounter Status: Acute (3) Ulcer of sacral region, unstageable: Status: Acute Plan Unfortunate 84-year-old female patient with progressive dementia now with sacral decubitus and bilateral heel ulcers. Sacral decubitus has necrotic tissue and foul-smelling discharge noted. Patient did not respond to my questioning on examination today. We will need to return to debride wound hopefully at bedside. Patient does not seems stable enough for anesthesia at this point. We will continue to monitor during her hospitalization. Procedures Date of Service Date of Service: 12/11/24
[2024-12-11] MEDS: Cholecalciferol (Vitamin D3) 25 MCG TABLET PO (09:48)
[2024-12-11] MEDS: oxyCODONE HCl Immed Release 5 MG TABLET PO (09:48)
[2024-12-11] MEDS: Docusate Sodium 100 MG CAPSULE PO (09:48)
[2024-12-11] MEDS: Ascorbic Acid 250 MG TABLET PO (09:48)
[2024-12-11] MEDS: Tolterodine Tartrate LA 4 MG CAP.ER.24H PO (09:48)
[2024-12-11] MEDS: Famotidine 20 MG TABLET 40 MG PO ×2 (09:48→21:20)
[2024-12-11] MEDS: dilTIAZem HCL CD 120 MG CAP.ER.DEG PO (09:49)
[2024-12-11] MEDS: Aspirin 81 MG TAB.CHEW PO (09:49)
[2024-12-11] MEDS: Sennosides 8.6 MG TABLET PO (09:49)
[2024-12-11] MEDS: carvediloL 3.125 MG TABLET PO (09:49)
[2024-12-11] MEDS: Ferrous Sulfate 324 MG TABLET.DR PO (09:49)
[2024-12-11] MEDS: Clopidogrel Bisulfate 75 MG TABLET PO (09:49)
[2024-12-11] MEDS: Multivitamin TABLET 1 TAB PO (09:49)
[2024-12-11] MEDS: predniSONE 20 MG TABLET 5 MG PO (09:49)
--- NOTE | 2024-12-11 10:50 | ECG_ITS ---
Test Reason : afib Blood Pressure : */* mmHG Vent. Rate : 135 BPM Atrial Rate : * BPM P-R Int : * ms QRS Dur : 76 ms QT Int : 308 ms P-R-T Axes : * -41 34 degrees QTcB Int : 462 ms Atrial fibrillation with rapid ventricular response Left axis deviation Low voltage QRS Inferior infarct (cited on or before 10-Dec-2024) Cannot rule out Anterior infarct (cited on or before 22-Jan-2023) Abnormal ECG When compared with ECG of 10-Dec-2024 15:44, Atrial fibrillation has replaced Sinus rhythm Questionable change in initial forces of Inferior leads Referred By: Lionel Chance Electronically Signed By: MARGUERITE DOW MD
[2024-12-11] MEDS: cefEPime HCl/D5W 2 GM/50 ML PIGGYBACK IV ×2 (11:07→21:21)
[2024-12-11] MEDS: Morphine Sulfate 4 MG/ML CARTRIDGE 2 MG IVPUSH (12:04)
[2024-12-11] MEDS: Sodium Hypochlorite 0.125% 473 ML SOLUTION 1 APPL TOPICAL (12:06)
[2024-12-11] MEDS: atenoloL 25 MG TABLET PO (13:33)
--- NOTE | 2024-12-11 13:36 | MHC.CM.PN ---
Patient has Dementia and AMS; CM attempted to speak with Sister/HCP/Enriqueta @ [phone], but was only able to leave a detailed message, addressing the IMM (original will be mailed certified letter to Enriqueta and a copy will be placed on the chart). Patient comes to [facility] from [facility] and the tentative plan is for her to return there, pending PT Eval. CM has initiated and will follow for dc planning. PCP is Dr. Makenzie Colindres and Patient will require BLS transport back to SNF.Patient has had [facility] in the past.
--- NOTE | 2024-12-11 13:45 | P.PNIM_ITS ---
Subjective Subjective Date of Service: 12/11/24 Interval History: seen and evaluated this morning feels weak and tired reporting lower back pain went into Afib w RvR Review of Systems Review of Systems: Yes all other systems are reviewed and are negative Physical Exam 2 Vital Signs: Vital Signs: Last Vital Signs Temp 97.1 F 12/11/24 12:00 Pulse 106 H 12/11/24 12:00 Resp 17 12/11/24 12:00 BP 104/70 12/11/24 12:00 Pulse Ox 93 12/11/24 12:00 O2 Del Method Room Air 12/11/24 12:00 O2 Flow Rate 1 12/10/24 20:34 Oxygen Flow Rate 2 12/10/24 14:38 BMI result Body Mass Index 24.8 Const: Other: Constitutional : interactive, lethargic looking, not in distress Cardiovascular : irregular irregular, no JVP, no lower extremity edema Respiratory : bilateral chest movement, not in resp distress Gastrointestinal: soft, lax, Non tender Skin : Warm, Dry, large sacral decubitus wound with odor,pressure ulcer on R heel with ischemia, stage 3 pressure ulcer on L heel Neurological : Alert & oriented to self only otherwise confused, No focal deficit Objective Data Active Medications Acetaminophen (Acetaminophen 325 Mg Tablet) 650 mg PO Q6H PRN PRN Reason: Pain, Mild 1-3,fever,headache Albuterol Sulfate (Albuterol Sulfate 90 Mcg 8 Gm Inhaler) 2 puff INHALE Q6H PRN PRN Reason: Wheezing Albuterol/Ipratropium (Albuterol/Iprat 2.5/0.5mg 3 Ml Ampul.Neb) 3 ml INHALE Q4H PRN PRN Reason: Shortness of Breath/Wheezing Anastrozole (Anastrozole 1 Mg Tablet) 1 mg PO BEDTIME [facility] Ascorbic Acid (Ascorbic Acid 250 Mg Tablet) 250 mg PO DAILY [facility] Last Admin: 12/11/24 09:48 Dose: 250 mg Documented By: JILLIAN Aspirin (Aspirin 81 Mg Tab.Chew) 81 mg PO DAILY [facility] Last Admin: 12/11/24 09:49 Dose: 81 mg Documented By: JILLIAN Atenolol (Atenolol 25 Mg Tablet) 25 mg PO DAILY [facility]; Protocol Last Admin: 12/11/24 13:33 Dose: 25 mg Documented By: JILLIAN Atorvastatin Calcium (Atorvastatin Calcium 40 Mg Tablet) 40 mg PO BEDTIME [facility] Benzonatate (Benzonatate 100 Mg Capsule) 100 mg PO TID PRN PRN Reason: Cough Bisacodyl (Bisacodyl 10 Mg Supp.Rect) 10 mg [place] DAILY PRN PRN Reason: constipation, no effect from MOM Calcium Carbonate (Calcium Carbonate 750 Mg Tab.Chew) 750 mg PO Q4H PRN PRN Reason: Heartburn Carvedilol (Carvedilol 3.125 Mg Tablet) 3.125 mg PO BID [facility]; Protocol Last Admin: 12/11/24 09:49 Dose: 3.125 mg Documented By: JILLIAN Clopidogrel Bisulfate (Clopidogrel Bisulfate 75 Mg Tablet) 75 mg PO DAILY [facility] Last Admin: 12/11/24 09:49 Dose: 75 mg Documented By: JILLIAN Collagenase (Collagenase Clostridium Hist. 30 Gm Tube) 1 appl TOPICAL DAILY PRN; Protocol PRN Reason: alteration in skin integrity Diltiazem HCl (Diltiazem Hcl Cd 120 Mg Cap.Er.Deg) 120 mg PO DAILY [facility]; Protocol Last Admin: 12/11/24 09:49 Dose: 120 mg Documented By: JILLIAN Docusate Sodium (Docusate Sodium 100 Mg Capsule) 100 mg PO DAILY [facility] Last Admin: 12/11/24 09:48 Dose: 100 mg Documented By: JILLIAN Enoxaparin Sodium (Enoxaparin Sodium 40 Mg/0.4 Ml Syringe) 40 mg SUBCUT Q24H [facility] Last Admin: 12/10/24 19:00 Dose: Not Given Documented By: LACI Non-Admin Reason: See Note Famotidine (Famotidine 20 Mg Tablet) 40 mg PO BID [facility] Last Admin: 12/11/24 09:48 Dose: 40 mg Documented By: JILLIAN Ferrous Sulfate (Ferrous Sulfate 324 Mg Tablet.Dr) 324 mg PO DAILY [facility] Last Admin: 12/11/24 09:49 Dose: 324 mg Documented By: JILLIAN Lactated Ringer's (Lr) 1,000 mls @ 100 mls/hr IVCONT .Q10H [facility] Last Admin: 12/11/24 06:12 Dose: 100 mls/hr Documented By: ANTOINC Metronidazole (Flagyl) 500 mg in 100 mls @ 100 mls/hr IV Q8H [facility] Last Infusion: 12/11/24 11:36 Dose: Infused Documented By: JILLIAN Vancomycin HCl 1,000 mg/ (Sodium Chloride) 270 mls @ 270 mls/hr IV Q24H [facility] Cefepime HCl (Maxipime) 2 gm in 50 mls @ 100 mls/hr IV Q8H [facility] Last Infusion: 12/11/24 11:52 Dose: Infused Documented By: JILLIAN Magnesium Hydroxide (Milk Of Magnesia 30 Ml Oral.Susp) 30 ml PO DAILY PRN PRN Reason: constipation, no BM in 3 days Melatonin (Melatonin 3 Mg Tablet) 6 mg PO BEDTIME PRN PRN Reason: Insomnia Mirabegron (Mirabegron 50 Mg Tab.Er.24h) 50 mg PO BEDTIME [facility] Morphine Sulfate (Morphine Sulfate 4 Mg/Ml Cartridge) 2 mg IVPUSH Q4H PRN; Protocol PRN Reason: Pain, Severe (Pain Scale 7-10) Last Admin: 12/11/24 12:04 Dose: 2 mg Documented By: JILLIAN Multivitamins/Vitamin C (Multivitamin Tablet) 1 tab PO DAILY [facility] Last Admin: 12/11/24 09:49 Dose: 1 tab Documented By: JILLIAN Ondansetron HCl (Ondansetron Hcl 4 Mg/2 Ml Vial) 4 mg IVPUSH Q8H PRN PRN Reason: Nausea and Vomiting Oxybutynin Chloride (Oxybutynin Chloride Er 5 Mg Tab.Er.24) 5 mg PO BEDTIME [facility] Oxycodone HCl (Oxycodone Hcl Immed Release 5 Mg Tablet) 5 mg PO Q6H PRN PRN Reason: Pain, Moderate(Pain Scale 4-6) Last Admin: 12/11/24 09:48 Dose: 5 mg Documented By: JILLIAN Pantoprazole Sodium (Pantoprazole Sodium 20 Mg Tablet.) 40 mg PO BID@0630,1630 [facility] Pharmacy Consult (Consult Rx Vancomycin Dosing) 1 each MISCELLANE DAILY PRN PRN Reason: Consult order Prednisone (Prednisone 20 Mg Tablet) 10 mg PO DAILY [facility]; Taper Stop: 12/20/24 07:59 Last Admin: 12/11/24 09:49 Dose: 10 mg Documented By: JILLIAN Risperidone (Risperidone 1 Mg Tablet) 1 mg PO DAILY@1800 [facility] Salmeterol Xinafoate (Salmeterol Xinafoate 50 Mcg Blst.W.Dev) 1 puff INHALE BID PRN PRN Reason: Wheezing Senna (Sennosides 8.6 Mg Tablet) 8.6 mg PO DAILY [facility] Last Admin: 12/11/24 09:49 Dose: 8.6 mg Documented By: JILLIAN Sodium Biphosphate/Sodium Phosphate (Sodium Phosphate,Preston-Dibasic 133 Ml Enema) 118 ml [place] DAILY PRN PRN Reason: constipation, ducolax not effective Sodium Chloride (0.9 % Sodium Chloride Flush 3 Ml Syringe) 3 ml IVFLUSH QSHIFT [facility] Last Admin: 12/11/24 09:33 Dose: 3 ml Documented By: JILLIAN Sodium Hypochlorite (Sodium Hypochlorite 0.125% 473 Ml Solution) 1 appl TOPICAL DAILY PRN PRN Reason: dressing change Last Admin: 12/11/24 12:06 Dose: 1 appl Documented By: JILLIAN Tolterodine Tartrate (Tolterodine Tartrate La 4 Mg Cap.Er.24h) 4 mg PO DAILY [facility] Last Admin: 12/11/24 09:48 Dose: 4 mg Documented By: JILLIAN Tramadol HCl (Tramadol Hcl 50 Mg Tablet) 50 mg PO DAILY PRN PRN Reason: prior to dressing change Vitamin D (Cholecalciferol (Vitamin D3) 25 Mcg Tablet) 25 mcg PO DAILY [facility] Last Admin: 12/11/24 09:48 Dose: 25 mcg Documented By: JILLIAN Labs 12/11/24 05:21 12/11/24 05:21 Labs: Laboratory Results - last 24 hr 12/10/24 12/10/24 12/11/24 15:05 15:19 05:21 MCV 91.7 91.6 MCH 30.1 30.0 MCHC 32.8 32.8 RDW 13.6 13.6 Plt Count 180 135 L MPV 10.3 9.9 Immature Gran % (Auto) 0.6 H 0.8 H Neut % (Auto) 78.1 H 71.6 Lymph % (Auto) 9.4 L 13.9 L Preston % (Auto) 10.9 11.9 H Eos % (Auto) 0.7 1.4 Baso % (Auto) 0.3 0.4 Lymph # (Auto) 0.6 L 0.7 L Preston # (Auto) 0.7 0.6 Eos # (Auto) 0.1 0.1 Baso # (Auto) 0.0 0.0 Abs Immat Gran (auto) 0.04 H 0.04 H Absolute Neuts (auto) 5.2 3.6 Absolute Nucleated RBC 0.000 0.000 Nucleated RBC % (auto) 0.0 0.0 Hold Purple Top SEE NOTE Hold Blue Top SEE NOTE VBG pH 7.46 H VBG pCO2 45 VBG pO2 43 VBG HCO3 32 H VBG O2 Saturation 70.0 VBG Base Excess 7.8 Anion Gap 14 13 Estim Creat Clear Calc 50.6 70.6 Estimated GFR > 60 > 60 Random Glucose 150 H 118 H Lactic Acid 1.9 Calcium 8.8 D 8.4 Magnesium 1.9 Total Bilirubin 0.8 Direct Bilirubin 0.3 AST 66 H ALT 133 H Alkaline Phosphatase 76 C-Reactive Protein 4.22 H Total Protein 6.5 Albumin 3.2 L Procalcitonin 0.08 Influenza Type A (PCR) NEGATIVE Influenza Type B (PCR) NEGATIVE RSV RNA Qual (PCR) NEGATIVE SARS-CoV-2 RNA (RT-PCR) NEGATIVE Assessment and Plan (1) Sepsis: Status: Acute (2) Pneumonia: Status: Acute (3) Ulcer of sacral region, unstageable: Status: Acute (4) Decubitus skin ulcer: Status: Acute (5) Blister of right heel: Status: Acute (6) Pressure ulcer of left heel: Status: Acute Plan An 84-year-old female with PMH of dementia, breast cancer s/p surgery and radiation PID s/p L SFA arthrectomy/stent, L common iliac/external iliac stent, HTN, urinary incontinence, HLD, GIB 12/2022, falls, who presented to the ED due to fever and worsening sacral ulcer among other wounds. Sepsis 2/2 Stage 4 sacral pressure ulcer and bilateral heel wound with infection Meets sepsis with source, tachycardia and fever pending cultures Start vancomycin, cefepime, Flagyl, surgery consult, bedside debridement Get ID eval For Wound care aconsult Pneumonia as seen on CXR covered with antibiotics on room air for now progressive weakness evaluated last admission by neuro with rec to DC Statin and trial of prednisone possible NPH but unlikely to benefit from work up/treatment PT eval History of breast cancer Anastrozole Hypertension Diltiazem held for low bp Peripheral vascular disease Aspirin statin discontinued DVT prophylaxis with Lovenox Full code The patient will need overnight stay for treatment of sepsis from deep wounds infection on IV antibiotics pending final cultures and database reporting consultant evaluation Quality Stroke Does the patient have a stroke diagnosis?: No VTE Prior VTE?: No VTE Risk Level:: Medical - moderate - high VTE Device Contraindication: Treatment Not Indicated VTE Drug Contraindication: N/A - Med Ordered
--- NOTE | 2024-12-11 13:47 | MHC.CLN ---
NUTRITION LIBERALIZED DIET FROM 2 G SODIUM TO REGULAR TO PROMOTE PO INTAKE. SKIN WITH UNSTAGEABLE AREAS TO SACRUM AND BILATERAL HEELS. ADDING ENSURE MAX BID TO PROMOTE WOUND HEALING. SUPPLEMENT PROVIDES 300 KCALS, 60 G PROTEIN. FOLLOW FOR PO INTAKE AND WOUND HEALING. SEE CLINICAL NUTRITION ASSESSMENT 12/11/24.
--- NOTE | 2024-12-11 14:13 | PM.CNGS ---
History of Present Illness Consult details Consult date: 12/11/24 <Ambika Vasquez PA-C - Last Filed: 12/11/24 14:47> Reason for consult: wound care <BENNIE Correa Last Filed: 12/11/24 14:47> Requesting physician: Lionel Chance <Ambika Vasquez PA-C - Last Filed: 12/11/24 14:47> Narrative: 84-year-old female with PMH of dementia, breast cancer s/p surgery and radiation, PAD s/p L SFA arthrectomy/stent, L common iliac/external iliac stent, HTN, HLD, GI bleed, falls, who presented to the ED with fever and worsening sacral ulcer. She was tachycardic and febrile upon presentation. She was admitted to the hospitalist service for sepsis secondary to her stage 4 sacral decubitus ulcer, pneumonia, progressive weakness. She is on vanco, cefepime and flagyl. General surgery was consulted for possible debridement of her sacral ulcer. Sister is at bedside who reports she underwent debridement at her SNF on Saturday with another planned debridement next Saturday. She mentioned difficulty keeping wound clean due to bowel movements and soilage. <BENNIE Correa Last Filed: 12/11/24 14:47> Review of Systems Review of Systems: Yes Unobtainable due to mental condition <BENNIE Correa Last Filed: 12/11/24 14:47> Neurologic: Reports confusion <BENNIE Correa Last Filed: 12/11/24 14:47> Psychiatric: Psychiatric: Reports confusion <BENNIE Correa Last Filed: 12/11/24 14:47> [facility] Past Medical History Medical History: Medical History HTN (hypertension) Dementia PAD (peripheral artery disease) Invasive ductal carcinoma of right breast History of pneumonia History of dislocation of shoulder <BENNIE Correa Last Filed: 12/11/24 14:47> Family History Family History: Family History Mother Cancer of unknown origin <Ambika Vasquez PA-C - Last Filed: 12/11/24 14:47> Surgical History Surgical History: Surgical History History of vein stripping History of appendectomy History of cataract extraction History of left hip replacement History of back surgery <Ambika Vasquez PA-C - Last Filed: 12/11/24 14:47> Social History Social History: Social History Household Members: Unknown / Unable to assess Housing: [facility] Do you presently have visiting nurse or other home services: Yes Alcohol intake: current Alcohol intake frequency: holidays/special occasions only Alcohol type: wine Comment: bauer catheter Patient Tobacco Use Status: Former Tobacco user Use of substances other than those prescribed or required for medical reasons: Refusing to respond Currently Displaying Signs/Symptoms of Drug Intoxication Withdrawal: No Advance Directives: Yes Advance Directives on File: Yes Advance Directives Date on File: 06/30/24 Do you have a plan to hurt others: No Plan Recently lost weight without trying: Unsure How much weight loss: Unsure Nutrition Risks: No Nutritional Risk Patient : No service: No Current occupational status: retired <Ambika Vasquez PA-C - Last Filed: 12/11/24 14:47> Meds Allergies/Adverse reactions: Allergies Allergy/AdvReac Type Severity Reaction Status Date / Time Penicillins [PENICILLINS] Allergy Severe ITCHING Verified 12/10/24 14:57 azithromycin Allergy Unknown Verified 12/10/24 15:12 Erythromycin Allergy Severe itching Uncoded 12/10/24 14:57 <BENNIE Correa Last Filed: 12/11/24 14:47> Active Medications: Current Medications Acetaminophen (Acetaminophen 325 Mg Tablet) 650 mg PO Q6H PRN PRN Reason: Pain, Mild 1-3,fever,headache Albuterol Sulfate (Albuterol Sulfate 90 Mcg 8 Gm Inhaler) 2 puff INHALE Q6H PRN PRN Reason: Wheezing Albuterol/Ipratropium (Albuterol/Iprat 2.5/0.5mg 3 Ml Ampul.Neb) 3 ml INHALE Q4H PRN PRN Reason: Shortness of Breath/Wheezing Anastrozole (Anastrozole 1 Mg Tablet) 1 mg PO BEDTIME [facility] Ascorbic Acid (Ascorbic Acid 250 Mg Tablet) 250 mg PO DAILY [facility] Last Admin: 12/11/24 09:48 Dose: 250 mg Aspirin (Aspirin 81 Mg Tab.Chew) 81 mg PO DAILY [facility] Last Admin: 12/11/24 09:49 Dose: 81 mg Atenolol (Atenolol 25 Mg Tablet) 25 mg PO DAILY [facility]; Protocol Last Admin: 12/11/24 13:33 Dose: 25 mg Atorvastatin Calcium (Atorvastatin Calcium 40 Mg Tablet) 40 mg PO BEDTIME [facility]AT[facility]IN Benzonatate (Benzonatate 100 Mg Capsule) 100 mg PO TID PRN PRN Reason: Cough Bisacodyl (Bisacodyl 10 Mg Supp.Rect) 10 mg AK DAILY PRN PRN Reason: constipation, no effect from MOM Calcium Carbonate (Calcium Carbonate 750 Mg Tab.Chew) 750 mg PO Q4H PRN PRN Reason: Heartburn Carvedilol (Carvedilol 3.125 Mg Tablet) 3.125 mg PO BID [facility]; Protocol Last Admin: 12/11/24 09:49 Dose: 3.125 mg Clopidogrel Bisulfate (Clopidogrel Bisulfate 75 Mg Tablet) 75 mg PO DAILY [facility] Last Admin: 12/11/24 09:49 Dose: 75 mg Collagenase (Collagenase Clostridium Hist. 30 Gm Tube) 1 appl TOPICAL DAILY PRN; Protocol PRN Reason: alteration in skin integrity Diltiazem HCl (Diltiazem Hcl Cd 120 Mg Cap.Er.Deg) 120 mg PO DAILY [facility]; Protocol Last Admin: 12/11/24 09:49 Dose: 120 mg Docusate Sodium (Docusate Sodium 100 Mg Capsule) 100 mg PO DAILY [facility] Last Admin: 12/11/24 09:48 Dose: 100 mg Enoxaparin Sodium (Enoxaparin Sodium 40 Mg/0.4 Ml Syringe) 40 mg SUBCUT Q24H [facility] Last Admin: 12/10/24 19:00 Dose: Not Given Famotidine (Famotidine 20 Mg Tablet) 40 mg PO BID [facility] Last Admin: 12/11/24 09:48 Dose: 40 mg Ferrous Sulfate (Ferrous Sulfate 324 Mg Tablet.Dr) 324 mg PO DAILY [facility] Last Admin: 12/11/24 09:49 Dose: 324 mg Lactated Ringer's (Lr) 1,000 mls @ 100 mls/hr IVCONT .Q10H [facility] Last Admin: 12/11/24 14:12 Dose: 100 mls/hr Metronidazole (Flagyl) 500 mg in 100 mls @ 100 mls/hr IV Q8H [facility] Last Infusion: 12/11/24 11:36 Dose: Infused Vancomycin HCl 1,000 mg/ (Sodium Chloride) 270 mls @ 270 mls/hr IV Q24H [facility] Cefepime HCl (Maxipime) 2 gm in 50 mls @ 100 mls/hr IV Q8H [facility] Last Infusion: 12/11/24 11:52 Dose: Infused Magnesium Hydroxide (Milk Of Magnesia 30 Ml Oral.Susp) 30 ml PO DAILY PRN PRN Reason: constipation, no BM in 3 days Melatonin (Melatonin 3 Mg Tablet) 6 mg PO BEDTIME PRN PRN Reason: Insomnia Mirabegron (Mirabegron 50 Mg Tab.Er.24h) 50 mg PO BEDTIME [facility] Morphine Sulfate (Morphine Sulfate 4 Mg/Ml Cartridge) 2 mg IVPUSH Q4H PRN; Protocol PRN Reason: Pain, Severe (Pain Scale 7-10) Last Admin: 12/11/24 12:04 Dose: 2 mg Multivitamins/Vitamin C (Multivitamin Tablet) 1 tab PO DAILY [facility] Last Admin: 12/11/24 09:49 Dose: 1 tab Ondansetron HCl (Ondansetron Hcl 4 Mg/2 Ml Vial) 4 mg IVPUSH Q8H PRN PRN Reason: Nausea and Vomiting Oxybutynin Chloride (Oxybutynin Chloride Er 5 Mg Tab.Er.24) 5 mg PO BEDTIME [facility] Oxycodone HCl (Oxycodone Hcl Immed Release 5 Mg Tablet) 5 mg PO Q6H PRN PRN Reason: Pain, Moderate(Pain Scale 4-6) Last Admin: 12/11/24 09:48 Dose: 5 mg Pantoprazole Sodium (Pantoprazole Sodium 20 Mg Tablet.) 40 mg PO BID@0630,1630 [facility] Pharmacy Consult (Consult Rx Vancomycin Dosing) 1 each MISCELLANE DAILY PRN PRN Reason: Consult order Prednisone (Prednisone 20 Mg Tablet) 10 mg PO DAILY [facility]; Taper Stop: 12/20/24 07:59 Last Admin: 12/11/24 09:49 Dose: 10 mg Risperidone (Risperidone 1 Mg Tablet) 1 mg PO DAILY@1800 [facility] Salmeterol Xinafoate (Salmeterol Xinafoate 50 Mcg Blst.W.Dev) 1 puff INHALE BID PRN PRN Reason: Wheezing Senna (Sennosides 8.6 Mg Tablet) 8.6 mg PO DAILY [facility] Last Admin: 12/11/24 09:49 Dose: 8.6 mg Sodium Biphosphate/Sodium Phosphate (Sodium Phosphate,[place]-Dibasic 133 Ml Enema) 118 ml AK DAILY PRN PRN Reason: constipation, ducolax not effective Sodium Chloride (0.9 % Sodium Chloride Flush 3 Ml Syringe) 3 ml IVFLUSH QSHIFT [facility] Last Admin: 12/11/24 09:33 Dose: 3 ml Sodium Hypochlorite (Sodium Hypochlorite 0.125% 473 Ml Solution) 1 appl TOPICAL DAILY PRN PRN Reason: dressing change Last Admin: 12/11/24 12:06 Dose: 1 appl Tolterodine Tartrate (Tolterodine Tartrate [place] 4 Mg Cap.Er.24h) 4 mg PO DAILY [facility] Last Admin: 12/11/24 09:48 Dose: 4 mg Tramadol HCl (Tramadol Hcl 50 Mg Tablet) 50 mg PO DAILY PRN PRN Reason: prior to dressing change Vitamin D (Cholecalciferol (Vitamin D3) 25 Mcg Tablet) 25 mcg PO DAILY [facility] Last Admin: 12/11/24 09:48 Dose: 25 mcg <Ambika Vasquez PA-C - Last Filed: 12/11/24 14:47> Home medications: Home Medications ?Medication ?Instructions ?Recorded ?Confirmed ?Last Taken ?Type albuterol sulfate 90 mcg/actuation 2 inh inhalation Q6H PRN Wheezing 08/23/20 12/10/24 Unknown History breath activated powder inhaler,sensor (Proair Digihaler) aspirin 81 mg chewable tablet 81 mg PO DAILY 08/23/20 12/10/24 06/30/24 History cholecalciferol (vitamin D3) 25 25 mcg PO DAILY 08/23/20 12/10/24 06/30/24 History mcg (1,000 unit) capsule anastrozole 1 mg tablet 1 mg PO BEDTIME 11/08/20 12/10/24 06/30/24 History famotidine 40 mg tablet 40 mg PO BID 10/10/23 12/10/24 06/30/24 History diltiazem HCl 120 mg 120 mg PO DAILY 10/11/23 12/10/24 06/30/24 History capsule,extended release 24 hr ferrous sulfate 324 mg (65 mg 324 mg PO DAILY 10/11/23 12/10/24 06/30/24 History iron) tablet,delayed release salmeterol 50 mcg/dose blister 1 inh inhalation BID PRN Wheezing 10/11/23 12/10/24 Unknown History powder for inhalation (Serevent Diskus) carvedilol 3.125 mg tablet 3.125 mg PO BID 07/02/24 12/10/24 06/30/24 History docusate sodium 100 mg capsule 100 mg PO DAILY 07/02/24 12/10/24 06/30/24 History (Colace) mirabegron 50 mg tablet,extended 50 mg PO BEDTIME 11/18/24 12/10/24 Unknown History release 24 hr (Myrbetriq) oxybutynin chloride 5 mg 5 mg PO BEDTIME 11/18/24 12/10/24 Unknown History tablet,extended release 24 hr risperidone 1 mg tablet 1 mg PO DAILY@1800 11/18/24 12/10/24 Unknown History acetaminophen 325 mg tablet 650 mg PO Q6H PRN pain or fever 12/10/24 12/10/24 Unknown History ascorbic acid (vitamin C) 250 mg 250 mg PO DAILY 12/10/24 12/10/24 Unknown History tablet (Vitamin C) atenolol 25 mg tablet 25 mg PO DAILY 12/10/24 12/10/24 Unknown History atorvastatin 40 mg tablet 40 mg PO BEDTIME 12/10/24 12/10/24 Unknown History bisacodyl 10 mg rectal suppository 10 mg AK DAILY PRN constipation, 12/10/24 12/10/24 Unknown History no effect from MOM clopidogrel 75 mg tablet 75 mg PO DAILY 12/10/24 12/10/24 Unknown History collagenase clostridium histo. 250 1 appl topical DAILY PRN 12/10/24 12/10/24 Unknown History unit/gram topical ointment (Santyl) alteration in skin integrity magnesium hydroxide 400 mg/5 mL 30 ml PO DAILY PRN constipation, 12/10/24 12/10/24 Unknown History oral suspension (Milk of Magnesia) no BM in 3 days multivitamin 1 tab PO DAILY 12/10/24 12/10/24 Unknown History nutritional supplements 1 ea PO BEDTIME 12/10/24 12/10/24 Unknown History omeprazole 20 mg capsule,delayed 20 mg PO BID@0630,1630 12/10/24 12/10/24 Unknown History release oxycodone 5 mg tablet 5 mg PO Q6H PRN Pain 12/10/24 12/10/24 Unknown History prednisone 20 mg tablet See Rx Instructions .ROUTE .COMPLEX 12/10/24 12/10/24 Unknown History sennosides 8.6 mg tablet (senna) 8.6 mg PO DAILY 12/10/24 12/10/24 Unknown History sodium hypochlorite 0.125 % 1 appl topical DAILY PRN dressing 12/10/24 12/10/24 Unknown History solution (Dakin's Solution) change sodium phosphates 19 gram-7 118 ml AK DAILY PRN constipation, 12/10/24 12/10/24 Unknown History gram/118 mL enema (Fleet Enema) ducolax not effective tolterodine 4 mg capsule,extended 4 mg PO DAILY 12/10/24 12/10/24 Unknown History release 24 hr tramadol 50 mg tablet 25 mg PO Q6H PRN Pain 12/10/24 12/10/24 Unknown History tramadol 50 mg tablet 50 mg PO DAILY PRN prior to 12/10/24 12/10/24 Unknown History dressing change <Ambika Vasquez PA-C - Last Filed: 12/11/24 14:47> Physical Exam Vital Signs: Vital Signs: Last Vital Signs Temp 97.1 F 12/11/24 12:00 Pulse 106 H 12/11/24 12:00 Resp 17 12/11/24 12:00 BP 104/70 12/11/24 12:00 Pulse Ox 93 12/11/24 12:00 O2 Del Method Room Air 12/11/24 12:00 O2 Flow Rate 1 12/10/24 20:34 Oxygen Flow Rate 2 12/10/24 14:38 BMI result Body Mass Index 24.8 <Ambika Vasquez PA-C - Last Filed: 12/11/24 14:47> Const: General: comfortable, no acute distress and confusion <Ambika Vasqeuz PA-C - Last Filed: 12/11/24 14:47> Orientation/consciousness: confusion <Ambika DillondeauJONASSami Freeman Last Filed: 12/11/24 14:47> Resp: Effort & Inspection: normal respiratory effort <Ambika DillondeauJONASSami Freeman Last Filed: 12/11/24 14:47> Skin: Other: inferior aspect of wound with good granulation tissue- around 75% granulated, superior aspect with some necrotic and fibrinous tissue; wound down to ligaments overlying sacrum at very superior aspect with undermining sharp excisional debridement of roughly 3x5cm area of necrotic and slough subcutaneous tissue with scissors was performed, underlying subq fat healthy appearing <Ambika DillondeauJONASSami Freeman Last Filed: 12/11/24 14:47> Neuro: General: confusion <Ambika Dillondeau BENNIE Freeman Last Filed: 12/11/24 14:47> Results Labs Result diagrams: 12/11/24 05:21 12/11/24 05:21 <Ambika Dillondeau BENNIE Freeman Last Filed: 12/11/24 14:47> Labs: Abnormal lab results 12/10/24 12/10/24 12/11/24 Range/Units 15:05 15:19 05:21 RBC 3.93 L (4.20-5.50) X10*6/uL Hgb 11.8 L (12.0-16.0) g/dl Hct 36.0 L (37.0-47.0) % Plt Count 135 L (160-400) X10*3/uL Immature Gran % (Auto) 0.6 H 0.8 H (0.0-0.4) % Neut % (Auto) 78.1 H (45-73) % Lymph % (Auto) 9.4 L 13.9 L (20-40) % [place] % (Auto) 11.9 H (2-11) % Lymph # (Auto) 0.6 L 0.7 L (1.2-4.9) X10*3/uL Abs Immat Gran (auto) 0.04 H 0.04 H (0.00-0.03) X10*3/uL VBG pH 7.46 H (7.32-7.43) VBG HCO3 32 H (22-26) mmol/L BUN 19 H (9-16) mg/dL Random Glucose 150 H 118 H (60-115) mg/dL AST 66 H (5-31) U/L ALT 133 H (0-31) U/L C-Reactive Protein 4.22 H (< or = 0.50) mg/dL Albumin 3.2 L (3.5-5.0) g/dL Short CBC 12/10/24 12/11/24 Range/Units 15:05 05:21 WBC 6.7 5.0 (4.8-10.8) X10*3/uL Hgb 13.1 D 11.8 L (12.0-16.0) g/dl Hct 39.9 D 36.0 L (37.0-47.0) % Plt Count 180 135 L (160-400) X10*3/uL BMP 12/10/24 12/11/24 15:05 05:21 Sodium 138 141 Potassium 4.6 4.1 Chloride 102 106 Carbon Dioxide 27 26 BUN 19 H 13 Creatinine 0.74 0.53 Calcium 8.8 D 8.4 Liver Function 12/10/24 Range/Units 15:05 Total Bilirubin 0.8 (0.0-1.0) mg/dL Direct Bilirubin 0.3 (0.0-0.5) mg/dL AST 66 H (5-31) U/L ALT 133 H (0-31) U/L Alkaline Phosphatase 76 (39-117) U/L Albumin 3.2 L (3.5-5.0) g/dL All other labs normal. <Ambika Vasquez PA-C - Last Filed: 12/11/24 14:47> Imaging CT scan - pelvis: report reviewed and image reviewed <Ambika Vasquez PA-C - Last Filed: 12/11/24 14:47> Assessment and Plan (1) Ulcer of sacral region, unstageable: Status: Acute <Ambika Vasquez PA-C - Last Filed: 12/11/24 14:47> 84-year-old female with PMH of dementia, breast cancer s/p surgery and radiation, PAD s/p L SFA arthrectomy/stent, L common iliac/external iliac stent, HTN, HLD, GI bleed, falls admitted for sepsis secondary to infected sacral wound and pneumonia. Overall the sacral wound is about 75% granulated but superior aspect with necrotic tissue and slough which was debrided uneventfully at bedside. Recommend continued local wound care with dakins soaked fluffs to superior apsect of wound and saline soaked fluffs to inferior granulating portion followed by dry fluffs, abd dressing and tape- change daily and as needed. Cont supportive measures with frequent repositioning, nutritional support, air loss bed. It was discussed briefly undergoing diverting colostomy to prevent wound soilage for wound healing. She would like to think about this. <Ambika Vasquez PA-C - Last Filed: 12/11/24 14:47> 84-year-old female with PMH of dementia, breast cancer s/p surgery and radiation, PAD s/p L SFA arthrectomy/stent, L common iliac/external iliac stent, HTN, HLD, GI bleed, falls admitted for sepsis secondary to infected sacral wound and pneumonia. Overall the sacral wound is about 75% granulated but superior aspect with necrotic tissue and slough which was debrided uneventfully at bedside. Recommend continued local wound care with dakins soaked fluffs to superior apsect of wound and saline soaked fluffs to inferior granulating portion followed by dry fluffs, abd dressing and tape- change daily and as needed. Cont supportive measures with frequent repositioning, nutritional support, air loss bed. It was discussed briefly undergoing diverting colostomy to prevent wound soilage for wound healing. She would like to think about this. As noted above <Mihai Verdugo MD - Last Filed: 12/11/24 19:11> Procedures Date of Service Date of Service: 12/11/24 <Ambika Vasquez PA-C - Last Filed: 12/11/24 14:47> 12/11/24 <Mihai Verdugo MD - Last Filed: 12/11/24 19:11>
[2024-12-11 15:22] LABS: Vancomycin Random 7.8 mcg/mL (15-20)
[2024-12-11] MEDS: Pantoprazole Sodium 20 MG TABLET.DR 40 MG PO (16:01)
[2024-12-11] MEDS: vancomycin HCL 750 MG in 0.9 % Sodium Chloride 250 ML 265 MG IV (16:01)
--- NOTE | 2024-12-11 16:07 | HO.WOUND ---
Wound consult: Initial 84 yr ld female admitted 12/11/23 to [facility] [place], [place] - see H&P for detaills. Wound consult placed for Sacral and bilateral heel wounds on admission. Chart review completed and photo review completed see below for details. Sacrum Stage 4 Pressure injury POA - Followed by General Surgery and bedside debridement completed with topical orders for Dakins wet to dry dressing daily. Will place order in for direct care team to carry out. Right Heel - Unstageable Pressure injury POA - Recommend Foam dressing and off load pressure from heels with heel protector boots. Left Heel - Unstageable Pressure injury POA - Recommend Foam dressing and off load pressure from heels with heel protector boots. Recommendations: Turn and reposition Q2hrs to off load pressure - use pillows and or wedges as needed to support off loading positions. Assess for needs of barrier cream for moisture and incontinence. Nutrition consulted and following. Maintain blood glucose as ordered. Bilateral Heels - Cleanse with NS moist gauze, pat dry. Apply skin prep to wound bed and periwound, apply foam dressing. Change every 3 days and PRN. Off Load with heel boot protectors. Sacrum - Defer to surgery topical orders of Dakins. Cleanse with Dakins, pat dry. Apply barrier cream to periwound, apply dakins wet gauze to wound bed cover with dry gauze, ABD and tape. Change Daily.
[2024-12-11] MEDS: Enoxaparin Sodium 40 MG/0.4 ML SYRINGE SUBCUT (16:08)
[2024-12-11] MEDS: risperiDONE 1 MG TABLET PO (16:58)
[2024-12-11] MEDS: Mirabegron 50 MG TAB.ER.24H PO (21:19)
[2024-12-11] MEDS: oxyBUTYnin chloride ER 5 MG TAB.ER.24 PO (21:19)
[2024-12-11] MEDS: Atorvastatin Calcium 40 MG TABLET PO (21:20)
[2024-12-11] MEDS: Anastrozole 1 MG TABLET PO (21:20)
--- NOTE | 2024-12-11 22:00 | P.CNID_ITS ---
History of Present Illness Data of Consult Service Date: 12/11/24 Requesting physician: Lionel Chance Primary Care Provider: Unknown Physician HPI Reason for consult: heel and sacral ulcers She comes in repeatedly for sacral and heel wounds. I had seen her 11/20 and she also had been at [facility] two weeks earlier for same reason. She had no OM and no probe to bone but pressure ulcers. She has no leukocytosis but isolated temperature 101.4 on 12/10. She is back on Flagyl,Cefepime and Vancomycin. She has been debrided. Review of Systems 2 Review of Systems: Yes Unobtainable due to mental condition [facility] Past Medical History Medical History HTN (hypertension) Dementia PAD (peripheral artery disease) Invasive ductal carcinoma of right breast History of pneumonia History of dislocation of shoulder Family History Family History Mother Cancer of unknown origin Family history: reviewed and not pertinent Surgical History Surgical History History of vein stripping History of appendectomy History of cataract extraction History of left hip replacement History of back surgery Social History Social History Household Members: Unknown / Unable to assess Housing: [facility] Do you presently have visiting nurse or other home services: Yes Alcohol intake: current Alcohol intake frequency: holidays/special occasions only Alcohol type: wine Comment: bauer catheter Patient Tobacco Use Status: Former Tobacco user Use of substances other than those prescribed or required for medical reasons: Refusing to respond Currently Displaying Signs/Symptoms of Drug Intoxication Withdrawal: No Advance Directives: Yes Advance Directives on File: Yes Advance Directives Date on File: 06/30/24 Do you have a plan to hurt others: No Plan Recently lost weight without trying: Unsure How much weight loss: Unsure Nutrition Risks: No Nutritional Risk Patient : No service: No Current occupational status: retired Meds Allergies Allergy/AdvReac Type Severity Reaction Status Date / Time Penicillins [PENICILLINS] Allergy Severe ITCHING Verified 12/10/24 14:57 azithromycin Allergy Unknown Verified 12/10/24 15:12 Erythromycin Allergy Severe itching Uncoded 12/10/24 14:57 Active Medications: Current Medications Acetaminophen (Acetaminophen 325 Mg Tablet) 650 mg PO Q6H PRN PRN Reason: Pain, Mild 1-3,fever,headache Albuterol Sulfate (Albuterol Sulfate 90 Mcg 8 Gm Inhaler) 2 puff INHALE Q6H PRN PRN Reason: Wheezing Albuterol/Ipratropium (Albuterol/Iprat 2.5/0.5mg 3 Ml Ampul.Neb) 3 ml INHALE Q4H PRN PRN Reason: Shortness of Breath/Wheezing Anastrozole (Anastrozole 1 Mg Tablet) 1 mg PO BEDTIME [facility] Last Admin: 12/11/24 21:20 Dose: 1 mg Ascorbic Acid (Ascorbic Acid 250 Mg Tablet) 250 mg PO DAILY [facility] Last Admin: 12/11/24 09:48 Dose: 250 mg Aspirin (Aspirin 81 Mg Tab.Chew) 81 mg PO DAILY [facility] Last Admin: 12/11/24 09:49 Dose: 81 mg Atenolol (Atenolol 25 Mg Tablet) 25 mg PO DAILY [facility]; Protocol Last Admin: 12/11/24 13:33 Dose: 25 mg Atorvastatin Calcium (Atorvastatin Calcium 40 Mg Tablet) 40 mg PO BEDTIME [facility] Last Admin: 12/11/24 21:20 Dose: 40 mg Benzonatate (Benzonatate 100 Mg Capsule) 100 mg PO TID PRN PRN Reason: Cough Bisacodyl (Bisacodyl 10 Mg Supp.Rect) 10 mg MO DAILY PRN PRN Reason: constipation, no effect from MOM Calcium Carbonate (Calcium Carbonate 750 Mg Tab.Chew) 750 mg PO Q4H PRN PRN Reason: Heartburn Carvedilol (Carvedilol 3.125 Mg Tablet) 3.125 mg PO BID [facility]; Protocol Last Admin: 12/11/24 09:49 Dose: 3.125 mg Clopidogrel Bisulfate (Clopidogrel Bisulfate 75 Mg Tablet) 75 mg PO DAILY [facility] Last Admin: 12/11/24 09:49 Dose: 75 mg Collagenase (Collagenase Clostridium Hist. 30 Gm Tube) 1 appl TOPICAL DAILY PRN; Protocol PRN Reason: alteration in skin integrity Diltiazem HCl (Diltiazem Hcl Cd 120 Mg Cap.Er.Deg) 120 mg PO DAILY [facility]; Protocol Last Admin: 12/11/24 09:49 Dose: 120 mg Docusate Sodium (Docusate Sodium 100 Mg Capsule) 100 mg PO DAILY [facility] Last Admin: 12/11/24 09:48 Dose: 100 mg Enoxaparin Sodium (Enoxaparin Sodium 40 Mg/0.4 Ml Syringe) 40 mg SUBCUT Q24H [facility] Last Admin: 12/11/24 16:08 Dose: 40 mg Famotidine (Famotidine 20 Mg Tablet) 40 mg PO BID [facility] Last Admin: 12/11/24 21:20 Dose: 40 mg Ferrous Sulfate (Ferrous Sulfate 324 Mg Tablet.Dr) 324 mg PO DAILY [facility] Last Admin: 12/11/24 09:49 Dose: 324 mg Lactated Ringer's (Lr) 1,000 mls @ 100 mls/hr IVCONT .Q10H [facility] Last Admin: 12/11/24 14:12 Dose: 100 mls/hr Metronidazole (Flagyl) 500 mg in 100 mls @ 100 mls/hr IV Q8H [facility] Last Infusion: 12/11/24 17:17 Dose: Infused Cefepime HCl (Maxipime) 2 gm in 50 mls @ 100 mls/hr IV Q8H [facility] Last Admin: 12/11/24 21:21 Dose: 100 mls/hr Vancomycin HCl 750 mg/ Sodium (Chloride) 265 mls @ 265 mls/hr IV Q12H [facility] Last Infusion: 12/11/24 17:17 Dose: Infused Magnesium Hydroxide (Milk Of Magnesia 30 Ml Oral.Susp) 30 ml PO DAILY PRN PRN Reason: constipation, no BM in 3 days Melatonin (Melatonin 3 Mg Tablet) 6 mg PO BEDTIME PRN PRN Reason: Insomnia Mirabegron (Mirabegron 50 Mg Tab.Er.24h) 50 mg PO BEDTIME [facility] Last Admin: 12/11/24 21:19 Dose: 50 mg Morphine Sulfate (Morphine Sulfate 4 Mg/Ml Cartridge) 2 mg IVPUSH Q4H PRN; Protocol PRN Reason: Pain, Severe (Pain Scale 7-10) Last Admin: 12/11/24 12:04 Dose: 2 mg Multivitamins/Vitamin C (Multivitamin Tablet) 1 tab PO DAILY [facility] Last Admin: 12/11/24 09:49 Dose: 1 tab Ondansetron HCl (Ondansetron Hcl 4 Mg/2 Ml Vial) 4 mg IVPUSH Q8H PRN PRN Reason: Nausea and Vomiting Oxybutynin Chloride (Oxybutynin Chloride Er 5 Mg Tab.Er.24) 5 mg PO BEDTIME [facility] Last Admin: 12/11/24 21:19 Dose: 5 mg Oxycodone HCl (Oxycodone Hcl Immed Release 5 Mg Tablet) 5 mg PO Q6H PRN PRN Reason: Pain, Moderate(Pain Scale 4-6) Last Admin: 12/11/24 09:48 Dose: 5 mg Pantoprazole Sodium (Pantoprazole Sodium 20 Mg Tablet.Dr) 40 mg PO BID@0630,1630 [facility] Last Admin: 12/11/24 16:01 Dose: 40 mg Pharmacy Consult (Consult Rx Vancomycin Dosing) 1 each MISCELLANE DAILY PRN PRN Reason: Consult order Prednisone (Prednisone 20 Mg Tablet) 10 mg PO DAILY [facility]; Taper Stop: 12/20/24 07:59 Last Admin: 12/11/24 09:49 Dose: 10 mg Risperidone (Risperidone 1 Mg Tablet) 1 mg PO DAILY@1800 [facility] Last Admin: 12/11/24 16:58 Dose: 1 mg Salmeterol Xinafoate (Salmeterol Xinafoate 50 Mcg Blst.W.Dev) 1 puff INHALE BID PRN PRN Reason: Wheezing Senna (Sennosides 8.6 Mg Tablet) 8.6 mg PO DAILY [facility] Last Admin: 12/11/24 09:49 Dose: 8.6 mg Sodium Biphosphate/Sodium Phosphate (Sodium Phosphate,Amador-Dibasic 133 Ml Enema) 118 ml MO DAILY PRN PRN Reason: constipation, ducolax not effective Sodium Chloride (0.9 % Sodium Chloride Flush 3 Ml Syringe) 3 ml IVFLUSH QSHIFT [facility] Last Admin: 12/11/24 16:06 Dose: 3 ml Sodium Hypochlorite (Sodium Hypochlorite 0.125% 473 Ml Solution) 1 appl TOPICAL DAILY PRN PRN Reason: dressing change Last Admin: 12/11/24 12:06 Dose: 1 appl Tolterodine Tartrate (Tolterodine Tartrate La 4 Mg Cap.Er.24h) 4 mg PO DAILY [facility] Last Admin: 12/11/24 09:48 Dose: 4 mg Tramadol HCl (Tramadol Hcl 50 Mg Tablet) 50 mg PO DAILY PRN PRN Reason: prior to dressing change Vitamin D (Cholecalciferol (Vitamin D3) 25 Mcg Tablet) 25 mcg PO DAILY [facility] Last Admin: 12/11/24 09:48 Dose: 25 mcg Home Medications ?Medication ?Instructions ?Recorded ?Confirmed ?Last Taken ?Type albuterol sulfate 90 mcg/actuation 2 inh inhalation Q6H PRN Wheezing 08/23/20 12/10/24 Unknown History breath activated powder inhaler,sensor (Proair Digihaler) aspirin 81 mg chewable tablet 81 mg PO DAILY 08/23/20 12/10/24 06/30/24 History cholecalciferol (vitamin D3) 25 25 mcg PO DAILY 08/23/20 12/10/24 06/30/24 History mcg (1,000 unit) capsule anastrozole 1 mg tablet 1 mg PO BEDTIME 11/08/20 12/10/24 06/30/24 History famotidine 40 mg tablet 40 mg PO BID 10/10/23 12/10/24 06/30/24 History diltiazem HCl 120 mg 120 mg PO DAILY 10/11/23 12/10/24 06/30/24 History capsule,extended release 24 hr ferrous sulfate 324 mg (65 mg 324 mg PO DAILY 10/11/23 12/10/24 06/30/24 History iron) tablet,delayed release salmeterol 50 mcg/dose blister 1 inh inhalation BID PRN Wheezing 10/11/23 12/10/24 Unknown History powder for inhalation (Serevent Diskus) carvedilol 3.125 mg tablet 3.125 mg PO BID 07/02/24 12/10/24 06/30/24 History docusate sodium 100 mg capsule 100 mg PO DAILY 07/02/24 12/10/24 06/30/24 History (Colace) mirabegron 50 mg tablet,extended 50 mg PO BEDTIME 11/18/24 12/10/24 Unknown History release 24 hr (Myrbetriq) oxybutynin chloride 5 mg 5 mg PO BEDTIME 11/18/24 12/10/24 Unknown History tablet,extended release 24 hr risperidone 1 mg tablet 1 mg PO DAILY@1800 11/18/24 12/10/24 Unknown History acetaminophen 325 mg tablet 650 mg PO Q6H PRN pain or fever 12/10/24 12/10/24 Unknown History ascorbic acid (vitamin C) 250 mg 250 mg PO DAILY 12/10/24 12/10/24 Unknown History tablet (Vitamin C) atenolol 25 mg tablet 25 mg PO DAILY 12/10/24 12/10/24 Unknown History atorvastatin 40 mg tablet 40 mg PO BEDTIME 12/10/24 12/10/24 Unknown History bisacodyl 10 mg rectal suppository 10 mg MO DAILY PRN constipation, 12/10/24 12/10/24 Unknown History no effect from MOM clopidogrel 75 mg tablet 75 mg PO DAILY 12/10/24 12/10/24 Unknown History collagenase clostridium histo. 250 1 appl topical DAILY PRN 12/10/24 12/10/24 Unknown History unit/gram topical ointment (Santyl) alteration in skin integrity magnesium hydroxide 400 mg/5 mL 30 ml PO DAILY PRN constipation, 12/10/24 12/10/24 Unknown History oral suspension (Milk of Magnesia) no BM in 3 days multivitamin 1 tab PO DAILY 12/10/24 12/10/24 Unknown History nutritional supplements 1 ea PO BEDTIME 12/10/24 12/10/24 Unknown History omeprazole 20 mg capsule,delayed 20 mg PO BID@0630,1630 12/10/24 12/10/24 Unknown History release oxycodone 5 mg tablet 5 mg PO Q6H PRN Pain 12/10/24 12/10/24 Unknown History prednisone 20 mg tablet See Rx Instructions .ROUTE .COMPLEX 12/10/24 12/10/24 Unknown History sennosides 8.6 mg tablet (senna) 8.6 mg PO DAILY 12/10/24 12/10/24 Unknown History sodium hypochlorite 0.125 % 1 appl topical DAILY PRN dressing 12/10/24 12/10/24 Unknown History solution (Dakin's Solution) change sodium phosphates 19 gram-7 118 ml MO DAILY PRN constipation, 12/10/24 12/10/24 Unknown History gram/118 mL enema (Fleet Enema) ducolax not effective tolterodine 4 mg capsule,extended 4 mg PO DAILY 12/10/24 12/10/24 Unknown History release 24 hr tramadol 50 mg tablet 25 mg PO Q6H PRN Pain 12/10/24 12/10/24 Unknown History tramadol 50 mg tablet 50 mg PO DAILY PRN prior to 12/10/24 12/10/24 Unknown History dressing change Physical Exam 2 Vital Signs: Vital Signs: Last Vital Signs Temp 97.8 F 12/11/24 19:52 Pulse 80 12/11/24 19:52 Resp 16 12/11/24 19:52 BP 102/58 L 12/11/24 19:52 Pulse Ox 97 12/11/24 19:52 O2 Del Method Room Air 12/11/24 19:52 O2 Flow Rate 1 12/10/24 20:34 Oxygen Flow Rate 2 12/10/24 14:38 BMI result Body Mass Index 24.8 Const: General: cooperative HEENT: Head: Yes normal to inspection Face and sinus: Yes normal facial exam Mouth: Normal oral and palatal mucosa present Teeth and gingiva: d entition normal Eyes: General: appearance normal, both eyes and all related structures P upils: Equal, round and reactive pupils present Resp: Effort & Inspection: normal respiratory effort Cardio: Rate: regular rate Rhythm: regular rhythm GI: Palpation (GI): Soft to palpation and nontender : General: Yes no CVA tenderness Back/Spine/Pelvis: Back: no CVA tenderness Skin: General skin exam: no rashes or lesions noted Neuro: General: moves all extremities Cranial nerves: Yes Equal, round and reactive pupils present Extrem: Other: heels dark eschar Psych: Appearance: grossly normal Results Labs 12/11/24 05:21 12/11/24 05:21 Labs: Short CBC 12/11/24 Range/Units 05:21 WBC 5.0 (4.8-10.8) X10*3/uL Hgb 11.8 L (12.0-16.0) g/dl Hct 36.0 L (37.0-47.0) % Plt Count 135 L (160-400) X10*3/uL BMP 12/11/24 05:21 Sodium 141 Potassium 4.1 Chloride 106 Carbon Dioxide 26 BUN 13 Creatinine 0.53 Calcium 8.4 Microbiology Microbiology Results: Microbiology 12/10/24 15:19 Blood - Venous Blood Culture - Preliminary No growth after 24 hours. 12/10/24 15:05 Blood - Venous Blood Culture - Preliminary No growth after 24 hours. Assessment and Plan (1) Sepsis: Status: Acute (2) Ulcer of sacral region, unstageable: Status: Acute Plan probable fever due to necrotic decub Ulcers on feet as well. Would continue Vancomycin/Cefepime and Flagyl until debridements are done and than po Doxycycline. Consider IV antibiotics Ceftriaxone for six weeks if probe to bone Prognosis guarded
[2024-12-12] MEDS: Lactated Ringers 1,000 ML 100 ML IVCONT ×2 (00:03→09:21)
[2024-12-12] MEDS: 0.9 % Sodium Chloride Flush 3 ML SYRINGE IVFLUSH ×3 (00:05→20:22)
[2024-12-12 03:51] VITALS: BP 134/77; PULSE 110; RESP 16; TEMP 36.3; O2SAT 93
[2024-12-12] MEDS: cefEPime HCl/D5W 2 GM/50 ML PIGGYBACK IV ×3 (04:27→20:11)
[2024-12-12] MEDS: vancomycin HCL 750 MG in 0.9 % Sodium Chloride 250 ML 265 MG IV ×2 (05:41→17:54)
[2024-12-12] MEDS: Pantoprazole Sodium 20 MG TABLET.DR 40 MG PO ×2 (05:46→17:02)
[2024-12-12 07:04] VITALS: BP 138/60; PULSE 75; RESP 20; TEMP 36; O2SAT 95
[2024-12-12 09:21] VITALS: BP 138/60; PULSE 75
[2024-12-12] MEDS: metroNIDAZOLE/NS 500 MG/100 ML PIGGYBACK 100 MG IV ×3 (09:21→23:41)
[2024-12-12] MEDS: Ferrous Sulfate 324 MG TABLET.DR PO (09:21)
[2024-12-12] MEDS: atenoloL 25 MG TABLET PO (09:21)
[2024-12-12] MEDS: Famotidine 20 MG TABLET 40 MG PO ×2 (09:21→20:10)
[2024-12-12] MEDS: Ascorbic Acid 250 MG TABLET PO (09:21)
[2024-12-12] MEDS: Cholecalciferol (Vitamin D3) 25 MCG TABLET PO (09:21)
[2024-12-12] MEDS: Clopidogrel Bisulfate 75 MG TABLET PO (09:21)
[2024-12-12] MEDS: Aspirin 81 MG TAB.CHEW PO (09:22)
[2024-12-12] MEDS: Multivitamin TABLET 1 TAB PO (09:22)
[2024-12-12] MEDS: Sennosides 8.6 MG TABLET PO (09:22)
[2024-12-12] MEDS: predniSONE 20 MG TABLET 5 MG PO (09:22)
[2024-12-12] MEDS: Tolterodine Tartrate LA 4 MG CAP.ER.24H PO (10:10)
--- NOTE | 2024-12-12 10:57 | ECG_ITS ---
Test Reason : cp Blood Pressure : */* mmHG Vent. Rate : 107 BPM Atrial Rate : 107 BPM P-R Int : 184 ms QRS Dur : 124 ms QT Int : 352 ms P-R-T Axes : 78 217 51 degrees QTcB Int : 469 ms Sinus tachycardia with Premature atrial complexes Right bundle branch block , plus right ventricular hypertrophy Marked ST abnormality, possible septal subendocardial injury or RV strain Abnormal ECG When compared to the previous EKG of Premature atrial complexes are now Present Referred By: Lionel Chance Electronically Signed By: MARGUERITE DOW MD
[2024-12-12 11:03] VITALS: BP 136/65; PULSE 73; RESP 18; TEMP 36.4; O2SAT 96
[2024-12-12 11:48] LABS: MANUAL DIFF FLAG NO
[2024-12-12 11:49] LABS: Basophils Percent Auto 0.5 % (0-2); Eosinophils Absolute Auto 0.1 X10*3/uL (0.0-0.4); Eosinophils Percent Auto 0.8 % (0-4); Hematocrit 36.4 % (37.0-47.0); Hemoglobin 11.9 g/dl (12.0-16.0); Imm Gran Abs Auto 0.05 X10*3/uL (0.00-0.03); Imm Gran Pct Auto 0.8 % (0.0-0.4); Lymphocytes Absolute Auto 0.4 X10*3/uL (1.2-4.9); Lymphocytes Percent Auto 6.8 % (20-40); Mean Corpuscular HGB Conc 32.7 g/dl (31.0-35.0); Mean Corpuscular Volume 91.7 fL (80.0-98.0); Mean Platelet Volume 9.8 fL (9.4-12.3); Monocytes Absolute Auto 0.5 X10*3/uL (0.1-1.2); Neutrophils Percent Auto 83.1 % (45-73); Platelet Count 148 X10*3/uL (160-400); Red Blood Count 3.97 X10*6/uL (4.20-5.50); Red Cell Distribution Width 13.6 % (11.0-16.0)
[2024-12-12 12:01] LABS: Anion Gap 12 (12-20); Blood Urea Nitrogen 12 mg/dL (9-16); Calcium 8.7 mg/dL (8.4-10.2); Carbon Dioxide 24 mmol/L (22-29); Chloride 109 mmol/L (96-108); Creatinine Clr Calc Pharmacy 65.7; Estimated Glomerular Filt Rate > 60; Glucose Random 138 mg/dL (60-115); Potassium 3.9 mmol/L (3.3-5.1); Sodium 141 mmol/L (135-145)
[2024-12-12 12:02] LABS: Creatinine Clr Calc Pharmacy 68.1; Estimated Glomerular Filt Rate > 60
--- NOTE | 2024-12-12 13:57 | P.PNIM_ITS ---
Subjective Subjective Date of Service: 12/12/24 Interval History: seen and evaluated this morning looks weak and frail reporting lower back pain went into Afib w RvR Review of Systems Review of Systems: Yes Unobtainable due to mental status Physical Exam 2 Vital Signs: Vital Signs: Last Vital Signs Temp 97.6 F 12/12/24 11:03 Pulse 73 12/12/24 11:03 Resp 18 12/12/24 11:03 BP 136/65 12/12/24 11:03 Pulse Ox 96 12/12/24 11:03 O2 Del Method Room Air 12/12/24 11:03 O2 Flow Rate 1 12/10/24 20:34 Oxygen Flow Rate 2 12/10/24 14:38 BMI result Body Mass Index 24.8 Const: Other: Constitutional : sleepy, frail looking, not in distress Cardiovascular : irregular irregular, no JVP, no lower extremity edema Respiratory : bilateral chest movement, not in resp distress Gastrointestinal: soft, lax, Non tender Skin : Warm, Dry, large sacral decubitus wound with odor,pressure ulcer on R heel with ischemia, stage 3 pressure ulcer on L heel Neurological : Alert with stimulation & confused , No focal deficit Objective Data Active Medications Acetaminophen (Acetaminophen 325 Mg Tablet) 650 mg PO Q6H PRN PRN Reason: Pain, Mild 1-3,fever,headache Albuterol Sulfate (Albuterol Sulfate 90 Mcg 8 Gm Inhaler) 2 puff INHALE Q6H PRN PRN Reason: Wheezing Albuterol/Ipratropium (Albuterol/Iprat 2.5/0.5mg 3 Ml Ampul.Neb) 3 ml INHALE Q4H PRN PRN Reason: Shortness of Breath/Wheezing Anastrozole (Anastrozole 1 Mg Tablet) 1 mg PO BEDTIME [facility] Last Admin: 12/11/24 21:20 Dose: 1 mg Documented By: MARSHALL Ascorbic Acid (Ascorbic Acid 250 Mg Tablet) 250 mg PO DAILY [facility] Last Admin: 12/12/24 09:21 Dose: 250 mg Documented By: VIVIAN Aspirin (Aspirin 81 Mg Tab.Chew) 81 mg PO DAILY [facility] Last Admin: 12/12/24 09:22 Dose: 81 mg Documented By: VIVIAN Atenolol (Atenolol 25 Mg Tablet) 25 mg PO DAILY [facility]; Protocol Last Admin: 12/12/24 09:21 Dose: 25 mg Documented By: VIVIAN Atorvastatin Calcium (Atorvastatin Calcium 40 Mg Tablet) 40 mg PO BEDTIME [facility] Last Admin: 12/11/24 21:20 Dose: 40 mg Documented By: MARSHALL Benzonatate (Benzonatate 100 Mg Capsule) 100 mg PO TID PRN PRN Reason: Cough Bisacodyl (Bisacodyl 10 Mg Supp.Rect) 10 mg [place] DAILY PRN PRN Reason: constipation, no effect from MOM Calcium Carbonate (Calcium Carbonate 750 Mg Tab.Chew) 750 mg PO Q4H PRN PRN Reason: Heartburn Carvedilol (Carvedilol 3.125 Mg Tablet) 3.125 mg PO BID [facility]; Protocol Last Admin: 12/11/24 09:49 Dose: 3.125 mg Documented By: JILLIAN Clopidogrel Bisulfate (Clopidogrel Bisulfate 75 Mg Tablet) 75 mg PO DAILY [facility] Last Admin: 12/12/24 09:21 Dose: 75 mg Documented By: VIVINA Collagenase (Collagenase Clostridium Hist. 30 Gm Tube) 1 appl TOPICAL DAILY PRN; Protocol PRN Reason: alteration in skin integrity Diltiazem HCl (Diltiazem Hcl Cd 120 Mg Cap.Er.Deg) 120 mg PO DAILY [facility]; Protocol Last Admin: 12/12/24 10:10 Dose: Not Given Documented By: VIVIAN Non-Admin Reason: cant be crushed Docusate Sodium (Docusate Sodium 100 Mg Capsule) 100 mg PO DAILY [facility] Last Admin: 12/12/24 10:11 Dose: Not Given Documented By: VIVIAN Non-Admin Reason: cant be crushed Enoxaparin Sodium (Enoxaparin Sodium 40 Mg/0.4 Ml Syringe) 40 mg SUBCUT Q24H [facility] Last Admin: 12/11/24 16:08 Dose: 40 mg Documented By: JILLIAN Famotidine (Famotidine 20 Mg Tablet) 40 mg PO BID [facility] Last Admin: 12/12/24 09:21 Dose: 40 mg Documented By: VIVIAN Ferrous Sulfate (Ferrous Sulfate 324 Mg Tablet.Dr) 324 mg PO DAILY [facility] Last Admin: 12/12/24 09:21 Dose: 324 mg Documented By: VIVIAN Lactated Ringer's (Lr) 1,000 mls @ 100 mls/hr IVCONT .Q10H [facility] Last Admin: 12/12/24 09:21 Dose: 100 mls/hr Documented By: VIVIAN Metronidazole (Flagyl) 500 mg in 100 mls @ 100 mls/hr IV Q8H [facility] Last Infusion: 12/12/24 10:22 Dose: Infused Documented By: VIVIAN Cefepime HCl (Maxipime) 2 gm in 50 mls @ 100 mls/hr IV Q8H [facility] Last Admin: 12/12/24 13:55 Dose: 100 mls/hr Documented By: VIVIAN Vancomycin HCl 750 mg/ Sodium (Chloride) 265 mls @ 265 mls/hr IV Q12H [facility] Last Infusion: 12/12/24 07:06 Dose: Infused Documented By: SILVANA Magnesium Hydroxide (Milk Of Magnesia 30 Ml Oral.Susp) 30 ml PO DAILY PRN PRN Reason: constipation, no BM in 3 days Melatonin (Melatonin 3 Mg Tablet) 6 mg PO BEDTIME PRN PRN Reason: Insomnia Mirabegron (Mirabegron 50 Mg Tab.Er.24h) 50 mg PO BEDTIME [facility] Last Admin: 12/11/24 21:19 Dose: 50 mg Documented By: MARSHALL Morphine Sulfate (Morphine Sulfate 4 Mg/Ml Cartridge) 2 mg IVPUSH Q4H PRN; Protocol PRN Reason: Pain, Severe (Pain Scale 7-10) Last Admin: 12/11/24 12:04 Dose: 2 mg Documented By: JILLIAN Multivitamins/Vitamin C (Multivitamin Tablet) 1 tab PO DAILY [facility] Last Admin: 12/12/24 09:22 Dose: 1 tab Documented By: VIVIAN Ondansetron HCl (Ondansetron Hcl 4 Mg/2 Ml Vial) 4 mg IVPUSH Q8H PRN PRN Reason: Nausea and Vomiting Oxybutynin Chloride (Oxybutynin Chloride Er 5 Mg Tab.Er.24) 5 mg PO BEDTIME [facility] Last Admin: 12/11/24 21:19 Dose: 5 mg Documented By: MARSHALL Oxycodone HCl (Oxycodone Hcl Immed Release 5 Mg Tablet) 5 mg PO Q6H PRN PRN Reason: Pain, Moderate(Pain Scale 4-6) Last Admin: 12/11/24 09:48 Dose: 5 mg Documented By: JILLIAN Pantoprazole Sodium (Pantoprazole Sodium 20 Mg Tablet.) 40 mg PO BID@0630,1630 [facility] Last Admin: 12/12/24 05:46 Dose: 40 mg Documented By: SILVANA Pharmacy Consult (Consult Rx Vancomycin Dosing) 1 each MISCELLANE DAILY PRN PRN Reason: Consult order Prednisone (Prednisone 20 Mg Tablet) 10 mg PO DAILY [facility]; Taper Stop: 12/20/24 07:59 Last Admin: 12/12/24 09:22 Dose: 10 mg Documented By: VIVIAN Risperidone (Risperidone 1 Mg Tablet) 1 mg PO DAILY@1800 [facility] Last Admin: 12/11/24 16:58 Dose: 1 mg Documented By: JILLIAN Salmeterol Xinafoate (Salmeterol Xinafoate 50 Mcg Blst.W.Dev) 1 puff INHALE BID PRN PRN Reason: Wheezing Senna (Sennosides 8.6 Mg Tablet) 8.6 mg PO DAILY [facility] Last Admin: 12/12/24 09:22 Dose: 8.6 mg Documented By: VIVIAN Sodium Biphosphate/Sodium Phosphate (Sodium Phosphate,[place]-Dibasic 133 Ml Enema) 118 ml [place] DAILY PRN PRN Reason: constipation, ducolax not effective Sodium Chloride (0.9 % Sodium Chloride Flush 3 Ml Syringe) 3 ml IVFLUSH QSHIFT [facility] Last Admin: 12/12/24 09:22 Dose: 3 ml Documented By: VIVIAN Sodium Hypochlorite (Sodium Hypochlorite 0.125% 473 Ml Solution) 1 appl TOPICAL DAILY PRN PRN Reason: dressing change Last Admin: 12/11/24 12:06 Dose: 1 appl Documented By: JILLIAN Tolterodine Tartrate (Tolterodine Tartrate La 4 Mg Cap.Er.24h) 4 mg PO DAILY [facility] Last Admin: 12/12/24 10:10 Dose: 4 mg Documented By: VIVIAN Tramadol HCl (Tramadol Hcl 50 Mg Tablet) 50 mg PO DAILY PRN PRN Reason: prior to dressing change Vitamin D (Cholecalciferol (Vitamin D3) 25 Mcg Tablet) 25 mcg PO DAILY [facility] Last Admin: 12/12/24 09:21 Dose: 25 mcg Documented By: VIVIAN Labs 12/12/24 11:41 12/12/24 11:41 Labs: Laboratory Results - last 24 hr 12/11/24 12/12/24 12/12/24 14:51 11:41 11:41 MCV 91.7 MCH 30.0 MCHC 32.7 RDW 13.6 Plt Count 148 L MPV 9.8 Immature Gran % (Auto) 0.8 H Neut % (Auto) 83.1 H Lymph % (Auto) 6.8 L [place] % (Auto) 8.0 Eos % (Auto) 0.8 Baso % (Auto) 0.5 Lymph # (Auto) 0.4 L [place] # (Auto) 0.5 Eos # (Auto) 0.1 Baso # (Auto) 0.0 Abs Immat Gran (auto) 0.05 H Absolute Neuts (auto) 5.0 Absolute Nucleated RBC 0.000 Nucleated RBC % (auto) 0.0 Anion Gap 12 Estim Creat Clear Calc 68.1 65.7 Estimated GFR > 60 Random Glucose Calcium Random Vancomycin 7.8 L 12/12/24 11:41 MCV MCH MCHC RDW Plt Count MPV Immature Gran % (Auto) Neut % (Auto) Lymph % (Auto) [place] % (Auto) Eos % (Auto) Baso % (Auto) Lymph # (Auto) [place] # (Auto) Eos # (Auto) Baso # (Auto) Abs Immat Gran (auto) Absolute Neuts (auto) Absolute Nucleated RBC Nucleated RBC % (auto) Anion Gap Estim Creat Clear Calc Estimated GFR > 60 Random Glucose 138 H Calcium 8.7 Random Vancomycin Microbiology Microbiology Results: Microbiology 12/10/24 15:19 Blood Culture - Preliminary Blood - Venous No growth after 24 hours. 12/10/24 15:05 Blood Culture - Preliminary Blood - Venous No growth after 24 hours. Assessment and Plan (1) Sepsis: Status: Acute (2) Pneumonia: Status: Acute (3) Ulcer of sacral region, unstageable: Status: Acute (4) Decubitus skin ulcer: Status: Acute Plan An 84-year-old female with PMH of dementia, breast cancer s/p surgery and radiation PID s/p L SFA arthrectomy/stent, L common iliac/external iliac stent, HTN, urinary incontinence, HLD, GIB 12/2022, falls, who presented to the ED due to fever and worsening sacral ulcer among other wounds. Sepsis 2/2 Stage 4 sacral pressure ulcer and bilateral heel wound with infection concern of osteomyelitis from CT scan of sacrum pending cultures continue vancomycin, cefepime, Flagyl, surgery consult, bedside debridement ID eval , consider [address] PICC Pneumonia seen on CXR covered with antibiotics on room air for now progressive weakness evaluated last admission by neuro with rec to DC Statin and trial of prednisone possible NPH but unlikely to benefit from work up/treatment PT eval History of breast cancer Anastrozole Hypertension Diltiazem held for low bp Peripheral vascular disease Aspirin statin discontinued DVT prophylaxis with Lovenox Full code The patient will need overnight stay for treatment of sepsis from deep wounds infection on IV antibiotics pending final cultures and managed security sales consultant evaluation Quality Stroke Does the patient have a stroke diagnosis?: No VTE Prior VTE?: No VTE Risk Level:: Medical - moderate - high VTE Device Contraindication: Treatment Not Indicated VTE Drug Contraindication: N/A - Med Ordered
[2024-12-12 15:42] VITALS: BP 150/67; PULSE 79; RESP 18; TEMP 36.3; O2SAT 95
[2024-12-12 16:06] LABS: Vancomycin Random 12.9 mcg/mL (15-20)
[2024-12-12] MEDS: Enoxaparin Sodium 40 MG/0.4 ML SYRINGE SUBCUT (17:02)
--- NOTE | 2024-12-12 18:08 | PC.NURSE ---
Patient went to the bathroom and had an episode of BRBPR, MD notified. Patient states that this is common but is also complaining of dizziness. H & H low, per MD transfuse 2 units PRBC
[2024-12-12 19:46] VITALS: BP 123/69; PULSE 87; RESP 16; TEMP 36.6; O2SAT 96
[2024-12-12] MEDS: Atorvastatin Calcium 40 MG TABLET PO (20:10)
[2024-12-12] MEDS: Anastrozole 1 MG TABLET PO (20:10)
[2024-12-12] MEDS: Mirabegron 50 MG TAB.ER.24H PO (20:10)
[2024-12-12] MEDS: oxyBUTYnin chloride ER 5 MG TAB.ER.24 PO (20:10)
[2024-12-13] VITALS (7 sets, daily range): BP systolic 112–143; BP diastolic 57–82; PULSE 68–100; RESP 16–20; TEMP 36.1–37.2; O2SAT 93–96
[2024-12-13] MEDS: cefEPime HCl/D5W 2 GM/50 ML PIGGYBACK IV ×3 (03:13→19:33)
[2024-12-13] MEDS: vancomycin HCL 750 MG in 0.9 % Sodium Chloride 250 ML 265 MG IV ×2 (04:33→20:19)
[2024-12-13] MEDS: Pantoprazole Sodium 20 MG TABLET.DR 40 MG PO ×2 (05:22→17:31)
[2024-12-13 07:33] LABS: MANUAL DIFF FLAG NO
[2024-12-13 07:44] LABS: Basophils Percent Auto 0.4 % (0-2); Eosinophils Absolute Auto 0.1 X10*3/uL (0.0-0.4); Eosinophils Percent Auto 1.1 % (0-4); Hematocrit 32.6 % (37.0-47.0); Hemoglobin 10.6 g/dl (12.0-16.0); Imm Gran Abs Auto 0.07 X10*3/uL (0.00-0.03); Imm Gran Pct Auto 1.3 % (0.0-0.4); Lymphocytes Absolute Auto 0.8 X10*3/uL (1.2-4.9); Mean Corpuscular HGB Conc 32.5 g/dl (31.0-35.0); Mean Corpuscular Hemoglobin 30.3 pg (27.0-33.0); Mean Corpuscular Volume 93.1 fL (80.0-98.0); Mean Platelet Volume 10.3 fL (9.4-12.3); Monocytes Absolute Auto 0.6 X10*3/uL (0.1-1.2); Monocytes Percent Auto 10.6 % (2-11); Neutrophils Absolute Auto 3.8 x10*3/uL (2.0-8.3); Neutrophils Percent Auto 71.6 % (45-73); Platelet Count 130 X10*3/uL (160-400); Red Cell Distribution Width 13.7 % (11.0-16.0); White Blood Count 5.3 X10*3/uL (4.8-10.8)
[2024-12-13 07:59] LABS: Anion Gap 12 (12-20); Blood Urea Nitrogen 17 mg/dL (9-16); Carbon Dioxide 21 mmol/L (22-29); Chloride 109 mmol/L (96-108); Creatinine Clr Calc Pharmacy 69.3; Estimated Glomerular Filt Rate > 60; Glucose Random 111 mg/dL (60-115); Potassium 3.8 mmol/L (3.3-5.1); Sodium 138 mmol/L (135-145)
[2024-12-13] MEDS: Tolterodine Tartrate LA 4 MG CAP.ER.24H PO (09:34)
[2024-12-13] MEDS: Famotidine 20 MG TABLET 40 MG PO ×2 (09:34→20:18)
[2024-12-13] MEDS: Ascorbic Acid 250 MG TABLET PO (09:35)
[2024-12-13] MEDS: Cholecalciferol (Vitamin D3) 25 MCG TABLET PO (09:35)
[2024-12-13] MEDS: Sennosides 8.6 MG TABLET PO (09:35)
[2024-12-13] MEDS: Aspirin 81 MG TAB.CHEW PO (09:35)
[2024-12-13] MEDS: predniSONE 20 MG TABLET 5 MG PO (09:35)
[2024-12-13] MEDS: Ferrous Sulfate 324 MG TABLET.DR PO (09:35)
[2024-12-13] MEDS: Clopidogrel Bisulfate 75 MG TABLET PO (09:35)
[2024-12-13] MEDS: 0.9 % Sodium Chloride Flush 3 ML SYRINGE IVFLUSH ×3 (09:36→19:37)
[2024-12-13] MEDS: metroNIDAZOLE/NS 500 MG/100 ML PIGGYBACK 100 MG IV ×3 (09:36→23:38)
[2024-12-13] MEDS: Multivitamin TABLET 1 TAB PO (09:36)
[2024-12-13] MEDS: atenoloL 25 MG TABLET PO (09:36)
--- NOTE | 2024-12-13 13:25 | P.PNIM_ITS ---
Subjective Subjective Date of Service: 12/13/24 Interval History: seen and evaluated this morning looks weak and frail more alert but confused overall reporting lower back pain converted back to sinus Review of Systems Review of Systems: Yes Unobtainable due to mental status Physical Exam 2 Vital Signs: Vital Signs: Last Vital Signs Temp 97.0 F 12/13/24 10:53 Pulse 68 12/13/24 10:53 Resp 18 12/13/24 10:53 BP 131/73 12/13/24 10:53 Pulse Ox 95 12/13/24 10:53 O2 Del Method Room Air 12/13/24 10:53 O2 Flow Rate 1 12/10/24 20:34 Oxygen Flow Rate 2 12/10/24 14:38 BMI result Body Mass Index 24.8 Const: Other: Constitutional : sleepy, frail looking, not in distress Cardiovascular : irregular irregular, no JVP, no lower extremity edema Respiratory : bilateral chest movement, not in resp distress Gastrointestinal: soft, lax, Non tender Skin : Warm, Dry, large sacral decubitus wound with odor,pressure ulcer on R heel with ischemia, stage 3 pressure ulcer on L heel Neurological : Alert with stimulation & confused to time and place, No focal deficit Objective Data Active Medications Acetaminophen (Acetaminophen 325 Mg Tablet) 650 mg PO Q6H PRN PRN Reason: Pain, Mild 1-3,fever,headache Albuterol Sulfate (Albuterol Sulfate 90 Mcg 8 Gm Inhaler) 2 puff INHALE Q6H PRN PRN Reason: Wheezing Albuterol/Ipratropium (Albuterol/Iprat 2.5/0.5mg 3 Ml Ampul.Neb) 3 ml INHALE Q4H PRN PRN Reason: Shortness of Breath/Wheezing Anastrozole (Anastrozole 1 Mg Tablet) 1 mg PO BEDTIME [facility] Last Admin: 12/12/24 20:10 Dose: 1 mg Documented By: CAROLYN Ascorbic Acid (Ascorbic Acid 250 Mg Tablet) 250 mg PO DAILY [facility] Last Admin: 12/13/24 09:35 Dose: 250 mg Documented By: NELSON Aspirin (Aspirin 81 Mg Tab.Chew) 81 mg PO DAILY [facility] Last Admin: 12/13/24 09:35 Dose: 81 mg Documented By: NELSON Atenolol (Atenolol 25 Mg Tablet) 25 mg PO DAILY [facility]; Protocol Last Admin: 12/13/24 09:36 Dose: 25 mg Documented By: NELSON Atorvastatin Calcium (Atorvastatin Calcium 40 Mg Tablet) 40 mg PO BEDTIME [facility] Last Admin: 12/12/24 20:10 Dose: 40 mg Documented By: CAROLYN Benzonatate (Benzonatate 100 Mg Capsule) 100 mg PO TID PRN PRN Reason: Cough Bisacodyl (Bisacodyl 10 Mg Supp.Rect) 10 mg [place] DAILY PRN PRN Reason: constipation, no effect from MOM Calcium Carbonate (Calcium Carbonate 750 Mg Tab.Chew) 750 mg PO Q4H PRN PRN Reason: Heartburn Carvedilol (Carvedilol 3.125 Mg Tablet) 3.125 mg PO BID [facility]; Protocol Last Admin: 12/11/24 09:49 Dose: 3.125 mg Documented By: JILLIAN Clopidogrel Bisulfate (Clopidogrel Bisulfate 75 Mg Tablet) 75 mg PO DAILY [facility] Last Admin: 12/13/24 09:35 Dose: 75 mg Documented By: NELSON Collagenase (Collagenase Clostridium Hist. 30 Gm Tube) 1 appl TOPICAL DAILY PRN; Protocol PRN Reason: alteration in skin integrity Diltiazem HCl (Diltiazem Hcl Cd 120 Mg Cap.Er.Deg) 120 mg PO DAILY [facility]; Protocol Last Admin: 12/13/24 09:47 Dose: Not Given Documented By: NELSON Non-Admin Reason: patient unable to swallow pill whole Docusate Sodium (Docusate Sodium 100 Mg Capsule) 100 mg PO DAILY [facility] Last Admin: 12/13/24 09:48 Dose: Not Given Documented By: NELSON Non-Admin Reason: unable to swallow pill, not crushable Enoxaparin Sodium (Enoxaparin Sodium 40 Mg/0.4 Ml Syringe) 40 mg SUBCUT Q24H [facility] Last Admin: 12/12/24 17:02 Dose: 40 mg Documented By: VIVIAN Famotidine (Famotidine 20 Mg Tablet) 40 mg PO BID [facility] Last Admin: 12/13/24 09:34 Dose: 40 mg Documented By: NELSON Ferrous Sulfate (Ferrous Sulfate 324 Mg Tablet.) 324 mg PO DAILY [facility] Last Admin: 12/13/24 09:35 Dose: 324 mg Documented By: NELSON Metronidazole (Flagyl) 500 mg in 100 mls @ 100 mls/hr IV Q8H [facility] Last Infusion: 12/13/24 11:14 Dose: Infused Documented By: NELSON Cefepime HCl (Maxipime) 2 gm in 50 mls @ 100 mls/hr IV Q8H [facility] Last Infusion: 12/13/24 12:34 Dose: Infused Documented By: NELSON Vancomycin HCl 750 mg/ Sodium (Chloride) 265 mls @ 265 mls/hr IV Q12H [facility] Last Infusion: 12/13/24 06:00 Dose: Infused Documented By: CAROLYN Magnesium Hydroxide (Milk Of Magnesia 30 Ml Oral.Susp) 30 ml PO DAILY PRN PRN Reason: constipation, no BM in 3 days Melatonin (Melatonin 3 Mg Tablet) 6 mg PO BEDTIME PRN PRN Reason: Insomnia Mirabegron (Mirabegron 50 Mg Tab.Er.24h) 50 mg PO BEDTIME [facility] Last Admin: 12/12/24 20:10 Dose: 50 mg Documented By: CAROLYN Morphine Sulfate (Morphine Sulfate 4 Mg/Ml Cartridge) 1 mg IVPUSH Q4H PRN; Protocol PRN Reason: Pain, Severe (Pain Scale 7-10) Multivitamins/Vitamin C (Multivitamin Tablet) 1 tab PO DAILY [facility] Last Admin: 12/13/24 09:36 Dose: 1 tab Documented By: NELSON Ondansetron HCl (Ondansetron Hcl 4 Mg/2 Ml Vial) 4 mg IVPUSH Q8H PRN PRN Reason: Nausea and Vomiting Oxybutynin Chloride (Oxybutynin Chloride Er 5 Mg Tab.Er.24) 5 mg PO BEDTIME [facility] Last Admin: 12/12/24 20:10 Dose: 5 mg Documented By: CAROLYN Oxycodone HCl (Oxycodone Hcl Immed Release 5 Mg Tablet) 5 mg PO Q6H PRN PRN Reason: Pain, Moderate(Pain Scale 4-6) Last Admin: 12/11/24 09:48 Dose: 5 mg Documented By: JILLIAN Pantoprazole Sodium (Pantoprazole Sodium 20 Mg Tablet.Dr) 40 mg PO BID@0630,1630 [facility] Last Admin: 12/13/24 05:22 Dose: 40 mg Documented By: CAROLYN Pharmacy Consult (Consult Rx Vancomycin Dosing) 1 each MISCELLANE DAILY PRN PRN Reason: Consult order Prednisone (Prednisone 20 Mg Tablet) 5 mg PO DAILY [facility]; Taper Stop: 12/20/24 07:59 Last Admin: 12/13/24 09:35 Dose: 5 mg Documented By: NELSON Risperidone (Risperidone 1 Mg Tablet) 1 mg PO DAILY@1800 [facility] Last Admin: 12/11/24 16:58 Dose: 1 mg Documented By: JILLIAN Salmeterol Xinafoate (Salmeterol Xinafoate 50 Mcg Blst.W.Dev) 1 puff INHALE BID PRN PRN Reason: Wheezing Senna (Sennosides 8.6 Mg Tablet) 8.6 mg PO DAILY [facility] Last Admin: 12/13/24 09:35 Dose: 8.6 mg Documented By: NELSON Sodium Biphosphate/Sodium Phosphate (Sodium Phosphate,[place]-Dibasic 133 Ml Enema) 118 ml [place] DAILY PRN PRN Reason: constipation, ducolax not effective Sodium Chloride (0.9 % Sodium Chloride Flush 3 Ml Syringe) 3 ml IVFLUSH QSHIFT [facility] Last Admin: 12/13/24 09:36 Dose: 3 ml Documented By: NELSON Sodium Hypochlorite (Sodium Hypochlorite 0.125% 473 Ml Solution) 1 appl TOPICAL DAILY PRN PRN Reason: dressing change Last Admin: 12/11/24 12:06 Dose: 1 appl Documented By: JILLIAN Tolterodine Tartrate (Tolterodine Tartrate La 4 Mg Cap.Er.24h) 4 mg PO DAILY [facility] Last Admin: 12/13/24 09:34 Dose: 4 mg Documented By: NELSON Tramadol HCl (Tramadol Hcl 50 Mg Tablet) 50 mg PO DAILY PRN PRN Reason: prior to dressing change Vitamin D (Cholecalciferol (Vitamin D3) 25 Mcg Tablet) 25 mcg PO DAILY [facility] Last Admin: 12/13/24 09:35 Dose: 25 mcg Documented By: NELSON Labs 12/13/24 06:49 12/13/24 06:49 Labs: Laboratory Results - last 24 hr 12/12/24 12/13/24 15:09 06:49 MCV 93.1 MCH 30.3 MCHC 32.5 RDW 13.7 Plt Count 130 L MPV 10.3 Immature Gran % (Auto) 1.3 H Neut % (Auto) 71.6 Lymph % (Auto) 15.0 L [place] % (Auto) 10.6 Eos % (Auto) 1.1 Baso % (Auto) 0.4 Lymph # (Auto) 0.8 L [place] # (Auto) 0.6 Eos # (Auto) 0.1 Baso # (Auto) 0.0 Abs Immat Gran (auto) 0.07 H Absolute Neuts (auto) 3.8 Absolute Nucleated RBC 0.000 Nucleated RBC % (auto) 0.0 Anion Gap 12 Estim Creat Clear Calc 69.3 Estimated GFR > 60 Random Glucose 111 Calcium 8.0 L D Random Vancomycin 12.9 L Microbiology Microbiology Results: Microbiology 12/10/24 15:19 Blood Culture - Preliminary Blood - Venous No growth after 48 hours. 12/10/24 15:05 Blood Culture - Preliminary Blood - Venous No growth after 48 hours. Assessment and Plan (1) Sepsis: Status: Acute (2) Pneumonia: Status: Acute (3) Ulcer of sacral region, unstageable: Status: Acute (4) Multifactorial dementia: Status: Acute (5) Toxic metabolic encephalopathy: Status: Acute Plan An 84-year-old female with PMH of dementia, breast cancer s/p surgery and radiation PID s/p L SFA arthrectomy/stent, L common iliac/external iliac stent, HTN, urinary incontinence, HLD, GIB 12/2022, falls, who presented to the ED due to fever and worsening sacral ulcer among other wounds. Toxic metabolic encephalopathy polypharmacy, inpatient delerium , infection Hold sedative medicines recurrent reorientation treat infection Sepsis 2/2 Stage 4 sacral pressure ulcer and bilateral heel wound with infection concern of osteomyelitis from CT scan of sacrum negative blood cultures continue vancomycin, cefepime, Flagyl, surgery consult, bedside debridement ID eval , consider 6 weeks Ceftriaxone IV to place PICC Pneumonia seen on CXR covered with antibiotics on room air for now progressive weakness evaluated last admission by neuro with rec to DC Statin and trial of prednisone possible NPH but unlikely to benefit from work up/treatment PT eval rec STR History of breast cancer Anastrozole Hypertension Diltiazem held for low bp Peripheral vascular disease Aspirin statin discontinued DVT prophylaxis with Lovenox Full code The patient will need overnight stay for treatment of sepsis from deep wounds infection on IV antibiotics pending final cultures and employee relations consultant evaluation Quality Stroke Does the patient have a stroke diagnosis?: No VTE Prior VTE?: No VTE Risk Level:: Medical - moderate - high VTE Device Contraindication: Treatment Not Indicated VTE Drug Contraindication: N/A - Med Ordered
[2024-12-13] MEDS: Acetaminophen 325 MG TABLET 650 MG PO (17:31)
[2024-12-13] MEDS: risperiDONE 1 MG TABLET PO (17:31)
[2024-12-13] MEDS: Enoxaparin Sodium 40 MG/0.4 ML SYRINGE SUBCUT (17:31)
[2024-12-13] MEDS: Atorvastatin Calcium 40 MG TABLET PO (20:18)
[2024-12-13] MEDS: Mirabegron 50 MG TAB.ER.24H PO (20:19)
[2024-12-13] MEDS: Anastrozole 1 MG TABLET PO (20:19)
[2024-12-14] MEDS: cefEPime HCl/D5W 2 GM/50 ML PIGGYBACK IV ×3 (03:07→19:41)
[2024-12-14 04:00] VITALS: BP 140/94; PULSE 86; RESP 16; TEMP 37.1; O2SAT 96
[2024-12-14] MEDS: Pantoprazole Sodium 20 MG TABLET.DR 40 MG PO ×2 (05:32→16:57)
[2024-12-14 06:15] LABS: MANUAL DIFF FLAG NO
[2024-12-14 06:18] LABS: Basophils Percent Auto 0.4 % (0-2); Eosinophils Absolute Auto 0.1 X10*3/uL (0.0-0.4); Eosinophils Percent Auto 1.3 % (0-4); Hematocrit 33.8 % (37.0-47.0); Hemoglobin 10.9 g/dl (12.0-16.0); Imm Gran Abs Auto 0.08 X10*3/uL (0.00-0.03); Imm Gran Pct Auto 1.5 % (0.0-0.4); Lymphocytes Absolute Auto 0.8 X10*3/uL (1.2-4.9); Lymphocytes Percent Auto 14.1 % (20-40); Mean Corpuscular HGB Conc 32.2 g/dl (31.0-35.0); Mean Corpuscular Hemoglobin 29.9 pg (27.0-33.0); Mean Corpuscular Volume 92.6 fL (80.0-98.0); Mean Platelet Volume 10.2 fL (9.4-12.3); Monocytes Absolute Auto 0.6 X10*3/uL (0.1-1.2); Monocytes Percent Auto 10.9 % (2-11); Neutrophils Absolute Auto 3.9 x10*3/uL (2.0-8.3); Neutrophils Percent Auto 71.8 % (45-73); Platelet Count 143 X10*3/uL (160-400); Red Blood Count 3.65 X10*6/uL (4.20-5.50); Red Cell Distribution Width 13.6 % (11.0-16.0); White Blood Count 5.4 X10*3/uL (4.8-10.8)
[2024-12-14 06:36] LABS: Vancomycin Random 13.7 mcg/mL (15-20)
[2024-12-14 06:39] LABS: Anion Gap 10 (12-20); Blood Urea Nitrogen 17 mg/dL (9-16); Calcium 8.2 mg/dL (8.4-10.2); Carbon Dioxide 23 mmol/L (22-29); Chloride 110 mmol/L (96-108); Estimated Glomerular Filt Rate > 60; Glucose Random 105 mg/dL (60-115); Potassium 3.4 mmol/L (3.3-5.1); Sodium 140 mmol/L (135-145)
[2024-12-14 06:55] VITALS: BP 135/84; PULSE 89; RESP 18; TEMP 37.6; O2SAT 94
[2024-12-14] MEDS: vancomycin HCL 750 MG in 0.9 % Sodium Chloride 250 ML 265 MG IV ×2 (09:14→20:19)
[2024-12-14] MEDS: Clopidogrel Bisulfate 75 MG TABLET PO (09:15)
[2024-12-14] MEDS: metroNIDAZOLE/NS 500 MG/100 ML PIGGYBACK 100 MG IV ×2 (09:15→16:56)
[2024-12-14] MEDS: predniSONE 20 MG TABLET 5 MG PO (09:15)
[2024-12-14] MEDS: Famotidine 20 MG TABLET 40 MG PO ×2 (09:16→19:50)
[2024-12-14] MEDS: Cholecalciferol (Vitamin D3) 25 MCG TABLET PO (09:17)
[2024-12-14] MEDS: Sennosides 8.6 MG TABLET PO (09:17)
[2024-12-14] MEDS: Ferrous Sulfate 324 MG TABLET.DR PO (09:17)
[2024-12-14] MEDS: Ascorbic Acid 250 MG TABLET PO (09:17)
[2024-12-14] MEDS: Multivitamin TABLET 1 TAB PO (09:17)
[2024-12-14 09:18] VITALS: BP 130/75; PULSE 89
[2024-12-14] MEDS: atenoloL 25 MG TABLET PO (09:18)
[2024-12-14] MEDS: Aspirin 81 MG TAB.CHEW PO (09:18)
[2024-12-14] MEDS: Tolterodine Tartrate LA 4 MG CAP.ER.24H PO (09:18)
[2024-12-14] MEDS: Acetaminophen 325 MG TABLET 650 MG PO (09:19)
[2024-12-14] MEDS: Morphine Sulfate 4 MG/ML CARTRIDGE 1 MG IVPUSH (10:38)
--- NOTE | 2024-12-14 10:48 | P.PNIM_ITS ---
Subjective Subjective Date of Service: 12/14/24 Interval History: seen and evaluated this morning looks more alert but but confused overall reporting lower back pain in sinus rhythm no other overnight events Review of Systems Review of Systems: Yes all other systems are reviewed and are negative Physical Exam 2 Vital Signs: Vital Signs: Last Vital Signs Temp 99.6 F 12/14/24 06:55 Pulse 89 12/14/24 09:18 Resp 18 12/14/24 06:55 BP 130/75 12/14/24 09:18 Pulse Ox 94 12/14/24 06:55 O2 Del Method Room Air 12/14/24 06:55 O2 Flow Rate 1 12/10/24 20:34 Oxygen Flow Rate 2 12/10/24 14:38 BMI result Body Mass Index 24.8 Const: Other: Constitutional : sleepy, frail looking, not in distress Cardiovascular : irregular irregular, no JVP, no lower extremity edema Respiratory : bilateral chest movement, not in resp distress Gastrointestinal: soft, lax, Non tender Skin : Warm, Dry, large sacral decubitus wound with odor,pressure ulcer on R heel with ischemia, stage 3 pressure ulcer on L heel Neurological : Alert with stimulation & confused to time and place, No focal deficit Objective Data Active Medications Acetaminophen (Acetaminophen 325 Mg Tablet) 650 mg PO Q6H PRN PRN Reason: Pain, Mild 1-3,fever,headache Last Admin: 12/14/24 09:19 Dose: 650 mg Documented By: NELSON Albuterol Sulfate (Albuterol Sulfate 90 Mcg 8 Gm Inhaler) 2 puff INHALE Q6H PRN PRN Reason: Wheezing Albuterol/Ipratropium (Albuterol/Iprat 2.5/0.5mg 3 Ml Ampul.Neb) 3 ml INHALE Q4H PRN PRN Reason: Shortness of Breath/Wheezing Anastrozole (Anastrozole 1 Mg Tablet) 1 mg PO BEDTIME [facility] Last Admin: 12/13/24 20:19 Dose: 1 mg Documented By: CAROLYN Ascorbic Acid (Ascorbic Acid 250 Mg Tablet) 250 mg PO DAILY [facility] Last Admin: 12/14/24 09:17 Dose: 250 mg Documented By: NELSON Aspirin (Aspirin 81 Mg Tab.Chew) 81 mg PO DAILY [facility] Last Admin: 12/14/24 09:18 Dose: 81 mg Documented By: NELSON Atenolol (Atenolol 25 Mg Tablet) 25 mg PO DAILY [facility]; Protocol Last Admin: 12/14/24 09:18 Dose: 25 mg Documented By: NELSON Atorvastatin Calcium (Atorvastatin Calcium 40 Mg Tablet) 40 mg PO BEDTIME [facility] Last Admin: 12/13/24 20:18 Dose: 40 mg Documented By: CAROLYN Benzonatate (Benzonatate 100 Mg Capsule) 100 mg PO TID PRN PRN Reason: Cough Bisacodyl (Bisacodyl 10 Mg Supp.Rect) 10 mg AL DAILY PRN PRN Reason: constipation, no effect from MOM Calcium Carbonate (Calcium Carbonate 750 Mg Tab.Chew) 750 mg PO Q4H PRN PRN Reason: Heartburn Carvedilol (Carvedilol 3.125 Mg Tablet) 3.125 mg PO BID [facility]; Protocol Last Admin: 12/11/24 09:49 Dose: 3.125 mg Documented By: JILLIAN Clopidogrel Bisulfate (Clopidogrel Bisulfate 75 Mg Tablet) 75 mg PO DAILY [facility] Last Admin: 12/14/24 09:15 Dose: 75 mg Documented By: NELSON Collagenase (Collagenase Clostridium Hist. 30 Gm Tube) 1 appl TOPICAL DAILY PRN; Protocol PRN Reason: alteration in skin integrity Diltiazem HCl (Diltiazem Hcl Cd 120 Mg Cap.Er.Deg) 120 mg PO DAILY [facility]; Protocol Last Admin: 12/14/24 09:18 Dose: Not Given Documented By: NELSON Non-Admin Reason: unable to swallow Docusate Sodium (Docusate Sodium 100 Mg Capsule) 100 mg PO DAILY [facility] Last Admin: 12/14/24 09:18 Dose: Not Given Documented By: NELSON Non-Admin Reason: unable to swallow Enoxaparin Sodium (Enoxaparin Sodium 40 Mg/0.4 Ml Syringe) 40 mg SUBCUT Q24H [facility] Last Admin: 12/13/24 17:31 Dose: 40 mg Documented By: NELSON Famotidine (Famotidine 20 Mg Tablet) 40 mg PO BID [facility] Last Admin: 12/14/24 09:16 Dose: 40 mg Documented By: NELSON Ferrous Sulfate (Ferrous Sulfate 324 Mg Tablet.Dr) 324 mg PO DAILY [facility] Last Admin: 12/14/24 09:17 Dose: 324 mg Documented By: NELSON Metronidazole (Flagyl) 500 mg in 100 mls @ 100 mls/hr IV Q8H [facility] Last Infusion: 12/14/24 10:26 Dose: Infused Documented By: NELSON Cefepime HCl (Maxipime) 2 gm in 50 mls @ 100 mls/hr IV Q8H [facility] Last Infusion: 12/14/24 03:52 Dose: Infused Documented By: CAROLYN Vancomycin HCl 750 mg/ Sodium (Chloride) 265 mls @ 265 mls/hr IV Q12H [facility] Last Infusion: 12/14/24 10:26 Dose: Infused Documented By: NELSON Magnesium Hydroxide (Milk Of Magnesia 30 Ml Oral.Susp) 30 ml PO DAILY PRN PRN Reason: constipation, no BM in 3 days Melatonin (Melatonin 3 Mg Tablet) 6 mg PO BEDTIME PRN PRN Reason: Insomnia Mirabegron (Mirabegron 50 Mg Tab.Er.24h) 50 mg PO BEDTIME [facility] Last Admin: 12/13/24 20:19 Dose: 50 mg Documented By: CAROLYN Morphine Sulfate (Morphine Sulfate 4 Mg/Ml Cartridge) 1 mg IVPUSH Q4H PRN; Protocol PRN Reason: Pain, Severe (Pain Scale 7-10) Last Admin: 12/14/24 10:38 Dose: 1 mg Documented By: NELSON Multivitamins/Vitamin C (Multivitamin Tablet) 1 tab PO DAILY [facility] Last Admin: 12/14/24 09:17 Dose: 1 tab Documented By: NELSON Ondansetron HCl (Ondansetron Hcl 4 Mg/2 Ml Vial) 4 mg IVPUSH Q8H PRN PRN Reason: Nausea and Vomiting Oxybutynin Chloride (Oxybutynin Chloride Er 5 Mg Tab.Er.24) 5 mg PO BEDTIME [facility] Last Admin: 12/12/24 20:10 Dose: 5 mg Documented By: CAROLYN Oxycodone HCl (Oxycodone Hcl Immed Release 5 Mg Tablet) 5 mg PO Q6H PRN PRN Reason: Pain, Moderate(Pain Scale 4-6) Last Admin: 12/11/24 09:48 Dose: 5 mg Documented By: JILLIAN Pantoprazole Sodium (Pantoprazole Sodium 20 Mg Tablet.) 40 mg PO BID@0630,1630 [facility] Last Admin: 12/14/24 05:32 Dose: 40 mg Documented By: CAROLYN Pharmacy Consult (Consult Rx Vancomycin Dosing) 1 each MISCELLANE DAILY PRN PRN Reason: Consult order Prednisone (Prednisone 20 Mg Tablet) 5 mg PO DAILY [facility]; Taper Stop: 12/20/24 07:59 Last Admin: 12/14/24 09:15 Dose: 5 mg Documented By: NELSON Risperidone (Risperidone 1 Mg Tablet) 1 mg PO DAILY@1800 [facility] Last Admin: 12/13/24 17:31 Dose: 1 mg Documented By: NELSON Salmeterol Xinafoate (Salmeterol Xinafoate 50 Mcg Blst.W.Dev) 1 puff INHALE BID PRN PRN Reason: Wheezing Senna (Sennosides 8.6 Mg Tablet) 8.6 mg PO DAILY [facility] Last Admin: 12/14/24 09:17 Dose: 8.6 mg Documented By: NELSON Sodium Biphosphate/Sodium Phosphate (Sodium Phosphate,[place]-Dibasic 133 Ml Enema) 118 ml AL DAILY PRN PRN Reason: constipation, ducolax not effective Sodium Chloride (0.9 % Sodium Chloride Flush 3 Ml Syringe) 3 ml IVFLUSH QSHIFT [facility] Last Admin: 12/14/24 09:28 Dose: Not Given Documented By: NELSON Non-Admin Reason: IV Running Sodium Hypochlorite (Sodium Hypochlorite 0.125% 473 Ml Solution) 1 appl TOPICAL DAILY PRN PRN Reason: dressing change Last Admin: 12/11/24 12:06 Dose: 1 appl Documented By: JILLIAN Tolterodine Tartrate (Tolterodine Tartrate La 4 Mg Cap.Er.24h) 4 mg PO DAILY [facility] Last Admin: 12/14/24 09:18 Dose: 4 mg Documented By: NELSON Tramadol HCl (Tramadol Hcl 50 Mg Tablet) 50 mg PO DAILY PRN PRN Reason: prior to dressing change Vitamin D (Cholecalciferol (Vitamin D3) 25 Mcg Tablet) 25 mcg PO DAILY [facility] Last Admin: 12/14/24 09:17 Dose: 25 mcg Documented By: NELSON Labs 12/14/24 05:58 12/14/24 05:58 Labs: Laboratory Results - last 24 hr 12/14/24 05:58 MCV 92.6 MCH 29.9 MCHC 32.2 RDW 13.6 Plt Count 143 L MPV 10.2 Immature Gran % (Auto) 1.5 H Neut % (Auto) 71.8 Lymph % (Auto) 14.1 L [place] % (Auto) 10.9 Eos % (Auto) 1.3 Baso % (Auto) 0.4 Lymph # (Auto) 0.8 L [place] # (Auto) 0.6 Eos # (Auto) 0.1 Baso # (Auto) 0.0 Abs Immat Gran (auto) 0.08 H Absolute Neuts (auto) 3.9 Absolute Nucleated RBC 0.000 Nucleated RBC % (auto) 0.0 Anion Gap 10 L Estim Creat Clear Calc 72.0 Estimated GFR > 60 Random Glucose 105 Calcium 8.2 L Random Vancomycin 13.7 L Assessment and Plan (1) Toxic metabolic encephalopathy: Status: Acute (2) Sepsis: Status: Acute (3) Pneumonia: Status: Acute (4) Ulcer of sacral region, unstageable: Status: Acute (5) Decubitus skin ulcer: Status: Acute Plan An 84-year-old female with PMH of dementia, breast cancer s/p surgery and radiation PID s/p L SFA arthrectomy/stent, L common iliac/external iliac stent, HTN, urinary incontinence, HLD, GIB 12/2022, falls, who presented to the ED due to fever and worsening sacral ulcer among other wounds. Toxic metabolic encephalopathy polypharmacy, inpatient delerium , infection improving Hold sedative medicines; restart Risperidone recurrent reorientation treat infection Sepsis 2/2 Stage 4 sacral pressure ulcer and bilateral heel wound with infection concern of osteomyelitis from CT scan of sacrum negative blood cultures continue vancomycin, cefepime, Flagyl, surgery consult, bedside debridement ID eval , consider 6 weeks Ceftriaxone IV on discharge to place PICC Pneumonia seen on CXR covered with antibiotics on room air for now progressive weakness evaluated last admission by neuro with rec to DC Statin and trial of prednisone possible NPH but unlikely to benefit from work up/treatment PT eval rec STR History of breast cancer Anastrozole Hypertension Diltiazem held for low bp Peripheral vascular disease Aspirin statin discontinued DVT prophylaxis with Lovenox Full code The patient will need overnight stay for treatment of sepsis from deep wounds infection on IV antibiotics pending final cultures and applications development consultant evaluation Quality Stroke Does the patient have a stroke diagnosis?: No VTE Prior VTE?: No VTE Risk Level:: Medical - moderate - high VTE Device Contraindication: Treatment Not Indicated VTE Drug Contraindication: N/A - Med Ordered
[2024-12-14 11:04] VITALS: BP 115/65; PULSE 81; RESP 18; TEMP 36.4; O2SAT 95
--- NOTE | 2024-12-14 11:09 | MHC.CLN ---
F/U AND CONSULT PO INTAKE VARIABLE RANGING FROM 0-75% DIET RX: REGULAR PT RECEIVING ENSURE MAX BID TO PROMOTE WOUND HEALING SUPPLEMENT PROVIDES 300 KCALS, 60 G PROTEIN MONITOR PO INTAKE AND ENCOURAGE SUPPLEMENTS
[2024-12-14] MEDS: oxyCODONE HCl Immed Release 5 MG TABLET PO (13:48)
[2024-12-14 15:02] VITALS: BP 99/55; PULSE 89; RESP 18; TEMP 36.3; O2SAT 92
[2024-12-14] MEDS: Enoxaparin Sodium 40 MG/0.4 ML SYRINGE SUBCUT (16:56)
[2024-12-14] MEDS: traMADoL HCL 50 MG TABLET PO (16:57)
[2024-12-14] MEDS: 0.9 % Sodium Chloride Flush 3 ML SYRINGE IVFLUSH ×2 (16:57→19:39)
[2024-12-14] MEDS: risperiDONE 1 MG TABLET PO (16:57)
[2024-12-14 18:57] VITALS: BP 122/63; PULSE 102; RESP 22; TEMP 36.7; O2SAT 95
[2024-12-14] MEDS: Atorvastatin Calcium 40 MG TABLET PO (19:51)
[2024-12-14] MEDS: Anastrozole 1 MG TABLET PO (19:51)
[2024-12-14] MEDS: Mirabegron 50 MG TAB.ER.24H PO (19:51)
[2024-12-15] VITALS (8 sets, daily range): BP systolic 101–132; BP diastolic 56–74; PULSE 80–95; RESP 16–20; TEMP 36.4–36.9; O2SAT 92–96
[2024-12-15] MEDS: metroNIDAZOLE/NS 500 MG/100 ML PIGGYBACK 100 MG IV ×2 (00:07→08:38)
[2024-12-15] MEDS: cefEPime HCl/D5W 2 GM/50 ML PIGGYBACK IV ×2 (04:02→12:26)
[2024-12-15] MEDS: Pantoprazole Sodium 20 MG TABLET.DR 40 MG PO ×2 (06:07→18:12)
[2024-12-15 06:42] LABS: Creatinine Clr Calc Pharmacy 65.7; Estimated Glomerular Filt Rate > 60; Vancomycin Random 12.8 mcg/mL (15-20)
[2024-12-15] MEDS: vancomycin HCL 1,000 MG in 0.9 % Sodium Chloride 250 ML 270 MG IV (08:34)
[2024-12-15] MEDS: 0.9 % Sodium Chloride Flush 3 ML SYRINGE IVFLUSH ×2 (08:38→21:46)
[2024-12-15] MEDS: Cholecalciferol (Vitamin D3) 25 MCG TABLET PO (08:41)
[2024-12-15] MEDS: predniSONE 20 MG TABLET 5 MG PO (08:41)
[2024-12-15] MEDS: Clopidogrel Bisulfate 75 MG TABLET PO (08:41)
[2024-12-15] MEDS: Sennosides 8.6 MG TABLET PO (08:41)
[2024-12-15] MEDS: atenoloL 25 MG TABLET PO (08:42)
[2024-12-15] MEDS: Multivitamin TABLET 1 TAB PO (08:42)
[2024-12-15] MEDS: Docusate Sodium 100 MG CAPSULE PO (08:42)
[2024-12-15] MEDS: Ferrous Sulfate 324 MG TABLET.DR PO (08:42)
[2024-12-15] MEDS: dilTIAZem HCL CD 120 MG CAP.ER.DEG PO (08:42)
[2024-12-15] MEDS: Aspirin 81 MG TAB.CHEW PO (08:42)
[2024-12-15] MEDS: Ascorbic Acid 250 MG TABLET PO (08:42)
[2024-12-15] MEDS: Tolterodine Tartrate LA 4 MG CAP.ER.24H PO (08:42)
[2024-12-15] MEDS: Famotidine 20 MG TABLET 40 MG PO ×2 (08:43→21:43)
[2024-12-15] MEDS: Albuterol/Iprat 2.5/0.5MG 3 ML AMPUL.NEB INHALE (09:31)
--- NOTE | 2024-12-15 11:10 | P.CDIM_ITS ---
PROVIDER RESPONSE TEXT: To clarify, the appropriate diagnosis supported by the clinical indicators: Acute osteomyelitis sacrum QUERY TEXT: PHYSICIAN'S DOCUMENTATION REQUEST Date of Query: 12/15/2024 10:05 AM EDT Patient Name: Radha Gautam Admit Date: 12/10/2024 Dear Lionel Chance MD, A review of the medical record indicates additional documentation may be needed. Please review below and update the documentation accordingly. Clinical Indicators: CT scan sacrum 12/10/24 - Sacral decubitus ulcer which does not extend to bone. CT evidence of osteomyelitis. Progress notes - Sepsis 2/2 Stage 4 sacral pressure ulcer and bilateral heel wound with infection. Concern of osteomyelitis from CT scan of sacrum Continue Vancomycin, Cefepime. Consider 6 weeks Ceftriaxone IV on discharge, to place PICC. Based on the above, please clarify in the Progress Notes further specificity regarding the acuity of the noted Osteomyelitis. Acute osteomyelitis sacrum Subacute osteomyelitis Chronic osteomyelitis Chronic multifocal osteomyelitis Other (explain) Clinically unable to determine (explain) Thank you, Laila Olvera, CCS, CDIS Use of terms such as suspected, likely, concern for, or probable (associated with a specific diagnosi s that is being evaluated, monitored, or treated as if it exists) are acceptable and can be coded in the inpatient se tting, when documented at the time of discharge. Please use your independent medical judgment in providing your response. THIS QUERY IS PART OF THE PERMANENT MEDICAL RECORD
--- NOTE | 2024-12-15 12:46 | MHC.CM.PN ---
IMM 12/15/24 DELIVERED TO PT'S SISTER YENNY AT NUMBER ON FILE, YENNY AWARE PT WILL BE MEDICALLY CLEARED ONCE PICC LINE PLACED, YENNY PREFERS PT STAY HOWEVER AGREEABLE IF HOSPITALIST SAYS SHE CAN GO, CM WILL FOLLOW UP W/YENNY ONCE TIME OF DC IS CONFIRMED.
--- NOTE | 2024-12-15 14:12 | PM.PNGS ---
Subjective Subjective Date of Service: 12/15/24 <Ambika Vasquez PA-C - Last Filed: 12/15/24 14:14> 12/15/24 <Mihai Verdugo MD - Last Filed: 12/15/24 17:14> Interval history: Attempted to assess wound but dressing had just been changed by RN. Per RN- frequent soilage of dressing due to bowel movements. <Ambika Vasquez PA-C - Last Filed: 12/15/24 14:14> Physical Exam Vital Signs: Vital Signs: Last Vital Signs Temp 97.7 F 12/15/24 11:18 Pulse 88 12/15/24 11:18 Resp 18 12/15/24 11:18 BP 124/58 L 12/15/24 11:18 Pulse Ox 92 12/15/24 11:18 O2 Del Method Room Air 12/15/24 11:18 O2 Flow Rate 1 12/10/24 20:34 Oxygen Flow Rate 2 12/10/24 14:38 BMI result Body Mass Index 24.8 <Ambika Vasquez PA-C - Last Filed: 12/15/24 14:14> Const: General: comfortable and no acute distress <Ambika Vasquez PA-C - Last Filed: 12/15/24 14:14> Objective Data Active Medications Acetaminophen (Acetaminophen 325 Mg Tablet) 650 mg PO Q6H PRN PRN Reason: Pain, Mild 1-3,fever,headache Last Admin: 12/14/24 09:19 Dose: 650 mg Documented By: NELSON Albuterol Sulfate (Albuterol Sulfate 90 Mcg 8 Gm Inhaler) 2 puff INHALE Q6H PRN PRN Reason: Wheezing Albuterol/Ipratropium (Albuterol/Iprat 2.5/0.5mg 3 Ml Ampul.Neb) 3 ml INHALE Q4H PRN PRN Reason: Shortness of Breath/Wheezing Last Admin: 12/15/24 09:31 Dose: 3 ml Documented By: BIRD Anastrozole (Anastrozole 1 Mg Tablet) 1 mg PO BEDTIME [facility] Last Admin: 12/14/24 19:51 Dose: 1 mg Documented By: SELVIN Ascorbic Acid (Ascorbic Acid 250 Mg Tablet) 250 mg PO DAILY [facility] Last Admin: 12/15/24 08:42 Dose: 250 mg Documented By: HALLEY Aspirin (Aspirin 81 Mg Tab.Chew) 81 mg PO DAILY [facility] Last Admin: 12/15/24 08:42 Dose: 81 mg Documented By: HALLEY Atenolol (Atenolol 25 Mg Tablet) 25 mg PO DAILY [facility]; Protocol Last Admin: 12/15/24 08:42 Dose: 25 mg Documented By: HALLEY Atorvastatin Calcium (Atorvastatin Calcium 40 Mg Tablet) 40 mg PO BEDTIME [facility] Last Admin: 12/14/24 19:51 Dose: 40 mg Documented By: SELVIN Benzonatate (Benzonatate 100 Mg Capsule) 100 mg PO TID PRN PRN Reason: Cough Bisacodyl (Bisacodyl 10 Mg Supp.Rect) 10 mg ND DAILY PRN PRN Reason: constipation, no effect from MOM Calcium Carbonate (Calcium Carbonate 750 Mg Tab.Chew) 750 mg PO Q4H PRN PRN Reason: Heartburn Carvedilol (Carvedilol 3.125 Mg Tablet) 3.125 mg PO BID [facility]; Protocol Last Admin: 12/11/24 09:49 Dose: 3.125 mg Documented By: JILLIAN Clopidogrel Bisulfate (Clopidogrel Bisulfate 75 Mg Tablet) 75 mg PO DAILY [facility] Last Admin: 12/15/24 08:41 Dose: 75 mg Documented By: HALLEY Collagenase (Collagenase Clostridium Hist. 30 Gm Tube) 1 appl TOPICAL DAILY PRN; Protocol PRN Reason: alteration in skin integrity Diltiazem HCl (Diltiazem Hcl Cd 120 Mg Cap.Er.Deg) 120 mg PO DAILY [facility]; Protocol Last Admin: 12/15/24 08:42 Dose: 120 mg Documented By: HALLEY Docusate Sodium (Docusate Sodium 100 Mg Capsule) 100 mg PO DAILY [facility] Last Admin: 12/15/24 08:42 Dose: 100 mg Documented By: HALLEY Enoxaparin Sodium (Enoxaparin Sodium 40 Mg/0.4 Ml Syringe) 40 mg SUBCUT Q24H [facility] Last Admin: 12/14/24 16:56 Dose: 40 mg Documented By: NELSON Famotidine (Famotidine 20 Mg Tablet) 40 mg PO BID [facility] Last Admin: 12/15/24 08:43 Dose: 40 mg Documented By: HALLEY Ferrous Sulfate (Ferrous Sulfate 324 Mg Tablet.Dr) 324 mg PO DAILY [facility] Last Admin: 12/15/24 08:42 Dose: 324 mg Documented By: HALLEY Cefepime HCl (Maxipime) 2 gm in 50 mls @ 100 mls/hr IV Q8H [facility] Last Infusion: 12/15/24 12:56 Dose: Infused Documented By: HALLEY Vancomycin HCl 1,000 mg/ (Sodium Chloride) 270 mls @ 270 mls/hr IV Q12H [facility] Last Infusion: 12/15/24 10:22 Dose: Infused Documented By: HALLEY Magnesium Hydroxide (Milk Of Magnesia 30 Ml Oral.Susp) 30 ml PO DAILY PRN PRN Reason: constipation, no BM in 3 days Melatonin (Melatonin 3 Mg Tablet) 6 mg PO BEDTIME PRN PRN Reason: Insomnia Metronidazole (Metronidazole 500 Mg Tablet) 500 mg PO Q8H [facility] Mirabegron (Mirabegron 50 Mg Tab.Er.24h) 50 mg PO BEDTIME [facility] Last Admin: 12/14/24 19:51 Dose: 50 mg Documented By: SELVIN Morphine Sulfate (Morphine Sulfate 4 Mg/Ml Cartridge) 1 mg IVPUSH Q4H PRN; Protocol PRN Reason: Pain, Severe (Pain Scale 7-10) Last Admin: 12/14/24 10:38 Dose: 1 mg Documented By: NELSON Multivitamins/Vitamin C (Multivitamin Tablet) 1 tab PO DAILY [facility] Last Admin: 12/15/24 08:42 Dose: 1 tab Documented By: HALLEY Ondansetron HCl (Ondansetron Hcl 4 Mg/2 Ml Vial) 4 mg IVPUSH Q8H PRN PRN Reason: Nausea and Vomiting Oxybutynin Chloride (Oxybutynin Chloride Er 5 Mg Tab.Er.24) 5 mg PO BEDTIME [facility] Last Admin: 12/12/24 20:10 Dose: 5 mg Documented By: CAROLYN Oxycodone HCl (Oxycodone Hcl Immed Release 5 Mg Tablet) 5 mg PO Q6H PRN PRN Reason: Pain, Moderate(Pain Scale 4-6) Last Admin: 12/14/24 13:48 Dose: 5 mg Documented By: NELSON Pantoprazole Sodium (Pantoprazole Sodium 20 Mg Tablet.) 40 mg PO BID@0630,1630 [facility] Last Admin: 12/15/24 06:07 Dose: 40 mg Documented By: SELVIN Pharmacy Consult (Consult Rx Vancomycin Dosing) 1 each MISCELLANE DAILY PRN PRN Reason: Consult order Prednisone (Prednisone 20 Mg Tablet) 5 mg PO DAILY [facility]; Taper Stop: 12/20/24 07:59 Last Admin: 12/15/24 08:41 Dose: 5 mg Documented By: HALLEY Risperidone (Risperidone 1 Mg Tablet) 1 mg PO DAILY@1800 [facility] Last Admin: 12/14/24 16:57 Dose: 1 mg Documented By: NELSON Salmeterol Xinafoate (Salmeterol Xinafoate 50 Mcg Blst.W.Dev) 1 puff INHALE BID PRN PRN Reason: Wheezing Senna (Sennosides 8.6 Mg Tablet) 8.6 mg PO DAILY [facility] Last Admin: 12/15/24 08:41 Dose: 8.6 mg Documented By: HALLEY Sodium Biphosphate/Sodium Phosphate (Sodium Phosphate,[place]-Dibasic 133 Ml Enema) 118 ml ND DAILY PRN PRN Reason: constipation, ducolax not effective Sodium Chloride (0.9 % Sodium Chloride Flush 3 Ml Syringe) 3 ml IVFLUSH QSHIFT [facility] Last Admin: 12/15/24 08:38 Dose: 3 ml Documented By: HALLEY Sodium Hypochlorite (Sodium Hypochlorite 0.125% 473 Ml Solution) 1 appl TOPICAL DAILY PRN PRN Reason: dressing change Last Admin: 12/11/24 12:06 Dose: 1 appl Documented By: JILLIAN Tolterodine Tartrate (Tolterodine Tartrate La 4 Mg Cap.Er.24h) 4 mg PO DAILY [facility] Last Admin: 12/15/24 08:42 Dose: 4 mg Documented By: HALLEY Tramadol HCl (Tramadol Hcl 50 Mg Tablet) 50 mg PO DAILY PRN PRN Reason: prior to dressing change Last Admin: 12/14/24 16:57 Dose: 50 mg Documented By: NELSON Vitamin D (Cholecalciferol (Vitamin D3) 25 Mcg Tablet) 25 mcg PO DAILY [facility] Last Admin: 12/15/24 08:41 Dose: 25 mcg Documented By: HALLEY <Ambika Vasquez PA-C - Last Filed: 12/15/24 14:14> Labs CBC & Chem 7: 12/14/24 05:58 12/15/24 06:14 <Ambika Vasquez PA-C - Last Filed: 12/15/24 14:14> Labs: Laboratory Results - last 24 hr 12/15/24 06:14 Estim Creat Clear Calc 65.7 Estimated GFR > 60 Random Vancomycin 12.8 L <Ambika Vasquez PA-C - Last Filed: 12/15/24 14:14> Procedures Date of Service Date of Service: 12/15/24 <Ambika Vasquez PA-C - Last Filed: 12/15/24 14:14> 12/15/24 <Mihai Verdugo MD - Last Filed: 12/15/24 17:14> Progress Note: A&P Assessment and plan (1) Ulcer of sacral region, unstageable: Status: Acute <Ambika Vasquez PA-C - Last Filed: 12/15/24 14:14> Assessment and Plan: Will return tomorrow for dressing change. Asked RN to update with picture if dressing becomes soiled again. Can continue dakins packing to superior aspect of wound for now, change daily and as needed. <Ambika Vasquez PA-C - Last Filed: 12/15/24 14:14> Time Spent With Patient Time: Total time managing care of this patient today ____ minutes. <Ambika Vasquez PA-C - Last Filed: 12/15/24 14:14> Quality Stroke Does the patient have a stroke diagnosis?: No <Ambika Vasquez PA-C - Last Filed: 12/15/24 14:14> VTE Prior VTE?: No <Ambika Vasquez PA-C - Last Filed: 12/15/24 14:14> VTE Risk Level:: Medical - moderate - high <BENNIE Correa Last Filed: 12/15/24 14:14> VTE Device Contraindication: Treatment Not Indicated <Ambika Vasquez PA-C - Last Filed: 12/15/24 14:14> VTE Drug Contraindication: N/A - Med Ordered <Ambika Vasquez PA-C - Last Filed: 12/15/24 14:14>
--- NOTE | 2024-12-15 14:45 | HO.PM.IMPN ---
Subjective Subjective Date of Service: 12/15/24 Interval History: seen and evaluated this morning looks more alert but but confused overall reporting lower back pain in sinus rhythm no other overnight events Physical Exam Vital Signs: Vital Signs: Last Vital Signs Temp 97.7 F 12/15/24 11:18 Pulse 88 12/15/24 11:18 Resp 18 12/15/24 11:18 BP 124/58 L 12/15/24 11:18 Pulse Ox 92 12/15/24 11:18 O2 Del Method Room Air 12/15/24 11:18 O2 Flow Rate 1 12/10/24 20:34 Oxygen Flow Rate 2 12/10/24 14:38 BMI result Body Mass Index 24.8 Const: Other: Constitutional : sleepy, frail looking, not in distress Cardiovascular : irregular irregular, no JVP, no lower extremity edema Respiratory : bilateral chest movement, not in resp distress Gastrointestinal: soft, lax, Non tender Skin : Warm, Dry, large sacral decubitus wound with odor,pressure ulcer on R heel with ischemia, stage 3 pressure ulcer on L heel Neurological : Alert with stimulation & confused to time and place, No focal deficit Objective Data Active Medications Acetaminophen (Acetaminophen 325 Mg Tablet) 650 mg PO Q6H PRN PRN Reason: Pain, Mild 1-3,fever,headache Last Admin: 12/14/24 09:19 Dose: 650 mg Documented By: NELSON Albuterol Sulfate (Albuterol Sulfate 90 Mcg 8 Gm Inhaler) 2 puff INHALE Q6H PRN PRN Reason: Wheezing Albuterol/Ipratropium (Albuterol/Iprat 2.5/0.5mg 3 Ml Ampul.Neb) 3 ml INHALE Q4H PRN PRN Reason: Shortness of Breath/Wheezing Last Admin: 12/15/24 09:31 Dose: 3 ml Documented By: BIRD Anastrozole (Anastrozole 1 Mg Tablet) 1 mg PO BEDTIME [facility] Last Admin: 12/14/24 19:51 Dose: 1 mg Documented By: SELVIN Ascorbic Acid (Ascorbic Acid 250 Mg Tablet) 250 mg PO DAILY [facility] Last Admin: 12/15/24 08:42 Dose: 250 mg Documented By: HALLEY Aspirin (Aspirin 81 Mg Tab.Chew) 81 mg PO DAILY [facility] Last Admin: 12/15/24 08:42 Dose: 81 mg Documented By: HALLEY Atenolol (Atenolol 25 Mg Tablet) 25 mg PO DAILY [facility]; Protocol Last Admin: 12/15/24 08:42 Dose: 25 mg Documented By: HALLEY Atorvastatin Calcium (Atorvastatin Calcium 40 Mg Tablet) 40 mg PO BEDTIME [facility] Last Admin: 12/14/24 19:51 Dose: 40 mg Documented By: SELVIN Benzonatate (Benzonatate 100 Mg Capsule) 100 mg PO TID PRN PRN Reason: Cough Bisacodyl (Bisacodyl 10 Mg Supp.Rect) 10 mg MN DAILY PRN PRN Reason: constipation, no effect from MOM Calcium Carbonate (Calcium Carbonate 750 Mg Tab.Chew) 750 mg PO Q4H PRN PRN Reason: Heartburn Carvedilol (Carvedilol 3.125 Mg Tablet) 3.125 mg PO BID [facility]; Protocol Last Admin: 12/11/24 09:49 Dose: 3.125 mg Documented By: JILLIAN Clopidogrel Bisulfate (Clopidogrel Bisulfate 75 Mg Tablet) 75 mg PO DAILY [facility] Last Admin: 12/15/24 08:41 Dose: 75 mg Documented By: HALLEY Collagenase (Collagenase Clostridium Hist. 30 Gm Tube) 1 appl TOPICAL DAILY PRN; Protocol PRN Reason: alteration in skin integrity Diltiazem HCl (Diltiazem Hcl Cd 120 Mg Cap.Er.Deg) 120 mg PO DAILY [facility]; Protocol Last Admin: 12/15/24 08:42 Dose: 120 mg Documented By: HALLEY Docusate Sodium (Docusate Sodium 100 Mg Capsule) 100 mg PO DAILY [facility] Last Admin: 12/15/24 08:42 Dose: 100 mg Documented By: HALLEY Enoxaparin Sodium (Enoxaparin Sodium 40 Mg/0.4 Ml Syringe) 40 mg SUBCUT Q24H [facility] Last Admin: 12/14/24 16:56 Dose: 40 mg Documented By: NELSON Famotidine (Famotidine 20 Mg Tablet) 40 mg PO BID [facility] Last Admin: 12/15/24 08:43 Dose: 40 mg Documented By: HALLEY Ferrous Sulfate (Ferrous Sulfate 324 Mg Tablet.) 324 mg PO DAILY [facility] Last Admin: 12/15/24 08:42 Dose: 324 mg Documented By: HALLEY Cefepime HCl (Maxipime) 2 gm in 50 mls @ 100 mls/hr IV Q8H [facility] Last Infusion: 12/15/24 12:56 Dose: Infused Documented By: HALLEY Vancomycin HCl 1,000 mg/ (Sodium Chloride) 270 mls @ 270 mls/hr IV Q12H [facility] Last Infusion: 12/15/24 10:22 Dose: Infused Documented By: HALLEY Magnesium Hydroxide (Milk Of Magnesia 30 Ml Oral.Susp) 30 ml PO DAILY PRN PRN Reason: constipation, no BM in 3 days Melatonin (Melatonin 3 Mg Tablet) 6 mg PO BEDTIME PRN PRN Reason: Insomnia Metronidazole (Metronidazole 500 Mg Tablet) 500 mg PO Q8H [facility] Mirabegron (Mirabegron 50 Mg Tab.Er.24h) 50 mg PO BEDTIME [facility] Last Admin: 12/14/24 19:51 Dose: 50 mg Documented By: SELVIN Morphine Sulfate (Morphine Sulfate 4 Mg/Ml Cartridge) 1 mg IVPUSH Q4H PRN; Protocol PRN Reason: Pain, Severe (Pain Scale 7-10) Last Admin: 12/14/24 10:38 Dose: 1 mg Documented By: NELSON Multivitamins/Vitamin C (Multivitamin Tablet) 1 tab PO DAILY [facility] Last Admin: 12/15/24 08:42 Dose: 1 tab Documented By: HALLEY Ondansetron HCl (Ondansetron Hcl 4 Mg/2 Ml Vial) 4 mg IVPUSH Q8H PRN PRN Reason: Nausea and Vomiting Oxybutynin Chloride (Oxybutynin Chloride Er 5 Mg Tab.Er.24) 5 mg PO BEDTIME [facility] Last Admin: 12/12/24 20:10 Dose: 5 mg Documented By: CAROLYN Oxycodone HCl (Oxycodone Hcl Immed Release 5 Mg Tablet) 5 mg PO Q6H PRN PRN Reason: Pain, Moderate(Pain Scale 4-6) Last Admin: 12/14/24 13:48 Dose: 5 mg Documented By: NELSON Pantoprazole Sodium (Pantoprazole Sodium 20 Mg Tablet.Dr) 40 mg PO BID@0630,1630 [facility] Last Admin: 12/15/24 06:07 Dose: 40 mg Documented By: SELVIN Pharmacy Consult (Consult Rx Vancomycin Dosing) 1 each MISCELLANE DAILY PRN PRN Reason: Consult order Prednisone (Prednisone 20 Mg Tablet) 5 mg PO DAILY [facility]; Taper Stop: 12/20/24 07:59 Last Admin: 12/15/24 08:41 Dose: 5 mg Documented By: HALLEY Risperidone (Risperidone 1 Mg Tablet) 1 mg PO DAILY@1800 [facility] Last Admin: 12/14/24 16:57 Dose: 1 mg Documented By: NELSON Salmeterol Xinafoate (Salmeterol Xinafoate 50 Mcg Blst.W.Dev) 1 puff INHALE BID PRN PRN Reason: Wheezing Senna (Sennosides 8.6 Mg Tablet) 8.6 mg PO DAILY [facility] Last Admin: 12/15/24 08:41 Dose: 8.6 mg Documented By: HALLEY Sodium Biphosphate/Sodium Phosphate (Sodium Phosphate,Huerfano-Dibasic 133 Ml Enema) 118 ml MN DAILY PRN PRN Reason: constipation, ducolax not effective Sodium Chloride (0.9 % Sodium Chloride Flush 3 Ml Syringe) 3 ml IVFLUSH QSHIFT [facility] Last Admin: 12/15/24 08:38 Dose: 3 ml Documented By: HALLEY Sodium Hypochlorite (Sodium Hypochlorite 0.125% 473 Ml Solution) 1 appl TOPICAL DAILY PRN PRN Reason: dressing change Last Admin: 12/11/24 12:06 Dose: 1 appl Documented By: JILLIAN Tolterodine Tartrate (Tolterodine Tartrate La 4 Mg Cap.Er.24h) 4 mg PO DAILY [facility] Last Admin: 12/15/24 08:42 Dose: 4 mg Documented By: HALLEY Tramadol HCl (Tramadol Hcl 50 Mg Tablet) 50 mg PO DAILY PRN PRN Reason: prior to dressing change Last Admin: 12/14/24 16:57 Dose: 50 mg Documented By: NELSON Vitamin D (Cholecalciferol (Vitamin D3) 25 Mcg Tablet) 25 mcg PO DAILY [facility] Last Admin: 12/15/24 08:41 Dose: 25 mcg Documented By: HALLEY Labs 12/14/24 05:58 12/15/24 06:14 Labs: Laboratory Results - last 24 hr 12/15/24 06:14 Estim Creat Clear Calc 65.7 Estimated GFR > 60 Random Vancomycin 12.8 L Assessment and Plan (1) Toxic metabolic encephalopathy: Status: Acute (2) Sepsis: Status: Acute (3) Pneumonia: Status: Acute (4) Ulcer of sacral region, unstageable: Status: Acute Plan An 84-year-old female with PMH of dementia, breast cancer s/p surgery and radiation PID s/p L SFA arthrectomy/stent, L common iliac/external iliac stent, HTN, urinary incontinence, HLD, GIB 12/2022, falls, who presented to the ED due to fever and worsening sacral ulcer among other wounds. Toxic metabolic encephalopathy more alert and interactive related to polypharmacy, inpatient delerium , infection Hold sedative medicines; restarted Risperidone with good tolerance recurrent reorientation treat infection Sepsis 2/2 Stage 4 sacral pressure ulcer and bilateral heel wound with infection concern of osteomyelitis from CT scan of sacrum negative blood cultures dc vancomycin, cefepime, Flagyl Switch to Ceftriaxone to finish total of 6 weeks of IV Abx surgery consult, bedside debridement , plan to follow tomorrow *23 for wound change prior to discharge ID eval , consider 6 weeks Ceftriaxone IV on discharge (based on prev urine Cx given her incontinence). to place PICC Pneumonia seen on CXR covered with antibiotics on room air for now progressive weakness evaluated last admission by neuro with rec to DC Statin and trial of prednisone possible NPH but unlikely to benefit from work up/treatment PT eval rec STR History of breast cancer Anastrozole Hypertension Diltiazem held for low bp Peripheral vascular disease Aspirin statin discontinued DVT prophylaxis with Lovenox Full code The patient will need overnight stay for treatment of sepsis from deep wounds infection on IV antibiotics pending final cultures and trousseau consultant evaluation Quality Stroke Does the patient have a stroke diagnosis?: No VTE Prior VTE?: No VTE Risk Level:: Medical - moderate - high VTE Device Contraindication: Treatment Not Indicated VTE Drug Contraindication: N/A - Med Ordered
--- NOTE | 2024-12-15 17:47 | HO.PICC ---
PICC Line Insertion NPICC Diagnosis: Sacral Wound Indication: group home antibiotics needed Pertinent Labs: reviewed Technique: Following informed consent including risks, benefits and alternatives and using sterile technique including cap and mask, sterile gown, glove and drape, the right arm was prepped and draped in the usual sterile fashion of full barrier technique with CHG. Following completion of [place] Protocol the skin and soft tissues were anesthetized with 1% Lidocaine plain. Using ultrasound guidance, right basilic vein access was obtained on first attempt. Over an 0.018 wire through peel-away sheath, a 4FR single lumen PASV PICC line was positioned. Catheter length is 34 CM internal length, 0 CM external length, for a total trimmed length of 34 CM. The procedure was performed in S272. Tip verification was performed by Karma Dotson with Agustina 3CG. Tip located in SVC. Ultrasound was used to document vein patency and for needle entry. A formal ultrasound picture and cardiac rhythm strip was recorded. [employer] has released the line for use and it is currently dressed with a StatLock, Tegaderm, and CHG disc. Verification has been performed for blood return and line patency. Arm Circumference: 26 CM Equipment: [employer] PowerPICC SOLO Catheter Type: 4FR single lumen PASV PICC Lot #: [id number]
[2024-12-15] MEDS: Enoxaparin Sodium 40 MG/0.4 ML SYRINGE SUBCUT (18:12)
[2024-12-15] MEDS: metroNIDAZOLE 500 MG TABLET PO ×2 (18:13→23:32)
[2024-12-15] MEDS: cefTRIAXone sodium 2 GM VIAL IVPUSH (18:13)
[2024-12-15] MEDS: risperiDONE 1 MG TABLET PO (18:13)
[2024-12-15] MEDS: Atorvastatin Calcium 40 MG TABLET PO (21:43)
[2024-12-15] MEDS: Mirabegron 50 MG TAB.ER.24H PO (21:43)
[2024-12-15] MEDS: Anastrozole 1 MG TABLET PO (21:44)
[2024-12-16 04:00] VITALS: BP 106/62; PULSE 82; RESP 16; TEMP 36.6; O2SAT 93
[2024-12-16] MEDS: Pantoprazole Sodium 20 MG TABLET.DR 40 MG PO (05:56)
[2024-12-16 07:02] VITALS: BP 112/58; PULSE 70; RESP 18; TEMP 36.2; O2SAT 94
[2024-12-16] MEDS: Aspirin 81 MG TAB.CHEW PO (09:17)
[2024-12-16] MEDS: Cholecalciferol (Vitamin D3) 25 MCG TABLET PO (09:17)
[2024-12-16] MEDS: Docusate Sodium 100 MG CAPSULE PO (09:18)
[2024-12-16] MEDS: Multivitamin TABLET 1 TAB PO (09:18)
[2024-12-16] MEDS: atenoloL 25 MG TABLET PO (09:18)
[2024-12-16] MEDS: Sennosides 8.6 MG TABLET PO (09:18)
[2024-12-16] MEDS: Tolterodine Tartrate LA 4 MG CAP.ER.24H PO (09:18)
[2024-12-16] MEDS: predniSONE 20 MG TABLET 5 MG PO (09:18)
[2024-12-16] MEDS: Famotidine 20 MG TABLET 40 MG PO (09:18)
[2024-12-16] MEDS: Ferrous Sulfate 324 MG TABLET.DR PO (09:18)
[2024-12-16] MEDS: Clopidogrel Bisulfate 75 MG TABLET PO (09:23)
[2024-12-16] MEDS: metroNIDAZOLE 500 MG TABLET PO (09:23)
[2024-12-16] MEDS: Ascorbic Acid 250 MG TABLET PO (09:23)
[2024-12-16] MEDS: 0.9 % Sodium Chloride Flush 3 ML SYRINGE IVFLUSH (09:23)
[2024-12-16] MEDS: dilTIAZem HCL CD 120 MG CAP.ER.DEG PO (09:36)
--- NOTE | 2024-12-16 10:31 | P.DS_ITS ---
DS: Providers Provider Date of Service: 12/16/24 Date of admission: 12/10/24 17:03 Date of discharge: 12/16/24 Primary care physician: Makenzie Colindres MD Consults: 12/10/24 17:05 Consult to General Surgery Routine Consulting Provider: [facility] Reason for consultation: large sacral decubitus wound with odor 12/10/24 17:34 Consult to Wound Care Routine Reason for consultation: Sacral and heel wounds 12/11/24 13:48 Consult to Infectious Diseases Routine Consulting Provider: [facility] Reason for consultation: Deep sacral ulcer 12/15/24 11:47 Consult to Wound Care Routine Reason for consultation: Sacral and heel wounds Has provider been notified: No DS: Diagnosis Discharge Diagnosis (1) Ulcer of sacral region, unstageable: Status: Acute DS: Summary Hospital Course Hospital Course: from initial hpi: 84-year-old female with PMH of dementia, breast cancer s/p surgery and radiation PID s/p L SFA arthrectomy/stent, L common iliac/external iliac stent, HTN, urinary incontinence, HLD, GIB 12/2022, falls, who presented to the ED due to fever and worsening sacral ulcer among other wounds. She was recently discharged from the hospital after being treated for sacral and bilateral heel decubitus ulcer and discharged on Doxy and Ceftin for 2 weeks with wound care. The patient is demented and altered unable to provide good history. per family her confusion worsened over the last few days. She had debridement of the wound yesterday. In ED found to have worse looking wound . CXR suggestive of pneumonia. met sepsis protocol and started broad spectrum antibiotics. Admitted for further work up and treatment. hospital course: Patient was admitted for acute toxic metabolic encephalopathy related to polypharmacy, delirium, osteomyelitis. Patient was restarted on Risperdal and mental status returned to baseline. For sepsis secondary to stage IV sacral pressure ulcer and bilateral heel wound with sacral osteomyelitis was initially started on vancomycin, cefepime, Flagyl. Was seen by General surgery performed bedside debridement. Was seen by infectious disease who recommended 6 weeks of IV ceftriaxone end date 01/20/2025. PICC line was placed. Noted to have pneumonia on chest x-ray covered with antibiotics. Patient has had progressive weakness over the last several months. Was seen by Neurology on last admission who felt possibly related to NPH but unlikely to benefit from further workup or treatment. 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 Atorvastatin has been discontinued inpatient should not be on any statins as of questionable benefit at this stage. For history of breast cancer was continued on anastrozole. For peripheral vascular disease continued on statin. Patient will be discharged to [facility] facility. Time Attestation Discharge Coordination Time (in mins): 37 Quality: Safe Use of Opioids Does Pt have an Active Cancer Diagnosis on the Problem List?: No Quality: Stroke Does the patient have a stroke diagnosis?: No Physical Exam Vital Signs: Vital Signs: Last Vital Signs Temp 97.2 F 12/16/24 07:02 Pulse 70 12/16/24 07:02 Resp 18 12/16/24 07:02 BP 112/58 L 12/16/24 07:02 Pulse Ox 94 12/16/24 07:02 O2 Del Method Room Air 12/16/24 07:02 O2 Flow Rate 1 12/10/24 20:34 Oxygen Flow Rate 2 12/10/24 14:38 BMI result Body Mass Index 24.8 Const: Other: Constitutional : sleepy, frail looking, not in distress Cardiovascular : irregular irregular, no JVP, no lower extremity edema Respiratory : bilateral chest movement, not in resp distress Gastrointestinal: soft, lax, Non tender Skin : Warm, Dry, large sacral decubitus wound with odor,pressure ulcer on R heel with ischemia, stage 3 pressure ulcer on L heel Neurological : Alert with stimulation & confused to time and place, No focal deficit DS: Data Data Completed and Pending Completed studies during hospitalization [Text1]: Procedures Control Bleeding in Gastrointestinal Tract, Via Natural or Artificial Opening Endoscopic (01/22/23) Excision of Ascending Colon, Via Natural or Artificial Opening Endoscopic, Diagnostic (01/22/23) Inspection of Upper Intestinal Tract, Via Natural or Artificial Opening Endoscopic (01/22/23) Transfusion of Nonautologous Red Blood Cells into Peripheral Vein, Percutaneous Approach (01/22/23) Discharge Plan Discharge Anticipated Discharge Date/Time: 12/15/24 14:26 Patient Disposition: Xfer SNF Discharge Diagnosis: Osteomyelitis Referrals: Day [facility] [Outside] - 1 Day (SHORT TERM REHAB) Makenzie Colindres MD [Primary Care Provider] - 1 Week Discharge Medications: New ceftriaxone 2 gram recon soln 2 g IM DAILY Qty: 41 0RF Continued famotidine 40 mg tablet 40 mg PO BID Serevent Diskus 50 mcg/dose blister with device 1 inh inhalation BID PRN (Reason: Wheezing) diltiazem HCl 120 mg capsule,extended release 24hr 120 mg PO DAILY ferrous sulfate 324 mg (65 mg iron) tablet,delayed release (DR/EC) 324 mg PO DAILY acetaminophen 325 mg Tablet 650 mg PO Q6H PRN (Reason: pain or fever) tolterodine 4 mg capsule,extended release 24hr 4 mg PO DAILY atenolol 25 mg Tablet 25 mg PO DAILY clopidogrel 75 mg Tablet 75 mg PO DAILY magnesium hydroxide [Milk of Magnesia] 400 mg/5 mL Suspension 30 ml PO DAILY PRN (Reason: constipation, no BM in 3 days) bisacodyl 10 mg Suppository 10 mg DE DAILY PRN (Reason: constipation, no effect from MOM) Fleet Enema 19-7 gram/118 mL Enema 118 ml DE DAILY PRN (Reason: constipation, ducolax not effective) omeprazole 20 mg Capsule,Delayed Release(Dr/Ec) 20 mg PO BID@0630,1630 multivitamin Tablet 1 tab PO DAILY sennosides [senna] 8.6 mg Tablet 8.6 mg PO DAILY tramadol 50 mg Tablet 50 mg PO DAILY PRN (Reason: prior to dressing change) tramadol 50 mg Tablet 25 mg PO Q6H PRN (Reason: Pain) nutritional supplements Powder 1 ea PO BEDTIME ascorbic acid (vitamin C) [Vitamin C] 250 mg Tablet 250 mg PO DAILY Santyl 250 unit/gram Ointment 1 appl TOPICAL DAILY PRN (Reason: alteration in skin integrity) oxycodone 5 mg Tablet 5 mg PO Q6H PRN (Reason: Pain) Dakin's Solution 0.125 % Solution 1 appl TOPICAL DAILY PRN (Reason: dressing change) prednisone 20 mg tablet See Rx Instructions .ROUTE .COMPLEX Taper: Prednisone 10 daily for 2 Days and 0 Hour 5 daily for 7 Days and 0 Hour Rx Instructions: 40 mg daily for 5 more days, then decrease to 20 mg daily for 7 days then decrease to 10 mg daily for 7 days then decrease to 5 mg daily for 7 days then discontinue carvedilol 3.125 mg tablet 3.125 mg PO BID docusate sodium [Colace] 100 mg Capsule 100 mg PO DAILY oxybutynin chloride 5 mg tablet extended release 24hr 5 mg PO BEDTIME risperidone 1 mg tablet 1 mg PO DAILY@1800 mirabegron [Myrbetriq] 50 mg tablet extended release 24 hr 50 mg PO BEDTIME anastrozole 1 mg tablet 1 mg PO BEDTIME Proair Digihaler 90 mcg/actuation aero powdr breath act w/sensor 2 inh inhalation Q6H PRN (Reason: Wheezing) cholecalciferol (vitamin D3) 25 mcg (1,000 unit) capsule 25 mcg PO DAILY aspirin 81 mg tablet,chewable 81 mg PO DAILY Discontinued atorvastatin 40 mg tablet 40 mg PO BEDTIME Discharge Orders: Discharge Order (Routine); Ordered 12/16/24 Ordered By: Edilberto Holley Diet: Advance to usual diet Activity on Discharge: As tolerated Stand Alone Forms: Patient Portal Discharge page Print Language: Kiswahili Activity Restrictions/Additional Instructions: Daily dressing changes and PRN with dakins soaked fluffs to superior aspect, wet to dry saline soaked fluffs of inferior granulating aspect covered by dry fluffs, abd dressing and tape. Care Plan Goals: recovery Health Concerns: om Plan of Treatment: 6 weeks rocephin Assessment: see above
[2024-12-16 11:11] VITALS: BP 97/53; PULSE 76; RESP 18; TEMP 36.7; O2SAT 94
--- NOTE | 2024-12-16 11:14 | MHC.CLN ---
F/U AND CONSULT PO INTAKE 25-50% DIET RX: REGULAR PT RECEIVING ENSURE MAX BID TO PROMOTE WOUND HEALING SUPPLEMENT PROVIDES 300 KCALS, 60 G PROTEIN CONTINUE TO MONITOR PO INTAKE AND ENCOURAGE SUPPLEMENTS
--- NOTE | 2024-12-16 11:36 | P.PNGS_ITS ---
Subjective Subjective Date of Service: 12/16/24 Interval history: Resting in bed. Being transferred back to [facility] per sister. Physical Exam 2 Vital Signs: Vital Signs: Last Vital Signs Temp 98.0 F 12/16/24 11:11 Pulse 76 12/16/24 11:11 Resp 18 12/16/24 11:11 BP 97/53 L 12/16/24 11:11 Pulse Ox 94 12/16/24 11:11 O2 Del Method Room Air 12/16/24 11:11 O2 Flow Rate 1 12/10/24 20:34 Oxygen Flow Rate 2 12/10/24 14:38 BMI result Body Mass Index 24.8 Const: General: comfortable and no acute distress Skin: Other: inferior aspect improved with even granulation tissue appearing more healthy and beefy red, some increased slough and necrotic tissue mani overlying skin of superior aspect sharp excisional debridement of full thickness skin about 5 cm of superior skin margin with scalpel, sharp excisional debridement of subq tissue of wound base at superior aspect performed with scissors measuring about 6-7cm Objective Data Active Medications Acetaminophen (Acetaminophen 325 Mg Tablet) 650 mg PO Q6H PRN PRN Reason: Pain, Mild 1-3,fever,headache Last Admin: 12/14/24 09:19 Dose: 650 mg Documented By: NELSON Albuterol Sulfate (Albuterol Sulfate 90 Mcg 8 Gm Inhaler) 2 puff INHALE Q6H PRN PRN Reason: Wheezing Albuterol/Ipratropium (Albuterol/Iprat 2.5/0.5mg 3 Ml Ampul.Neb) 3 ml INHALE Q4H PRN PRN Reason: Shortness of Breath/Wheezing Last Admin: 12/15/24 09:31 Dose: 3 ml Documented By: BIRD Anastrozole (Anastrozole 1 Mg Tablet) 1 mg PO BEDTIME [facility] Last Admin: 12/15/24 21:44 Dose: 1 mg Documented By: SELVIN Ascorbic Acid (Ascorbic Acid 250 Mg Tablet) 250 mg PO DAILY [facility] Last Admin: 12/16/24 09:23 Dose: 250 mg Documented By: HALLEY Aspirin (Aspirin 81 Mg Tab.Chew) 81 mg PO DAILY [facility] Last Admin: 12/16/24 09:17 Dose: 81 mg Documented By: HALLEY Atenolol (Atenolol 25 Mg Tablet) 25 mg PO DAILY [facility]; Protocol Last Admin: 12/16/24 09:18 Dose: 25 mg Documented By: HALLEY Benzonatate (Benzonatate 100 Mg Capsule) 100 mg PO TID PRN PRN Reason: Cough Bisacodyl (Bisacodyl 10 Mg Supp.Rect) 10 mg MT DAILY PRN PRN Reason: constipation, no effect from MOM Calcium Carbonate (Calcium Carbonate 750 Mg Tab.Chew) 750 mg PO Q4H PRN PRN Reason: Heartburn Carvedilol (Carvedilol 3.125 Mg Tablet) 3.125 mg PO BID [facility]; Protocol Last Admin: 12/11/24 09:49 Dose: 3.125 mg Documented By: RIOSCEZE Ceftriaxone Sodium (Ceftriaxone Sodium 2 Gm Vial) 2 gm IVPUSH Q24H [facility] Last Admin: 12/15/24 18:13 Dose: 2 gm Documented By: HALLEY Clopidogrel Bisulfate (Clopidogrel Bisulfate 75 Mg Tablet) 75 mg PO DAILY [facility] Last Admin: 12/16/24 09:23 Dose: 75 mg Documented By: HALLEY Collagenase (Collagenase Clostridium Hist. 30 Gm Tube) 1 appl TOPICAL DAILY PRN; Protocol PRN Reason: alteration in skin integrity Diltiazem HCl (Diltiazem Hcl Cd 120 Mg Cap.Er.Deg) 120 mg PO DAILY [facility]; Protocol Last Admin: 12/16/24 09:36 Dose: 120 mg Documented By: HALLEY Docusate Sodium (Docusate Sodium 100 Mg Capsule) 100 mg PO DAILY [facility] Last Admin: 12/16/24 09:18 Dose: 100 mg Documented By: HALLEY Enoxaparin Sodium (Enoxaparin Sodium 40 Mg/0.4 Ml Syringe) 40 mg SUBCUT Q24H [facility] Last Admin: 12/15/24 18:12 Dose: 40 mg Documented By: HALLEY Famotidine (Famotidine 20 Mg Tablet) 40 mg PO BID [facility] Last Admin: 12/16/24 09:18 Dose: 40 mg Documented By: HALLEY Ferrous Sulfate (Ferrous Sulfate 324 Mg Tablet.Dr) 324 mg PO DAILY [facility] Last Admin: 12/16/24 09:18 Dose: 324 mg Documented By: HALLEY Magnesium Hydroxide (Milk Of Magnesia 30 Ml Oral.Susp) 30 ml PO DAILY PRN PRN Reason: constipation, no BM in 3 days Melatonin (Melatonin 3 Mg Tablet) 6 mg PO BEDTIME PRN PRN Reason: Insomnia Metronidazole (Metronidazole 500 Mg Tablet) 500 mg PO Q8H [facility] Last Admin: 12/16/24 09:23 Dose: 500 mg Documented By: HALLEY Mirabegron (Mirabegron 50 Mg Tab.Er.24h) 50 mg PO BEDTIME [facility] Last Admin: 12/15/24 21:43 Dose: 50 mg Documented By: SELVIN Morphine Sulfate (Morphine Sulfate 4 Mg/Ml Cartridge) 1 mg IVPUSH Q4H PRN; Protocol PRN Reason: Pain, Severe (Pain Scale 7-10) Last Admin: 12/14/24 10:38 Dose: 1 mg Documented By: NELSON Multivitamins/Vitamin C (Multivitamin Tablet) 1 tab PO DAILY [facility] Last Admin: 12/16/24 09:18 Dose: 1 tab Documented By: HALLEY Ondansetron HCl (Ondansetron Hcl 4 Mg/2 Ml Vial) 4 mg IVPUSH Q8H PRN PRN Reason: Nausea and Vomiting Oxybutynin Chloride (Oxybutynin Chloride Er 5 Mg Tab.Er.24) 5 mg PO BEDTIME [facility] Last Admin: 12/12/24 20:10 Dose: 5 mg Documented By: CAROLYN Oxycodone HCl (Oxycodone Hcl Immed Release 5 Mg Tablet) 5 mg PO Q6H PRN PRN Reason: Pain, Moderate(Pain Scale 4-6) Last Admin: 12/14/24 13:48 Dose: 5 mg Documented By: NELSON Pantoprazole Sodium (Pantoprazole Sodium 20 Mg Tablet.) 40 mg PO BID@0630,1630 [facility] Last Admin: 12/16/24 05:56 Dose: 40 mg Documented By: JF Prednisone (Prednisone 20 Mg Tablet) 5 mg PO DAILY [facility]; Taper Stop: 12/20/24 07:59 Last Admin: 12/16/24 09:18 Dose: 5 mg Documented By: HALELY Risperidone (Risperidone 1 Mg Tablet) 1 mg PO DAILY@1800 [facility] Last Admin: 12/15/24 18:13 Dose: 1 mg Documented By: HALLEY Salmeterol Xinafoate (Salmeterol Xinafoate 50 Mcg Blst.W.Dev) 1 puff INHALE BID PRN PRN Reason: Wheezing Senna (Sennosides 8.6 Mg Tablet) 8.6 mg PO DAILY [facility] Last Admin: 12/16/24 09:18 Dose: 8.6 mg Documented By: HALLEY Sodium Biphosphate/Sodium Phosphate (Sodium Phosphate,[place]als[place]-Dibasic 133 Ml Enema) 118 ml MT DAILY PRN PRN Reason: constipation, ducolax not effective Sodium Chloride (0.9 % Sodium Chloride Flush 3 Ml Syringe) 3 ml IVFLUSH QSHIFT [facility] Last Admin: 12/16/24 09:23 Dose: 3 ml Documented By: HALLEY Sodium Hypochlorite (Sodium Hypochlorite 0.125% 473 Ml Solution) 1 appl TOPICAL DAILY PRN PRN Reason: dressing change Last Admin: 12/11/24 12:06 Dose: 1 appl Documented By: JILLIAN Tolterodine Tartrate (Tolterodine Tartrate La 4 Mg Cap.Er.24h) 4 mg PO DAILY [facility] Last Admin: 12/16/24 09:18 Dose: 4 mg Documented By: HALLEY Tramadol HCl (Tramadol Hcl 50 Mg Tablet) 50 mg PO DAILY PRN PRN Reason: prior to dressing change Last Admin: 12/14/24 16:57 Dose: 50 mg Documented By: NELSON Vitamin D (Cholecalciferol (Vitamin D3) 25 Mcg Tablet) 25 mcg PO DAILY [facility] Last Admin: 12/16/24 09:17 Dose: 25 mcg Documented By: HALLEY Labs 12/14/24 05:58 12/15/24 06:14 Microbiology Microbiology Results: Microbiology 12/10/24 15:19 Blood Culture - Final Blood - Venous No growth after 5 days. 12/10/24 15:05 Blood Culture - Final Blood - Venous No growth after 5 days. Procedures Date of Service Date of Service: 12/16/24 Progress Note: A&P Assessment and plan (1) Ulcer of sacral region, unstageable: Status: Acute Plan Wound debrided at bedside uneventfully as noted above. Can continue daily dressing change and PRN with dakins soaked fluffs to superior aspect, wet to dry saline soaked fluffs of inferior granulating aspect covered by dry fluffs, abd dressing and tape. Cont supportive measures with frequent repositioning, nutritional support, air loss bed. Time Spent With Patient Time: Total time managing care of this patient today ____ minutes. Quality Stroke Does the patient have a stroke diagnosis?: No VTE Prior VTE?: No VTE Risk Level:: Medical - moderate - high VTE Device Contraindication: Treatment Not Indicated VTE Drug Contraindication: N/A - Med Ordered
--- NOTE | 2024-12-16 11:40 | MHC.CM.PN ---
PT MEDICALLY CLEARED FOR DC BACK TO [facility] AT [facility] W/ENERGY RISK MANAGEMENT ANALYST IV ABX, CM SPOKE W/PT'S SISTER AND PT'S OUTSIDE PT ROOM AND THEY ARE AGREEABLE TO [facility] FOR TRANSPORT AT 1:30PM
[2024-12-16] MEDS: Acetaminophen 325 MG TABLET 650 MG PO (13:28)
--- NOTE | 2024-12-16 13:54 | PC.NURSE ---
RN to RN report given at 1355 to [facility]
== END 2024-12-16 14:00 | disposition skilled nursing facility (03) | DRG 853 ==
LOC: HO.ED 18:07 → HO.EDOVER 18:20 → HO.IMC 20:02
PROVIDERS: Admitting Provider Student in an Organized Health Care Education/Training Program; Emergency Provider Emergency Medicine; PCP Internal Medicine; Visit Provider Internal Medicine
DX: A41.9 Sepsis, unspecified organism (principal); G92.8 Other toxic encephalopathy; J18.9 Pneumonia, unspecified organism; L89.154 Pressure ulcer of sacral region, stage 4; L89.623 Pressure ulcer of left heel, stage 3; M46.28 Osteomyelitis of vertebra, sacral and sacrococcygeal region; I96 Gangrene, not elsewhere classified; F05 Delirium due to known physiological condition; G91.2 (Idiopathic) normal pressure hydrocephalus; I10 Essential (primary) hypertension; C50.911 Malignant neoplasm of unspecified site of right female breast; Z79.811 Long term (current) use of aromatase inhibitors; F03.90 Unspecified dementia, unspecified severity, without behavioral disturbance, psychotic disturbance, mood disturbance, and anxiety; Z20.822 Contact with and (suspected) exposure to COVID-19; Z87.891 Personal history of nicotine dependence; Z79.82 Long term (current) use of aspirin; Z79.02 Long term (current) use of antithrombotics/antiplatelets; Z79.899 Other long term (current) drug therapy
CPT/HCPCS: 0241U; 36415; 36573; 71045; 72193; 80048; 80076; 80202; 82565; 82803; 83605; 83735; 84145; 84484; 85025; 86140; 87040; 93005; 94640; 97110; 97162; 97530; 99285; C1751; J0131; J0692; J0696; J1650; J1836; J2270; J3370; J3371; J7120

== ENCOUNTER → 2024-12-10 15:05 | Outpatient (BNV) | payer MEDICARE, SELFPAY | PROVIDERS: Admitting Provider Student in an Organized Health Care Education/Training Program; Emergency Provider Emergency Medicine; Visit Provider Internal Medicine Cardiovascular Disease | DX: I44.4 Left anterior fascicular block (principal) | CPT/HCPCS: 93010 ==

== ENCOUNTER → 2024-12-10 15:05 | Outpatient (BNV) | payer MEDICARE, SELFPAY | PROVIDERS: Emergency Provider Emergency Medicine; Visit Provider Radiology Diagnostic Radiology | DX: L89.159 Pressure ulcer of sacral region, unspecified stage (principal); K56.41 Fecal impaction; S32.050A Wedge compression fracture of fifth lumbar vertebra, initial encounter for closed fracture; R09.02 Hypoxemia | CPT/HCPCS: 71045 ==

== ENCOUNTER 2024-12-10 17:03 | Outpatient (BNV) | payer MEDICARE, SELFPAY | END 2024-12-11 10:50 | PROVIDERS: Admitting Provider Student in an Organized Health Care Education/Training Program; Emergency Provider Emergency Medicine; Visit Provider Internal Medicine Cardiovascular Disease | DX: I48.91 Unspecified atrial fibrillation (principal); I25.2 Old myocardial infarction | CPT/HCPCS: 93010 ==

== ENCOUNTER 2024-12-10 17:03 | Outpatient (BNV) | payer MEDICARE, SELFPAY | END 2024-12-12 10:57 | PROVIDERS: Admitting Provider Student in an Organized Health Care Education/Training Program; Emergency Provider Emergency Medicine; Visit Provider Internal Medicine Cardiovascular Disease | DX: I49.1 Atrial premature depolarization (principal); I45.10 Unspecified right bundle-branch block; I51.7 Cardiomegaly; R00.0 Tachycardia, unspecified | CPT/HCPCS: 93010 ==

== ENCOUNTER → 2024-12-10 17:03 | Outpatient (BNV) | payer MEDICARE, SELFPAY | PROVIDERS: Admitting Provider Student in an Organized Health Care Education/Training Program; Emergency Provider Emergency Medicine; Visit Provider Surgery | DX: L89.623 Pressure ulcer of left heel, stage 3 (principal); S90.821A Blister (nonthermal), right foot, initial encounter; L89.159 Pressure ulcer of sacral region, unspecified stage | CPT/HCPCS: 97597; 99222 ==

== ENCOUNTER → 2024-12-10 17:03 | Outpatient (BNV) | payer MEDICARE, SELFPAY | PROVIDERS: Admitting Provider Student in an Organized Health Care Education/Training Program; Emergency Provider Emergency Medicine; Visit Provider Internal Medicine | DX: A41.9 Sepsis, unspecified organism (principal); L98.429 Non-pressure chronic ulcer of back with unspecified severity | CPT/HCPCS: 99222 ==

== ENCOUNTER → 2024-12-10 17:03 | Outpatient (BNV) | payer MEDICARE, SELFPAY | PROVIDERS: Admitting Provider Student in an Organized Health Care Education/Training Program; Emergency Provider Emergency Medicine; Visit Provider Student in an Organized Health Care Education/Training Program | DX: A41.9 Sepsis, unspecified organism (principal); J18.9 Pneumonia, unspecified organism; L89.154 Pressure ulcer of sacral region, stage 4; S90.821A Blister (nonthermal), right foot, initial encounter; L89.623 Pressure ulcer of left heel, stage 3; R50.9 Fever, unspecified | CPT/HCPCS: 99223; 99232; 99233; 99239 ==